=== PATIENT | male | born 1950 | race Caucasian/White ===

== ENCOUNTER 2023-08-09 14:04 | Outpatient (OUT) | payer MEDICARE, OTHER, SELFPAY ==
[2023-08-09 14:53] LABS: Basophils Absolute Auto 0.1 10^3/uL (0.0-0.1); Eosinophils Absolute Auto 0.3 10^3/uL (0.0-0.7); Eosinophils Percent Auto 5.6 % (0.9-7.0); Hematocrit 41.6 % (42.0-54.0); Hemoglobin 13.2 g/dL (14.0-18.0); Immature Granulocytes Abs Auto 0.02 10^3/uL (0.00-0.03); Immature Granulocytes Pct Auto 0.4 % (0.0-0.5); Lymphocytes Absolute Auto 1.2 10^3/uL (1.2-3.8); Lymphocytes Percent Auto 23.9 % (20.5-60.0); Mean Corpuscular HGB Conc 31.7 g/dL (29.9-35.2); Mean Corpuscular Hemoglobin 26.5 pg (25.9-34.0); Mean Corpuscular Volume 83.4 fL (80.0-94.0); Mean Platelet Volume 11.2 fL (9.5-13.5); Monocytes Absolute Auto 0.4 10^3/uL (0.3-0.8); Monocytes Percent Auto 8.7 % (1.7-12.0); Neutrophils Percent Auto 60.4 % (43.0-75.0); Platelet Count 194 10^3/uL (150-450); Red Blood Count 4.99 10^6/uL (4.70-6.10)
[2023-08-09 15:01] LABS: Erythrocyte Sedimentation Rate 30 mm/hr (<=20)
[2023-08-09 15:26] LABS: Alanine Aminotransferase 19 U/L (16-63); Albumin Globulin Ratio 0.9; Albumin Level 3.6 g/dL (3.4-5.0); Alkaline Phosphatase 83 U/L (46-116); Anion Gap 9.7; Aspartate Amino Transferase 15 U/L (15-37); BUN Creatinine Ratio 18.2; Bilirubin Total 0.6 mg/dL (0.2-1.0); Carbon Dioxide 28.5 mmol/L (21.0-32.0); Chloride 102 mmol/L (98-107); Estimated GFR (African America >60 (>=60); Estimated GFR (Non-African Ame >60 (>=60); Globulin 3.8 g/dL; Glucose 119 mg/dL (74-106); Potassium 4.2 mmol/L (3.5-5.1); Sodium 136 mmol/L (136-145); Total Protein 7.4 g/dL (6.4-8.2)
== END 2023-08-09 14:05 | disposition home or self-care (01) ==
LOC: LAB 14:13
PROVIDERS: Internal Medicine Rheumatology; PCP Nurse Practitioner; Visit Provider Registered Nurse
DX: M13.0 Polyarthritis, unspecified (principal); Z79.899 Other long term (current) drug therapy
CPT/HCPCS: 36415; 80053; 85025; 85652

== ENCOUNTER 2024-01-10 12:34 | Outpatient (OUT) | payer MEDICARE, OTHER, SELFPAY ==
[2024-01-10 13:26] LABS: Basophils Absolute Auto 0.1 10^3/uL (0.0-0.1); Basophils Percent Auto 1.4 % (0.2-2.0); Eosinophils Absolute Auto 0.4 10^3/uL (0.0-0.7); Eosinophils Percent Auto 7.8 % (0.9-7.0); Hematocrit 44.3 % (42.0-54.0); Hemoglobin 14.1 g/dL (14.0-18.0); Immature Granulocytes Abs Auto 0.03 10^3/uL (0.00-0.03); Immature Granulocytes Pct Auto 0.6 % (0.0-0.5); Lymphocytes Absolute Auto 1.4 10^3/uL (1.2-3.8); Lymphocytes Percent Auto 26.9 % (20.5-60.0); Mean Corpuscular HGB Conc 31.8 g/dL (29.9-35.2); Mean Corpuscular Hemoglobin 26.5 pg (25.9-34.0); Mean Corpuscular Volume 83.3 fL (80.0-94.0); Mean Platelet Volume 11.6 fL (9.5-13.5); Monocytes Absolute Auto 0.5 10^3/uL (0.3-0.8); Neutrophils Absolute Auto 2.7 10^3/uL (1.4-6.5); Neutrophils Percent Auto 53.3 % (43.0-75.0); Platelet Count 179 10^3/uL (150-450); Red Blood Count 5.32 10^6/uL (4.70-6.10); Red Cell Distribution Width 15.5 % (11.0-15.0); White Blood Count 5.1 10^3/uL (4.0-11.0)
[2024-01-10 13:30] LABS: Erythrocyte Sedimentation Rate 15 mm/hr (<=20)
[2024-01-10 13:46] LABS: Alanine Aminotransferase 22 U/L (16-63); Albumin Level 3.7 g/dL (3.4-5.0); Alkaline Phosphatase 80 U/L (46-116); Anion Gap 14.5; Aspartate Amino Transferase 18 U/L (15-37); BUN Creatinine Ratio 15.9; Bilirubin Total 0.6 mg/dL (0.2-1.0); Carbon Dioxide 26.7 mmol/L (21.0-32.0); Chloride 101 mmol/L (98-107); Estimated GFR (African America >60 (>=60); Estimated GFR (Non-African Ame >60 (>=60); Globulin 3.6 g/dL; Glucose 128 mg/dL (74-106); Potassium 4.2 mmol/L (3.5-5.1); Sodium 138 mmol/L (136-145); Total Protein 7.3 g/dL (6.4-8.2)
== END 2024-01-10 12:35 | disposition home or self-care (01) ==
LOC: LAB 12:37
PROVIDERS: PCP Nurse Practitioner; Visit Provider Registered Nurse
DX: M06.4 Inflammatory polyarthropathy (principal); M15.0 Primary generalized (osteo)arthritis; Z79.899 Other long term (current) drug therapy
CPT/HCPCS: 36415; 80053; 85025; 85652

== ENCOUNTER 2024-01-10 12:40 | Outpatient (OUT) | payer MEDICARE, OTHER, SELFPAY ==
[2024-01-10 13:37] LABS: Creatinine Urine Random 81.88 mg/dL (20.00-300.00); Microalbum Creatinine Ratio Ur 62.2 mg/g (0.0-29.9); Microalbumin Urine Random 5.1 mg/dL (<=30.0)
[2024-01-10 13:48] LABS: Cholesterol 125 mg/dL (<=200); HDL Cholesterol 62 mg/dL (40-60); Phosphorus 3.4 mg/dL (2.6-4.7); Triglycerides 91 mg/dL (<=150); VLDL CHOLESTEROL 18.2 mg/dL
== END 2024-01-10 12:41 | disposition home or self-care (01) ==
LOC: LAB 12:42
PROVIDERS: PCP Nurse Practitioner; Visit Provider Internal Medicine
DX: E11.59 Type 2 diabetes mellitus with other circulatory complications (principal); Z79.4 Long term (current) use of insulin; E55.9 Vitamin D deficiency, unspecified
CPT/HCPCS: 36415; 80061; 82043; 82306; 82570; 84100

== ENCOUNTER 2024-01-10 12:43 | Outpatient (OUT) | payer MEDICARE, OTHER, SELFPAY ==
[2024-01-10 13:51] LABS: Thyroid Stimulating Hormone 2.478 uIU/mL (0.358-3.740)
[2024-01-10 14:28] LABS: Prostate Specific Antigen Scrn 0.97 ng/mL (<=4.00)
== END 2024-01-10 12:44 | disposition home or self-care (01) ==
LOC: LAB 12:44
PROVIDERS: PCP Nurse Practitioner; Visit Provider Nurse Practitioner
DX: M06.4 Inflammatory polyarthropathy (principal); M15.0 Primary generalized (osteo)arthritis; Z79.899 Other long term (current) drug therapy; E11.59 Type 2 diabetes mellitus with other circulatory complications; Z79.4 Long term (current) use of insulin; E55.9 Vitamin D deficiency, unspecified; Z12.5 Encounter for screening for malignant neoplasm of prostate; E11.69 Type 2 diabetes mellitus with other specified complication; E78.2 Mixed hyperlipidemia
CPT/HCPCS: 36415; 80053; 80061; 82043; 82306; 82570; 84100; 84443; 85025; 85652; G0103

== ENCOUNTER 2024-06-15 14:25 | Outpatient (OUT) | payer MEDICARE, OTHER, SELFPAY ==
--- OUTSIDE RECORDS SUMMARY | 2024-06-15 14:37 | XMS_ITS | CCD ---
Author Organization [facility] Care Team Providers Care Athletic Coordinator Name Role Phone ESCOBAR GARCIA Consulting Unavailable GARCIA, ESCOBAR Attending Unavailable GARCIA, ESCOBAR Admitting Unavailable GARCIA, ESCOBAR Primary Care Unavailable HO, DR WALKER Admitting Unavailable HO, DR WALKER Consulting Unavailable HO, DR WALKER Attending Unavailable GARCIA, ESCOBAR Primary Care Unavailable HO, DR WALKER Admitting Unavailable HO, DR WALKER Consulting Unavailable GARCIA, ESCOBAR Primary Care Unavailable HO, DR WALKER Attending Unavailable MARIAM, BOSTON Consulting Unavailable GARCIA, ESCOBAR Primary Care Unavailable MARIAM, BOSTON Attending Unavailable MARIAM, AHMAWaqas Admitting Unavailable GARCIA, ESCOBAR Primary Care Unavailable MISC, DR ESPINO Consulting Unavailable MISC, DR ESPINO Attending Unavailable MISC, DR ESPINO Admitting Unavailable GARCIA, ESCOBAR Primary Care Unavailable GARCIA, ESCOBAR Consulting Unavailable GARCIA, ESCOBAR Attending Unavailable GARCIA, ESCOBAR Admitting Unavailable Garcia, MALTHOUSE LABORER-C Escobar Smith Primary Care Provider MD Tirso Ho Attending Provider [phone] Jose PHARMACY TECHNICIAN TRAINEE-Escobar TOVAR Primary Care Provid er ESCOBAR GARCIA Attending Unavailable ESCOBAR GARCIA Referring Unavailable ESCOBAR GARCIA Primary Care Unavailable ESCOBAR GARCIA Attending Unavailable ESCOBAR GARCIA Referring Unavailable ESCOBAR GARCIA Primary Care Unavailable ESCOBAR GARCIA Attending Unavailable ESCOBAR GARCIA Referring Unavailable ESCOBAR GARCIA Primary Care Unavailable ESCOBAR GARCIA Referring Unavailable ESCOBAR GARCIA Primary Care Unavailable Garcia, MALTHOUSE LABORER-C Escobar J Primary Care Provider Chad [employer]ATION-BC Latricia Anderson Emergency Provider [phone] Latricia Bonilla Attending Unavailable Latricia Bonilla Admitting Unavailable Escobar Garcia Primary Care Unavailable Escobar Garcia Primary Care Unavailable Aaron Ho Attending Unavailable Aaron Ho Admitting Unavailable Medications Current Medications Medication Drug Class(es) Dates Sig (Normalized) Sig (Original) allopurinol 100 mg oral tablet (2 sources) Xanthine Oxidase Inhibitor Start: 01-21-2022 take 100 mg by mouth once daily Allopurinol Active 100 MG PO Daily January 21, 2022 12:00am amLODIPine 10 mg oral tablet (9 sources) Dihydropyridine Calcium Channel Jenn Start: 01-02-2024 take 1 tablet by mouth in the morning amLODIPine (NORVASC) 10 mg tablet Indications: Essential hypertension Take 1 tablet (10 mg total) by mouth in the morning. 90 tablet 1 01/02/2024 Active Start: 07-23-2020 End: 01-02-2024 take 1 tablet by mouth in the morning amLODIPine (NORVASC) 10 mg tablet Indications: Essential hypertension Take 1 tablet (10 mg total) by mouth in the morning. 90 tablet 1 09/15/2023 01/02/2024 Discontinued (Reorder) apixaban 5 mg oral tablet (11 sources) Factor Xa Inhibitor Start: 01-02-2024 take 1 tablet by mouth in the morning, then take 1 tablet by mouth at bedtime apixaban (ELIQUIS) 5 mg tablet Indications: Chronic atrial fibrillation (CMS-HCC) Take 1 tablet (5 mg total) by mouth in the morning and 1 tablet (5 mg total) before bedtime. 0 01/02/2024 Active Start: 01-21-2022 End: 01-02-2024 take 1 tablet by mouth in the morning, then take 1 tablet by mouth at bedtime apixaban (ELIQUIS) 5 mg tablet Indications: Chronic atrial fibrillation (CMS-HCC) Take 1 tablet (5 mg total) by mouth in the morning and 1 tablet (5 mg total) before bedtime. Do all this for 21 days. 42 tablet 0 01/02/2024 01/02/2024 Discontinued (Reorder) aspirin 81 mg delayed release oral tablet (7 sources) Platelet Aggregation Inhibitor, Nonsteroidal Anti-inflammatory Drug Start: 02-20-2024 take 1 tablet by mouth once daily Aspirin (Adult Aspirin Regimen) 81 mg tablet,delayed release (DR/EC) Active 81 MG PO Daily February 20, 2024 12:00am Start: 10-12-2022 take 1 tablet by hoa th in the morning aspirin 81 mg Take 1 tablet (81 mg total) by mouth in the morning. 90 tablet 3 10/12/2022 Active clindamycin 300 mg oral capsule (1 source) Lincosamide Antibacterial Start: 12-29-2023 take 1 capsule by mouth every eight hours clindamycin (CLEOCIN) 300 mg capsule TAKE 1 CAPSULE BY MOUTH EVERY 8 HOURS FOR 10 DAYS 0 12/29/2023 Active clopidogrel 75 mg oral tablet (2 sources) P2Y12 Platelet Inhibitor Start: 01-21-2022 take 75 mg by mouth once daily Clopidogrel Active 75 MG PO Daily January 21, 2022 12:00am colchicine 0.6 mg oral tablet (2 sources) Start: 01-21-2022 take 0.6 mg by mouth once daily Colchicine Active 0.6 MG PO Daily January 21, 2022 12:00am Take for 14 days, started January 20 2022 doxycycline hyclate 100 mg oral tablet (3 sources) Tetracycline-class Drug Start: 12-26-2023 take 1 tablet by mouth twice daily doxycycline (VIBRA-TABS) 100 mg tablet TAKE 1 TABLET BY MOUTH TWICE DAILY 0 12/26/2023 Active Start: 01-21-2022 take 100 mg by mouth twice daily Doxycycline Hyclate Active 100 MG PO Twice daily January 21, 2022 12:00am For 10 days famotidine 40 mg oral tablet (9 sources) Histamine-2 Receptor Antagonist Start: 01-21-2022 End: 10-24-2023 famotidine (PEPCID) 40 mg tablet Indications: Gastroesophageal reflux disease without esophagitis TAKE 1 TABLET IN THE MORNING 90 tablet 1 10/24/2023 Active gentamicin 0.001 mg/mg topical ointment (2 sources) Start: 01-21-2022 Gentamicin Active 1 APPLIC TOPICAL Daily January 21, 2022 12:00am hydroxychloroquine sulfate 200 mg oral tablet (7 sources) Antimalarial, Antirheumatic Agent Start: 02-20-2024 take 1 tablet by mouth twice daily Hydroxychloroquine (Plaquenil) 200 mg tablet Active 200 MG PO Twice daily February 20, 2024 12:00am Start: 04-25-2023 take 1 tablet by hoa th in the morning, then take 1 tablet by mouth at bedtime hydrOXYchloroQUINE (PLAQUENIL) 200 mg tablet Take 1 tablet (200 mg total) by mouth in the morning and 1 tablet (200 mg total) before bedtime. 0 04/25/2023 Active insulin isophane, human 100 unt/ml injectable suspension (10 sources) Start: 01-22-2022 Insulin Nph Is oph U-100 Human (Novolin N Nph U-100 Insulin) 100 unit/mL suspension Active 70 UNIT SUBCUT Daily at bedtime January 22, 2022 1:42pm Increase night dose to 70U while on the prednisone. Please follow up with PCP after discharge as dose may need to be adjusted. Start: 07-23-2020 End: 01-22-2022 Insulin Nph Isoph U-100 Jhoana n (Novolin N Nph U-100 Insulin) 100 unit/mL suspension Discontinued 62 UNIT SUBCUT Daily at bedtime July 23, 2020 12:00am January 22, 2022 1:44pm Insulin Regular Human (2 sources) Start: 01-21-2022 Insulin Regular Human Active 0 .ROUTE .COMPLEX January 21, 2022 12:00am Inject under the skin three times a day before meals. Sliding scale 18u small meal, 20u medium meal, 22u large meal. insulin, regular, human 100 unt/ml injectable solution (6 sources) Insulin inject 0.2 mL by subcutaneous injection in the morning insulin regular (HumuLIN R,NovoLIN R) 100 unit/mL injection Inject 0.2 mL (20 Units total) under the skin in the morning and 0.2 mL (20 Units total) at noon and 0.2 mL (20 Units total) in the evening. Inject before meals. Sliding scale: 18 u small meal, 20 u med meal, 22 u large meal . 0 Active levothyroxine sodium 0.15 mg oral tablet (10 sources) l-Thyroxine Start: 02-20-2024 take 1 tablet by mouth once daily Levothyroxine (Euthyrox) 150 mcg tablet Active 150 MCG PO Daily February 20, 2024 12:00am Start: 07-23-2020 End: 11-14-2023 levothyroxine (SYNTHROID, LE VOTHROID) 150 MCG tablet Indications: Acquired hypothyroidism TAKE 1 TABLET EVERY MORNING 90 tablet 1 11/14/2023 Active losartan potassium 100 mg oral tablet (10 sources) Angiotensin 2 Receptor Jenn Start: 02-20-2024 take 100 mg by mouth once daily Losartan Active 100 MG PO Daily February 20, 2024 12:00am Start: 01-02-2024 take 1 tablet by hoa th in the morning losartan (COZAAR) 100 mg tablet Indications: Essential hypertension Take 1 tablet (100 mg total) by mouth in the morning. 90 tablet 1 01/02/2024 Active Start: 09-15-2023 End: 01-02-2024 take 1 tablet by mouth in the morning losartan (COZAAR) 100 mg tablet Indications: Essential hypertension Take 1 tablet (100 mg total) by mouth in the morning. 90 tablet 1 09/15/2023 01/02/2024 Discontinued (Reorder) Start: 01-22-2022 End: 02-20-2024 take 50 mg by mouth once daily in the morning Losartan Discontinued 50 MG PO Every morning January 22, 2022 12:00am February 20, 2024 10:49am metFORMIN hydrochloride 1000 mg oral tablet (8 sources) Biguanide Start: 02-21-2017 take 1000 mg by mouth twice daily Metformin Active 1000 MG PO Twice daily July 23, 2020 12:00am Mcnabb-3 Fatty Acids (2 sources) Start: 01-21-2022 take 1000 mg by mouth once daily Mcnabb-3 Fatty Acids Active 1000 MG PO Daily January 21, 2022 12:00am omega-3 fatty acids-fish oil 300-1,000 mg capsule (6 sources) take 2 capsules by mouth in the morning omega-3 fatty acids-fish oil 300-1,000 mg capsule Take 2 capsules (2 g total) by mouth in the morning. 0 Active simvastatin 20 mg oral tablet (8 sources) HMG-CoA Reductase Inhibitor Start: 09-15-2023 take 1 tablet by mouth in the morning simvastatin (ZOCOR) 20 mg tablet Indications: DM type 2 with diabetic mixed hyperlipidemia (CMS-HCC) Take 1 tablet (20 mg total) by mouth in the morning. 90 tablet 1 09/15/2023 Active Start: 07-23-2020 take 10 mg by mouth once daily Simvastatin Active 10 MG PO Daily July 23, 2020 12:00am Completed/Discontinued Medications Medication Drug Class(es) Dates Sig (Normalized) Sig (Original) acetaminophen 325 mg / oxyCODONE hydrochloride 5 mg oral tablet (4 sources) Opioid Agonist Start: 01-22-2022 End: 02-20-2024 take 1 tablet by mouth every six hours Oxycodone-Acetam inophen (Percocet) 5-325 mg tablet Discontinued 1 - 2 TAB PO Every 6 hours 30 February 20, 2022 February 20, 2024 10:50am cephalexin 500 mg oral capsule (2 sources) Cephalosporin Antibacterial Start: 07-23-2020 End: 01-21-2022 take 500 mg by mouth every six hours Cephalexin Discontinued 500 MG PO Q6H 28 July 23, 2020 12:00am January 21, 2022 12:41am hydroCHLOROthiazide 25 mg / lisinopril 20 mg oral tablet (2 sources) Thiazide Diuretic, Angiotensin Converting Enzyme Inhibitor Start: 07-23-2020 End: 01-22-2022 take 1 tablet by mouth once daily Lisinopril-[place] chlorothiazide Discontinued 1 TAB PO Daily July 23, 2020 12:00am January 22, 2022 1:44pm Multivitamin preparation (2 sources) Start: 01-21-2022 End: 02-20-2024 take 1 tablet by mouth once daily Multivitamin Discontinued 1 TAB PO Daily January 21, 2022 12:00am February 20, 2024 10:50am Start: 01-21-2022 take 1 tablet by hoa th once daily Multivitamin Active 1 TAB PO Daily January 21, 2022 12:00am polyethylene glycol 3350 06539 mg powder for oral solution (2 sources) Osmotic Laxative Start: 01-22-2022 End: 02-20-2024 Polyethylene Glycol 3350 (Miralax) 17 gram Powder In Packet Discontinued 17 GM PO Twice daily January 22, 2022 12:00am February 20, 2024 10:50am predniSONE 10 mg oral tablet (4 sources) Start: 02-20-2022 End: 02-20-2024 take 20 mg by mouth once daily Prednisone Discontinued 20 MG PO Daily February 20, 2022 12:00am February 20, 2024 10:50am Start: 01-22-2022 End: 02-20-2024 take 40 mg by mouth twice daily Prednisone Discontinued 40 MG PO Twice daily 28 7 January 22, 2022 12:00am February 20, 2024 10:50am sennosides, fci 1.76 mg/ml oral solution (2 sources) Start: 01-22-2022 End: 02-20-2024 take 8.8 mg by mouth twice daily Sennosides (Senna) 8.8 mg/5 mL Syrup Discontinued 8.8 MG PO Twice daily 120 January 22, 2022 12:00am February 20, 2024 10:50am sulfamethoxazole 800 mg / trimethoprim 160 mg oral tablet (2 sources) Dihydrofolate Reductase Inhibitor Antibacterial, Sulfonamide Antimicrobial Start: 01-21-2022 End: 02-20-2024 take 1 tablet by mouth twice daily Sulfamethoxazole- Trimethoprim (Bactrim Ds) 800-160 mg Tablet Discontinued 1 TAB PO Twice daily January 21, 2022 12:00am February 20, 2024 10:50am for 10 days Problems Active Problems Problem Classification Problem Date Documented Da te Episodic/Chronic Cardiac dysrhythmias (9 sources) Chronic atrial fibrillation; Translations: [Chronic atrial fibrillation, unspecified] Onset: 1 01-19-2022 Chronic Chronic ulcer of skin (6 sources) Non-pressure chronic ulcer of other part of left foot with unspecified severity; Translations: [Ulcer of other part of foot] Onset: 2 02-24-2022 Chronic Coronary atherosclerosis and other heart disease (10 sources) Atherosclerotic heart disease of [place] coronary artery without angina pectoris; Translations: [Coronary arteriosclerosis] Onset: 1 Chronic Diabetes mellitus with complications (20 sources) Type 2 diabetes mellitus with other circulatory complications; Translations: [Neuropathy due to diabetes mellitus] Onset: 7 Chronic Diabetes mellitus without complication (2 sources) Diabetes mellitus; Translations: [Type 2 diabetes mellitus without complications] 01-21-2022 Chronic Disorders of lipid metabolism (8 sources) Mixed hyperlipidemia; Translations: [Mixed hyperlipidemia] Onset: 1 08-21-2021 Chronic Esophageal disorders (2 sources) Gastroesophageal reflux disease without esophagitis; Translations: [Gastro-esophageal reflux disease without esophagitis] Onset: 4 10-24-2023 Chronic Essential hypertension (12 sources) Hypertensive disorder; Translations: [Essential (primary) hypertension] Onset: 7 01-21-2022 Chronic Gout and other crystal arthropathies (4 sources) Idiopathic gout, unspecified site; Translations: [IDIOPATHIC GOUT UNSPECIFIED SITE] Onset: 2 Chronic Nutritional deficiencies (1 source) Vitamin D deficiency, unspecified; Translations: [VITAMIN D DEFICIENCY UNSPECIFIED] Onset: 2 Chronic Open wounds of head; neck; and trunk (2 sources) Laceration - injury; Translations: [Laceration] 07-23-2020 Episodic Osteoarthritis (1 source) Unspecified osteoarthritis, unspecified site; Translations: [UNSPECIFIED OSTEOARTHRITIS UNS SITE] Onset: 3 Chronic Other aftercare (1 source) Other furnace checker (current) drug therapy; Translations: [OTH EXECUTIVE CONSULTANT CURRENT DRUG THERAPY] Onset: 3 Episodic Other connective tissue disease (2 sources) Polymyalgia rheumatica; Translations: [Polymyalgia rheumatica] 01-21-2022 Chronic Other gastrointestinal disorders (9 sources) Constipation; Translations: [Constipation, unspecified] Onset: 2 01-22-2022 Episodic Other non-traumatic joint disorders (6 sources) Polyarthritis, unspecified; Translations: [POLYARTHRITIS UNSPECIFIED] Onset: 2 Chronic Other non-traumatic joint disorders (2 sources) Polyarthropathy; Translations: [Polyarthritis, unspecified] 02-20-2022 Chronic Other nutritional; endocrine; and metabolic disorders (6 sources) Body mass index 30+ - obesity; Translations: [Obesity, unspecified] Onset: 8 09-25-2018 Chronic Superficial injury; contusion (2 sources) Contusion of trunk; Translations: [Contusion of lower back and pelvis, initial encounter] Onset: 4 02-20-2024 Episodic Thyroid disorders (8 sources) Hypothyroidism; Translations: [Hypothyroidism, unspecified] Onset: 7 05-24-2017 Chronic Unclassified (2 sources) Chronic atrial fibrillation, unspecified; Translations: [CHRONIC ATRIAL FIBRILLATION UNSPEC] Onset: 2 Unclassified (1 source) Annual Exam Onset: 4 Unclassified (1 source) BP check Onset: 4 Past or Other Problems Problem Classification Problem Date Documented Da te Episodic/Chronic Fluid and electrolyte disorders (6 sources) Hyponatremia; Translations: [Hypo-osmolality and hyponatremia] Onset: 01-17-2022 01-17-2022 Episodic Immunizations and screening for infectious disease (11 sources) Encounter for screening for other viral diseases; Translations: [Encounter for immunization] Onset: 09-26-2017 Resolved: 01-01-2021 Episodic Infective arthritis and osteomyelitis (except that caused by tuberculosis or sexually transmitted disease) (6 sources) Osteomyelitis; Translations: [Osteomyelitis, unspecified] Onset: 01-17-2022 Resolved: 09-08-2022 09-08-2022 Chronic Malaise and fatigue (6 sources) Fatigue; Translations: [Other fatigue] Onset: 08-21-2021 08-21-2021 Episodic Mood disorders (6 sources) Mood disorders Onset: 09-15-2023 Resolved: 01-02-2024 09-15-2023 Nonspecific chest pain (6 sources) Chest pain; Translations: [Other chest pain] Onset: 08-21-2021 08-21-2021 Episodic Other aftercare (1 source) care home (current) use of insulin; Translations: [[facility] CURRENT USE OF INSULIN] Onset: 08-17-2022 Episodic Other screening for suspected conditions (not mental disorders or infectious disease) (12 sources) Patient encounter status; Translations: [Encounter for screening for malignant neoplasm of prostate] Onset: 09-26-2017 06-10-2020 Episodic Unclassified (6 sources) Onset: 09-20-2023 Resolved: 01-02-2024 09-20-2023 Results Test Name Value Interpretation Reference Range Facility CT abdomen pelvis wo [place] [id number] 02-20-2024 CT abdomen pelvis wo [facility] Main [place] [id number] CT Scan Report Signed Patient: Mitchell Ga MR#: [id number] 48 : 1950 Acct:[id number] Age/Sex: 73 / M ADM Date: 02/20/24 Loc: ER Room: Type: [facility] ER Attending Dr: Copies to: MATTHEW Larson Ordering Provider: MATTHEW Larson Date of Service: 02/20/24 CT/CT abdomen pelvis wo con: constipation and evaluate for pelvic bone injury CT abdomen pelvis wo con 02/20/2024 11:01 AM SIGNS AND SYMPTOMS: constipation and evaluate for pelvic bone injury, pain in coccyx fell last Tuesday TECHNIQUE: Multidetector ct axial images of the abdomen and pelvis were obtained without IV contrast. Multiplanar reformats were performed and reviewed to further define anatomy and possible pathology. CT was performed with one or more of the following dose reduction techniques: Automated exposure control, adjustment of the mA and/or kV according to patient size, or use of iterative reconstruction technique. COMPARISON: None. FINDINGS: Lower Chest: Atherosclerotic disease noted in the thoracic aorta and coronary arteries. There is a 3 mm noncalcified nodule in the left lower lobe. ABDOMEN: Liver: There is a calcified granuloma near the dome of the liver. Bile Ducts: Normal caliber. Gallbladder: No calcified gallstones. Normal caliber wall. Pancreas: There is a punctate calcification in the pancreatic head which may be secondary to chronic pancreatitis. Spleen: Within normal limits. Adrenals: Within normal limits. Kidneys: There is a simple cyst in the right renal cortex requiring no further follow-up. Smaller simple cyst is noted on the left. A hyperattenuating/hemo rrhagic cyst is present at the superior pole on the left. Pelvis: Reproductive Organs: No pelvic masses. Ureters: Within normal limits. Bladder: Within normal limits. Bowel: Normal caliber. There is a normal appendix in the right lower quadrant. There is a moderate to large amount stool in colon which may be consistent with a history of constipation. There are a few uncomplicated colonic diverticula. Mesenteric Lymph Nodes: Within normal limits. Peritoneum: No ascites or free air, no fluid collection. Vessels: Atherosclerotic changes are noted in the abdominal aorta. Retroperitoneum: There are a few nonspecific retroperitoneal lymph nodes in the iliac chains bilaterally. Abdominal Wall: Within normal limits. Bones: Degenerative changes are noted in the thoracic and lumbar spine as well as the sacroiliac joints, right greater than left. There are sclerotic foci within the left hemipelvis and within the right side of the sacroiliac joint. These are nonspecific. Sclerotic metastatic disease is not excluded. The largest measures 2 cm in greatest dimension. No fracture. CT/CT abdomen pelvis wo con IMPRESSION: No acute intra-abdominal pathology. No evidence of fracture. There is a moderate to large amount stool in colon which may be consistent with a history of constipation. There are a few uncomplicated diverticula. Impression dictated by: Marcos Mayorga M.D.02/20/2024 11:59 AM Dictation Location: [place] [address] Transcribed By: [facility] 02/20/24 1159 Dictated By: Marcos Mayorga II, MD 02/20/24 1146 Signed By: 02/20/24 1159 Normal [facility] CT cervical spine wo conon 0 02-20-2024 CT cervical spine wo con [facility] Main [place] [address] [place] [address] CT Scan Report Signed Patient: Mitchell Ga MR#: [id number] 49 : 1950 Acct:[id number] Age/Sex: 73 / M ADM Date: 02/20/24 Loc: ER Room: Type: [facility] ER Attending Dr: Copies to: MATTHEW Larson Ordering Provider: MATTHEW Larson Date of Service: 02/20/24 CT/CT head/brain wo con: fell last Tuesday hit head on thinners ([id number]) CT/CT cervical spine wo con: fall last Tuesday CT head/brain wo con, CT cervical spine wo con 02/20/2024 11:01 AM SIGNS AND SYMPTOMS: Fall landing on concrete hitting back of head. Pain in coccyx TECHNIQUE:Multi-detec tor CT axial slices of the brain and cervical spine were obtained without IV contrast. Helical,sagittal, coronal, and 3-D reconstructions of the cervical spine were performed. CT was performed with one or more of the following dose reduction techniques: Automated exposure control, adjustment of the mA and/or kV according to patient size, or use of iterative reconstruction technique. COMPARISON: None. FINDINGS: Noncontrast head CT: There is no shift of the midline structures, acute intracranial bleeding, mass effects, or evidence of acute ischemia. Atherosclerotic changes are noted in the intracranial segments of the internal carotid arteries and V4 segment of the left vertebral artery. There is periventricular white matter hypoattenuation extending into the subcortical white matter bilaterally. This is more pronounced on the right. The ventricular system is normal in size. The brainstem and the cerebellum are unremarkable. The visualized intraorbital contents and the infratemporal soft tissues show no acute abnormality. Mucosal thickening is noted in the maxillary sinuses. The osseous structures in the skull base and the calvarium show no abnormality. Mild subcutaneous soft tissue swelling is noted posteriorly. Cervical spine: There is preservation of the vertebral body heights. There is moderate disc height loss at C4-C5 and C6-C7. There is mild disc height loss at C5-C6. Facet degenerative changes are present with autofusion right greater than left at C2-C3 and C3-C4 along the posterior elements. No fractures or dislocations are seen. The alignment of the cervical spine is normal. Atherosclerotic changes are noted in the carotid bifurcations. The craniocervical junction and atlantoaxial joint are within normal limits. The prevertebral soft tissues are within normal limits. The paraspinous soft tissues are within normal limits. The lung apices are unremarkable. CT/CT head/brain wo con IMPRESSION: No acute intracranial pathology. Mild soft tissue swelling is noted in the posterior subcutaneous scalp. Chronic age-related neurodegenerative changes are present, as above. No acute cervical spine injury. Multifocal degenerative changes noted in the cervical spine as above. Impression dictated by: Marcos Mayorga M.D.02/20/2024 11:46 AM Dictation Location: [place] [address] Transcribed By: [facility] 02/20/24 1146 Dictated By: Marcos Mayorga II, MD 02/20/24 1137 Signed By: 02/20/24 1146 Normal [facility] BASIC METABOLIC PANLon 02-08 Anion gap [Moles/Vol] 9 mmol/L Normal 5-15 [facility] Comment on above: Performed By: #### B , [id number] #### [facility] ([id number]) [address], [address] [place] [address] Calcium [Mass/Vol] 9.5 mg/dL Normal 8.5-10.5 [facility] Comment on above: Performed By: #### Jaya DANIELSON, [id number] #### [facility] ([id number]) [address], [address] [place] [address] Chloride [Moles/Vol] 106 mmol/L Normal 98-109 [facility] Comment on above: Performed By: #### Jaya DANIELSON, [id number] #### [facility] ([id number]) [address], [address] [place] [address] CO2 [Moles/Vol] 24 mmol/L Normal 22-32 [facility] Comment on above: Performed By: #### Jaya DANIELSON, [id number] #### [facility] ([id number]) [address], [address] [place] [address] Creatinine [Mass/Vol] 0.84 mg/dL Normal 0.60-1.30 [facility] Comment on above: Result Comment: METH OD TRACEABLE TO IDMS STANDARD Performed By: #### Jaya DANIELSON, [id number] #### [facility] ([id number]) [address] [place] [address] eGFR (CKD-EPI) NON-RACE DEPENDENT >90 Normal >59 [facility] Comment on above: Result Comment: Reported eGFR is based on the CKD-EPI 2020 equation that does not use a race coefficient. Performed By: #### Jaya DANIELSON, [id number] #### [facility] ([id number]) [address], [address] [place] [address] Glucose [Mass/Vol] 112 mg/dL High 65-99 [facility] Comment on above: Performed By: #### Jaya DANIELSON, [id number] #### [facility] ([id number]) [address], [address] [place] [address] Potassium [Moles/Vol] 4.0 mmol/L Normal 3.5-5.0 [facility] Comment on above: Performed By: #### Jaya DANIELSON, [id number] #### [facility] ([id number]) [address], [address] [place] [address] Sodium [Moles/Vol] 139 mmol/L Normal 134-146 [facility] Comment on above: Performed By: #### Jaya DANIELSON, [id number] #### [facility] ([id number]) [address], [address] [place] [address] Urea nitrogen [Mass/Vol] 21 mg/dL Normal 5-27 [facility] Comment on above: Performed By: #### Jaya DANIELSON, [id number] #### [facility] ([id number]) [address], [address] [place] [address] Lipid 1996 panelon 4 Cholesterol [Mass/Vol] 110 mg/dL Low 150-200 [facility] Comment on above: Performed By: #### Jaya DANIELSON, [id number] #### [facility] ([id number]) [address], [address] [place] [address] Cholesterol in HDL [Mass/Vol] 48 mg/dL Normal >39 [facility] Comment on above: Result Comment: HDL <40 mg/dL - High Risk HDL > or = 40mg/dL- Desirable HDL >60 mg/dL - Negative Risk Performed By: #### Jaya DANIELSON, [id number] #### [facility] ([id number]) [address], [address] [place] [address] Cholesterol in LDL [Mass/Vol] 44 mg/dL Normal <130 [facility] Comment on above: Result Comment: LDL <100 mg/dL - Desirable LDL >160 mg/dL - High Risk Performed By: #### B JAGJIT, [id number] #### [facility] ([id number]) [address], [address] [place] [address] Cholesterol in VLDL [Mass/Vol] 18 mg/dL Normal 0-30 [facility] Comment on above: Performed By: #### Jaya DANIELSON, 87660-0 #### [facility] ([id number]) [address], [address] [place] [address] CHOLESTEROL:HDL 2.3 Normal 1.0-5.0 [facility] Comment on above: Performed By: #### Jaya DANIELSON, 14402-8 #### [facility] ([id number]) [address], [address] [place] [address] Triglyceride [Mass/Vol] 91 mg/dL Normal 27-150 P [facility] Comment on above: Performed By: #### Jaya DANIELSON, [id number] #### [facility] ([id number]) [address], [address] [place] [address] Alanine aminotransferase [En zymatic activity/volume] in Serum or PlasmaOrdered By: Erica Arroyo on 05-24-2023 ALT [Catalytic activity/Vol] 13 U/L 7-52 [facility] Albumin [Mass/volume] in Ser um or Plasma by Bromocresol green (BCG) dye binding methoOrdered By: Erica Arroyo on 05-24-2023 Albumin BCG dye [Mass/Vol] 4.3 g/dL 3.5-5.7 [facility] Alkaline phosphatase [Enzyma tic activity/volume] in Serum or PlasmaOrdered By: Erica Arroyo on 05-24-2023 ALP [Catalytic activity/Vol] 72 U/L 34-104 [facility] Aspartate aminotransferase [ Enzymatic activity/volume] in Serum or PlasmaOrdered By: Erica Arroyo on 08-15-2023 AST [Catalytic activity/Vol] 17 U/L 13-39 [facility] Basophils Auto (Bld) [#/Vol] Ordered By: Erica Arroyo on 05-24-2023 Basophils (Bld) [#/Vol] 0.0 10*3/uL 0.0-0.2 [facility] Basophils/100 WBC Auto (Bld) Ordered By: Erica Arroyo on 05-24-2023 Basophils/100 WBC (Bld) 0.7 % . F [facility] Bilirubin.total [Mass/volume ] in Serum or PlasmaOrdered By: Erica Arroyo on 05-24-2023 Bilirubin [Mass/Vol] 0.6 mg/dL 0.3-1.0 [facility] Calcium [Mass/volume] in Ser um or PlasmaOrdered By: Erica Arroyo on 05-24-2023 Calcium [Mass/Vol] 9.6 mg/dL 8.6-10.3 [facility] Carbon dioxide, total [Moles /volume] in Serum or PlasmaOrdered By: Erica Arroyo on 05-24-2023 CO2 [Moles/Vol] 26.9 mmol/L 21.0-31.0 [facility] Chloride [Moles/volume] in S amanda or PlasmaOrdered By: Erica Arroyo on 05-24-2023 Chloride [Moles/Vol] 105 mmol/L 98-107 [facility] Complete Blood Count Auto Di ffon 05-24-2023 Basophils (Bld) [#/Vol] 0.0 10*3/uL Normal 0.0-0.2 [facility] Comment on above: Performed By: #### C BC, ESR, CMP #### [facility] [address] [place] [address] [place] Basophils/100 WBC (Bld) 0.7 % Normal . T sandip [facility] Comment on above: Performed By: #### C BC, ESR, CMP #### [facility] [address] [id number] [place] Eosinophils (Bld) [#/Vol] 0.4 10*3/uL Normal 0.0-0.45 [facility] Comment on above: Performed By: #### C BC, ESR, CMP #### [place] [address] [place] Eosinophils/100 WBC (Bld) 7.6 % Normal . [facility] Comment on above: Performed By: #### C BC, ESR, CMP #### [address] Erythrocyte distribution width (RBC) [Ratio] 16.6 % High 12.0-14.8 [facility] Comment on above: Performed By: #### C BC, ESR, CMP #### [address] Hematocrit (Bld) [Volume fraction] 42.5 % Normal 38.8-50.0 [facility] Comment on above: Performed By: #### C BC, ESR, CMP #### [address] Hemoglobin (Bld) [Mass/Vol] 13.8 g/dL Normal 13.0-17.0 [facility] Comment on above: Performed By: #### C BC, ESR, CMP #### [address] Lymphocytes (Bld) [#/Vol] 1.1 10*3/uL Normal 1.00-4.8 [facility] Comment on above: Performed By: #### C BC, ESR, CMP #### [place] [address] [place] Lymphocytes/100 WBC (Bld) 20.8 % Normal . [facility] Comment on above: Performed By: #### C BC, ESR, CMP #### [address] MCH (RBC) [Entitic mass] 26.4 pg Low 27.5-35.2 [facility] Comment on above: Performed By: #### C BC, ESR, CMP #### [address] MCV (RBC) [Entitic vol] 81.6 fL Low 83.5-101 [facility] Comment on above: Performed By: #### C BC, ESR, CMP #### [address] Mean Corpuscular HGB Conc 32.4 g/dL Low 32.5-35.6 [facility] Comment on above: Performed By: #### C BC, ESR, CMP #### [address] Monocytes (Bld) [#/Vol] 0.6 10*3/uL Normal 0.0-0.8 [facility] Comment on above: Performed By: #### C BC, ESR, CMP #### [address] Monocytes/100 WBC (Bld) 11.7 % Normal . T [facility] Comment on above: Performed By: #### C BC, ESR, CMP #### [address] Neutrophils (Bld) [#/Vol] 3.1 10*3/uL Normal 1.8-7.7 [facility] Comment on above: Performed By: #### C BC, ESR, CMP #### [address] Neutrophils/100 WBC (Bld) 59.2 % Normal . [facility] Comment on above: Performed By: #### C BC, ESR, CMP #### [address] NRBC% 0.1 /100{WBC} Normal 0-0.5 [facility] Comment on above: Performed By: #### C BC, ESR, CMP #### [address] Platelet mean volume (Bld) [Entitic vol] 9.3 fL Normal 6.6-10.1 [facility] Comment on above: Performed By: #### C BC, ESR, CMP #### [address] Platelets (Bld) [#/Vol] 145 10*3/uL Low 150-450 [facility] Comment on above: Performed By: #### C BC, ESR, CMP #### [address] RBC (Bld) [#/Vol] 5.21 10*6/uL Normal 3.90-5.60 [facility] Comment on above: Performed By: #### C BC, ESR, CMP #### [address] WBC (Bld) [#/Vol] 5.2 10*3/uL Normal 4.1-10.5 [facility] Comment on above: Performed By: #### C BC, ESR, CMP #### [address] Comprehensive Metabolic Pane barrett 05-24-2023 Albumin [Mass/Vol] 4.3 g/dL Normal 3.5-5.7 [facility] Comment on above: Performed By: #### C BC, ESR, CMP #### [address] Albumin/Globulin [Mass ratio] 1.5 {ratio} Normal [facility] Comment on above: Performed By: #### C BC, ESR, CMP #### [address] ALP [Catalytic activity/Vol] 72 U/L Normal 34-104 [facility] Comment on above: Result Comment: PERF ORMED BY: [place] [address] PATHOLOGIST OIL TREATER RICO FARFAN M.D. Performed By: #### C BC, ESR, CMP #### [address] ALT [Catalytic activity/Vol] 13 U/L Normal 7-52 [facility] Comment on above: Performed By: #### C BC, ESR, CMP #### [address] Anion gap [Moles/Vol] 11.3 mmol/L Normal 6.0-15.0 [facility] Comment on above: Performed By: #### C BC, ESR, CMP #### [facility] [address] AST [Catalytic activity/Vol] 17 U/L Normal 13-39 [facility] Comment on above: Performed By: #### C BC, ESR, CMP #### [facility] [address] Bilirubin [Mass/Vol] 0.6 mg/dL Normal 0.3-1.0 [facility] Comment on above: Performed By: #### C BC, ESR, CMP #### [facility] [address] Calcium [Mass/Vol] 9.6 mg/dL Normal 8.6-10.3 [facility] Comment on above: Performed By: #### C BC, ESR, CMP #### [facility] [address] [place] [address] [place] Chloride [Moles/Vol] 105 mmol/L Normal 98-107 [facility] Comment on above: Performed By: #### C BC, ESR, CMP #### [facility] [address] [place] [address] [place] CO2 [Moles/Vol] 26.9 mmol/L Normal 21.0-31.0 [facility] Comment on above: Performed By: #### C BC, ESR, CMP #### [facility] [address] [place] [address] [place] Creatinine [Mass/Vol] 0.92 mg/dL Normal 0.70-1.30 [facility] Comment on above: Performed By: #### C BC, ESR, CMP #### [facility] [address] [place] [address] [place] GFR/1.73 sq M.predicted MDRD (S/P/Bld) [Vol rate/Area] mL/min/{1.73_m2} Normal [facility] Comment on above: Performed By: #### C BC, ESR, CMP #### [facility] [address] [place] [address] [place] Globulin (S) [Mass/Vol] 2.8 g/dL Normal T he [facility] Comment on above: Performed By: #### C BC, ESR, CMP #### [facility] [address] Glucose [Mass/Vol] 130 mg/dL High 70-100 [facility] Comment on above: Result Comment: [place] Glucose Reference Range is dependent on time and content of last meal. Glucose of more than 200 mg/dL in a nonstressed, ambulatory subject supports the diagnosis of Diabetes Mellitus. ADA recommended reference range Performed By: #### C BC, ESR, CMP #### [facility] [address] Potassium [Moles/Vol] 4.2 mmol/L Normal 3.5-5.1 [facility] Comment on above: Performed By: #### C BC, ESR, CMP #### [facility] [address] [place] [address] [place] Protein [Mass/Vol] 7.1 g/dL Normal 6.4-8.9 [facility] Comment on above: Performed By: #### C BC, ESR, CMP #### [facility] [address] [place] [address] [place] Sodium [Moles/Vol] 139 mmol/L Normal 136-145 [facility] Comment on above: Performed By: #### C BC, ESR, CMP #### [facility] [address] [place] [address] [place] Urea nitrogen [Mass/Vol] 20 mg/dL Normal 7-25 [facility] Comment on above: Performed By: #### C BC, ESR, CMP #### [facility] [address] [place] [id number] [place] Creatinine [Mass/volume] in Serum or PlasmaOrdered By: Erica Arroyo on 05-24-2023 Creatinine [Mass/Vol] 0.92 mg/dL 0.70-1.30 [facility] Eosinophils Auto (Bld) [#/Vo l]Ordered By: Erica Arroyo on 05-24-2023 Eosinophils (Bld) [#/Vol] 0.4 10*3/uL 0.0-0.45 [facility] Eosinophils/100 WBC Auto (Bl d)Ordered By: Erica Arroyo on 05-24-2023 Eosinophils/100 WBC (Bld) 7.6 % . [facility] Erythrocyte Sedimentation Ra eduin 05-24-2023 ESR (Bld) [Velocity] 19 mm/h Normal 0-19 [facility] Comment on above: Result Comment: PERF ORMED BY: [facility] [address] [place] [address] PATHOLOGIST OIL TREATER RICO FARFAN M.D. Performed By: #### C BC, ESR, CMP #### [facility] [address] Erythrocyte distribution wid th Auto (RBC) [Ratio]Ordered By: Erica Arroyo on 05-24-2023 Erythrocyte distribution width (RBC) [Ratio] 16.6 % 12.0-14.8 [facility] Erythrocyte sedimentation ra te by Photometric methodOrdered By: Erica Arroyo on 05-24-2023 ESR Photometric method (Bld) [Velocity] 19 mm/hr 0-19 [facility] Globulin Calc (S) [Mass/Vol] Ordered By: Erica Arroyo on 05-24-2023 Globulin (S) [Mass/Vol] 2.8 g/dL [facility] Glucose [Mass/volume] in Ser um or PlasmaOrdered By: Erica Arroyo on 05-24-2023 Glucose [Mass/Vol] 130 mg/dL 70-100 [facility] Comment on above: ADA recommended refe rence rangeRandom Glucose Reference Range is dependent on time and content of last meal. Glucose of more than 200 mg/dL in a nonstressed, ambulatory subject supports the diagnosis of Diabetes Mellitus. Hematocrit Auto (Bld) [Volum e fraction]Ordered By: Erica Arroyo on 05-24-2023 Hematocrit (Bld) [Volume fraction] 42.5 % 38.8-50.0 [facility] Hemoglobin [Mass/volume] in BloodOrdered By: Erica Arroyo on 05-24-2023 Hemoglobin (Bld) [Mass/Vol] 13.8 g/dL 13.0-17.0 [facility] Leukocytes [#/volume] correc devin for nucleated erythrocytes in Blood by Automated counOrdered By: Erica Arroyo on 05-24-2023 WBC corrected for nucl RBC Auto (Bld) [#/Vol] 5.2 10*3/uL 4.1-10.5 [facility] Lymphocytes Auto (Bld) [#/Vo l]Ordered By: Erica Arroyo on 05-24-2023 Lymphocytes (Bld) [#/Vol] 1.1 10*3/uL 1.00-4.8 [facility] Lymphocytes/100 WBC Auto (Bl d)Ordered By: Erica Arroyo on 05-24-2023 Lymphocytes/100 WBC (Bld) 20.8 % . [facility] MCH Auto (RBC) [Entitic mass ]Ordered By: Erica Arroyo on 05-24-2023 MCH (RBC) [Entitic mass] 26.4 pg 27.5-35.2 [facility] MCHC Auto (RBC) [Mass/Vol]Or dered By: Erica Arroyo on 05-24-2023 MCHC (RBC) [Mass/Vol] 32.4 g/dL 32.5-35.6 [facility] MCV Auto (RBC) [Entitic vol] Ordered By: Erica Arroyo on 05-24-2023 MCV (RBC) [Entitic vol] 81.6 fL 83.5-101 F [facility] Monocytes Auto (Bld) [#/Vol] Ordered By: Erica Arroyo on 05-24-2023 Monocytes (Bld) [#/Vol] 0.6 10*3/uL 0.0-0.8 [facility] Monocytes/100 WBC Auto (Bld) Ordered By: Erica Arroyo on 05-24-2023 Monocytes/100 WBC (Bld) 11.7 % . F [facility] Neutrophils Auto (Bld) [#/Vo l]Ordered By: Erica Arroyo on 05-24-2023 Neutrophils (Bld) [#/Vol] 3.1 10*3/uL 1.8-7.7 [facility] Neutrophils/100 WBC Auto (Bl d)Ordered By: Erica Arroyo on 05-24-2023 Neutrophils/100 WBC (Bld) 59.2 % . [facility] No Panel InformationOrdered By: Erica Arroyo on 05-24-2023 Estimated GFR (CKD-EPI) > 60.0 mL/Min [facility] Creatinine Clearance (Chem N/A [facility] Nucleated erythrocytes [Pres ence] in Blood by Automated countOrdered By: Erica Arroyo on 05-24-2023 Nucleated RBC Auto Ql (Bld) 0.1 /100{WBC} 0-0.5 [facility] Platelet mean volume Auto (B ld) [Entitic vol]Ordered By: Erica Arroyo on 05-24-2023 Platelet mean volume (Bld) [Entitic vol] 9.3 fL 6.6-10.1 [facility] Platelets Auto (Bld) [#/Vol] Ordered By: Erica Arroyo on 05-24-2023 Platelets (Bld) [#/Vol] 145 10*3/uL 150-450 [facility] Potassium [Moles/volume] in Serum or PlasmaOrdered By: Erica Arroyo on 05-24-2023 Potassium [Moles/Vol] 4.2 mmol/L 3.5-5.1 [facility] Protein [Mass/volume] in Ser um or PlasmaOrdered By: Erica Arroyo on 05-24-2023 Protein [Mass/Vol] 7.1 g/dL 6.4-8.9 [facility] RBC Auto (Bld) [#/Vol]Ordere d By: Erica Arroyo on 05-24-2023 RBC (Bld) [#/Vol] 5.21 10*6/uL 3.90-5.60 [facility] Serum or plasma albumin/glob ulin mass ratioOrdered By: Erica Arroyo on 05-24-2023 Albumin/Globulin [Mass ratio] 1.5 {ratio} [facility] Serum or plasma anion gap de terminationOrdered By: Erica Arroyo on 05-24-2023 Anion gap [Moles/Vol] 11.3 mmol/L 6.0-15.0 [facility] Sodium [Moles/volume] in Ser um or PlasmaOrdered By: Erica Arroyo on 05-24-2023 Sodium [Moles/Vol] 139 mmol/L 136-145 [facility] Urea nitrogen [Mass/volume] in Serum or PlasmaOrdered By: Erica Arroyo on 05-24-2023 Urea nitrogen [Mass/Vol] 20 mg/dL 7-25 [facility] WBC Auto (Bld) [#/Vol]Ordere d By: Erica Arroyo on 05-24-2023 WBC (Bld) [#/Vol] 5.2 10*3/uL 4.1-10.5 [facility] HEPATITIS C VIRUS AB W/ REFL EX QUANTon 01-01-2023 HCV AB Non-Reactive Normal Non Reactive [facility] Comment on above: Performed By: #### H CVPCRR #### [facility] [address] [place] [address] Dr. Alka Givens Interpretation: Comment Normal [facility] Comment on above: Result Comment: Not infected with HCV unless early or acute infection is suspected (which may be delayed in an immunocompromised individual), or other evidence exists to indicate HCV infection. Performed By: #### H CVPCRR #### [facility] [address] [address] [address] Alka Givens CBC AUTO DIFFon 12-31-2022 BASO # 0.1 103/ul Normal 0.0-0.1 [facility] Comment on above: Performed By: #### C BC #### [facility] [address] [address] [address] Alka Givens Basophils/100 WBC (Bld) 1.1 % Normal 0.2-2.0 [facility] Comment on above: Performed By: #### C BC #### [facility] [address] [address] [address] Alka Givens EO # 0.3 103/ul Normal 0.0-0.7 [facility] Comment on above: Performed By: #### C BC #### [facility] [address] [place] [address] Dr. Alka Givens Eosinophils/100 WBC (Bld) 6.0 % Normal 0.9-7.0 [facility] Comment on above: Performed By: #### C BC #### [facility] [address] [place] [address] Dr. Alka Givens Erythrocyte distribution width (RBC) [Ratio] 15.5 % Critically high 11.0-15.0 [facility] Comment on above: Performed By: #### C BC #### [facility] [address] [place] [address] Dr. Alka Givens Hematocrit (Bld) [Volume fraction] 43.7 % Normal 42.0-54.0 [facility] Comment on above: Performed By: #### C BC #### [facility] [address] [place] [address] Dr. Alka Givens Hemoglobin (Bld) [Mass/Vol] 14.1 g/dL Normal 14.0-18.0 [facility] Comment on above: Performed By: #### C BC #### [facility] [address] [place] [address] Dr. Alka Givens IG # 0.01 10e3/ul Normal 0.00-0.03 [facility] Comment on above: Performed By: #### C BC #### [facility] [address] [place] [address] Dr. Alka Givens IG % 0.2 % Normal 0.0-0.5 [facility] Comment on above: Performed By: #### C BC #### [facility] [address] [place] [address] Dr. Alka Givens LYMPH # 1.8 103/ul Normal 1.2-3.8 [facility] Comment on above: Performed By: #### C BC #### [facility] [address] [place] [address] Dr. Alka Givens Lymphocytes/100 WBC (Bld) 32.0 % Normal 20.5-60.0 [facility] Comment on above: Performed By: #### C BC #### [facility] [address] [place] [address] Dr. Alka Givens MANUAL DIFF REQ NO Normal [facility] Comment on above: Performed By: #### C BC #### [facility] [address] [place] [address] Dr. Alka Givens MCH (RBC) [Entitic mass] 26.5 pg Normal 25.9-34.0 [facility] Comment on above: Performed By: #### C BC #### [facility] [address] [place] [address] Dr. Alka Givens MCHC (RBC) [Mass/Vol] 32.3 g/dL Normal 29.9-35.2 [facility] Comment on above: Performed By: #### C BC #### [facility] [address] [place] [address] Dr. Alka Givens MCV (RBC) [Entitic vol] 82.1 fL Normal 80.0-94.0 [facility] Comment on above: Performed By: #### C BC #### [facility] [address] [place] [address] Dr. Alka Givens MONO # 0.6 103/ul Normal 0.3-0.8 [facility] Comment on above: Performed By: #### C BC #### [facility] [address] [place] [address] Dr. Alka Givens Monocytes/100 WBC (Bld) 10.9 % Normal 1.7-12.0 [facility] Comment on above: Performed By: #### C BC #### [facility] [address] [place] [address] Dr. Alka Givens NEUT # 2.8 103/ul Normal 1.4-6.5 [facility] Comment on above: Performed By: #### C BC #### [facility] [address] [place] [address] Dr. Alka Givens Neutrophils/100 WBC (Bld) 49.8 % Normal 43.0-75.0 [facility] Comment on above: Performed By: #### C BC #### [facility] [address] [place] [address] Dr. Alka Givens Platelet mean volume (Bld) [Entitic vol] 10.3 fL Normal 9.5-13.5 [facility] Comment on above: Performed By: #### C BC #### [facility] [address] [place] [address] Dr. Alka Givens PLT 168 103/ul Normal 150-450 [facility] Comment on above: Performed By: #### C BC #### [facility] [address] [place] [address] Dr. Alka Givens RBC 5.32 106/ul Normal 4.70-6.10 [facility] Comment on above: Performed By: #### C BC #### [facility] [address] [place] [address] Dr. Alka Givens WBC 5.6 103/ul Normal 4.0-11.0 [facility] Comment on above: Performed By: #### C BC #### [facility] [address] [place] [address] Dr. Alka Givens PROF 14(COMP METB)on 023 Albumin [Mass/Vol] 4.0 g/dL Normal 3.4-5.0 [facility] Comment on above: Performed By: #### C MP #### [facility] [address] [place] [address] Dr. Alka Givens Albumin/Globulin [Mass ratio] 1.2 {ratio} Normal [facility] Comment on above: Performed By: #### C MP #### [facility] [address] [place] [address] Dr. Alka Givens ALP [Catalytic activity/Vol] 82 U/L Normal 46-116 [facility] Comment on above: Performed By: #### C MP #### [facility] [address] [place] [address] Dr. Alka Givens ALT [Catalytic activity/Vol] 20 U/L Normal 16-63 [facility] Comment on above: Performed By: #### C MP #### [facility] [address] [address] [address] Alka Givens Anion gap [Moles/Vol] 11.9 mmol/L Normal [facility] [facility] Comment on above: Performed By: #### C MP #### [facility] [address] [place] [address] Dr. Alka Givens AST [Catalytic activity/Vol] 17 U/L Normal 15-37 [facility] Comment on above: Performed By: #### C MP #### [facility] [address] [address] [address] Alka Givens Bilirubin [Mass/Vol] 0.7 mg/dL Normal 0.2-1.0 [facility] Comment on above: Performed By: #### C MP #### [facility] [address] [place] [address] Dr. Alka Givens Calcium [Mass/Vol] 9.1 mg/dL Normal 8.5-10.1 [facility] Comment on above: Performed By: #### C MP #### [facility] [address] [place] [address] Dr. Alka Givens Chloride [Moles/Vol] 104 mmol/L Normal 98-107 [facility] Comment on above: Performed By: #### C MP #### [facility] [address] [place] [address] Dr. Alka Givens CO2 [Moles/Vol] 26.9 mmol/L Normal 21.0-32.0 [facility] Comment on above: Performed By: #### C MP #### [facility] [address] [place] [address] Dr. Alka Givens Creatinine [Mass/Vol] 0.76 mg/dL Normal 0.70-1.30 [facility] Comment on above: Performed By: #### C MP #### [facility] [address] [place] [address] Dr. Alka Givens EGFR-AF RWANDAN >60 Normal >=60 [facility] Comment on above: Performed By: #### C MP #### [facility] [address] [place] [address] Dr. Alka Givens EGFR-NON AF RWANDAN >60 Normal >=60 [facility] Comment on above: Performed By: #### C MP #### [facility] [address] [address] [address] Alka Givens Globulin (S) [Mass/Vol] 3.3 g/dL Normal T [facility] Comment on above: Performed By: #### C MP #### [facility] [address] [address] [address] Alka Givens Glucose [Mass/Vol] 53 mg/dL Critically low 74-106 [facility] Comment on above: Performed By: #### C MP #### [facility] [address] [address] [address] Alka Givens Potassium [Moles/Vol] 3.8 mmol/L Normal 3.5-5.1 [facility] Comment on above: Performed By: #### C MP #### [facility] [address] [address] [address] Alka Givens Protein [Mass/Vol] 7.3 g/dL Normal 6.4-8.2 [facility] Comment on above: Performed By: #### C MP #### [facility] [address] [address] [address] Alka Givens Sodium [Moles/Vol] 139 mmol/L Normal 136-145 [facility] Comment on above: Performed By: #### C MP #### [facility] [address] [address] [address] Alka Givens Urea nitrogen [Mass/Vol] 15.0 mg/dL Normal 7.0-18.0 [facility] Comment on above: Performed By: #### C MP #### [facility] [address] [address] [address] Alka Givens Urea nitrogen/Creatinine [Mass ratio] 19.7 mg/mg Normal [facility] Comment on above: Performed By: #### C MP #### [facility] [address] [address] [address] [facility] mm/hr Critically high <=20 [facility] Comment on above: Performed By: #### S EDR #### [facility] [address] [place] [address] Dr. Alka Givens CBC AUTO DIFFon 08-16-2022 BASO # 0.1 103/ul Normal 0.0-0.1 [facility] Comment on above: Performed By: #### C BC #### [facility] [address] [place] [address] Dr. Alka Givens Basophils/100 WBC (Bld) 0.9 % Normal 0.2-2.0 [facility] Comment on above: Performed By: #### C BC #### [facility] [address] [place] [address] Dr. Alka Givens EO # 0.3 103/ul Normal 0.0-0.7 [facility] Comment on above: Performed By: #### C BC #### [facility] [address] [place] [address] Dr. Alka Givens Eosinophils/100 WBC (Bld) 5.2 % Normal 0.9-7.0 [facility] Comment on above: Performed By: #### C BC #### [facility] [address] [place] [address] Dr. Alka Givens Erythrocyte distribution width (RBC) [Ratio] 16.4 % Critically high 11.0-15.0 [facility] Comment on above: Performed By: #### C BC #### [facility] [address] [place] [address] Dr. Alka Givens Hematocrit (Bld) [Volume fraction] 42.7 % Normal 42.0-54.0 [facility] Comment on above: Performed By: #### C BC #### [facility] [address] [place] [address] Dr. Alka Givens Hemoglobin (Bld) [Mass/Vol] 13.5 g/dL Critically low 14.0-18.0 [facility] Comment on above: Performed By: #### C BC #### [facility] [address] [place] [address] Dr. Alka Givens IG # 0.02 10e3/ul Normal 0.00-0.03 [facility] Comment on above: Performed By: #### C BC #### [facility] [address] [place] [address] Dr. Alka Givens IG % 0.4 % Normal 0.0-0.5 [facility] Comment on above: Performed By: #### C BC #### [facility] [address] [place] [address] Dr. Alka Givens LYMPH # 1.2 103/ul Normal 1.2-3.8 [facility] Comment on above: Performed By: #### C BC #### [facility] [address] [place] [address] Dr. Alka Givens Lymphocytes/100 WBC (Bld) 21.7 % Normal 20.5-60.0 [facility] Comment on above: Performed By: #### C BC #### [facility] [address] [place] [address] Dr. Alka Givens MANUAL DIFF REQ NO Normal [facility] Comment on above: Performed By: #### C BC #### [facility] [address] [place] [address] Dr. Alka Givens MCH (RBC) [Entitic mass] 26.1 pg Normal 25.9-34.0 [facility] Comment on above: Performed By: #### C BC #### [facility] [address] [place] [address] Dr. Alka Givens MCHC (RBC) [Mass/Vol] 31.6 g/dL Normal 29.9-35.2 [facility] Comment on above: Performed By: #### C BC #### [facility] [address] [place] [address] Dr. Alka Givens MCV (RBC) [Entitic vol] 82.4 fL Normal 80.0-94.0 [facility] Comment on above: Performed By: #### C BC #### [facility] [address] [place] [address] Dr. Alka Givens MONO # 0.6 103/ul Normal 0.3-0.8 [facility] Comment on above: Performed By: #### C BC #### [facility] [address] [address] [address] Alka Givens Monocytes/100 WBC (Bld) 11.4 % Normal 1.7-12.0 [facility] Comment on above: Performed By: #### C BC #### [facility] [address] [address] [address] Alka Givens NEUT # 3.4 103/ul Normal 1.4-6.5 [facility] Comment on above: Performed By: #### C BC #### [facility] [address] [address] [address] Alka Givens Neutrophils/100 WBC (Bld) 60.4 % Normal 43.0-75.0 [facility] Comment on above: Performed By: #### C BC #### [facility] [address] [place] [address] Dr. Alka Givens Platelet mean volume (Bld) [Entitic vol] 10.8 fL Normal 9.5-13.5 [facility] Comment on above: Performed By: #### C BC #### [facility] [address] [place] [address] Dr. Alka Givens PLT 188 103/ul Normal 150-450 [facility] Comment on above: Performed By: #### C BC #### [facility] [address] [place] [address] Dr. Alka Givens RBC 5.18 106/ul Normal 4.70-6.10 [facility] Comment on above: Performed By: #### C BC #### [facility] [address] [place] [address] Dr. Alka Givens WBC 5.6 103/ul Normal 4.0-11.0 [facility] Comment on above: Performed By: #### C BC #### [facility] [address] [place] [address] Dr. Alka Givens LIPID PROFILEon 08-16-2022 CHOL-HDL RATIO NORM SEE BELOW Normal [facility] Comment on above: Result Comment: 3.3 - 4.4 LOW RISK 4.4 - 7.1 AVERAGE RISK 7.1 - 11.0 MODERATE RISK >11.0 HIGH RISK Performed By: #### C MP #### [facility] [address] [place] [address] Dr. Alka Givens Cholesterol [Mass/Vol] 103 mg/dL Normal <=200 [facility] Comment on above: Performed By: #### C MP #### [facility] [address] [place] [address] Dr. Alka Givens Cholesterol in HDL [Mass/Vol] 47 mg/dL Normal 40-60 [facility] Comment on above: Performed By: #### C MP #### [facility] [address] [place] [address] Dr. Alka Givens Cholesterol in LDL [Mass/Vol] 38.8 mg/dL Normal [facility] Comment on above: Performed By: #### C MP #### [facility] [address] [place] [address] Dr. Alka Givens Cholesterol.total/Choles terol in HDL [Mass ratio] 2.2 {ratio} Normal [facility] Comment on above: Performed By: #### C MP #### [facility] [address] [place] [address] Dr. Alka Givens HDL NORMAL > or = 60 mg/dl - LO W CARDIOVASCULAR RISK <40 mg/dl - HIGH CARDIOVASCULAR RISK Normal [facility] Comment on above: Performed By: #### C MP #### [facility] [address] [place] [address] Dr. Alka Givens LDL CALC NORMAL SEE BELOW Normal [facility] Comment on above: Result Comment: <100 mg/dl OPTIMAL 100 - 129 mg/dl NEAR OR ABOVE OPTIMAL 130 - 159 mg/dl BORDERLINE HIGH 160 - 189 mg/dl HIGH >190 mg/dl VERY HIGH Performed By: #### C MP #### [facility] [address] [place] [address] Dr. Alka Givens Triglyceride [Mass/Vol] 86 mg/dL Normal <=150 [facility] Comment on above: Performed By: #### C MP #### [facility] [address] [address] [address] Alak Givens VLDL CALC 17.2 mg/dL Normal [facility] Comment on above: Performed By: #### C MP #### [facility] [address] [address] [address] Alka Givens MICROALB CREAT RATIO RANDOMo n 08-16-2022 mALB 5.3 mg/L Normal <=30.0 [facility] Comment on above: Performed By: #### M CRR #### [facility] [address] [place] [address] Dr. Alka Givens MALB CR RATIO 34.3 mg/g Critically high 0.0-29.9 [facility] Comment on above: Performed By: #### M CRR #### [facility] [address] [place] [address] Dr. Alka Givens MALB CR RATIO RANGE SEE BELOW Normal [facility] Comment on above: Result Comment: NO M ICROALBUMINURIA 0-29 MG/G CLINICAL MICROALBUMINURIA 30-300 MG/G MACROALBUMINURIA >300 MG/G Performed By: #### M CRR #### [facility] [address] [place] [address] Dr. Alka Givens URINE CREAT 154.52 mg/dL Normal 20.00-300.00 [facility] Comment on above: Performed By: #### M CRR #### [facility] [address] [place] [address] Dr. Alka Givens PHOSPHORUSon 08-16-2022 Phosphate [Mass/Vol] 4.1 mg/dL Normal 2.6-4.7 [facility] Comment on above: Performed By: #### C MP #### [facility] [address] [place] [address] Dr. Alka Givens PROF 14(COMP METB)on 022 Albumin [Mass/Vol] 3.8 g/dL Normal 3.4-5.0 [facility] Comment on above: Performed By: #### C MP #### [facility] [address] [place] [address] Dr. Alka Givens Albumin/Globulin [Mass ratio] 1.0 {ratio} Normal [facility] Comment on above: Performed By: #### C MP #### [facility] [address] [address] [address] Alka Givens ALP [Catalytic activity/Vol] 85 U/L Normal 46-116 [facility] Comment on above: Performed By: #### C MP #### [facility] [address] [address] [address] Alka Givens ALT [Catalytic activity/Vol] 17 U/L Normal 16-63 [facility] Comment on above: Performed By: #### C MP #### [facility] [address] [address] [address] Alka Givens Anion gap [Moles/Vol] 8.0 mmol/L Normal [facility] Comment on above: Performed By: #### C MP #### [facility] [address] [place] [address] Dr. Alka Givens AST [Catalytic activity/Vol] 20 U/L Normal 15-37 [facility] Comment on above: Performed By: #### C MP #### [facility] [address] [address] [address] Alka Givens Bilirubin [Mass/Vol] 0.6 mg/dL Normal 0.2-1.0 [facility] Comment on above: Performed By: #### C MP #### [facility] [address] [address] [address] Alka Givens Calcium [Mass/Vol] 8.9 mg/dL Normal 8.5-10.1 [facility] Comment on above: Performed By: #### C MP #### [facility] [address] [address] [address] Alka Givens Chloride [Moles/Vol] 104 mmol/L Normal 98-107 [facility] Comment on above: Performed By: #### C MP #### [facility] [address] [address] [address] Alka Givens CO2 [Moles/Vol] 26.7 mmol/L Normal 21.0-32.0 [facility] Comment on above: Performed By: #### C MP #### [facility] [address] [address] [address] Alka Givens Creatinine [Mass/Vol] 0.81 mg/dL Normal 0.70-1.30 [facility] Comment on above: Performed By: #### C MP #### [facility] [address] [address] [address] Alka Givens EGFR-AF RWANDAN >60 Normal >=60 [facility] Comment on above: Performed By: #### C MP #### [facility] [address] [address] [address] Alka Givens EGFR-NON AF RWANDAN >60 Normal >=60 [facility] Comment on above: Performed By: #### C MP #### [facility] [address] [place] [address] Dr. Alka Givens Globulin (S) [Mass/Vol] 3.7 g/dL Normal T [facility] Comment on above: Performed By: #### C MP #### [facility] [address] [place] [address] Dr. Alka Givens Glucose [Mass/Vol] 62 mg/dL Critically low 74-106 [facility] Comment on above: Performed By: #### C MP #### [facility] [address] [place] [address] Dr. Alka Givens Potassium [Moles/Vol] 3.7 mmol/L Normal 3.5-5.1 [facility] Comment on above: Performed By: #### C MP #### [facility] [address] [place] [address] Dr. Alka Givens Protein [Mass/Vol] 7.5 g/dL Normal 6.4-8.2 [facility] Comment on above: Performed By: #### C MP #### [facility] [address] [place] [address] Dr. Alka Givens Sodium [Moles/Vol] 135 mmol/L Critically low 136-145 [facility] Comment on above: Performed By: #### C MP #### [facility] [address] [place] [address] Dr. Alka Givens Urea nitrogen [Mass/Vol] 20.0 mg/dL Critically high 7.0-18 .0 [facility] Comment on above: Performed By: #### C MP #### [facility] [address] [place] [address] Dr. Alka Givens Urea nitrogen/Creatinine [Mass ratio] 24.7 mg/mg Normal [facility] Comment on above: Performed By: #### C MP #### [facility] [address] [place] [address] Dr. Alka Givens SED RATE [facility] 2021 SED RATE 42 mm/hr Critically high <=20 [facility] Comment on above: Performed By: #### C MP #### [facility] [address] [place] [address] Dr. Alka Givens VITAMIN D 25 OHon 08-16-2022 VIT D 25-OH 47.5 ng/mL Normal [facility] Comment on above: Performed By: #### V ITAD #### [facility] [address] [place] [address] Dr. Alka Givens VIT D RANGES SEE BELOW Normal [facility] Comment on above: Result Comment: <20 ng/mL Vit D deficient 20 - <30 ng/mL Vit D insufficient 30 - 100 ng/mL Vit D sufficient >100 ng/mL Potential Toxicity Performed By: #### V ITAD #### [facility] [address] [place] [address] Dr. Alka Givens PROF CHEM 8 (BAS METB)on Anion gap [Moles/Vol] 9.6 mmol/L Normal [facility] Comment on above: Performed By: #### B MP #### [facility] [address] [place] [address] Dr. Alka Givens Calcium [Mass/Vol] 8.8 mg/dL Normal 8.5-10.1 [facility] Comment on above: Performed By: #### B MP #### [facility] [address] [place] [address] Dr. Alka Givens Chloride [Moles/Vol] 104 mmol/L Normal 98-107 [facility] Comment on above: Performed By: #### B MP #### [facility] [address] [address] [address] Alka Givens CO2 [Moles/Vol] 29.0 mmol/L Normal 21.0-32.0 [facility] Comment on above: Performed By: #### B MP #### [facility] [address] [place] [address] Dr. Alka Givens Creatinine [Mass/Vol] 0.81 mg/dL Normal 0.70-1.30 [facility] Comment on above: Performed By: #### B MP #### [facility] [address] [place] [address] Dr. Alka Givens EGFR-AF RWANDAN >60 Normal >=60 [facility] Comment on above: Performed By: #### B MP #### [facility] [address] [place] [address] Dr. Alka Givens EGFR-NON AF RWANDAN >60 Normal >=60 [facility] Comment on above: Performed By: #### B MP #### [facility] [address] [address] [address] Alka Givens Glucose [Mass/Vol] 172 mg/dL Critically high 74-106 [facility] Comment on above: Performed By: #### B MP #### [facility] [address] [place] [address] Dr. Alka Givens Potassium [Moles/Vol] 4.6 mmol/L Normal 3.5-5.1 [facility] Comment on above: Performed By: #### B MP #### [facility] [address] [place] [address] Dr. Alka Givens Sodium [Moles/Vol] 138 mmol/L Normal 136-145 [facility] Comment on above: Performed By: #### B MP #### [facility] [address] [address] [address] Alka Givens Urea nitrogen [Mass/Vol] 19.0 mg/dL Critically high 7.0-18 .0 [facility] Comment on above: Performed By: #### B MP #### [facility] [address] [place], [place] [address] Dr. Alka Givens Urea nitrogen/Creatinine [Mass ratio] 23.5 mg/mg Normal [facility] Comment on above: Performed By: #### B MP #### [facility] [address] [place], [place] [address] Dr. Alka Givens URIC ACID SERUMon 01-14-2022 Urate [Mass/Vol] 5.3 mg/dL Normal 3.5-8.5 [facility] Comment on above: Performed By: #### U IVANA #### [facility] [address] [place], [place] [address] Dr. Alka Givens Vital Signs Date Time Vital Sign Value Performing Clinician Facility 02-20-2024 10:42-0400 Body height 190.5 cm [employer]-Ramesh Garcia Work Phone: [facility] 02-20-2024 10:42-0400 Body temperature 97.6 [degF] [employer]C Escobar Garcia Work Phone: [facility] 02-20-2024 10:42-0400 Body weight 112.49 kg [employer]-Ramesh Cagee Garcia Work Phone: [facility] 02-20-2024 10:42-0400 Diastolic blood pressure 86 mm[Hg] [employer]-Ramesh Cagee Garcia Work Phone: [facility] 02-20-2024 10:42-0400 Heart rate 66 /min [employer] Escobar Garcia Work Phone: [facility] 02-20-2024 10:42-0400 Respiratory rate 18 /min [employer] Escobar Garcia Work Phone: [facility] 02-20-2024 10:42-0400 SaO2% (BldA) [Mass fraction] 99 % [employer]-Ramesh Garcia Work Phone: [facility] 02-20-2024 10:42-0400 Systolic blood pressure 163 mm[Hg] [employer]C Escobar Garcia Work Phone: [facility] 01-02-2024 08:02-0400 Body height 190.5 cm Escobar Garcia PHARMACY TECHNICIAN TRAINEE-[employer] WORKER HEL[employer] Work Phone: [facility] [employer] [facility] 01-02-2024 08:02-0400 Body mass index (BMI) [Ratio] 31.05 kg/m2 Escobar Garcia PHARMACY TECHNICIAN TRAINEE-[employer] WORKER HEL[employer] Work Phone: [facility] [employer] [facility] 01-02-2024 08:02-0400 Body temperature 97.39 [degF] Escobar Garcia PHARMACY TECHNICIAN TRAINEE-[employer]URAL [employer] WORKER HELPER Work Phone: [facility] [employer] [facility] 01-02-2024 08:02-0400 Body weight 112.67 kg Escobar Garcia PHARMACY TECHNICIAN TRAINEE-[employer]URAL [employer] WORKER HELPER Work Phone: [facility] [employer] [facility] 01-02-2024 08:02-0400 Diastolic blood pressure 60 mm[Hg] Escobar Garcia PHARMACY TECHNICIAN TRAINEE-STRU[employer]URAL [employer] WORKER HELPER Work Phone: [facility] [employer] 01-02-2024 08:02-0400 Heart rate 58 /min Escobar Garcia PHARMACY TECHNICIAN TRAINEE-[employer]URAL [employer] WORKER HELPER Work Phone: [facility] [employer] [facility] 01-02-2024 08:02-0400 Respiratory rate 18 /min Escobar Garcia PHARMACY TECHNICIAN TRAINEE-[employer]URAL [employer] WORKER HELPER Work Phone: [facility] [employer] [facility] 01-02-2024 08:02-0400 SaO2% (BldA) [Mass fraction] 98 % Escobar Garcia PHARMACY TECHNICIAN TRAINEE-[employer] WORKER HELPER Work Phone: [facility] [employer] [facility] 01-02-2024 08:02-0400 Systolic blood pressure 138 mm[Hg] Escobar Brownillo PHARMACY TECHNICIAN TRAINEE-[employer]URAL [employer] WORKER HELPER Work Phone: [facility] [employer] [facility] 12-12-2023 08:06-0500 Body height 190.5 cm Escobar Garcia PHARMACY TECHNICIAN TRAINEE-[employer]URAL [employer] WORKER HELPER Work Phone: [facility] [employer] [facility] 12-12-2023 08:06-0500 Body mass index (BMI) [Ratio] 31.2 kg/m2 Escobar Garcia APRN-STRU[employer]URAL [employer] WORKER HELPER [facility] 12-12-2023 08:06-0500 Body temperature 98.01 [degF] Escobar Garcia APRN-STRU[employer]URAL [employer] WORKER HELPER Work Phone: [facility] [employer] 12-12-2023 08:06-0500 Body weight 113.22 kg Escobar Garcia APRN-STRU[employer]URAL STE[employer] WORKER HELPER [facility] 12-12-2023 08:06-0500 Diastolic blood pressure 60 mm[Hg] Escobar Garcia APRN-LA Work Phone: [facility] 12-12-2023 08:06-0500 Heart rate 66 /min Escobar Garcia APRN-LA Work Phone: [facility] [employer] 12-12-2023 08:06-0500 SaO2% (BldA) [Mass fraction] 97 % Escobar Garcia APRN-[employer]URAL [employer] WORKER HELPER Work Phone: [facility] [employer] 12-12-2023 08:06-0500 Systolic blood pressure 130 mm[Hg] Escobar Garcia APRN-LA Work Phone: [facility] [employer] Encounters Encounter Date Encounter Type Care Provider Facility Start: 02-20-2024 End: 02-20-2024 Emergency department patient visit Latricia Bonilla Facility:[facility] Start: 02-20-2024 End: 02-20-2024 Emergency department patient visit [employer]C Escobar Garcia Work Phone: [facility] Work Phone: Start: 02-09-2024 End: 02-10-2024 ambulatory [facility] Start: 02-09-2024 End: 02-09-2024 ambulatory [facility] Start: 02-09-2024 Encounter for genera l adult medical examination without abnormal findings [facility] Start: 01-02-2024 End: 01-02-2024 ambulatory [facility] Start: 01-02-2024 End: 01-02-2024 Office outpatient visit 15 minutes Escobar Garcia PHARMACY TECHNICIAN TRAINEE-[employer] WORKER HELPER Work Phone: [facility] Comment on above: Essential hypertensi on (Primary Dx); Chronic atrial fibrillation ([facility]) Start: 12-12-2023 End: 12-12-2023 ambulatory [facility] Start: 12-12-2023 End: 12-12-2023 Office outpatient visit 15 minutes Escobar J Garcia PHARMACY TECHNICIAN TRAINEE-[employer]URAL [employer] WORKER HELPER Work Phone: [facility] Comment on above: Benign essential HTN (Primary Dx); Chronic atrial fibrillation ([facility]); DM type 2 with diabetic mixed hyperlipidemia ([facility]) ; Diabetic ulcer of toe of left foot associated with type 2 diabetes mellitus, unspecified ulcer stage ([facility]) Start: 11-23-2023 Telephone encounter Manuel Childs RN [facility] Comment on above: Samples Start: 11-14-2023 Refill Escobar Sarah pandeyo PHARMACY TECHNICIAN TRAINEE-STRU[employer]URAL STEEL WORKER HELPER Work Phone: [facility] Comment on above: Acquired hypothyroid ism Start: 11-06-2023 Refill Ledychesebastián Canales sser PHARMACY TECHNICIAN TRAINEE-STRU[employer]URAL STEEL WORKER HELPER Work Phone: [facility] Comment on above: Med Refill Start: 10-24-2023 Refill Escobar Sarah Brown illo PHARMACY TECHNICIAN TRAINEE-STRUCTURAL STEEL WORKER HELPER Work Phone: [facility] Comment on above: Gastroesophageal ref lux disease without esophagitis Start: 05-24-2023 End: 05-24-2023 ambulatory Escobar Brownillo Facility:[facility] Start: 05-24-2023 End: 05-24-2023 ambulatory [employer] Escobar Garcia Work Phone: [facility] Work Phone: Start: 05-24-2023 End: 05-24-2023 Patient encounter procedure [employer] Escobar Garcia Work Phone: [facility] [address] Work Phone: Start: 12-31-2022 End: 01-01-2023 ambulatory ESCOBAR GARCIA Facility:[facility] Start: 08-16-2022 End: 08-17-[address] AARON HO Facility:[facility] Start: 04-27-2022 End: 04-28-2022 ambulatory ESCOBARMalissa GARCIA Facility:[facility] Start: 01-14-2022 End: 01-15-2022 ambulatory ESCOBARMalissa GARCIA Facility:[facility] Start: 09-26-2017 Patient encounter procedure Lizzie christina Garcia PHARMACY TECHNICIAN TRAINEE-STRUCTURAL STEEL WORKER HELPER Work Phone: [employer] Procedures Date Procedure Procedure Detail Performing Clinician Start: 02-20-2024 CT cervical spine wi thout contrast [employer] Escobar Garcia Work Phone: Start: 02-20-2024 CT of abdomen and pe lvis without contrast [employer] Escobarmalissa Garcia Work Phone: Start: 02-20-2024 CT of head without contrast [employer] Escobar Garcia Work Phone: Start: 01-02-2024 Adult depression screening assessment Escobarmalissa Garcia PHARMACY TECHNICIAN TRAINEE-STRU[employer]URAL STE[employer] WORKER HELPER Work Phone: Start: 12-12-2023 Adult depression screening assessment Escobar Garcia PHARMACY TECHNICIAN TRAINEE-STRU[employer]URAL STEEL WORKER HELPER Work Phone: Start: 09-15-2023 Adult depression screening assessment Escobarmalissa Garcia PHARMACY TECHNICIAN TRAINEE-STRU[employer]URAL STEEL WORKER HELPER Work Phone: Start: 05-12-2023 Diabetic retinal eye exam Escobartessa Garcia PHARMACY TECHNICIAN TRAINEE-STRU[employer]URAL STEEL WORKER HELPER Work Phone: Plan of Treatment Date Care Activity Detail Author Start: 07-23-2030 DTaP,Tdap and Td Vaccines (2 - Td or Tdap) DTaP,Tdap and Td Vaccines (2 - Td or Tdap) [facility] Start: 01-01-2025 Adult BMI Screening Adult BMI Screening [facility] Start: 01-01-2025 Depression Screening Depression Screening [facility] Start: 01-01-2025 Fall Risk Screening Fall Risk Screening [facility] Start: 01-01-2025 Tobacco Screening Tobacco Screening [facility] Start: 12-11-2024 Adult BMI Follow Up Plan Adult BMI Follow Up Plan [facility] Start: 12-11-2024 Adult BMI Screening Adult BMI Screening [facility] Start: 12-11-2024 Depression Screening Depression Screening [facility] Start: 12-11-2024 Fall Risk Screening Fall Risk Screening [facility] Start: 12-11-2024 Tobacco Screening Tobacco Screening [facility] Start: 09-15-2024 Adult BMI Follow Up Plan Adult BMI Follow Up Plan [facility] Start: 09-15-2024 Adult BMI Screening Adult BMI Screening [facility] Start: 09-15-2024 Depression Screening Depression Screening [facility] Start: 09-15-2024 Fall Risk Screening Fall Risk Screening [facility] Start: 09-15-2024 Tobacco Screening Tobacco Screening [facility] Start: 05-12-2024 Glaucoma screening Diabetic Ophthalmology Exam [facility] Start: 02-09-2024 End: 02-09-2024 Patient encounter procedure 02/09/2024 8:00 AM EDT Office Visit [facility] [address] [place] [address] Escobar Garcia, PHARMACY TECHNICIAN TRAINEE-STRU[employer]URAL STEEL WORKER HELPER [address] [place] [address] [facility] Start: 01-25-2024 End: 01-25-2024 Patient encounter procedure 01/25/2024 10:45 AM EDT Office Visit [facility] [address] [place] [address] Escobar Garcia, PHARMACY TECHNICIAN TRAINEE-STRU[employer]URAL STEEL WORKER HELPER [address] [place] [address] [facility] Start: 01-19-2024 Medicare Annual Wellness Visit Medicare Annual Wellness Visit [facility] Start: 01-02-2024 End: 01-02-2024 Patient encounter procedure 01/02/2024 8:00 AM EDT [facility] [address] [place] [address] Escobar Garcia PHARMACY TECHNICIAN TRAINEE-STRU[employer]URAL STEEL WORKER HELPER [address] [place] [address] [facility] Start: 11-11-2022 Diabetic foot examination Diabetic Foot Exam [facility] Start: 07-22-2021 Administration of varicella zoster vaccine Zoster (Shingles) Vaccine (3 of 3) [facility] Start: 1996 Screening for malignant neoplasm of colon Colonoscopy [facility] Patient Education Taking care of bruises Coccyx Injury (DC) Constipation, Adult ED [facility] Work Phone: Patient referral [facility] Work Phone: Immunizations Immunization Date Immunization Notes Care Provider Fa cili 08-23-2022 Influenza Vaccine, Quadrivalent, Adjuvanted Escobar Garcia PHARMACY TECHNICIAN TRAINEE-STRU[employer]URAL STEEL WORKER HELPER Work Phone: [facility] 08-04-2021 Influenza, High-dose , Quadrivalent Escobar Garcia PHARMACY TECHNICIAN TRAINEE-STRUCTURAL STEEL WORKER HELPER Work Phone: [facility] 05-27-2021 zoster vaccine, unspecified formulation Escobar Jose PHARMACY TECHNICIAN TRAINEE-STRUCTURAL STEEL WORKER HELPER Work Phone: [facility] 09-16-2020 influenza virus vacc ine, unspecified formulation Escobar Garcia PHARMACY TECHNICIAN TRAINEE-STRUCTURAL STEEL WORKER HELPER Work Phone: [facility] 09-16-2020 Influenza, High-dose , Quadrivalent Escobar Garcia PHARMACY TECHNICIAN TRAINEE-STRUCTURAL STEEL WORKER HELPER Work Phone: [facility] 07-23-2020 tetanus toxoid, redu shakira diphtheria toxoid, and acellular pertussis vaccine, adsorbed [employer] Escobar Garcia Work Phone: [facility] 09-13-2017 pneumococcal conjuga te vaccine, 13 valent Escobar Garcia PHARMACY TECHNICIAN TRAINEE-STRUCTURAL STEEL WORKER HELPER Work Phone: [facility] 08-28-2014 zoster vaccine, live Escobar Garcia PHARMACY TECHNICIAN TRAINEE-STRUCTURAL STEEL WORKER HELPER Work Phone: [facility] 10-01-2010 pneumococcal polysaccharide vaccine, 23 valent Escobar Garcia PHARMACY TECHNICIAN TRAINEE-STRUCTURAL STEEL WORKER HELPER Work Phone: [facility] Payers Date Payer Category Payer Self-pay [id number] 2019 Unknown [employer] [id number] 2019-Present [phone] [address] [place] [address] [id number] 2016 Medicare MEDICARE MEDICAR E PART A & B [id number] 2016-Present [phone] [address] [place] [address] [id number] 1959 Medicare [id number] 1959 Unknown [id number] 1951 Unknown [id number] 1951 Unknown [id number] 1951 Unknown [id number] 1951 Unknown [id number] 1951 Unknown [id number] 1951 Unknown [id number] 1951 Unknown [id number] 1951 Unknown [id number] 1951 Unknown [id number] 1951 Unknown [id number] Unknown [facility] [id number] Unknown [id number] Unknown [id number] Social History Date Type Detail Facility Start: 02-20-2022 End: 02-20-2024 Tobacco smoking status NHIS Never smoked tobacco (finding) [facility] Start: 1950 Sex Assigned At Male F [facility] Start: 10-05-2022 Tobacco use and exposure Smokeless tobacco non-user [facility] Start: 09-15-2023 End: 01-02-2024 Alcohol intake Current non-drinker of alcohol (finding) [facility] Start: 10-29-2020 End: 09-15-2023 History of Social function [facility] Start: 10-29-2020 End: 09-15-2023 Tobacco use panel [facility] Adolescent depressio n screening assessment 0 [facility] Start: 02-23-2022 Alcohol Comment drank a beer once in college, didn't like it, never drank again [facility] Start: 09-20-2021 Gender identity Identifies as male gender (finding) [facility] Start: 09-20-2021 Sexual orientation Heterosexual (nithya lares) [facility] Medical Equipment Procedure Code Equipment Code Equipment Origin al Text Equipment Identifier Dates System Cor Stnt 2.75mm X 15mm 145cm Xiegael Coughlinypnt Mtlnk Lorenzo - [id number] Start: 09-17-2021 Goals Date Patient Goal Desired Activity /State Personal health goal Comment on above: Formatting of this n ote might be different from the original. Evaluation of progress towards goal: remain home with self care and family support Clinical Notes 11-06-2023 to 02-20-2024 Escobar Garcia APRN-LA - 01/02/2024 8:00 AM LIBRA Ruby CNP - 12/12/2023 8:00 AM ESTTelephone Encounter - Manuel Childs RN - 11/23/2023 2:36 PM EST Note Date & Type Note Facility 02-20-2024 Hospital Discharg e instructions Additional Instructions Drink the bottle of magnesium citrate when you arrive home You should start having looser stools in about an hour to 2 hours eventually leading to watery diarrhea Make sure you are staying hydrated and drinking lots of fluids You can also try taking the MiraLAX once or twice a day after the magnesium citrate if needed for any continued constipation Of course ice or warm moist heat to sore areas Continue Tylenol as needed for discomfort Follow-up with your family doctor for recheck Return to the ER for more severe pain fever vomiting or any other concerns [facility] Work Phone: 01-02-2024 History of Presen t illness Narrative Images from the original note were not included. [place] [address] SUBJECTIVE: Patient ID: Mitchell Ga is a 73 y.o. male. Chief Complaint Patient presents with Hypertension Hypertension This is a chronic problem. The current episode started more than 1 year ago. The problem has been gradually improving since onset. Pertinent negatives include no chest pain, headaches, palpitations or shortness of breath. There are no associated agents to hypertension. Risk factors for coronary artery disease include dyslipidemia, diabetes mellitus, family history, male gender and obesity. Past treatments include calcium channel blockers. The current treatment provides significant improvement. There are no compliance problems. The following portions of the patient's history were reviewed and updated as appropriate: allergies, current medications, past family history, past medical history, past social history, past surgical history and problem list. Past Surgical History: Procedure Laterality Date BONE BIOPSY Cardiac catheterization- Cors+LV gram/press [id number] N/A 09/17/2021 Performed by Ronal Ramirez MD at [facility] Coronary angiogram and left ventricular gram/pressure N/A 09/17/2021 Performed by Ronal Ramirez MD at [facility] EYE SURGERY 05/10/2021 burst blood vessels INGUINAL HERNIA REPAIR Right LITHOTRIPSY MULTIPLE TOOTH EXTRACTIONS Stent drug-eluting left anterior descending N/A 09/17/2021 Performed by Ronal Ramirez MD at [facility] TONSILLECTOMY Past Medical History: Diagnosis Date Arrhythmia Callus Diabetes mellitus ([facility]) Disease of thyroid gland Edema, lower extremity Fatigue Hyperlipidemia Hypertension Hypothyroidism Kidney stones Low vision without extraocular lens corrrection Obesity Osteomyelitis ([facility]) Ruptured eardrum Skin ulcer of toe ([facility]) Immunization History Administered Date(s) Administered COVID-19, mRNA, LNP-S, PF, 100mcg/0.5mL Dose 12/11/2020, 01/08/2021, 08/20/2021 Covid-19, Mrna, Lnp-s, Pf,amber-sucrose,30 Mcg/0.3ml Fall23 07/10/2023 Influenza Vaccine, Quadrivalent, Adjuvanted 08/23/2022 Influenza, High-dose, Quadrivalent 09/16/2020, 08/04/2021 Influenza, Unspecified 09/16/2020 Pneumococcal Conjugate 13-Valent 09/13/2017 Pneumococcal Polysaccharide 10/01/2010 Tdap 07/23/2020 Zoster Live 08/28/2014 REVIEW OF SYSTEMS: Review of Systems Constitutional: Negative for chills, fatigue and fever. HENT: Negative for hearing loss and trouble swallowing. Eyes: Negative for pain and visual disturbance. Respiratory: Negative for cough, chest tightness and shortness of breath. Cardiovascular: Negative for chest pain, palpitations and leg swelling. Gastrointestinal: Negative for blood in stool. Endocrine: Negative for polydipsia, polyphagia and polyuria. Genitourinary: Negative for difficulty urinating, dysuria, flank pain, hematuria, scrotal swelling and testicular pain. Musculoskeletal: Negative. Skin: Negative. Allergic/Immunologic: Negative. Neurological: Negative for seizures, syncope and headaches. Hematological: Does not bruise/bleed easily. Psychiatric/Behavioral: Negative. PHYSICAL EXAMINATION: Vitals: 01/02/24 0802 BP: 138/60 BP Site: Left Arm BP Postition: Sitting Pulse: 58 Resp: 18 Temp: 36.3 C (97.4 F) TempSrc: Oral SpO2: 98% Weight: 112.7 kg (248 lb 6.4 oz) Height: 190.5 cm (6' 3 ) Patient noted to have elevated BMI and the following intervention(s) were applied: encouragement to exercise. Physical Exam Vitals and nursing note reviewed. Constitutional: General: He is not in acute distress. Appearance: He is well-developed. HENT: Head: Normocephalic and atraumatic. Right Ear: Tympanic membrane and external ear normal. Left Ear: Tympanic membrane and external ear normal. Nose: Nose normal. Mouth/Throat: Mouth: Mucous membranes are moist. Pharynx: No oropharyngeal exudate. Eyes: General: No scleral icterus. Right eye: No discharge. Left eye: No discharge. Conjunctiva/sclera: Conjunctivae normal. Pupils: Pupils are equal, round, and reactive to light. Neck: Vascular: No JVD. Cardiovascular: Rate and Rhythm: Normal rate and regular rhythm. Heart sounds: Normal heart sounds. No murmur heard. No friction rub. No gallop. Pulmonary: Effort: Pulmonary effort is normal. No respiratory distress. Breath sounds: Normal breath sounds. Chest: Chest wall: No tenderness. Abdominal: General: Bowel sounds are normal. There is no distension. Palpations: Abdomen is soft. There is no mass. Tenderness: There is no abdominal tenderness. There is no guarding or rebound. Hernia: No hernia is present. Musculoskeletal: General: No tenderness. Normal range of motion. Cervical back: Normal range of motion and neck supple. Lymphadenopathy: Cervical: No cervical adenopathy. Skin: General: Skin is warm and dry. Capillary Refill: Capillary refill takes less than 2 seconds. Findings: No rash. Neurological: Mental Status: He is alert and oriented to person, place, and time. Deep Tendon Reflexes: Reflexes are normal and symmetric. Psychiatric: Mood and Affect: Mood normal. Behavior: Behavior normal. Thought Content: Thought content normal. Judgment: Judgment normal. ASSESSMENT/PLAN: Lenin was seen today for hypertension. Diagnoses and all orders for this visit: Essential hypertension - amLODIPine (NORVASC) 10 mg tablet; Take 1 tablet (10 mg total) by mouth in the morning. - losartan (COZAAR) 100 mg tablet; Take 1 tablet (100 mg total) by mouth in the morning. Chronic atrial fibrillation ([facility]) - apixaban (ELIQUIS) 5 mg tablet; Take 1 tablet (5 mg total) by mouth in the morning and 1 tablet (5 mg total) before bedtime. Do all this for 21 days. BP 138/60 Continue amlodipine 10 mg and losartan 100 mg oral daily We did discuss adding HCTZ to treatment regimen today, he wishes to continue to monitor and call the office if BP is consistently above 140/90 Samples of apixaban provided for atrial fibrillation LOT [id number] Body mass index is 31.05 kg/m . Patient noted to have elevated BMI and the following intervention(s) were applied: Discussed current weight today. Consider healthy food choices, portion control. Avoid sugary beverages and high concentrated sweets. Routine exercise regimen encouraged. ALL QUESTIONS ANSWERED Total time spent was 25 minutes: Preparing to see the patient (e.g., review of tests) Obtaining and/or reviewing separately obtained history Performing a medically appropriate examination and/or evaluation Counseling and educating the patient/family/caregiver Ordering medications, tests, or procedures Follow-up: Next follow up May CHUNG Carrillo 01/02/24 0837 documented in this encounter [facility] 12-12-2023 History of Presen t illness Narrative Images from the original note were not included. [address] [place] [address] SUBJECTIVE: Patient ID: Mitchell Ga is a 73 y.o. male. Chief Complaint Patient presents with BP check Presents for follow up today States his home blood pressure reading has been reading 150's to 160's systolic at times for the past 4 weeks Diastolic 60's. History of atrial fibrillation. Is on Eliquis. Hypertension This is a chronic problem. The current episode started more than 1 year ago. The problem has been waxing and waning since onset. Pertinent negatives include no chest pain, headaches, palpitations or shortness of breath. There are no associated agents to hypertension. Risk factors for coronary artery disease include male gender, dyslipidemia, family history, diabetes mellitus and obesity. Past treatments include calcium channel blockers. There are no compliance problems. Hypertensive end-organ damage includes CAD/DC. The following portions of the patient's history were reviewed and updated as appropriate: allergies, current medications, past family history, past medical history, past social history, past surgical history and problem list. Past Surgical History: Procedure Laterality Date BONE BIOPSY Cardiac catheterization- Cors+LV gram/press [id number] N/A 09/17/2021 Performed by Ronal Ramirez MD at [facility] Coronary angiogram and left ventricular gram/pressure N/A 09/17/2021 Performed by Ronal Ramirez MD at [facility] EYE SURGERY 05/10/2021 burst blood vessels INGUINAL HERNIA REPAIR Right LITHOTRIPSY MULTIPLE TOOTH EXTRACTIONS Stent drug-eluting left anterior descending N/A 09/17/2021 Performed by Ronal Ramirez MD at [facility] TONSILLECTOMY Past Medical History: Diagnosis Date Arrhythmia Callus Diabetes mellitus (CMS-HCC) Disease of thyroid gland Edema, lower extremity Fatigue Hyperlipidemia Hypertension Hypothyroidism Kidney stones Low vision without extraocular lens corrrection Obesity Osteomyelitis (CMS-HCC) Ruptured eardrum Skin ulcer of toe (CMS-HCC) Immunization History Administered Date(s) Administered COVID-19, mRNA, LNP-S, PF, 100mcg/0.5mL Dose 12/11/2020, 01/08/2021, 08/20/2021 Covid-19, Mrna, Lnp-s, Pf,amber-sucrose,30 Mcg/0.3ml Fall23 07/10/2023 Influenza Vaccine, Quadrivalent, Adjuvanted 08/23/2022 Influenza, High-dose, Quadrivalent 09/16/2020, 08/04/2021 Influenza, Unspecified 09/16/2020 Pneumococcal Conjugate 13-Valent 09/13/2017 Pneumococcal Polysaccharide 10/01/2010 Tdap 07/23/2020 Zoster Live 08/28/2014 REVIEW OF SYSTEMS: Review of Systems Constitutional: Negative for chills, fatigue and fever. HENT: Negative for hearing loss and trouble swallowing. Eyes: Negative for pain and visual disturbance. Respiratory: Negative for cough, chest tightness and shortness of breath. Cardiovascular: Negative for chest pain, palpitations and leg swelling. Gastrointestinal: Negative for blood in stool. Endocrine: Negative for polydipsia, polyphagia and polyuria. Genitourinary: Negative for difficulty urinating, dysuria, flank pain, hematuria, scrotal swelling and testicular pain. Musculoskeletal: Negative. Skin: Negative. Allergic/Immunologic: Negative. Neurological: Negative for seizures, syncope and headaches. Hematological: Does not bruise/bleed easily. Psychiatric/Behavioral: Negative. PHYSICAL EXAMINATION: Vitals: 12/12/23 0806 BP: 130/60 BP Site: Left Arm BP Postition: Sitting Pulse: 66 Temp: 36.7 C (98 F) TempSrc: Oral SpO2: 97% Weight: 113.2 kg (249 lb 9.6 oz) Height: 190.5 cm (6' 3 ) Patient noted to have elevated BMI and the following intervention(s) were applied: encouragement to exercise. Physical Exam Vitals and nursing note reviewed. Constitutional: General: He is not in acute distress. Appearance: He is well-developed. HENT: Head: Normocephalic and atraumatic. Right Ear: Tympanic membrane and external ear normal. Left Ear: Tympanic membrane and external ear normal. Nose: Nose normal. Mouth/Throat: Mouth: Mucous membranes are moist. Pharynx: No oropharyngeal exudate. Eyes: General: No scleral icterus. Right eye: No discharge. Left eye: No discharge. Conjunctiva/sclera: Conjunctivae normal. Pupils: Pupils are equal, round, and reactive to light. Neck: Vascular: No JVD. Cardiovascular: Rate and Rhythm: Normal rate and regular rhythm. Heart sounds: Normal heart sounds. No murmur heard. No friction rub. No gallop. Pulmonary: Effort: Pulmonary effort is normal. No respiratory distress. Breath sounds: Normal breath sounds. Chest: Chest wall: No tenderness. Abdominal: General: Bowel sounds are normal. There is no distension. Palpations: Abdomen is soft. There is no mass. Tenderness: There is no abdominal tenderness. There is no guarding or rebound. Hernia: No hernia is present. Musculoskeletal: General: No tenderness. Normal range of motion. Cervical back: Normal range of motion and neck supple. Lymphadenopathy: Cervical: No cervical adenopathy. Skin: General: Skin is warm and dry. Capillary Refill: Capillary refill takes less than 2 seconds. Findings: No rash. Neurological: Mental Status: He is alert and oriented to person, place, and time. Deep Tendon Reflexes: Reflexes are normal and symmetric. Psychiatric: Mood and Affect: Mood normal. Behavior: Behavior normal. Thought Content: Thought content normal. Judgment: Judgment normal. ASSESSMENT/PLAN: Lenin was seen today for bp check. Diagnoses and all orders for this visit: Benign essential HTN Chronic atrial fibrillation ([facility]) DM type 2 with diabetic mixed hyperlipidemia ([facility]) Diabetic ulcer of toe of left foot associated with type 2 diabetes mellitus, unspecified ulcer stage ([facility]) HTN Patient brought in home monitor. 158/90 Rechecked manually, 130/60 left arm, 160/68 left arm, 140/60 right arm. Apical 62 Recommend replacing home BP monitor. Has not taken medications yet. Takes typically around noon daily. Will continue losartan 100 mg oral daily and amlodipine 10 mg oral daily Continue to monitor at home. Return in 3 weeks. Consider adding diuretic if blood pressure remains slightly elevated Mixed hyperlipidemia Continue simvastatin 20 mg oral daily Lipid panel with next lab draw Type 2 DM Is managed by endocrine Monitored routinely by podiatry for chronic right and left hallux foot ulcerations. Currently are healed. Atrial fibrillation Apical 62 Samples of Eliquis 5 mg provided. Lot [id number]. EXPIRATION January 2025 ALL QUESTIONS ANSWERED Total time spent was 25 minutes: Preparing to see the patient (e.g., review of tests) Obtaining and/or reviewing separately obtained history Performing a medically appropriate examination and/or evaluation Counseling and educating the patient/family/caregiver Ordering medications, tests, or procedures Follow-up: 3 weeks BP check Escobar Garcia APRNCAMERON 12/12/23 [id number] documented in this encounter [facility] 11-23-2023 Miscellaneous Notes Formattin g of this note might be different from the original. P/c from patient requesting samples of eliquis. Samples will be taken to [facility] office and sample log updated. OV 06/14/23 12/31/22 CMP, CBC documented in this encounter [facility] 11-23-2023 Telephone encount er Note P/c from patient requesting samples of eliquis. Samples will be taken to PM office and sample log updated. OV 06/14/23 12/31/22 CMP, CBC [facility] 11-06-2023 Miscellaneous Notes Formattin g of this note might be different from the original. Images from the original note were not included. Last OV 06/14/23. CBC 12/31/22. CMP 12/31/22. documented in this encounter [facility] 11-06-2023 Telephone encount er Note Images from the original note were not included. Last OV 06/14/23. CBC 12/31/22. CMP 12/31/22. [facility] Evaluation note No assessment inform ation [facility] Work Phone: Evaluation note Diagnosis Gastroesophageal reflux disease without esophagitis Esophageal reflux [facility] Diagnosis Chronic atrial fibrillation (CMS-HCC) Atrial fibrillation [facility] Diagnosis Acquired hypothyroidism Unspecified hypothyroidism [facility] Diagnosis Benign essential HTN- Primary Chronic atrial fibrillation ([facility]) Atrial fibrillation DM type 2 with diabetic mixed hyperlipidemia ([facility]) Diabetic ulcer of toe of left foot associated with type 2 diabetes mellitus, unspecified ulcer stage ([facility]) [facility]* Diagnosis Essential hypertension- Primary Unspecified essential hypertension Chronic atrial fibrillation ([facility]) Atrial fibrillation documented in this encounter [facility] SystemInstructionsNot on filedocumented in this encounter [facility] System[facility]Not on filedocumented in this [facility] SystemInstructionsNot on filedocumented in this encounter [facility]* Attachments The following attachments cannot be sent through Care Everywhere. * Controlling your blood pressure through lifestyle (Gabonese) [facility] Attachments The following attachments cannot be sent through Care Everywhere. * Atrial fibrillation (Gabonese) * High Blood Pressure ED ([place]onese) [facility] Purpose Family History No Family History Records Found Relationship Condition Age at Onset Recorded Date/T mary Not Specified Diabetes mellitus Unknown father Leukemia Unknown Advance Directives No Advanced Directives Records Found Advance Directive Response Recorded Date/ Time Advance Directives No July 20, 2017 11:08am Latest Code Status on File Code Status Date Activated Date Inactivated Comments Full Code 02/23/2022 3:46 PM 02/26/2022 1:41 AM Code Status History Code Status Date Activated Date Inactivated Comments Full Code 01/17/2022 1:05 AM 01/19/2022 7:59 PM Chief Complaint and Reason for Visit Chief Complaint tailbone inj, fell 5 -5-24 Additional Source Comments (unrecognized sect ion and content) No Status Records FoundNo Status Records FoundNo Status Records FoundNo Status Records Found INFORMATION SOURCE (unrecogn ized section and content) DATE CREATED AUTHOR 01/05/2023 [facility] DATE CREATED AUTHOR AUTHOR'S ORGANIZ ATION 02/10/2024 [facility] DATE CREATED AUTHOR AUTHOR'S ORGANIZ ATION 02/11/2024 [facility] DATE CREATED AUTHOR AUTHOR'S ORGANIZ ATION 03/02/2024 [facility] Care Teams (unrecognized sec tion and content) Team Status: Active Member Role Status Dates Escobar Garcia [employer]-C Primary Care Provider Active Team Status: Inactive Member Role Status Dates Escobar Garcia NP-C Primary Care Provider Active Tirso Ho MD Attending Provider Active Athletic Coordinator Relationship Specialty Start Date End Date Escobar Garcia [facility] [address], [place] [address] PCP - General Nurse Practitioner 05/24/17 Athletic Coordinator Relationship Specialty Start Date End Date Escobar Garcia [facility] [address], [place] [address] PCP - General Nurse Practitioner 05/24/17 Athletic Coordinator Relationship Specialty Start Date End Date Escobar Garcia [facility] [address], [place] [address] PCP - General Nurse Practitioner 05/24/17 Athletic Coordinator Relationship Specialty Start Date End Date Escobar Garcia [facility] [address], [place] [address] PCP - General Nurse Practitioner 05/24/17 Athletic Coordinator Relationship Specialty Start Date End Date Escobar Garcia [facility] [address], [place] [address] PCP - General Nurse Practitioner 05/24/17 Team Status: Inactive Member Role Status Dates Escobar Garcia NP-C Primary Care Provider Active Start: February 20, 2024 End: February 20, 2024 ANIKA LarsonP- Emergency Provider Active Start: February 20, 2024 End: February 20, 2024 Goals (unrecognized section and content) Goals may be documented in a n alternate sectionGoals may be documented in an alternate section Reason for Visit (unrecogniz ed section and content) Reason Onset Date Comments Med Refill 10/24/2023 Reason Comments Med Refill Reason Onset Date Comments Samples 11/23/2023 Reason Comments BP check Reason Comments Hypertension FOR RECORDS PERTAINING TO PATIENTS WHO ARE OR HAVE BEEN ENROLLED IN A CHEMICAL DEPENDENCY/SUBSTANCEABUSE PROGRAM, SOME INFORMATION MAY BE OMITTED. This clinical summary was aggregated from multiple sources. Caution should be exercised in using it in the provision of clinical care. This summary normalizes information from multiple sources, and as a consequence, information in this document may materially change the coding, format and clinical context of patient data. In addition, data may be omitted in some cases. CLINICAL DECISIONS SHOULD BE BASED ON THE PRIMARY CLINICAL RECORDS. [employer] provides no warranty or guarantee of the accuracy or completeness of information in this document.
[2024-06-15 16:09] LABS: Alanine Aminotransferase 20 U/L (16-63); Albumin Globulin Ratio 1.1; Albumin Level 3.6 g/dL (3.4-5.0); Alkaline Phosphatase 89 U/L (46-116); Anion Gap 11.4; Aspartate Amino Transferase 18 U/L (15-37); BUN Creatinine Ratio 23.8; Bilirubin Total 0.6 mg/dL (0.2-1.0); Calcium 9.2 mg/dL (8.5-10.1); Carbon Dioxide 25.8 mmol/L (21.0-32.0); Chloride 103 mmol/L (98-107); Estimated GFR (African America >60 (>=60); Estimated GFR (Non-African Ame >60 (>=60); Globulin 3.4 g/dL; Glucose 114 mg/dL (74-106); Potassium 4.2 mmol/L (3.5-5.1); Sodium 136 mmol/L (136-145)
[2024-06-15 16:47] LABS: Basophils Percent Auto 0.5 % (0.2-2.0); Eosinophils Absolute Auto 0.3 10^3/uL (0.0-0.7); Eosinophils Percent Auto 4.3 % (0.9-7.0); Hematocrit 40.8 % (42.0-54.0); Immature Granulocytes Abs Auto 0.02 10^3/uL (0.00-0.03); Immature Granulocytes Pct Auto 0.3 % (0.0-0.5); Lymphocytes Absolute Auto 1.1 10^3/uL (1.2-3.8); Lymphocytes Percent Auto 17.5 % (20.5-60.0); Mean Corpuscular HGB Conc 31.9 g/dL (29.9-35.2); Mean Corpuscular Hemoglobin 26.6 pg (25.9-34.0); Mean Corpuscular Volume 83.4 fL (80.0-94.0); Mean Platelet Volume 11.4 fL (9.5-13.5); Monocytes Absolute Auto 0.7 10^3/uL (0.3-0.8); Monocytes Percent Auto 11.3 % (1.7-12.0); Neutrophils Absolute Auto 4.3 10^3/uL (1.4-6.5); Neutrophils Percent Auto 66.1 % (43.0-75.0); Platelet Count 196 10^3/uL (150-450); Red Blood Count 4.89 10^6/uL (4.70-6.10); Red Cell Distribution Width 14.9 % (11.0-15.0); White Blood Count 6.4 10^3/uL (4.0-11.0)
[2024-06-15 16:53] LABS: Erythrocyte Sedimentation Rate 60 mm/hr (<=20)
== END 2024-06-15 14:26 | disposition home or self-care (01) ==
LOC: LAB 14:25
PROVIDERS: PCP Nurse Practitioner; Visit Provider Registered Nurse
DX: E78.2 Mixed hyperlipidemia (principal); I48.20 Chronic atrial fibrillation, unspecified; I25.10 Atherosclerotic heart disease of native coronary artery without angina pectoris; I10 Essential (primary) hypertension; R94.39 Abnormal result of other cardiovascular function study; M06.4 Inflammatory polyarthropathy; M15.0 Primary generalized (osteo)arthritis; Z79.899 Other long term (current) drug therapy
CPT/HCPCS: 36415; 80053; 82248; 85025; 85652

== ENCOUNTER 2024-06-15 14:27 | Outpatient (OUT) | payer MEDICARE, OTHER, SELFPAY ==
--- OUTSIDE RECORDS SUMMARY | 2024-06-15 14:43 | XMS_ITS | CCD ---
Author Organization [facility] Care Team Providers Care Supervisor Dog License Officer Name Role Phone ESCOBAR GARCIA Consulting Unavailable [...] Attending Unavailable GARCIA, ESCOBAR Admitting Unavailable Garcia, SENIOR ADMINISTRATIVE ASSISTANT-C Escobar Smith Primary Care Provider MD Tirso oH Attending Provider Jose ELECTRONIC GAME DEVELOPER-Escobar TOVAR Primary Care Provid er ESCOBAR GARCIA Attending Unavailable ESCOBAR GARCIA Referring Unavailable ESCOBAR GARCIA Primary Care Unavailable ESCOBAR GARCIA Attending Unavailable ESCOBAR GARCIA Referring Unavailable ESCOBAR GACRIA Primary Care Unavailable ESCOBAR GARCIA Attending Unavailable ESCOBAR GARCIA Referring Unavailable ESCOBAR GARCIA Primary Care Unavailable ESCOBAR GARCIA Referring Unavailable ESCOBAR GARCIA Primary Care Unavailable Garcia, SENIOR ADMINISTRATIVE ASSISTANT-C Escobar J Primary Care Provider Chad DIGITAL ACCOUNT SUPERVISOR-BC Latricia Anderson Emergency Provider Latricia Bonilla Attending Unavailable Latricia Bonilla Admitting [...] PO Twice daily July 23, 2020 12:00am [place]-3 Fatty Acids (2 sources) Start: 01-21-2022 take 1000 mg by mouth once daily [place]-3 Fatty Acids Active 1000 MG PO Daily [...] take 1 tablet by mouth once daily Lisinopril-Speer chlorothiazide Discontinued 1 TAB PO Daily July [...] January 21, 2022 12:00am polyethylene glycol 3350 19578 mg powder for oral solution (2 sources) [...] 2022 12:00am February 20, 2024 10:50am sennosides, fpc 1.76 mg/ml oral solution (2 sources) Start: [...] disease (10 sources) Atherosclerotic heart disease of [place] coronary artery without angina pectoris; Translations: [Coronary [...] 3 Chronic Other aftercare (1 source) Other ferry terminal agent (current) drug therapy; Translations: [OTH OIL WELL SHOOTER CURRENT DRUG THERAPY] Onset: 3 Episodic Other [...] 08-21-2021 08-21-2021 Episodic Other aftercare (1 source) detention (current) use of insulin; Translations: [SENIOR CARE CURRENT USE OF INSULIN] Onset: 08-17-2022 Episodic Other screening for suspected conditions (not mental disorders or infectious disease) (12 sources) Patient encounter status; Translations: [Encounter for screening for malignant neoplasm of prostate] Onset: 09-26-2017 06-10-2020 Episodic Unclassified (6 sources) Onset: 09-20-2023 Resolved: 01-02-2024 09-20-2023 Results Test Name Value Interpretation Reference Range Facility CT abdomen pelvis wo [place] [id number] 02-20-2024 CT abdomen pelvis wo [facility] Main [place] [id number] CT Scan Report Signed Patient: Mitchell Ga MR#: [id number] 48 : 1950 Acct:[id number] Age/Sex: 73 / M ADM Date: 02/20/24 Loc: ER Room: Type: [facility] ER Attending Dr: Copies to: MATTHEW Larson [...] M.D.02/20/2024 11:59 AM Dictation Location: [place] [address] Transcribed By: [facility] [place] 02/20/24 1159 Dictated By: Marcos Mayorga II, MD 02/20/24 1146 Signed By: 02/20/24 1159 Normal [facility] CT cervical spine wo conon 0 02-20-2024 CT cervical spine wo con [facility] Main [place] [address] [place] [address] CT Scan Report Signed Patient: Mitchell Ga MR#: [id number] 48 : 1950 Acct:[id number] Age/Sex: 73 / M ADM Date: 02/20/24 Loc: ER Room: Type: [facility] ER Attending Dr: Copies to: MATTHEW Larson Ordering Provider: MATTHEW Larson Date of Service: 02/20/24 CT/CT head/brain wo con: fell last Tuesday hit head on thinners ([id number]) CT/CT cervical spine wo con: fall last [...] M.D.02/20/2024 11:46 AM Dictation Location: [place] [address] Transcribed By: [facility] [place] 02/20/24 1146 Dictated By: Marcos Mayorga II, MD 02/20/24 1137 Signed By: 02/20/24 1146 Normal [facility] BASIC METABOLIC PANLon 02-08 Anion gap [Moles/Vol] 9 mmol/L Normal 5-15 [facility] Comment on above: Performed By: #### B , [id number] #### [facility] ([id number]) [address], [address] [place] [address] Calcium [Mass/Vol] 9.5 mg/dL Normal 8.5-10.5 [facility] Comment on above: Performed By: #### Jaya DANIELSON, 89578-0 #### [facility] ([id number]) [address], [address] [place] [address] Chloride [Moles/Vol] 106 mmol/L Normal 98-109 [facility] Comment on above: Performed By: #### Jaya DANIELSON, 85899-0 #### [facility] ([id number]) [address], [address] [place] [address] CO2 [Moles/Vol] 24 mmol/L Normal 22-32 [facility] Comment on above: Performed By: #### Jaya DANIELSON, 77484-6 #### [facility] ([id number]) [address], [address] [place] [address] Creatinine [Mass/Vol] 0.84 mg/dL Normal 0.60-1.[address] [facility] Comment on above: Result Comment: METH OD TRACEABLE TO IDMS STANDARD Performed By: #### Jaya DANIELSON, 39923-6 #### [facility] ([id number]) [address] [place] [address] eGFR (CKD-EPI) NON-RACE DEPENDENT >90 Normal >59 [facility] Comment on above: Result Comment: Reported eGFR is based on the CKD-EPI 2020 equation that does not use a race coefficient. Performed By: #### Jaya DANIELSON, 02637-8 #### [facility] ([id number]) [address], [address] [place] [address] Glucose [Mass/Vol] 112 mg/dL High 65-99 [facility] Comment on above: Performed By: #### Jaya DANIELSON, 88966-3 #### [facility] ([id number]) [address], [address] [place] [address] Potassium [Moles/Vol] 4.0 mmol/L Normal 3.5-5.[address] [facility] Comment on above: Performed By: #### Jaya DANIELSON, 69645-7 #### [facility] ([id number]) [address], [address] [place] [address] Sodium [Moles/Vol] 139 mmol/L Normal 134-146 [facility] Comment on above: Performed By: #### Jaya DANIELSON, 35807-1 #### [facility] ([id number]) [address], [address] [place] [address] Urea nitrogen [Mass/Vol] 21 mg/dL Normal 5-27 [facility] Comment on above: Performed By: #### Jaya DANIELSON, 19612-4 #### [facility] ([id number]) [address], [address] [place] [address] Lipid 1996 panelon 4 Cholesterol [Mass/Vol] 110 mg/dL Low 150-200 [facility] Comment on above: Performed By: #### Jaya DANIELSON, 44937-4 #### [facility] ([id number]) [address], [address] [place] [address] Cholesterol in HDL [Mass/Vol] 48 mg/dL Normal >39 [facility] Comment on above: Result Comment: HDL <40 mg/dL - High Risk HDL > or = 40mg/dL- Desirable HDL >60 mg/dL - Negative Risk Performed By: #### Jaya DANIELSON, 06699-0 #### [facility] ([id number]) [address], [address] [place] [address] Cholesterol in LDL [Mass/Vol] 44 mg/dL Normal <130 [facility] Comment on above: Result Comment: LDL <100 mg/dL - Desirable LDL >160 mg/dL - High Risk Performed By: #### B JAGJIT, 84493-4 #### [facility] ([id number]) [address], [address] [place] [address] Cholesterol in VLDL [Mass/Vol] 18 mg/dL Normal 0-30 [facility] Comment on above: Performed By: #### Jaya DANIELSON, 61213-2 #### [facility] ([id number]) [address], [address] [place] [address] CHOLESTEROL:HDL 2.3 Normal 1.0-5.0 [facility] Comment on above: Performed By: #### Jaya DANIELSON, 58204-8 #### [facility] ([id number]) [address], [address] [place] [address] Triglyceride [Mass/Vol] 91 mg/dL Normal 27-150 P [facility] Comment on above: Performed By: #### Jaya DANIELSON, 55839-7 #### [facility] ([id number]) [address], [address] [place] [address] Alanine aminotransferase [En zymatic activity/volume] in Serum or PlasmaOrdered By: Erica Arroyo on 05-24-2023 ALT [Catalytic activity/Vol] 13 U/L 7-52 [facility] Albumin [Mass/volume] in Ser um or Plasma by Bromocresol green (BCG) dye binding methoOrdered By: Erica Arroyo on 05-24-2023 Albumin BCG dye [Mass/Vol] 4.3 g/dL 3.5-5.7 [facility] Alkaline phosphatase [Enzyma tic activity/volume] in Serum or PlasmaOrdered By: Erica rAroyo on 05-24-2023 ALP [Catalytic activity/Vol] 72 U/L 34-104 [facility] Aspartate aminotransferase [ Enzymatic activity/volume] in Serum or PlasmaOrdered By: Erica Arroyo on 08-15-2023 AST [Catalytic activity/Vol] 17 U/L 13-39 [facility] Basophils Auto (Bld) [#/Vol] Ordered By: Erica Arroyo on 05-24-2023 Basophils (Bld) [#/Vol] 0.0 10*3/uL 0.0-0.2 [facility] Basophils/100 WBC Auto (Bld) Ordered By: Erica Arroyo on 05-24-2023 Basophils/100 WBC (Bld) 0.7 % . [facility] Bilirubin.total [Mass/volume ] in Serum or PlasmaOrdered By: Erica Arroyo on 05-24-2023 Bilirubin [Mass/Vol] 0.6 mg/dL 0.3-1.0 [facility] Calcium [Mass/volume] in Ser um or PlasmaOrdered By: Erica Arroyo on 05-24-2023 Calcium [Mass/Vol] 9.6 mg/dL 8.6-10.3 [facility] Carbon dioxide, total [Moles /volume] in Serum or PlasmaOrdered By: Erica Arroyo on 05-24-2023 CO2 [Moles/Vol] 26.9 mmol/L 21.0-31.0 [facility] Chloride [Moles/volume] in S amanda or PlasmaOrdered By: Erica Arroyo on 05-24-2023 Chloride [Moles/Vol] 105 mmol/L 98-107 [facility] Complete Blood Count Auto Di ffon 05-24-2023 Basophils (Bld) [#/Vol] 0.0 10*3/uL Normal 0.0-0.2 [facility] Comment on above: Performed By: #### C BC, ESR, CMP #### [facility] [address] [place] [address] [place] Basophils/100 WBC (Bld) 0.7 % Normal . T sandip [facility] Comment on above: Performed By: #### C BC, ESR, CMP #### [facility] [address] [place] [id number] [place] Eosinophils (Bld) [#/Vol] 0.4 10*3/uL Normal 0.0-0.45 [facility] Comment on above: Performed By: #### C BC, ESR, CMP #### [place] [address] [place] Eosinophils/100 WBC (Bld) 7.6 % Normal . [facility] Comment on above: Performed By: #### C BC, ESR, CMP #### [address] Erythrocyte distribution width (RBC) [Ratio] 16.6 % High 12.0-14.8 [facility] Comment on above: Performed By: #### C BC, ESR, CMP #### [address] Hematocrit (Bld) [Volume fraction] 42.5 % Normal 38.8-50.0 [facility] Comment on above: Performed By: #### C BC, ESR, CMP #### [address] Hemoglobin (Bld) [Mass/Vol] 13.8 g/dL Normal 13.0-17.0 [facility] Comment on above: Performed By: #### C BC, ESR, CMP #### [address] Lymphocytes (Bld) [#/Vol] 1.1 10*3/uL Normal 1.00-4.8 [facility] Comment on above: Performed By: #### C BC, ESR, CMP #### [place] [address] [place] Lymphocytes/100 WBC (Bld) 20.8 % Normal . [facility] Comment on above: Performed By: #### C BC, ESR, CMP #### [address] MCH (RBC) [Entitic mass] 26.4 pg Low 27.5-35.2 [facility] Comment on above: Performed By: #### C BC, ESR, CMP #### [address] MCV (RBC) [Entitic vol] 81.6 fL Low 83.5-101 T [facility] Comment on above: Performed By: #### C BC, ESR, CMP #### [address] Mean Corpuscular HGB Conc 32.4 g/dL Low 32.5-35.6 [facility] Comment on above: Performed By: #### C BC, ESR, CMP #### [address] Monocytes (Bld) [#/Vol] 0.6 10*3/uL Normal 0.0-0.8 [facility] Comment on above: Performed By: #### C BC, ESR, CMP #### [address] Monocytes/100 WBC (Bld) 11.7 % Normal . T [facility] Comment on above: Performed By: #### C BC, ESR, CMP #### [address] Neutrophils (Bld) [#/Vol] 3.1 10*3/uL Normal 1.8-7.7 [facility] Comment on above: Performed By: #### C BC, ESR, CMP #### [address] Neutrophils/100 WBC (Bld) 59.2 % Normal . [facility] Comment on above: Performed By: #### C BC, ESR, CMP #### [address] NRBC% 0.1 /100{WBC} Normal 0-0.5 [facility] Comment on above: Performed By: #### C BC, ESR, CMP #### [address] Platelet mean volume (Bld) [Entitic vol] 9.3 fL Normal 6.6-10.1 [facility] Comment on above: Performed By: #### C BC, ESR, CMP #### [address] Platelets (Bld) [#/Vol] 145 10*3/uL Low 150-450 [facility] Comment on above: Performed By: #### C BC, ESR, CMP #### [address] RBC (Bld) [#/Vol] 5.21 10*6/uL Normal 3.90-5.60 [facility] Comment on above: Performed By: #### C BC, ESR, CMP #### [address] WBC (Bld) [#/Vol] 5.2 10*3/uL Normal 4.1-10.5 [facility] Comment on above: Performed By: #### C BC, ESR, CMP #### [address] Comprehensive Metabolic Pane barrett 05-24-2023 Albumin [Mass/Vol] 4.3 g/dL Normal 3.5-5.7 [facility] Comment on above: Performed By: #### C BC, ESR, CMP #### [address] Albumin/Globulin [Mass ratio] 1.5 {ratio} Normal [facility] Comment on above: Performed By: #### C BC, ESR, CMP #### [address] ALP [Catalytic activity/Vol] 72 U/L Normal 34-104 [facility] Comment on above: Result Comment: PERF ORMED BY: [place] [address] PATHOLOGIST STRUCTURAL STEEL IRONWORKER RICO FARFAN M.D. Performed By: #### C BC, ESR, CMP #### [address] ALT [Catalytic activity/Vol] 13 U/L Normal 7-52 [facility] Comment on above: Performed By: #### C BC, ESR, CMP #### [address] Anion gap [Moles/Vol] 11.3 mmol/L Normal 6.0-15.0 [facility] Comment on above: Performed By: #### C BC, ESR, CMP #### [facility] [address] AST [Catalytic activity/Vol] 17 U/L Normal 13-39 [facility] Comment on above: Performed By: #### C BC, ESR, CMP #### [facility] [address] Bilirubin [Mass/Vol] 0.6 mg/dL Normal 0.3-1.0 [facility] Comment on above: Performed By: #### C BC, ESR, CMP #### [facility] [address] Calcium [Mass/Vol] 9.6 mg/dL Normal 8.6-10.3 [facility] Comment on above: Performed By: #### C BC, ESR, CMP #### [facility] [address] [place] [address] [place] Chloride [Moles/Vol] 105 mmol/L Normal 98-107 [facility] Comment on above: Performed By: #### C BC, ESR, CMP #### [facility] [address] [place] [address] [place] CO2 [Moles/Vol] 26.9 mmol/L Normal 21.0-31.0 [facility] Comment on above: Performed By: #### C BC, ESR, CMP #### [facility] [address] [place] [address] [place] Creatinine [Mass/Vol] 0.92 mg/dL Normal 0.70-1.30 [facility] Comment on above: Performed By: #### C BC, ESR, CMP #### [facility] [address] [place] [address] [place] GFR/1.73 sq M.predicted MDRD (S/P/Bld) [Vol rate/Area] mL/min/{1.73_m2} Normal [facility] Comment on above: Performed By: #### C BC, ESR, CMP #### [facility] [address] [place] [address] [place] Globulin (S) [Mass/Vol] 2.8 g/dL Normal T he [facility] Comment on above: Performed By: #### C BC, ESR, CMP #### [facility] [address] Glucose [Mass/Vol] 130 mg/dL High 70-100 [facility] Comment on above: Result Comment: [place] Glucose Reference Range is dependent on time and content of last meal. Glucose of more than 200 mg/dL in a nonstressed, ambulatory subject supports the diagnosis of Diabetes Mellitus. ADA recommended reference range Performed By: #### C BC, ESR, CMP #### [facility] [address] Potassium [Moles/Vol] 4.2 mmol/L Normal 3.5-5.1 [facility] Comment on above: Performed By: #### C BC, ESR, CMP #### [facility] [address] [place] [address] [place] Protein [Mass/Vol] 7.1 g/dL Normal 6.4-8.9 [facility] Comment on above: Performed By: #### C BC, ESR, CMP #### [facility] [address] [place] [address] [place] Sodium [Moles/Vol] 139 mmol/L Normal 136-145 [facility] Comment on above: Performed By: #### C BC, ESR, CMP #### [facility] [address] [place] [address] [place] Urea nitrogen [Mass/Vol] 20 mg/dL Normal 7-25 [facility] Comment on above: Performed By: #### C BC, ESR, CMP #### [facility] [address] [place] [id number] [place] Creatinine [Mass/volume] in Serum or PlasmaOrdered By: Erica Arroyo on 05-24-2023 Creatinine [Mass/Vol] 0.92 mg/dL 0.70-1.30 [facility] Eosinophils Auto (Bld) [#/Vo l]Ordered By: Erica Arroyo on 05-24-2023 Eosinophils (Bld) [#/Vol] 0.4 10*3/uL 0.0-0.45 [facility] Eosinophils/100 WBC Auto (Bl d)Ordered By: Erica Arroyo on 05-24-2023 Eosinophils/100 WBC (Bld) 7.6 % . [facility] Erythrocyte Sedimentation Ra eduin 05-24-2023 ESR (Bld) [Velocity] 19 mm/h Normal 0-19 [facility] Comment on above: Result Comment: PERF ORMED BY: [facility] [address] [place] [address] PATHOLOGIST [employer]EL IRONWORKER RICO FARFAN M.D. Performed By: #### C BC, ESR, CMP #### [facility] [address] Erythrocyte distribution wid th Auto (RBC) [Ratio]Ordered By: Erica Arroyo on 05-24-2023 Erythrocyte distribution width (RBC) [Ratio] 16.6 % 12.0-14.8 [facility] Erythrocyte sedimentation ra te by Photometric methodOrdered By: Erica Arroyo on 05-24-2023 ESR Photometric method (Bld) [Velocity] 19 mm/hr 0-19 [facility] Globulin Calc (S) [Mass/Vol] Ordered By: Erica Arroyo on 05-24-2023 Globulin (S) [Mass/Vol] 2.8 g/dL [facility] Glucose [Mass/volume] in Ser um or PlasmaOrdered By: Erica Arroyo on 05-24-2023 Glucose [Mass/Vol] 130 mg/dL 70-100 [facility] Comment on above: ADA recommended refe rence rangeRandom Glucose Reference Range is dependent on time and content of last meal. Glucose of more than 200 mg/dL in a nonstressed, ambulatory subject supports the diagnosis of Diabetes Mellitus. Hematocrit Auto (Bld) [Volum e fraction]Ordered By: Erica Arroyo on 05-24-2023 Hematocrit (Bld) [Volume fraction] 42.5 % 38.8-50.0 [facility] Hemoglobin [Mass/volume] in BloodOrdered By: Erica Arroyo on 05-24-2023 Hemoglobin (Bld) [Mass/Vol] 13.8 g/dL 13.0-17.0 [facility] Leukocytes [#/volume] correc devin for nucleated erythrocytes in Blood by Automated counOrdered By: Erica Arroyo on 05-24-2023 WBC corrected for nucl RBC Auto (Bld) [#/Vol] 5.2 10*3/uL 4.1-10.5 [facility] Lymphocytes Auto (Bld) [#/Vo l]Ordered By: Erica Arroyo on 05-24-2023 Lymphocytes (Bld) [#/Vol] 1.1 10*3/uL 1.00-4.8 [facility] Lymphocytes/100 WBC Auto (Bl d)Ordered By: Erica Arroyo on 05-24-2023 Lymphocytes/100 WBC (Bld) 20.8 % . [facility] MCH Auto (RBC) [Entitic mass ]Ordered By: Erica Arroyo on 05-24-2023 MCH (RBC) [Entitic mass] 26.4 pg 27.5-35.2 [facility] MCHC Auto (RBC) [Mass/Vol]Or dered By: Erica Arroyo on 05-24-2023 MCHC (RBC) [Mass/Vol] 32.4 g/dL 32.5-35.6 [facility] MCV Auto (RBC) [Entitic vol] Ordered By: Erica Arroyo on 05-24-2023 MCV (RBC) [Entitic vol] 81.6 fL 83.5-101 [facility] Monocytes Auto (Bld) [#/Vol] Ordered By: Erica Arroyo on 05-24-2023 Monocytes (Bld) [#/Vol] 0.6 10*3/uL 0.0-0.8 [facility] Monocytes/100 WBC Auto (Bld) Ordered By: Erica Arroyo on 05-24-2023 Monocytes/100 WBC (Bld) 11.7 % . [facility] Neutrophils Auto (Bld) [#/Vo l]Ordered By: Erica Arroyo on 05-24-2023 Neutrophils (Bld) [#/Vol] 3.1 10*3/uL 1.8-7.7 [facility] Neutrophils/100 WBC Auto (Bl d)Ordered By: Erica Arroyo on 05-24-2023 Neutrophils/100 WBC (Bld) 59.2 % . [facility] No Panel InformationOrdered By: Erica Arroyo on 05-24-2023 Estimated GFR (CKD-EPI) > 60.0 mL/Min [facility] Creatinine Clearance (Chem N/A [facility] Nucleated erythrocytes [Pres ence] in Blood by Automated countOrdered By: Erica Arroyo on 05-24-2023 Nucleated RBC Auto Ql (Bld) 0.1 /100{WBC} 0-0.5 [facility] Platelet mean volume Auto (B ld) [Entitic vol]Ordered By: Erica Arroyo on 05-24-2023 Platelet mean volume (Bld) [Entitic vol] 9.3 fL 6.6-10.1 [facility] Platelets Auto (Bld) [#/Vol] Ordered By: Erica Arroyo on 05-24-2023 Platelets (Bld) [#/Vol] 145 10*3/uL 150-450 [facility] Potassium [Moles/volume] in Serum or PlasmaOrdered By: Erica Arroyo on 05-24-2023 Potassium [Moles/Vol] 4.2 mmol/L 3.5-5.1 [facility] Protein [Mass/volume] in Ser um or PlasmaOrdered By: Erica Arroyo on 05-24-2023 Protein [Mass/Vol] 7.1 g/dL 6.4-8.9 [facility] RBC Auto (Bld) [#/Vol]Ordere d By: Erica Arroyo on 05-24-2023 RBC (Bld) [#/Vol] 5.21 10*6/uL 3.90-5.60 [facility] Serum or plasma albumin/glob ulin mass ratioOrdered By: Erica Arryoo on 05-24-2023 Albumin/Globulin [Mass ratio] 1.5 {ratio} [facility] Serum or plasma anion gap de terminationOrdered By: Erica Arroyo on 05-24-2023 Anion gap [Moles/Vol] 11.3 mmol/L 6.0-15.0 [facility] Sodium [Moles/volume] in Ser um or PlasmaOrdered By: Erica Arroyo on 05-24-2023 Sodium [Moles/Vol] 139 mmol/L 136-145 [facility] Urea nitrogen [Mass/volume] in Serum or PlasmaOrdered By: Erica Arroyo on 05-24-2023 Urea nitrogen [Mass/Vol] 20 mg/dL 7-25 [facility] WBC Auto (Bld) [#/Vol]Ordere d By: Erica Arroyo on 05-24-2023 WBC (Bld) [#/Vol] 5.2 10*3/uL 4.1-10.5 [facility] HEPATITIS C VIRUS AB W/ REFL EX QUANTon 01-01-2023 HCV AB Non-Reactive Normal Non Reactive [facility] Comment on above: Performed By: #### H CVPCRR #### [facility] [address] [place] [address] Dr. Alka Givens Interpretation: Comment Normal [facility] Comment on above: Result Comment: Not infected with HCV unless early or acute infection is suspected (which may be delayed in an immunocompromised individual), or other evidence exists to indicate HCV infection. Performed By: #### H CVPCRR #### [facility] [address] [place] [address] [address] Alka Givens CBC AUTO DIFFon 12-31-2022 BASO # 0.1 103/ul Normal 0.0-0.1 [facility] Comment on above: Performed By: #### C BC #### [facility] [address] [place] [address] [address] Alka Givens Basophils/100 WBC (Bld) 1.1 % Normal 0.2-2.0 [facility] Comment on above: Performed By: #### C BC #### [facility] [address] [address] [address] Alka Gievns EO # 0.3 103/ul Normal 0.0-0.7 [facility] Comment on above: Performed By: #### C BC #### [facility] [address] [place] [address] Dr. Alka Givens Eosinophils/100 WBC (Bld) 6.0 % Normal 0.9-7.0 [facility] Comment on above: Performed By: #### C BC #### [facility] [address] [place] [address] Dr. Alka Givens Erythrocyte distribution width (RBC) [Ratio] 15.5 % Critically high 11.0-15.0 [facility] Comment on above: Performed By: #### C BC #### [facility] [address] [place] [address] Dr. Alka Givens Hematocrit (Bld) [Volume fraction] 43.7 % Normal 42.0-54.0 [facility] Comment on above: Performed By: #### C BC #### [facility] [address] [place] [address] Dr. Alka Givens Hemoglobin (Bld) [Mass/Vol] 14.1 g/dL Normal 14.0-18.0 [facility] Comment on above: Performed By: #### C BC #### [facility] [address] [place] [address] Dr. Alka Givens IG # 0.01 10e3/ul Normal 0.00-0.03 [facility] Comment on above: Performed By: #### C BC #### [facility] [address] [place] [address] Dr. Alka Givens IG % 0.2 % Normal 0.0-0.5 [facility] Comment on above: Performed By: #### C BC #### [facility] [address] [place] [address] Dr. Alka Givens LYMPH # 1.8 103/ul Normal 1.2-3.8 [facility] Comment on above: Performed By: #### C BC #### [facility] [address] [place] [address] Dr. Alka Givens Lymphocytes/100 WBC (Bld) 32.0 % Normal 20.5-60.0 [facility] Comment on above: Performed By: #### C BC #### [facility] [address] [place] [address] Dr. Alka Givens MANUAL DIFF REQ NO Normal [facility] Comment on above: Performed By: #### C BC #### [facility] [address] [place] [address] Dr. Alka Givens MCH (RBC) [Entitic mass] 26.5 pg Normal 25.9-34.0 [facility] Comment on above: Performed By: #### C BC #### [facility] [address] [place] [address] Dr. Alka Givens MCHC (RBC) [Mass/Vol] 32.3 g/dL Normal 29.9-35.2 [facility] Comment on above: Performed By: #### C BC #### [facility] [address] [place] [address] Dr. Alka Givens MCV (RBC) [Entitic vol] 82.1 fL Normal 80.0-94.0 [facility] Comment on above: Performed By: #### C BC #### [facility] [address] [place] [address] Dr. Alka Givens MONO # 0.6 103/ul Normal 0.3-0.8 [facility] Comment on above: Performed By: #### C BC #### [facility] [address] [place] [address] Dr. Alka Givens Monocytes/100 WBC (Bld) 10.9 % Normal 1.7-12.0 [facility] Comment on above: Performed By: #### C BC #### [facility] [address] [place] [address] Dr. Alka Givens NEUT # 2.8 103/ul Normal 1.4-6.5 [facility] Comment on above: Performed By: #### C BC #### [facility] [address] [place] [address] Dr. Alka Givens Neutrophils/100 WBC (Bld) 49.8 % Normal 43.0-75.0 [facility] Comment on above: Performed By: #### C BC #### [facility] [address] [place] [address] Dr. Alka Givens Platelet mean volume (Bld) [Entitic vol] 10.3 fL Normal 9.5-13.5 [facility] Comment on above: Performed By: #### C BC #### [facility] [address] [place] [address] Dr. Alka Givens PLT 168 103/ul Normal 150-450 [facility] Comment on above: Performed By: #### C BC #### [facility] [address] [place] [address] Dr. Alka Givens RBC 5.32 106/ul Normal 4.70-6.10 [facility] Comment on above: Performed By: #### C BC #### [facility] [address] [place] [address] Dr. Alka Givens WBC 5.6 103/ul Normal 4.0-11.0 [facility] Comment on above: Performed By: #### C BC #### [facility] [address] [place] [address] Dr. Alka Givens PROF 14(COMP METB)on 023 Albumin [Mass/Vol] 4.0 g/dL Normal 3.4-5.0 [facility] Comment on above: Performed By: #### C MP #### [facility] [address] [place] [address] Dr. Alka Givens Albumin/Globulin [Mass ratio] 1.2 {ratio} Normal [facility] Comment on above: Performed By: #### C MP #### [facility] [address] [place] [address] Dr. Alka Givens ALP [Catalytic activity/Vol] 82 U/L Normal 46-116 [facility] Comment on above: Performed By: #### C MP #### [facility] [address] [place] [address] Dr. Alka Givens ALT [Catalytic activity/Vol] 20 U/L Normal 16-63 [facility] Comment on above: Performed By: #### C MP #### [facility] [address] [address] [address] Alka Givens Anion gap [Moles/Vol] 11.9 mmol/L Normal [facility] Comment on above: Performed By: #### C MP #### [facility] [address] [place] [address] Dr. Alka Givens AST [Catalytic activity/Vol] 17 U/L Normal 15-37 [facility] Comment on above: Performed By: #### C MP #### [facility] [address] [address] [address] Alka Givens Bilirubin [Mass/Vol] 0.7 mg/dL Normal 0.2-1.0 [facility] Comment on above: Performed By: #### C MP #### [facility] [address] [place] [address] Dr. Alka Givens Calcium [Mass/Vol] 9.1 mg/dL Normal 8.5-10.1 [facility] Comment on above: Performed By: #### C MP #### [facility] [address] [place] [address] Dr. Alka Givens Chloride [Moles/Vol] 104 mmol/L Normal 98-107 [facility] Comment on above: Performed By: #### C MP #### [facility] [address] [place] [address] Dr. Alka Givens CO2 [Moles/Vol] 26.9 mmol/L Normal 21.0-32.0 [facility] Comment on above: Performed By: #### C MP #### [facility] [address] [place] [address] Dr. Alka Givens Creatinine [Mass/Vol] 0.76 mg/dL Normal 0.70-1.30 [facility] Comment on above: Performed By: #### C MP #### [facility] [address] [place] [address] Dr. Alka Givens EGFR-AF HAITIAN >60 Normal >=60 [facility] Comment on above: Performed By: #### C MP #### [facility] [address] [place] [address] Dr. Alka Givens EGFR-NON AF HAITIAN >60 Normal >=60 [facility] Comment on above: Performed By: #### C MP #### [facility] [address] [address] [address] Alka Givens Globulin (S) [Mass/Vol] 3.3 g/dL Normal [facility] Comment on above: Performed By: #### C MP #### [facility] [address] [address] [address] Alka Givens Glucose [Mass/Vol] 53 mg/dL Critically low 74-106 [facility] Comment on above: Performed By: #### C MP #### [facility] [address] [address] [address] Alka Givens Potassium [Moles/Vol] 3.8 mmol/L Normal 3.5-5.1 [facility] Comment on above: Performed By: #### C MP #### [facility] [address] [address] [address] Alka Givens Protein [Mass/Vol] 7.3 g/dL Normal 6.4-8.2 [facility] Comment on above: Performed By: #### C MP #### [facility] [address] [address] [address] Alka Givens Sodium [Moles/Vol] 139 mmol/L Normal 136-145 [facility] Comment on above: Performed By: #### C MP #### [facility] [address] [address] [address] Alka Givens Urea nitrogen [Mass/Vol] 15.0 mg/dL Normal 7.0-18.0 [facility] Comment on above: Performed By: #### C MP #### [facility] [address] [address] [address] Alka Givens Urea nitrogen/Creatinine [Mass ratio] 19.7 mg/mg Normal [facility] Comment on above: Performed By: #### C MP #### [facility] [address] [address] [address] Alka Givens SED [facility] 2022 SED RATE 22 mm/hr Critically high <=20 [facility] Comment on above: Performed By: #### S EDR #### [facility] [address] [place] [address] Dr. Alka Givens CBC AUTO DIFFon 08-16-2022 BASO # 0.1 103/ul Normal 0.0-0.1 [facility] Comment on above: Performed By: #### C BC #### [facility] [address] [place] [address] Dr. Alka Givens Basophils/100 WBC (Bld) 0.9 % Normal 0.2-2.0 [facility] Comment on above: Performed By: #### C BC #### [facility] [address] [place] [address] Dr. Akla Givens EO # 0.3 103/ul Normal 0.0-0.7 [facility] Comment on above: Performed By: #### C BC #### [facility] [address] [place] [address] Dr. Alka Givens Eosinophils/100 WBC (Bld) 5.2 % Normal 0.9-7.0 [facility] Comment on above: Performed By: #### C BC #### [facility] [address] [place] [address] Dr. Alka Givens Erythrocyte distribution width (RBC) [Ratio] 16.4 % Critically high 11.0-15.0 [facility] Comment on above: Performed By: #### C BC #### [facility] [address] [place] [address] Dr. Alka Givens Hematocrit (Bld) [Volume fraction] 42.7 % Normal 42.0-54.0 [facility] Comment on above: Performed By: #### C BC #### [facility] [address] [place] [address] Dr. Alka Givens Hemoglobin (Bld) [Mass/Vol] 13.5 g/dL Critically low 14.0-18.0 [facility] Comment on above: Performed By: #### C BC #### [facility] [address] [place] [address] Dr. Alka Givens IG # 0.02 10e3/ul Normal 0.00-0.03 [facility] Comment on above: Performed By: #### C BC #### [facility] [address] [place] [address] Dr. Alka Givens IG % 0.4 % Normal 0.0-0.5 [facility] Comment on above: Performed By: #### C BC #### [facility] [address] [place] [address] Dr. Alka Givens LYMPH # 1.2 103/ul Normal 1.2-3.8 [facility] Comment on above: Performed By: #### C BC #### [facility] [address] [place] [address] Dr. Alka Givens Lymphocytes/100 WBC (Bld) 21.7 % Normal 20.5-60.0 [facility] Comment on above: Performed By: #### C BC #### [facility] [address] [place] [address] Dr. Alka Givens MANUAL DIFF REQ NO Normal [facility] Comment on above: Performed By: #### C BC #### [facility] [address] [place] [address] Dr. Alka Givens MCH (RBC) [Entitic mass] 26.1 pg Normal 25.9-34.0 [facility] Comment on above: Performed By: #### C BC #### [facility] [address] [place] [address] Dr. Alka Givens MCHC (RBC) [Mass/Vol] 31.6 g/dL Normal 29.9-35.2 [facility] Comment on above: Performed By: #### C BC #### [facility] [address] [place] [address] Dr. Alka Givens MCV (RBC) [Entitic vol] 82.4 fL Normal 80.0-94.0 [facility] Comment on above: Performed By: #### C BC #### [facility] [address] [place] [address] Dr. Alka Givens MONO # 0.6 103/ul Normal 0.3-0.8 [facility] Comment on above: Performed By: #### C BC #### [facility] [address] [address] [address] Alka Givens Monocytes/100 WBC (Bld) 11.4 % Normal 1.7-12.0 [facility] Comment on above: Performed By: #### C BC #### [facility] [address] [address] [address] Alka Givens NEUT # 3.4 103/ul Normal 1.4-6.5 [facility] Comment on above: Performed By: #### C BC #### [facility] [address] [address] [address] Alka Givens Neutrophils/100 WBC (Bld) 60.4 % Normal 43.0-75.0 [facility] Comment on above: Performed By: #### C BC #### [facility] [address] [place] [address] Dr. Alka Givens Platelet mean volume (Bld) [Entitic vol] 10.8 fL Normal 9.5-13.5 [facility] Comment on above: Performed By: #### C BC #### [facility] [address] [place] [address] Dr. Alka Givens PLT 188 103/ul Normal 150-450 [facility] Comment on above: Performed By: #### C BC #### [facility] [address] [place] [address] Dr. Alka Givens RBC 5.18 106/ul Normal 4.70-6.10 [facility] Comment on above: Performed By: #### C BC #### [facility] [address] [place] [address] Dr. Alka Givens WBC 5.6 103/ul Normal 4.0-11.0 [facility] Comment on above: Performed By: #### C BC #### [facility] [address] [place] [address] Dr. Alka Givens LIPID PROFILEon 08-16-2022 CHOL-HDL RATIO NORM SEE BELOW Normal [facility] Comment on above: Result Comment: 3.3 - 4.4 LOW RISK 4.4 - 7.1 AVERAGE RISK 7.1 - 11.0 MODERATE RISK >11.0 HIGH RISK Performed By: #### C MP #### [facility] [address] [place] [address] Dr. Alka Givens Cholesterol [Mass/Vol] 103 mg/dL Normal <=200 [facility] Comment on above: Performed By: #### C MP #### [facility] [address] [place] [address] Dr. Alka Givens Cholesterol in HDL [Mass/Vol] 47 mg/dL Normal 40-60 [facility] Comment on above: Performed By: #### C MP #### [facility] [address] [place] [address] Dr. Alka Givens Cholesterol in LDL [Mass/Vol] 38.8 mg/dL Normal [facility] Comment on above: Performed By: #### C MP #### [facility] [address] [place] [address] Dr. Alka Givens Cholesterol.total/Choles terol in HDL [Mass ratio] 2.2 {ratio} Normal [facility] Comment on above: Performed By: #### C MP #### [facility] [address] [place] [address] Dr. Alka Givens HDL NORMAL > or = 60 mg/dl - LO W CARDIOVASCULAR RISK <40 mg/dl - HIGH CARDIOVASCULAR RISK Normal [facility] Comment on above: Performed By: #### C MP #### [facility] [address] [place] [address] Dr. Alka Givens LDL CALC NORMAL SEE BELOW Normal [facility] Comment on above: Result Comment: <100 mg/dl OPTIMAL 100 - 129 mg/dl NEAR OR ABOVE OPTIMAL 130 - 159 mg/dl BORDERLINE HIGH 160 - 189 mg/dl HIGH >190 mg/dl VERY HIGH Performed By: #### C MP #### [facility] [address] [place] [address] Dr. Alka Givens Triglyceride [Mass/Vol] 86 mg/dL Normal <=150 [facility] Comment on above: Performed By: #### C MP #### [facility] [address] [address] [address] Alka Givens VLDL CALC 17.2 mg/dL Normal [facility] Comment on above: Performed By: #### C MP #### [facility] [address] [address] [address] Alka Givens MICROALB CREAT RATIO RANDOMo n 08-16-2022 mALB 5.3 mg/L Normal <=30.0 [facility] Comment on above: Performed By: #### M CRR #### [facility] [address] [place] [address] Dr. Alka Givens MALB CR RATIO 34.3 mg/g Critically high 0.0-29.9 [facility] Comment on above: Performed By: #### M CRR #### [facility] [address] [place] [address] Dr. Alka Givens MALB CR RATIO RANGE SEE BELOW Normal [facility] Comment on above: Result Comment: NO M ICROALBUMINURIA 0-29 MG/G CLINICAL MICROALBUMINURIA 30-300 MG/G MACROALBUMINURIA >300 MG/G Performed By: #### M CRR #### [facility] [address] [place] [address] Dr. Alka Givens URINE CREAT 154.52 mg/dL Normal 20.00-300.00 [facility] Comment on above: Performed By: #### M CRR #### [facility] [address] [place] [address] Dr. Alka Givens PHOSPHORUSon 08-16-2022 Phosphate [Mass/Vol] 4.1 mg/dL Normal 2.6-4.7 [facility] Comment on above: Performed By: #### C MP #### [facility] [address] [place] [address] Dr. Alka Givens PROF 14(COMP METB)on 022 Albumin [Mass/Vol] 3.8 g/dL Normal 3.4-5.0 [facility] Comment on above: Performed By: #### C MP #### [facility] [address] [place] [address] Dr. Alka Gviens Albumin/Globulin [Mass ratio] 1.0 {ratio} Normal [facility] Comment on above: Performed By: #### C MP #### [facility] [address] [address] [address] Alka Givens ALP [Catalytic activity/Vol] 85 U/L Normal 46-116 [facility] Comment on above: Performed By: #### C MP #### [facility] [address] [address] [address] Alka Givens ALT [Catalytic activity/Vol] 17 U/L Normal 16-63 [facility] Comment on above: Performed By: #### C MP #### [facility] [address] [address] [address] Alka Givens Anion gap [Moles/Vol] 8.0 mmol/L Normal [facility] Comment on above: Performed By: #### C MP #### [facility] [address] [place] [address] Dr. Alka Givens AST [Catalytic activity/Vol] 20 U/L Normal 15-37 [facility] Comment on above: Performed By: #### C MP #### [facility] [address] [address] [address] Alka Givens Bilirubin [Mass/Vol] 0.6 mg/dL Normal 0.2-1.0 [facility] Comment on above: Performed By: #### C MP #### [facility] [address] [address] [address] Alka Givens Calcium [Mass/Vol] 8.9 mg/dL Normal 8.5-10.1 [facility] Comment on above: Performed By: #### C MP #### [facility] [address] [address] [address] Alka Givens Chloride [Moles/Vol] 104 mmol/L Normal 98-107 [facility] Comment on above: Performed By: #### C MP #### [facility] [address] [address] [address] Alka Givens CO2 [Moles/Vol] 26.7 mmol/L Normal 21.0-32.0 [facility] Comment on above: Performed By: #### C MP #### [facility] [address] [address] [address] Alka Givens Creatinine [Mass/Vol] 0.81 mg/dL Normal 0.70-1.30 [facility] Comment on above: Performed By: #### C MP #### [facility] [address] [address] [address] Alka Givens EGFR-AF HAITIAN >60 Normal >=60 [facility] Comment on above: Performed By: #### C MP #### [facility] [address] [address] [address] Alka Givens EGFR-NON AF HAITIAN >60 Normal >=60 [facility] Comment on above: Performed By: #### C MP #### [facility] [address] [place] [address] Dr. Alka Givens Globulin (S) [Mass/Vol] 3.7 g/dL Normal [facility] Comment on above: Performed By: #### C MP #### [facility] [address] [place] [address] Dr. Alka Givens Glucose [Mass/Vol] 62 mg/dL Critically low 74-106 [facility] Comment on above: Performed By: #### C MP #### [facility] [address] [place] [address] Dr. Alka Givens Potassium [Moles/Vol] 3.7 mmol/L Normal 3.5-5.1 [facility] Comment on above: Performed By: #### C MP #### [facility] [address] [place] [address] Dr. Alka Givens Protein [Mass/Vol] 7.5 g/dL Normal 6.4-8.2 [facility] Comment on above: Performed By: #### C MP #### [facility] [address] [place] [address] Dr. Alka Givens Sodium [Moles/Vol] 135 mmol/L Critically low 136-145 [facility] Comment on above: Performed By: #### C MP #### [facility] [address] [place] [address] Dr. Alka Givens Urea nitrogen [Mass/Vol] 20.0 mg/dL Critically high 7.0-18 .0 [facility] Comment on above: Performed By: #### C MP #### [facility] [address] [place] [address] Dr. Alka Givens Urea nitrogen/Creatinine [Mass ratio] 24.7 mg/mg Normal [facility] Comment on above: Performed By: #### C MP #### [facility] [address] [place] [address] Dr. Alka Givens SED RATE [facility] 2021 SED RATE 42 mm/hr Critically high <=20 [facility] Comment on above: Performed By: #### C MP #### [facility] [address] [place] [address] Dr. Alka Givens VITAMIN D 25 OHon 08-16-2022 VIT D 25-OH 47.5 ng/mL Normal [facility] Comment on above: Performed By: #### V ITAD #### [facility] [address] [place] [address] Dr. Alka Givens VIT D RANGES SEE BELOW Normal [facility] Comment on above: Result Comment: <20 ng/mL Vit D deficient 20 - <30 ng/mL Vit D insufficient 30 - 100 ng/mL Vit D sufficient >100 ng/mL Potential Toxicity Performed By: #### V ITAD #### [facility] [address] [place] [address] Dr. Alka Givens PROF CHEM 8 (BAS METB)on Anion gap [Moles/Vol] 9.6 mmol/L Normal [facility] Comment on above: Performed By: #### B MP #### [facility] [address] [place] [address] Dr. Alka Givens Calcium [Mass/Vol] 8.8 mg/dL Normal 8.5-10.1 [facility] Comment on above: Performed By: #### B MP #### [facility] [address] [place] [address] Dr. Alka Givens Chloride [Moles/Vol] 104 mmol/L Normal 98-107 [facility] Comment on above: Performed By: #### B MP #### [facility] [address] [address] [address] Alka Givens CO2 [Moles/Vol] 29.0 mmol/L Normal 21.0-32.0 [facility] Comment on above: Performed By: #### B MP #### [facility] [address] [place] [address] Dr. Alka Givens Creatinine [Mass/Vol] 0.81 mg/dL Normal 0.70-1.30 [facility] Comment on above: Performed By: #### B MP #### [facility] [address] [place] [address] Dr. Alka Givens EGFR-AF HAITIAN >60 Normal >=60 [facility] Comment on above: Performed By: #### B MP #### [facility] [address] [place] [address] Dr. Alka Givens EGFR-NON AF HAITIAN >60 Normal >=60 [facility] Comment on above: Performed By: #### B MP #### [facility] [address] [address] [address] Alka Givens Glucose [Mass/Vol] 172 mg/dL Critically high 74-106 [facility] Comment on above: Performed By: #### B MP #### [facility] [address] [place] [address] Dr. Alka Givens Potassium [Moles/Vol] 4.6 mmol/L Normal 3.5-5.1 [facility] Comment on above: Performed By: #### B MP #### [facility] [address] [place] [address] Dr. Alka Givens Sodium [Moles/Vol] 138 mmol/L Normal 136-145 [facility] Comment on above: Performed By: #### B MP #### [facility] [address] [address] [address] Alka Givens Urea nitrogen [Mass/Vol] 19.0 mg/dL Critically high 7.0-18 .0 [facility] Comment on above: Performed By: #### B MP #### [facility] [address] [place], [place] [address] Dr. Alka Givens Urea nitrogen/Creatinine [Mass ratio] 23.5 mg/mg Normal [facility] Comment on above: Performed By: #### B MP #### [facility] [address] [place], [place] [address] Dr. Alka Givens URIC ACID SERUMon 01-14-2022 Urate [Mass/Vol] 5.3 mg/dL Normal 3.5-8.5 [facility] Comment on above: Performed By: #### U IVANA #### [facility] [address] [place], [place] [address] Dr. Alka Givens Vital Signs Date Time Vital Sign Value Performing Clinician Facility 02-20-2024 10:42-0400 Body height 190.5 cm SENIOR ADMINISTRATIVE ASSISTANT-Ramesh Garcia Work Phone: [facility] 02-20-2024 10:42-0400 Body temperature 97.6 [degF] SENIOR ADMINISTRATIVE ASSISTANT-C Escobar Garcia Work Phone: [facility] 02-20-2024 10:42-0400 Body weight 112.49 kg SENIOR ADMINISTRATIVE ASSISTANT-Ramesh Cagee Garcia Work Phone: [facility] 02-20-2024 10:42-0400 Diastolic blood pressure 86 mm[Hg] SENIOR ADMINISTRATIVE ASSISTANT-Ramesh Cagee Garcia Work Phone: [facility] 02-20-2024 10:42-0400 Heart rate 66 /min SENIOR ADMINISTRATIVE ASSISTANT-C Escobar Garcia Work Phone: [facility] 02-20-2024 10:42-0400 Respiratory rate 18 /min SENIOR ADMINISTRATIVE ASSISTANT-C Escobar Garcia Work Phone: [facility] 02-20-2024 10:42-0400 SaO2% (BldA) [Mass fraction] 99 % SENIOR ADMINISTRATIVE ASSISTANT-Ramesh Garcia Work Phone: [facility] 02-20-2024 10:42-0400 Systolic blood pressure 163 mm[Hg] SENIOR ADMINISTRATIVE ASSISTANT-C Escobar Garcia Work Phone: [facility] 01-02-2024 08:02-0400 Body height 190.5 cm 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 Work Phone: [facility] [employer] [facility] 01-02-2024 08:02-0400 Body mass index (BMI) [Ratio] 31.05 kg/m2 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 Work Phone: [facility] [employer] [facility] 01-02-2024 08:02-0400 Body temperature 97.39 [degF] 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 Work Phone: [facility] [employer] [facility] 01-02-2024 08:02-0400 Body weight 112.67 kg 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 Work Phone: [facility] [employer] [facility] 01-02-2024 08:02-0400 Diastolic blood pressure 60 mm[Hg] 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 Work Phone: [facility] [employer] 01-02-2024 08:02-0400 Heart rate 58 /min 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 Work Phone: [facility] [employer] [facility] 01-02-2024 08:02-0400 Respiratory rate 18 /min 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 Work Phone: [facility] [employer] [facility] 01-02-2024 08:02-0400 SaO2% (BldA) [Mass fraction] 98 % 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 Work Phone: [facility] [employer] [facility] 01-02-2024 08:02-0400 Systolic blood pressure 138 mm[Hg] Escobar Brownillo ELECTRONIC GAME DEVELOPER-LENS COATER Work Phone: [facility] [employer] [facility] 12-12-2023 08:06-0500 Body height 190.5 cm 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 Work Phone: [facility] [employer] [facility] 12-12-2023 08:06-0500 Body mass index (BMI) [Ratio] 31.2 kg/m2 Escobar Garcia APRN-LENS COATER [facility] 12-12-2023 08:06-0500 Body temperature 98.01 [degF] Escobar Garcia APRN-LENS COATER Work Phone: [facility] [employer] 12-12-2023 08:06-0500 Body weight 113.22 kg Escobar Garcia APRN-LENS COATER Work Phone: [facility] 12-12-2023 08:06-0500 Diastolic blood pressure 60 mm[Hg] Escobar Garcia APRN-LA Work Phone: [facility] 12-12-2023 08:06-0500 Heart rate 66 /min Escobar Garcia APRN-LA Work Phone: [facility] [employer] 12-12-2023 08:06-0500 SaO2% (BldA) [Mass fraction] 97 % Escobar Garcia APRN-LENS COATER Work Phone: [facility] [employer] 12-12-2023 08:06-0500 Systolic blood pressure 130 mm[Hg] Escobar Garcia APRN-LA Work Phone: [facility] [employer] Encounters Encounter Date Encounter Type Care Provider Facility Start: 02-20-2024 End: 02-20-2024 Emergency department patient visit Latricia Bonilla Facility:[facility] Start: 02-20-2024 End: 02-20-2024 Emergency department patient visit SENIOR ADMINISTRATIVE ASSISTANT-C Escobar Garcia Work Phone: [facility] Work Phone: Start: 02-09-2024 End: 02-10-2024 ambulatory [facility] Start: 02-09-2024 End: 02-09-2024 ambulatory [facility] Start: 02-09-2024 Encounter for genera l adult medical examination without abnormal findings [facility] Start: 01-02-2024 End: 01-02-2024 ambulatory [facility] Start: 01-02-2024 End: 01-02-2024 Office outpatient visit 15 minutes 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 Work Phone: [facility] Comment on above: Essential hypertensi on (Primary Dx); Chronic atrial fibrillation ([facility]) Start: 12-12-2023 End: 12-12-2023 ambulatory [facility] Start: 12-12-2023 End: 12-12-2023 Office outpatient visit 15 minutes Escobar J Garcia ELECTRONIC GAME DEVELOPER-LENS COATER Work Phone: [facility] Comment on above: Benign essential HTN (Primary Dx); Chronic atrial fibrillation ([facility]); DM type 2 with diabetic mixed hyperlipidemia ([facility]) ; Diabetic ulcer of toe of left foot associated with type 2 diabetes mellitus, unspecified ulcer stage ([facility]) Start: 11-23-2023 Telephone encounter Manuel Childs RN [facility] Comment on above: Samples Start: 11-14-2023 Refill Escobar Sarah pandeyo ELECTRONIC GAME DEVELOPER-LENS COATER Work Phone: [facility] Comment on above: Acquired hypothyroid ism Start: 11-06-2023 Refill Ledychesebastián Canales sser ELECTRONIC GAME DEVELOPER-LENS COATER Work Phone: [facility] Comment on above: Med Refill Start: 10-24-2023 Refill Escobar Sarah Brown illo ELECTRONIC GAME DEVELOPER-LENS COATER Work Phone: [facility] Comment on above: Gastroesophageal ref lux disease without esophagitis Start: 05-24-2023 End: 05-24-2023 ambulatory Escobar Brownillo Facility:[facility] Start: 05-24-2023 End: 05-24-2023 ambulatory SENIOR ADMINISTRATIVE ASSISTANT-C Escobar Garcia Work Phone: [facility] Work Phone: Start: 05-24-2023 End: 05-24-2023 Patient encounter procedure SENIOR ADMINISTRATIVE ASSISTANT-C Escobar Garcia Work Phone: [facility] [address] Work Phone: Start: 12-31-2022 End: 01-01-2023 ambulatory ESCOBAR GARCIA Facility:[facility] Start: 08-16-2022 End: 08-17-[address] AARON [place] Facility:[facility] Start: 04-27-2022 End: 04-28-2022 ambulatory ESCOBARMalissa GARCIA Facility:[facility] Start: 01-14-2022 End: 01-15-2022 ambulatory ESCOBARMalissa GARCIA Facility:[facility] Start: 09-26-2017 Patient encounter procedure Lizzie christina Garcia ELECTRONIC GAME DEVELOPER-LENS COATER Work Phone: [email or web address] Procedures Date Procedure Procedure Detail Performing Clinician Start: 02-20-2024 CT cervical spine wi thout contrast SENIOR ADMINISTRATIVE ASSISTANT-C Escobar Garcia Work Phone: Start: 02-20-2024 CT of abdomen and pe lvis without contrast SENIOR ADMINISTRATIVE ASSISTANT-C Escobarmalissa Garcia Work Phone: Start: 02-20-2024 CT of head without contrast SENIOR ADMINISTRATIVE ASSISTANT-C Escobar Garcia Work Phone: Start: 01-02-2024 Adult depression screening assessment Escobarmalissa Garcia ELECTRONIC GAME DEVELOPER-LENS COATER Work Phone: Start: 12-12-2023 Adult depression screening assessment 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 Work Phone: Start: 09-15-2023 Adult depression screening assessment Escobarmalissa Garcia ELECTRONIC GAME DEVELOPER-LENS COATER Work Phone: Start: 05-12-2023 Diabetic retinal eye exam Escobartessa Garcia ELECTRONIC GAME DEVELOPER-LENS COATER Work Phone: Plan of Treatment Date Care Activity Detail Author Start: 07-23-2030 DTaP,Tdap and Td Vaccines (2 - Td or Tdap) DTaP,Tdap and Td Vaccines (2 - Td or Tdap) [facility] Start: 01-01-2025 Adult BMI Screening Adult BMI Screening [facility] Start: 01-01-2025 Depression Screening Depression Screening [facility] Start: 01-01-2025 Fall Risk Screening Fall Risk Screening [facility] Start: 01-01-2025 Tobacco Screening Tobacco Screening [facility] Start: 12-11-2024 Adult BMI Follow Up Plan Adult BMI Follow Up Plan [facility] Start: 12-11-2024 Adult BMI Screening Adult BMI Screening [facility] Start: 12-11-2024 Depression Screening Depression Screening [facility] Start: 12-11-2024 Fall Risk Screening Fall Risk Screening [facility] Start: 12-11-2024 Tobacco Screening Tobacco Screening [facility] Start: 09-15-2024 Adult BMI Follow Up Plan Adult BMI Follow Up Plan [facility] Start: 09-15-2024 Adult BMI Screening Adult BMI Screening [facility] Start: 09-15-2024 Depression Screening Depression Screening [facility] Start: 09-15-2024 Fall Risk Screening Fall Risk Screening [facility] Start: 09-15-2024 Tobacco Screening Tobacco Screening [facility] Start: 05-12-2024 Glaucoma screening Diabetic Ophthalmology Exam [facility] Start: 02-09-2024 End: 02-09-2024 Patient encounter procedure 02/09/2024 8:00 AM EDT Office Visit [facility] [address] [place] [address] Escobar Garcia, ELECTRONIC GAME DEVELOPER-LENS COATER [address] [place] [address] [facility] Start: 01-25-2024 End: 01-25-2024 Patient encounter procedure 01/25/2024 10:45 AM EDT Office Visit [facility] [address] [place] [address] Escobar Garcia, ELECTRONIC GAME DEVELOPER-LENS COATER [address] [place] [address] [facility] Start: 01-19-2024 Medicare Annual Wellness Visit Medicare Annual Wellness Visit [facility] Start: 01-02-2024 End: 01-02-2024 Patient encounter procedure 01/02/2024 8:00 AM EDT [facility] [address] [place] [address] 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 [address] [place] [address] [facility] Start: 11-11-2022 Diabetic foot examination Diabetic Foot Exam [facility] Start: 07-22-2021 Administration of varicella zoster vaccine Zoster (Shingles) Vaccine (3 of 3) [facility] Start: 1996 Screening for malignant neoplasm of colon Colonoscopy [facility] Patient Education Taking care of bruises Coccyx Injury (DC) Constipation, Adult ED [facility] Work Phone: Patient referral [facility] Work Phone: Immunizations Immunization Date Immunization Notes Care Provider Fa cili 08-23-2022 Influenza Vaccine, Quadrivalent, Adjuvanted 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 Work Phone: [facility] 08-04-2021 Influenza, High-dose , Quadrivalent 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 Work Phone: [facility] 05-27-2021 zoster vaccine, unspecified formulation Escobar Jose ELECTRONIC GAME DEVELOPER-LENS COATER Work Phone: [facility] 09-16-2020 influenza virus vacc ine, unspecified formulation 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 Work Phone: [facility] 09-16-2020 Influenza, High-dose , Quadrivalent 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 Work Phone: [facility] 07-23-2020 tetanus toxoid, redu shakira diphtheria toxoid, and acellular pertussis vaccine, adsorbed SENIOR ADMINISTRATIVE ASSISTANT-C Escobar Garcia Work Phone: [facility] 09-13-2017 pneumococcal conjuga te vaccine, 13 valent sEcobar Garcia ELECTRONIC GAME DEVELOPER-LENS COATER Work Phone: [facility] 08-28-2014 zoster vaccine, live 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 Work Phone: [facility] 10-01-2010 pneumococcal polysaccharide vaccine, 23 valent 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 Work Phone: [facility] Payers Date Payer Category Payer Self-pay [id number] 2019 Unknown [employer] M [employer]ADITIONAL [id number] 2019-Present [phone] [address] [place] [address] [id number] 2016 Medicare MEDICARE MEDICAR E PART A & B [id number] 2016-Present [phone] [address] [place] [address] [id number] 1959 Medicare [id number] 1959 Unknown [id number] 1951 Unknown [id number] 1951 Unknown [id number] 1951 Unknown [id number] 1951 Unknown [id number] 1951 Unknown [id number] 1951 Unknown [id number] [id number] 1951 Unknown [id number] [id number] 1951 Unknown [id number] [id number] 1951 Unknown [id number] 1951 Unknown [id number] Unknown [facility] [id number] Unknown [id number] Unknown [id number] Social History Date Type Detail Facility Start: 02-20-2022 End: 02-20-2024 Tobacco smoking status NHIS Never smoked tobacco (finding) [facility] Start: 1950 Sex Assigned At Male F [facility] Start: 10-05-2022 Tobacco use and exposure Smokeless tobacco non-user [facility] Start: 09-15-2023 End: 01-02-2024 Alcohol intake Current non-drinker of alcohol (finding) [facility] Start: 10-29-2020 End: 09-15-2023 History of Social function [facility] Start: 10-29-2020 End: 09-15-2023 Tobacco use panel [facility] Adolescent depressio n screening assessment 0 [facility] Start: 02-23-2022 Alcohol Comment drank a beer once in college, didn't like it, never drank again [facility] Start: 09-20-2021 Gender identity Identifies as male gender (finding) [facility] Start: 09-20-2021 Sexual orientation Heterosexual (nithya lares) [facility] Medical Equipment Procedure Code Equipment Code Equipment Origin al Text Equipment Identifier Dates System Cor Stnt 2.75mm X 15mm 145cm Xiegael Coughlinypnt Mtlnk Lorenzo - [id number] Start: 09-17-2021 Goals Date Patient Goal Desired [...] pain fever vomiting or any other concerns [facility] Work Phone: 01-02-2024 History of Presen t illness Narrative Images from the original note were not included. [place] [address] SUBJECTIVE: Patient ID: Mitchell Ga is [...] Date BONE BIOPSY Cardiac catheterization- Cors+LV gram/press 63187 N/A 09/17/2021 Performed by Ronal Ramirez MD at [facility] Coronary angiogram and left ventricular gram/pressure N/A 09/17/2021 Performed by Ronal Ramirez MD at [facility] EYE SURGERY 05/10/2021 burst blood vessels INGUINAL HERNIA REPAIR Right LITHOTRIPSY MULTIPLE TOOTH EXTRACTIONS Stent drug-eluting left anterior descending N/A 09/17/2021 Performed by Ronal Ramirez MD at [facility] TONSILLECTOMY Past Medical History: Diagnosis Date Arrhythmia Callus Diabetes mellitus ([facility]) Disease of thyroid gland Edema, lower extremity Fatigue Hyperlipidemia Hypertension Hypothyroidism Kidney stones Low vision without extraocular lens corrrection Obesity Osteomyelitis ([facility]) Ruptured eardrum Skin ulcer of toe ([facility]) Immunization History Administered Date(s) Administered COVID-19, [...] mouth in the morning. Chronic atrial fibrillation ([facility]) - apixaban (ELIQUIS) 5 mg tablet; [...] of apixaban provided for atrial fibrillation LOT [id number] Body mass index is 31.05 kg/m . [...] Carrillo 01/02/24 0837 documented in this encounter [facility] 12-12-2023 History of Presen t illness Narrative Images from the original note were not included. [address] [place] [address] SUBJECTIVE: Patient ID: Mitchell Ga is a [...] no compliance problems. Hypertensive end-organ damage includes CAD/UT. The following portions of the patient's history were reviewed and updated as appropriate: allergies, current medications, past family history, past medical history, past social history, past surgical history and problem list. Past Surgical History: Procedure Laterality Date BONE BIOPSY Cardiac catheterization- Cors+LV gram/press [id number] N/A 09/17/2021 Performed by Ronal Ramirez MD at [facility] Coronary angiogram and left ventricular gram/pressure N/A 09/17/2021 Performed by Ronal Ramirez MD at [facility] EYE SURGERY 05/10/2021 burst blood vessels INGUINAL HERNIA REPAIR Right LITHOTRIPSY MULTIPLE TOOTH EXTRACTIONS Stent drug-eluting left anterior descending N/A 09/17/2021 Performed by Ronal Ramirez MD at [facility] TONSILLECTOMY Past Medical [...] visit: Benign essential HTN Chronic atrial fibrillation ([facility]) DM type 2 with diabetic mixed hyperlipidemia ([facility]) Diabetic ulcer of toe of left foot associated with type 2 diabetes mellitus, unspecified ulcer stage ([facility]) HTN Patient brought in home monitor. 158/90 [...] Samples of Eliquis 5 mg provided. Lot [id number]. EXPIRATION January 2025 ALL QUESTIONS ANSWERED Total time spent was 25 minutes: Preparing to see the patient (e.g., review of tests) Obtaining and/or reviewing separately obtained history Performing a medically appropriate examination and/or evaluation Counseling and educating the patient/family/caregiver Ordering medications, tests, or procedures Follow-up: 3 weeks BP check Escobar Garcia APRNCAMERON 12/12/23 [id number] documented in this encounter [facility] 11-23-2023 Miscellaneous Notes Formattin g of this note might be different from the original. P/c from patient requesting samples of eliquis. Samples will be taken to [facility] office and sample log updated. OV 06/14/23 12/31/22 CMP, CBC documented in this encounter [facility] 11-23-2023 Telephone encount er Note P/c from patient requesting samples of eliquis. Samples will be taken to PM office and sample log updated. OV 06/14/23 12/31/22 CMP, CBC [facility] 11-06-2023 Miscellaneous Notes Formattin g of this note might be different from the original. Images from the original note were not included. Last OV 06/14/23. CBC 12/31/22. CMP 12/31/22. documented in this encounter [facility] 11-06-2023 Telephone encount er Note Images from the original note were not included. Last OV 06/14/23. CBC 12/31/22. CMP 12/31/22. [facility] Evaluation note No assessment inform ation [facility] Work Phone: Evaluation note Diagnosis Gastroesophageal reflux disease without esophagitis Esophageal reflux [facility] Diagnosis Chronic atrial fibrillation (CMS-HCC) Atrial fibrillation [facility] in [facility] Diagnosis Acquired hypothyroidism Unspecified hypothyroidism [facility] Diagnosis Benign essential HTN- Primary Chronic atrial fibrillation ([facility]) Atrial fibrillation DM type 2 with diabetic mixed hyperlipidemia ([facility]) Diabetic ulcer of toe of left foot associated with type 2 diabetes mellitus, unspecified ulcer stage ([facility]) [facility] Essential hypertension- Primary Unspecified essential hypertension Chronic atrial fibrillation ([facility]) Atrial fibrillation documented [facility] encounter [facility] on filedocumented in [facility] encounter [facility] on filedocumented in this encounter [facility] System[facility]ructionsNot on filedocumented in this encounter [facility]* Attachments The following attachments cannot be sent through Care Everywhere. * Controlling your blood pressure through lifestyle (Malawian) [facility]* Attachments The following attachments cannot be sent through Care Everywhere. * Atrial fibrillation (Malawian) * High Blood Pressure ED (Malawian) [facility] Summary Purpose Family History No Family [...] DATE CREATED AUTHOR AUTHOR'S ORGANIZ ATION 02/10/2024 [facility] DATE CREATED AUTHOR AUTHOR'S ORGANIZ ATION 02/11/2024 [facility] DATE CREATED AUTHOR AUTHOR'S ORGANIZ ATION 03/02/2024 [facility] Care Teams (unrecognized sec tion and content) Team Status: Active Member Role Status Dates Escobar Garcia SENIOR ADMINISTRATIVE ASSISTANT-C Primary Care Provider Active Team Status: Inactive Member Role Status Dates Escobar Garcia NP-C Primary Care Provider Active Tirso Ho MD Attending Provider Active Supervisor Dog License Officer Relationship Specialty Start Date End Date Escobar Garcia [facility] [address], [place] [address] PCP - General Nurse Practitioner 05/24/17 Supervisor Dog License Officer Relationship Specialty Start Date End Date Escobar Garcia [facility] [address], [place] [address] PCP - General Nurse Practitioner 05/24/17 Supervisor Dog License Officer Relationship Specialty Start Date End Date Escobar Garcia [facility] [address], [place] [address] PCP - General Nurse Practitioner 05/24/17 Supervisor Dog License Officer Relationship Specialty Start Date End Date Escobar Garcia [facility] [address], [place] [address] PCP - General Nurse Practitioner 05/24/17 Supervisor Dog License Officer Relationship Specialty Start Date End Date Escobar Garcia [facility] [address], [place] [address] PCP - General Nurse Practitioner 05/24/17 Team [...] BE BASED ON THE PRIMARY CLINICAL RECORDS. [employer]. provides no warranty or guarantee of the accuracy or completeness of information in this document.
[2024-06-15 16:32] LABS: Bilirubin Direct 0.1 mg/dL (0.0-0.2)
== END 2024-06-15 14:28 | disposition home or self-care (01) ==
LOC: LAB 14:27
PROVIDERS: PCP Nurse Practitioner
DX: E78.2 Mixed hyperlipidemia (principal); I48.20 Chronic atrial fibrillation, unspecified; I25.10 Atherosclerotic heart disease of native coronary artery without angina pectoris; I10 Essential (primary) hypertension; R94.39 Abnormal result of other cardiovascular function study
CPT/HCPCS: 36415; 82248

== ENCOUNTER 2025-08-08 13:48 | Outpatient (OUT) | payer MEDICARE, OTHER, SELFPAY ==
--- OUTSIDE RECORDS SUMMARY | 2025-08-08 13:56 | XMS_ITS | Encounter Summary ---
Author Organization [facility] Address [id number] [address] [place] [address] Care Team Providers Care Publications Sales Representative Name Role Phone Jeb Andersen Waqas MOBILE PHONE SALESPERSON-SURGICAL LEAD Primary Care Provider + Reason for Visit * ReasonCommentsMed Refill Encounter Details DateTypeDepartmentCare Team (Latest Contact Info)Lzsgkootyox65/28/2025Refill [facility] [address] [place] [phone] Che Chaudhary APRN-SURGICAL LEAD [address], [place] [phone] Med Refill Social History Tobacco UseTypesPacks/DayYears UsedDateSmoking Tobacco: NeverSmokeless Tobacco: NeverAlcohol UseStandard Drinks/WeekCommentsNo0 (1 standard drink = 0.6 oz pure alcohol) drank a beer once in college, didn't like it, never drank again PHQ-2 AnswerDate RecordedTotal Yerlo7635ChildcareAnswerDate RecordedChildcare Mtpezzm1703/20/2019EmploymentAnswerDate CiekhuqxSkvllipwwdCfjagtp16/11/2019Hunger ScreeningAnswerDate RecordedWithin the past 12 months we worried whether our food would run out before we got money to buy more.Never True06/18/2025Within the past 12 months the food we bought just didn't last and we didn't have money to get more.Never True06/18/2025Purpose - LifeAnswerDate RecordedPurpose and direction in vhuwCyqszyf97/20/2021ex and Gender InformationValueDate Recorded Sex Assigned at FsbaoCtfj89/12/2021 11:34 PM ESTLegal RyeFmxy3305/15/2015 11:29 AM EDTGender CzzgflwxBmns07/12/2021 11:34 PM ESTSexual OrientationStraight 09/20/2021 11:34 PM ESTdocumented as of this encounter Plan of Treatment DateTypeDepartmentCare Team (Latest Contact Info)Otqyoudkroc62/17/2025 11:00 AM ESTOffice Visit [facility] [address] [place] [address] Jeb Andersen, MOBILE PHONE SALESPERSON-SURGICAL LEAD [address] [place] [address] 09/30/2025 11:15 AM ESTOffice Visit [facility] [address] [place] [phone] Meghan Russell MD [address] [place] [address] documented as of this encounter Goals GoalPatient Goal TypeAssociated ProblemsRecent ProgressPatient-Stated?Author remain home with self care and family support Masha Arrington LSW Note: Evaluation of progress towards goal: remain home with self care and family support documented as of this encounter Visit Diagnoses Diagnosis Chronic atrial fibrillation (CMS-HCC) Atrial fibrillation Abnormal stress test Other nonspecific abnormal cardiovascular system function study documented in this encounter Additional Health Concerns AssessmentNoted TimePHQ-9 Depression Total Score: 9:59 AM EDTA Body Mass Index follow-up plan has been documented for the ossfadd3702/20/2025 10:59 AM EDTdocumented as of this encounter Care Teams Team MemberRelationshipSpecialtyStart DateEnd Date Jeb Andersen, MOBILE PHONE SALESPERSON-SURGICAL LEAD [address] [place] [address] PCP - GeneralInternal Eyjjowsy18/29/25documented as of this encounter
--- OUTSIDE RECORDS SUMMARY | 2025-08-08 13:56 | XMS_ITS | Continuity of Care Document ---
Author [facility] Address [address] [place] [address] Problems Unknown Problems Results Test Result Date/Time Value / Unit Interp. Refere nce Range SARS-CoV-2 (COVID-19), RT-PC R/TMA[[id number]] Collected: 09/14/2021 03:20 PM Specimen Received: 09/15/2021 07:19 PM Source: [facility] SARS-CoV-2 INTERPRETATION [[id number]] 09/16/2021 01:31 P M Negative See NlaaDHGS-AhL-2 RNA NOT DETECTEDNegative results do not preclude SARS-CoV-2 infection and should notbe used as the sole basis for patient management decisions. Negativeresults must be combined with clinical observations, patient history,and epidemiological information. Optimum specimen types and timingfor peak viral levels during infections caused by SARS-CoV-2 have notbeen determined. Collection of multiple specimens or types ofspecimens may be necessary to detect virus. Improper specimencollectionand handling, sequence variability under primers/probes,or organism present below the limit of detec tion may lead to falsenegative results. Positive and negative predictive values oftesting are highly dependent on prevalence. False negative testresults are more likely when prevalence is high.SOURCE [[id number]]09/16/2021 01:31 PM NASOPHARYNGEALNote: Methodology is [employer] F[employer] Real-Time RT-PCR. The expected result or reference range is NEGATIVE (Not Detected). For more information regarding COVID-19 testing to include clinicalinformation, methodology detail, intended use, FDA authorization andrecommended fact sheets for patients or healthcare providers, see [employer] Announcement: SARS-CoV-2 (COVID-19) by NAAT at URL below (note,fact sheets are provided by method given in report:[email or web address]/ Alternatively, see downloadable PDF fact sheet at:https://www.[employer]/OYXQP-42-YE-PCR Note: Methodology is Lu Feroz Real-Time RT-PCR. The expected result or reference range is NEGATIVE (Not Detected). For more information regarding COVID-19 testing to include clinicalinformation, methodology detail, intended use, FDA authorization andrecommended fact sheets for patients or healthcare providers, see [facility] Announcement: SARS-CoV-2 (COVID-19) by NAAT at URL below (note,fact sheets are provided by method given in report:https://www.[employer]/clinicians/client-communications/ Alternatively, see downloadable PDF fact sheet at:https://www[employer]/ITVDD-37-SI-PCR Allergies, adverse reactions, alerts No known allergies and adverse reactions Medications No administered medications reported Vital Signs No vital signs reported Social History No smoking Hx information available
--- OUTSIDE RECORDS SUMMARY | 2025-08-08 13:56 | XMS_ITS | Clinical Summary ---
Author Organization [facility] Address [address] [place] [address] Care Team Providers Care Hand Deicer Element Winder Name Role Phone Unavailable Primary Care Provider Unavailabl e Allergies No known active allergies Medications MedicationSigDispense QuantityRefillsLast FilledStart DateEnd DateStatus losartan (COZAAR) 50 mg tablet Take 50 mg by mouth every morning.01/22/2022ctive predniSONE (DELTASONE) 20 mg tablet TAKE 2 TABLETS BY MOUTH TWICE DAILY FOR 7 DAYS01/22/2022ctive oxyCODONE-acetaminophen (PERCOCET) 5-325 mg tablet Take 2 tablets by mouth every 6 hours as needed.01/22/2022ctive amLODIPine (NORVASC) 10 mg tablet 01/24/2022ctive levothyroxine (SYNTHROID) 150 mcg tablet 12/07/2021ctive metFORMIN (GLUCOPHAGE) 1,000 mg tablet 12/23/2021ctive simvastatin (ZOCOR) 20 mg tablet 12/07/2021ctive ELIQUIS 5 mg tab(s) 12/19/2021ctive SENNA 8.8 mg/5 mL oral liquid TAKE 5ml BY MOUTH TWICE DAILY01/22/2022ctive clopidogrel (PLAVIX) 75 mg tablet 12/16/2021ctive colchicine 0.6 mg tablet TAKE 1 TABLET BY MOUTH IN THE MORNING FOR 14 DAYS01/19/2022ctive doxycycline hyclate (VIBRAMYCIN) 100 mg capsule TAKE 1 CAPSULE BY MOUTH IN THE MORNING & TAKE 1 CAPSULE AT BEDTIME (FOR 10 DAYS) 01/19/2022ctive allopurinol (ZYLOPRIM) 100 mg tablet Take 100 mg by mouth every morning.01/14/2022ctive famotidine (PEPCID) 40 mg tablet 12/16/2021ctive gentamicin 0.1 % ointment APPLY 1 application TO THE AFFECTED AREA(S) topically IN THE FORTRBD1801/19/2022 Active sulfamethoxazole-trimethoprim (BACTRIM DS,SEPTRA DS) 800-160 mg per tablet TAKE 1 TABLET BY MOUTH IN THE MORNING & TAKE 1 TABLET AT BEDTIME (FOR 10 DAYS) 01/19/2022ctive NOVOLIN N NPH U-100 INSULIN 100 unit/mL injection 12/28/2021ctive HYDROcodone-acetaminophen (NORCO) 5-325 mg per tablet Take 1 tablet by mouth every 6 hours as needed.01/13/2022ctive polyethylene glycol 3350 (MIRALAX, GLYCOLAX) 17 gram packet Take 17 g by mouth once daily. Dissolve dose in 4 - 8 ounces of liquid and take as directed.Active Multivitamin capsule Take 1 capsule by mouth once daily.Active fsh/flx/prim/cur/bor/om3,6,9 5 (OMEGA 3-6-9 FATTY ACIDS ORAL) Take by mouth.Active Active Problems No known active problems Social History Tobacco UseTypesPacks/DayYears UsedDateSmoking Tobacco: NeverSmokeless Tobacco: NeverSex and Gender InformationValueDate RecordedSex Assigned at BirthNot on fileLegal MjrExfk4501/21/2022 2:17 PM EDTGender IdentityNot on fileSexual OrientationNot on file Last Filed Vital Signs Vital SignReadingTime TakenCommentsBlood Lipddczt539/7904 3:06 PM EDT Lzryg7620 3:06 PM CMJQehbjlnugnv20.6 ??C (97.8 ??F)01/25/2022 3:06 PM EDTRespiratory Rate--Oxygen Saturation--Inhaled Oxygen Concentration--Weight 117.4 kg (258 lb 14.4 oz)01/25/2022 3:06 PM PANGwpyme936.6 cm (6' 0.3 ) 01/25/2022 3:06 PM EDTBody Mass Index34.8201/25/2022 3:06 PM EDT Plan of Treatment Health MaintenanceDue DateLast DoneCommentsAnxiety Jujodnxmu22/26/1969Depression Lalstwczq44/26/1969DTaP,Tdap,Td Vaccine (1 - Tdap)1970Lipid Screening 1986CT Qgbrgiuwkdhg95/26/1996Cologuard (FIT-DNA)1996Colonoscopy 1996Colorectal Cancer Vcmfnqlhg58/26/1996Fecal Occult Blood1996 Ddeagarqsoivb66/26/1996Pneumococcal Vaccine: 50+ (1 of 1 - PCV)2001 Shingrix Vaccine (1 of 2)2001Advance Directive Ciupgqwbos37/01/2025 Diabetes Yveugpxzs62/18/42963701/25/2022, 01/25/2022ovid-19 Vaccine (1 - 2024- season)2025Influenza Vaccine (#1)2025RSV Vaccine (1 - 1-dose 75+ series)2026Hepatitis C EkgwvhjcmJzqifyjeu74/18/2022 Procedures Procedure NamePriorityDate/TimeAssociated DiagnosisCommentsHEPATITIS C ANTIBODY IA WITH HVVGFHYOYCGUFvsjqji06/18/2022 5:09 PM EDT 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) Malaise and fatigue Pain in joint, multiple sites History of joint swelling Type 2 diabetes mellitus with foot ulcer, with long-term current use of insulin (HCC) Contraindication to percutaneous coronary intervention (PCI) Atrial fibrillation, unspecified type (HCC) Secondary hypertension Soft tissue infection Unintentional weight loss COMPREHENSIVE METABOLIC VEXETQjvjzde01/18/2022 5:09 PM EDT 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) Malaise and fatigue Pain in joint, multiple sites History of joint swelling Type 2 diabetes mellitus with foot ulcer, with long-term current use of insulin (HCC) Contraindication to percutaneous coronary intervention (PCI) Atrial fibrillation, unspecified type (HCC) Secondary hypertension Soft tissue infection Unintentional weight loss from Last 3 Months or Most Recently Relevant to Health Maintenance Results * (ABNORMAL) COMP METABOLIC PANEL (01/25/2022 5:09 PM EDT)ComponentValueRef RangeTest MethodAnalysis TimePerformed AtPathologist SignatureProtein, Total 6.96.3 - 8.0 g/dL01/26/2022 4:49 AM [facility] LABAlbumin 4.03.9 - 4.9 g/dL01/26/2022 4:49 AM [facility] Calcium, Total9.68.5 - 10.2 mg/dL01/26/2022 4:49 AM [facility] LABBilirubin, Total0.30.2 - 1.3 mg/dL01/26/2022 4:49 AM [facility] LABAlkaline Hjzmbrlbxcy7371 - 113 U/L01/26/2022 4:49 AM EDT [facility] BJIISS9940 - 40 U/L01/26/2022 4:49 AM T [facility] UHKTNM6487 - 54 U/L01/26/2022 4:49 AM [facility] FFVJhoxryu053(H)74 - 99 mg/dL01/26/2022 4:49 AM [facility] LABComment: The [place] Diabetes Association (ADA) provides guidance for cutoff values for fasting glucose andrandom glucose. The ADA defines fasting as no caloric intake for at least 8 hours. Fasting plasma glucose results between 100 to 125 mg/dL indicate increased risk for diabetes (prediabetes). Fasting plasma glucose results greater than or equal to 126 mg/dL meet the criteria for diagnosis of diabetes. In the absence of unequivocal hyperglycemia, results should be confirmed by repeat testing. In a patient with classic symptoms of hyperglycemia or hyperglycemic crisis, random plasma glucose results greater than or equal to 200 mg/dL meet the criteria for diagnosis of diabetes. Reference: Standards of Medical Care in Diabetes 2016, [place] [employer] Association. Diabetes Care. 2016.39(Suppl 1). BUN27(H)9 - 24 mg/dL01/26/2022 4:49 AM [facility] Creatinine0.990.73 - 1.22 mg/dL01/26/2022 4:49 AM [facility] WZQNimxjs619(L)136 - 144 mmol/L01/26/2022 4:49 AM [facility] LABPotassium5.03.7 - 5.1 mmol/L01/26/2022 4:49 AM [facility] PXIDjzqpvgh5928 - 105 mmol/L01/26/2022 4:49 AM [facility] HCJQM38976 - 30 mmol/L01/26/2022 4:49 AM [facility] LABAnion Xgk739 - 18 mmol/L01/26/2022 4:49 AM [facility] LABEstimated Glomerular Filtration Rate81>=60 mL/min/1.73m 01/26/2022 4:49 AM [facility] LABComment:Estimated Glomerular Filtration Rate (eGFR) is calculated using the 2020 CKD-EPI creatinine equation. This equation utilizes serum creatinine, sex, and age as parameters. The creatinine assay has traceable calibration to isotope dilution- mass spectrometry. Refer to KDIGO guidelines for clinical interpretation. In patients with unstable renal function, e.g. those with acute kidney injury, the eGFRmay not accurately reflect actual GFR.Specimen (Source)Anatomical Location / LateralityCollection Method / VolumeCollection TimeReceived TimeBloodBLOOD SPECIMEN / UnknownVenipuncture / Xxwkvpb5001/25/2022 5:09 PM EDT01/25/2022 5:09 PM EDT Narrative Authorizing ProviderResult TypeResult StatusAmbmeche Cha MDLABORATORYFinal ResultPerforming OrganizationAddressCity/State/ZIP CodePhone Number [facility] [address] [phone], * HEP C AB IA W/CONF SCRN (01/25/2022 5:09 PM EDT)ComponentValueRef RangeTest MethodAnalysis TimePerformed AtPathologist SignatureHep C Antibody IANegative Kblmfsqi86/19/2022 11:30 AM [facility] LABComment:The result suggests no evidence of active infection with Hepatitis C virus. Should recent infectionbe suspected, repeat testing may be considered 4-6 weeks after this draw.Specimen (Source)Anatomical Location / LateralityCollection Method / VolumeCollection TimeReceived TimeBloodBLOOD SPECIMEN / UnknownVenipuncture / Vehduvw7801/25/2022 5:09 PM EDT01/25/2022 5:09 PM EDT Narrative Authorizing ProviderResult TypeResult StatusArturo Cha MDLABORATORYFinal ResultPerforming OrganizationAddressCity/State/ZIP CodePhone Number [facility] [address] [facility] [address] [place] [address], from Last 3 Months or Most Recently Relevant to Health Maintenance Insurance
--- OUTSIDE RECORDS SUMMARY | 2025-08-08 13:56 | XMS_ITS | Clinical Summary ---
Author Organization [facility] Address [address] [place] [address] Care Team Providers Care Office Sweeper Name Role Phone Unavailable Primary Care Provider Unavailabl e Allergies No known active allergies Medications MedicationSigDispense QuantityRefillsLast FilledStart DateEnd DateStatus amLODIPine (Norvasc) 10 MG tablet Take 10 mg by mouth DailyActive apixaban (Eliquis) 5 MG tablet Take 5 mg by mouth in the morning and 5 mg before bedtime.Active aspirin 81 MG EC tablet Take 81 mg by mouth DailyActive famotidine (Pepcid) 40 MG tablet Take 40 mg by mouthActive hydroCHLOROthiazide (HYDRODiuril) 12.5 MG tablet Take 12.5 mg by mouth DailyActive levothyroxine (Synthroid, Levoxyl) 150 MCG tablet Take 1 tablet by mouth in the morning. Take before meals.Active losartan (Cozaar) 50 MG tablet Take 100 mg by mouth DailyActive omega-3 acid ethyl esters (Lovaza) 1 g capsule Take 2 g by mouth in the morning and 2 g before bedtime.Active simvastatin (Zocor) 20 MG tablet Take 20 mg by mouth at bedtimeActive metFORMIN (Glucophage) 1000 MG tablet Indications:Type 2 diabetes mellitus with hyperglycemia, with long-term current use of insulin ([facility])TAKE 1 TABLET TWICE DAILY WITH MEALS 180 tablet 5Active insulin regular (HumuLIN R,NovoLIN R) 100 UNIT/ML injection Indications:Type 2 diabetes mellitus with hyperglycemia, with long-term current use of insulin ([facility])INJECT 5-10 UNITS SUBCUTANEOUSLY THREE TIMES A DAY.( TOTAL 30 UNITS DAILY) 30 mL 5Active insulin NPH, Isophane, (HumuLIN N,NovoLIN N) 100 UNIT/ML injection Indications:Type 2 diabetes mellitus with hyperglycemia, with long-term current use of insulin ([facility])Inject 33 Units under the skin at bedtime 29.7 mL 5Active Family History RelationNameStatusCommentsBrother 1AliveBrother 2AliveFatherDeceasedMother DeceasedSister 1AliveSister 2AliveSister 3AliveSister 4DeceasedSon 1AliveSon 2 Alive Social History Tobacco UseTypesPacks/DayYears UsedDateSmoking Tobacco: Never Tobacco Cessation:Counseling Given: Not Answered Alcohol UseStandard Drinks/WeekCommentsNever0 (1 standard drink = 0.6 oz pure alcohol)Sex and Gender InformationValueDate RecordedSex Assigned at BirthNot on fileLegal GdlIwyd6412/22/2022 6:42 PM EDTGender IdentityNot on fileSexual OrientationNot on file Last Filed Vital Signs Vital SignReadingTime TakenCommentsBlood Dpydaezy373/64002/19/2025 10:43 AM EDT Ohvyc649302/19/2025 10:43 AM EDTTemperature--Respiratory Qmdo529502/19/2025 10:43 AM EDTOxygen Ycnfqkwcqf38%02/19/2025 10:43 AM EDTInhaled Oxygen Concentration-- Akbpgo420 kg (239 lb)02/19/2025 10:43 AM GODLftnwr672.5 cm (6' 3 )02/19/2025 10:43 AM EDTBody Mass Index29.8702/19/2025 10:43 AM EDT Plan of Treatment DateTypeDepartmentCare Team (Latest Contact Info)Feqgvihhiyg11/12/2025 10:30 AM ESTOffice Visit [facility] [address] [place] [phone] Deyanira Lopez MD [address] [place] [address] Health MaintenanceDue DateLast DoneCommentsCT Gmwemmlplonl1951Colonoscopy 1Colorectal Cancer Hdxfgphhj1951FIT-DNA1951FIT1950 FOBT1950 5955Zgshpzoqxxeyi1951neumococcal Vaccine: 65+ Years (3 of 3 - PCV20 or PCV21)12/05/317946/02/2017, 10/01/2010, 09/15/2010Influenza Vaccine (#1)/, 08/02/2023, 08/23/2022, Additional history exists Insurance
--- OUTSIDE RECORDS SUMMARY | 2025-08-08 13:56 | XMS_ITS | Clinical Summary ---
Author Organization [employer] [facility] tem Address [id number] [address] [place] [address] Care Team Providers Care Retail Coverage Merchandiser Lead Name Role Phone Nathaly Jeb Alan APRN-GELATIN POWDER MIXER Primary Care Provider + Allergies No known active allergies Medications MedicationSigDispense QuantityRefillsLast FilledStart DateEnd DateStatus metFORMIN (GLUCOPHAGE) 1000 mg tablet Take 1 tablet (1,000 mg total) by mouth in the morning and 1 tablet (1,000 mg total) before bedtime.02/21/2017Active omega-3 fatty acids-fish oil 300-1,000 mg capsule Take 2 capsules (2 g total) by mouth in the morning.Active insulin regular (HumuLIN R,NovoLIN R) 100 unit/mL injection Inject 0.2 mL (20 Units total) under the skin in the morning and 0.2 mL (20 Units total) at noon and 0.2 mL (20 Units total) in the evening. Inject before meals. Sliding scale: 18 u small meal, 20 u med meal, 22 u large meal .Active insulin NPH (HumuLIN N,NovoLIN N) 100 unit/mL injection Inject 0.56 mL (56 Units total) under the skin in the morning. 58-63 u daily. Active aspirin 81 mg Take 1 tablet (81 mg total) by mouth in the morning. 90 tablet ctive hydrOXYchloroQUINE (PLAQUENIL) 200 mg tablet Take 1 tablet (200 mg total) by mouth in the morning and 1 tablet (200 mg total) before bedtime.04/25/2023ctive apixaban (ELIQUIS) 5 mg tablet Indications:Chronic atrial fibrillation ([facility]),Abnormal stress testTake 1 tablet (5 mg total) by mouth in the morning and 1 tablet (5 mg total) before bedtime. 180 tablet 5Active simvastatin (ZOCOR) 20 mg tablet Indications:DM type 2 with diabetic mixed hyperlipidemia ([facility])TAKE 1 TABLET EVERY MORNING 90 tablet 5Active levothyroxine (SYNTHROID, LEVOTHROID) 150 MCG tablet Indications:Acquired hypothyroidismTAKE 1 TABLET EVERY MORNING 90 tablet 5Active famotidine (PEPCID) 40 mg tablet Indications:Gastroesophageal reflux disease without esophagitisTAKE 1 TABLET EVERY MORNING 90 tablet 5Active cholecalciferol, vitamin D3, 2,000 units tablet Take 1 tablet (2,000 Units total) by mouth in the morning.Active spironolactone (ALDACTONE) 50 mg tablet Indications:Primary hypertensionTake 1 tablet (50 mg total) by mouth in the morning. 30 tablet 1105Active carvediloL (COREG) 3.125 mg tablet Indications:Primary hypertensionTake 1 tablet (3.125 mg total) by mouth in the morning and 1 tablet (3.125 mg total) before bedtime. 60 tablet 5Active amLODIPine (NORVASC) 10 mg tablet Indications:Essential hypertensionTake 1 tablet (10 mg total) by mouth in the morning. 90 tablet 5Active losartan (COZAAR) 100 mg tablet Indications:Essential hypertensionTake 1 tablet (100 mg total) by mouth in the morning. 90 tablet 5Active amLODIPine (NORVASC) 10 mg tablet Indications:Essential hypertensionTAKE 1 TABLET EVERY MORNING 90 tablet Discontinued(Reorder) losartan (COZAAR) 100 mg tablet Indications:Essential hypertensionTAKE 1 TABLET EVERY MORNING 90 tablet Discontinued(Reorder) Active Problems ProblemNoted DateDiagnosed DateDiabetic foot ulcer02/23/2022Foot ulcer, left 02/23/20228956Dusivcmdxpqi19/10/9372Uzcladihmmn93/10/2022iabetic foot01/16/2022 Coronary artery disease involving [place] coronary artery of [place] heart without angina pjfnuizs19/14/2021bnormal stress test09/11/2021 Overview (09/11/2021): Added automatically from request for surgery [id number] Mixed duponqqkzgmelj04/12/2021Other bhjxrzk2208/21/2021Other chest pain08/21/2021 Chronic atrial xytqvpkwaari64/12/2021 Overview (08/21/2021): ECG in office Microalbuminuria due to type 2 diabetes djkparoo48/08/2020Obesity (BMI 30-39.9) 09/25/2018Uncontrolled type 2 diabetes mellitus with insulin diuxmen8107/24/2018 Diabetic ulcer of left foot associated with type 2 diabetes cnbgevyh62/15/2018 Diabetic polyneuropathy associated with type 2 diabetes /15/2018 Medicare annual wellness visit, yeiaznc6109/26/2017Screening for malignant neoplasm of lxumrsso53/18/6648Xozudzanbkrppm11/15/2017Essential hypertension 05/24/2017DM type 2 with diabetic mixed rszverxmvykkzq15/15/2017 Resolved Problems ProblemNoted DateDiagnosed DateResolved PajlNnlzbvpdjqvnl87/10/202211/ Need for pneumococcal ftyqrxqvtly52 Encounters DateTypeDepartmentCare SnhkQcwggmeiola14/29/2025Refill [facility] [address] [place] [address] Izabela Ware CMA Essential mfqfgowixihu81/28/2025Refill [facility] [address] [place] [phone] Che Chaudhary APRN-GELATIN POWDER MIXER Med Ebtlxb8807/11/2025Refill [facility] [address] [place] [address] Gunjan Howard, CRUZ Essential bqzgoqlbmlvr12/18/2025Results Follow-Up [facility] [address] [place] [phone] Yoon Sifuentes RN Basic Metabolic Panel06/26/20256210Jwvblp48/09/2025 12:30 PM EDTOffice Visit [facility] [address] [place] [address] Jacquie Stinson PA-C Sahmarani, Lora S, PA-C Coronary artery disease involving [place] coronary artery of [place] heart without angina pectoris (Primary Dx); History of coronary angioplasty with insertion of stent; Chronic atrial fibrillation (CMS-HCC); Essential hypertension; Mixed hyperlipidemia; Primary wjeivatsivzz26/09/4595Qwupwg58/09/2025Refill [facility] [address] [place] [facility] [place] [phone] Dilcia Garcia, ORACLE ADF DEVELOPER-GELATIN POWDER MIXER Gastroesophageal reflux disease without esophagitisfrom Last 3 Months Immunizations ImmunizationAdministration DatesNext DueInfluenza Vaccine, Quadrivalent, Quwuxgexbh17/14/2022Influenza, High-dose, Vzzgculnysff87/26/2021,09/16/2020 Influenza, Ekpkwzrjkbn25/08/2020Pneumococcal Conjugate 13-Wrafzw9509/13/2017 Pneumococcal Xfbwqxrprcglzk25/23/4770Gqwv59/14/2020Zoster Live08/28/2014 Family History Medical HistoryRelationNameCommentsLeukemiaFatherStrokeFatherDiabetesMotherHeart diseaseMotherRelationNameStatusCommentsFatherDeceased (Age 80)MotherDeceased (Age 78) Social History Tobacco UseTypesPacks/DayYears UsedDateSmoking Tobacco: NeverSmokeless Tobacco: Never Tobacco Cessation:Counseling Given: Not Answered Alcohol UseStandard Drinks/WeekCommentsNo0 (1 standard drink = 0.6 oz pure alcohol) drank a beer once in college, didn't like it, never drank again PHQ-2 AnswerDate RecordedTotal Jbecp5575ChildcareAnswerDate RecordedChildcare Euxvunu8703/20/2019EmploymentAnswerDate BvcvoweoKqmovktzmjHwnyhzw24/11/2019Hunger ScreeningAnswerDate RecordedWithin the past 12 months we worried whether our food would run out before we got money to buy more.Never True06/18/2025Within the past 12 months the food we bought just didn't last and we didn't have money to get more.Never True06/18/2025Purpose - LifeAnswerDate RecordedPurpose and direction in owqdDlrybtb31/20/2021ex and Gender InformationValueDate Recorded Sex Assigned at IcnouJfoz59/12/2021 11:34 PM ESTLegal FepCtyj0605/15/2015 11:29 AM EDTGender DwqwmvopImfs37/12/2021 11:34 PM ESTSexual OrientationStraight 09/20/2021 11:34 PM EST Last Filed Vital Signs Vital SignReadingTime TakenCommentsBlood Fueflijw618/7209 12:14 PM EDT Xoujy012006/18/2025 12:14 PM OJAUmzlozvhgka20.4 ??C (97.6 ??F)02/20/2025 10:06 AM EDTRespiratory Milr957102/20/2025 10:06 AM EDTOxygen Jhcphuoohf42%06/18/2025 12:14 PM EDTInhaled Oxygen Concentration--Kvwjcu319.7 kg (233 lb)06/18/2025 12:14 PM BJKFfohoe470.5 cm (6' 3 )06/18/2025 12:14 PM EDTBody Mass Index29.1209 12:14 PM EDT Plan of Treatment DateTypeDepartmentCare Team (Latest Contact Info)Kuokfuoozhu27/17/2025 11:00 AM ESTOffice Visit [facility] [address] [place] [phone] Jeb Andersen, ORACLE ADF DEVELOPER-GELATIN POWDER MIXER [address] [place], [place] [id number] 09/30/2025 11:15 AM ESTOffice Visit [facility] [address] [place] [phone] Meghan Russell MD [address] [place] [address] Health MaintenanceDue DateLast TdvgPxujnqdkNoezjoszrlr69/26/1996Zoster (Shingles) Vaccine (3 of 3)/, 08/28/2014, 08/28/2014Diabetic Foot Exam/OVID-19 Vaccine ( season)2025 08/07/2024, 07/10/2023, 08/20/2021, Additional history existsAdult BMI Follow Up Plan/Depression Lidqhhsym78Fall Risk Pcnreplki23Medicare Annual Wellness Visit/, 02/09/2024, 01/18/2023, Additional history existsStatin Use: Cardiovascular /Statin Use: Zkufbcgt97/Diabetic Ophthalmology Exam/, 02/24/2024, 05/12/2023, Additional history existsAdult BMI Wnnmxocfy27/06/2025Tobacco Nkcepqbxx72/09/2026 06/18/2025DTaP,Tdap and Td Vaccines (2 - Td or Tdap) Influenza QvhxmveEllbufiivtmp49/29/2024, 08/02/2023, 08/23/2022, Additional history exists Goals GoalPatient Goal TypeAssociated ProblemsRecent ProgressPatient-Stated?Author remain home with self care and family support Masha Arrington LSW Note: Evaluation of progress towards goal: remain home with self care and family support Medical Devices ImplantedTypeAreaManufacturerDevice IdentifierShelf Expiration DateModel / Serial / LotSystem Cor Stnt 2.75mm X 15mm 145cm Xience Skypnt Mtlnk Lorenzo - [id number] Implanted:Qty: 1 on 09/17/2021 [facility]: [id number] / / [id number] Procedures Procedure NamePriorityDate/TimeAssociated DiagnosisCommentsBASIC METABOLIC PANEL Sghkhgu3506/26/2025 12:36 PM EDT Primary hypertension HM DIABETES EYE VCENIoyvlhf41/16/2025 10:17 AM EDTAMB REFERRAL TO PODIATRY Efgxcll7211/11/2021 3:06 PM EST 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 ([facility]) from Last 3 Months or Most Recently Relevant to Health Maintenance Results * Basic Metabolic Panel (06/26/2025 12:36 PM EDT)ComponentValueRef RangeTest MethodAnalysis TimePerformed AtPathologist EpfseqwoiLPPXFG157542 - 146 mmol/L 06/26/2025 7:05 PM [facility] LABORATORYPOTASSIUM4.63.5 - 5.0 mmol/L06/26/2025 7:05 PM [facility] EWPCQQRWEATYZXNZKD52499 - 109 mmol/L06/26/2025 7:05 PM [facility] LABORATORYCARBON OADQCVN5323 - 32 mmol/L06/26/2025 7:05 PM [facility] LABORATORYANION GAP75 - 15 mmol/L06/26/2025 7:05 PM [facility] LABORATORYBLOOD UREA LMUSYAIW390 - 27 mg/dL06/26/2025 7:05 PM [facility] LABORATORYCREATININE0.970.60 - 1.30 mg/dL06/26/2025 7:05 PM [facility] LABORATORYComment:METHOD TRACEABLE TO IDMS BPPRXQGNSTNXXGA4462 - 99 mg/dL06/26/2025 7:05 PM [facility] LABORATORYCALCIUM9.78.5 - 10.5 mg/dL06/26/2025 7:05 PM [facility]OR[facility]ORYEGFR Non-Race Ypdyqmvfm83>=60 ml/min/1.73sq.m006/26/2025 7:05 PM [facility] LABORATORYComment: Reported eGFR is based on the CKD-EPI 2020 equation that does not use a race coefficient. Specimen (Source)Anatomical Location / LateralityCollection Method / Volume Collection TimeReceived TimeBloodVenous blood / UnknownVenipuncture / Unknown 06/26/2025 12:36 PM EDT06/26/2025 12:36 PM EDT Narrative Authorizing ProviderResult TypeResult StatusLorzohra YA-CARLA BLOOD ORDERABLESFinal ResultPerforming OrganizationAddressCity/State/ZIP CodePhone Number [facility] [address] [place] [address], [place] [phone] * DIABETES EYE EXAM (02/22/2025 10:17 AM EDT) Narrative Authorizing ProviderResult TypeResult StatusNot In System Ref ProvHEALTH MAINTENANCEFinal ResultPerforming OrganizationAddressCity/State/ZIP CodePhone Number MANUALLY TRANSCRIBED RESULTS * Ambulatory referral to Podiatry (11/11/2021 3:06 PM EST) Narrative Authorizing ProviderResult TypeResult StatusValepatricia Garcia ORACLE ADF DEVELOPER-GELATIN POWDER MIXER OUTPATIENT REFERRAL ORDERABLESFinal ResultPerforming OrganizationAddress City/State/ZIP CodePhone Number MANUALLY TRANSCRIBED RESULTS from Last 3 Months or Most Recently Relevant to Health Maintenance Insurance Advance Directives * Full Code (Latest Code Status on File) Date ActivatedDate InactivatedComments02/23/2022 3:46 PM02/26/2022 1:41 AM * Full Code Date ActivatedDate InactivatedComments01/17/2022 1:05 AM01/19/2022 7:59 PM Care Teams Team MemberRelationshipSpecialtyStart DateEnd Date Jeb Andersen, ORACLE ADF DEVELOPER-GELATIN POWDER MIXER [address] [place] [address] PCP - GeneralInternal Umskyccw64/29/25
--- OUTSIDE RECORDS SUMMARY | 2025-08-08 13:57 | XMS_ITS | Encounter Summary ---
Author Organization [facility] tem Address [id number] [address] [place] [address] Care Team Providers Care Manager Roofing Name Role Phone Jeb Andersen Waqas PERFORMANCE TESTER-METAL FABRICATOR Primary Care Provider + Encounter Details DateTypeDepartmentCare Team (Latest Contact Info)Dkijvsajcuw76/29/2025Refill [facility] [address] [place] [phone] Izabela Ware CMA Essential hypertension Social History Tobacco UseTypesPacks/DayYears UsedDateSmoking Tobacco: NeverSmokeless Tobacco: NeverAlcohol UseStandard Drinks/WeekCommentsNo0 (1 standard drink = 0.6 oz pure alcohol) drank a beer once in college, didn't like it, never drank again PHQ-2 AnswerDate RecordedTotal Wmrrz089hildcareAnswerDate RecordedChildcare Putgbxd4303/20/2019EmploymentAnswerDate XnkywymjNaulgtttdgLzqpnbs14/11/2019Hunger ScreeningAnswerDate RecordedWithin the past 12 months we worried whether our food would run out before we got money to buy more.Never True06/18/2025Within the past 12 months the food we bought just didn't last and we didn't have money to get more.Never True06/18/2025Purpose - LifeAnswerDate RecordedPurpose and direction in quwdIqgwibc71/20/2021ex and Gender InformationValueDate Recorded Sex Assigned at BsckmEahb38/09/2021 11:34 PM ESTLegal ZntKhch2205/15/2015 11:29 AM EDTGender IgdepviaJeuv26/12/2021 11:34 PM ESTSexual OrientationStraight 09/20/2021 11:34 PM ESTdocumented as of this encounter Plan of Treatment DateTypeDepartmentCare Team (Latest Contact Info)Blnytobmwoz44/17/2025 11:00 AM ESTOffice Visit [facility] [address] [place] [address] Jeb Andersen, PERFORMANCE TESTER-METAL FABRICATOR [address] [place] [address] 09/30/2025 11:15 AM ESTOffice Visit [facility] [address] [place] [phone] Meghan Russell MD [address] [place] [address] documented as of this encounter Goals GoalPatient Goal TypeAssociated ProblemsRecent ProgressPatient-Stated?Author remain home with self care and family support Masha Arrington LSW Note: Evaluation of progress towards goal: remain home with self care and family support documented as of this encounter Visit Diagnoses Diagnosis Essential hypertension Unspecified essential hypertension documented in this encounter Additional Health Concerns AssessmentNoted TimePHQ-9 Depression Total Score: 9:59 AM EDTA Body Mass Index follow-up plan has been documented for the xeiajla0302/20/2025 10:59 AM EDTdocumented as of this encounter Care Teams Team MemberRelationshipSpecialtyStart DateEnd Date Jeb Andersen, PERFORMANCE TESTER-METAL FABRICATOR [address] [place] [address] PCP - GeneralInternal Ujdjrqpo31/29/25documented as of this encounter
--- OUTSIDE RECORDS SUMMARY | 2025-08-08 14:08 | XMS_ITS | CCD ---
Author Organization [facility] Care Team Providers Care Fly Finisher Name Role Phone JOSE ESCOBAR Consulting Unavailable GARCIA, ESCOBAR Attending Unavailable GARCIA, ESCOBAR Admitting Unavailable GARCIA, ESCOBAR Primary Care Unavailable HO, DR WALKER Admitting Unavailable HO, DR WALKER Consulting Unavailable HO, DR WALKER Attending Unavailable GARCIA, ESCOBAR Primary Care Unavailable HO, DR WALKER Admitting Unavailable HO, DR WALKER Consulting Unavailable GARCIA, ESCOBAR Primary Care Unavailable HO, DR WALKER Attending Unavailable MARIAM, AHMAD Consulting Unavailable GARCIA, ESCOBAR Primary Care Unavailable MARIAM, DEYANIRA Attending Unavailable MARIAM, AHMAD Admitting Unavailable GARCIA, ESCOBAR Primary Care Unavailable MISC, DR ESPINO Consulting Unavailable MISC, DR ESPINO Attending Unavailable MISC, DR ESPINO Admitting Unavailable GARCIA, ESCOBAR Primary Care Unavailable GARCIA, ESCOBAR Consulting Unavailable GARCIA, ESCOBAR Attending Unavailable GARCIA, ESCOBAR Admitting Unavailable Garcia, INTERDISCIPLINARY PROFESSOR-C Escobar Smith Primary Care Provider MD Tirso Ho Attending Provider JOSE ESCOBAR J Referring Unavailable GARCIA, ESCOBAR J Primary Care Unavailable Garcia, INTERDISCIPLINARY PROFESSOR-C Escobar Smith Primary Care Provider Chad, NON DESTRUCTIVE TESTING SUPERVISOR-BC Latricia Anderson Emergency Provider Latricia Bonilla Attending Unavailable Chad, Latricia E Admitting Unavailable Garcia, Escobar J Primary Care Unavailable Jose, Escobar J Primary Care Unavailable Aaron Ho Attending Unavailable Aaron Ho Admitting Unavailable Unavailable Primary Care Provider Unavailabl e Garcia AVIATION ORDNANCE OFFICER-FOUNTAIN WAITRESS/WAITEREscobar Primary Care Provid er Garcia AVIATION ORDNANCE OFFICER-FOUNTAIN WAITRESS/WAITER, Escobar J Primary Care Provid er DEYANIRA LOPEZ Attending Unavailable DEYANIRA LOPEZ Referring Unavailable DEYANIRA LOPEZ Attending Unavailable DEYANIRA LOPEZ Referring Unavailable GARCIAESCOBAR HERNANDEZ Attending Unavailable GARCIA, ESCOBAR Smith Referring Unavailable GARCIA, ESCOBAR J Primary Care Unavailable GARCIA, ESCOBAR Smith Attending Unavailable GARCIA, ESCOBAR Sarah Referring Unavailable GARCIA, ESCOBAR J Primary Care Unavailable Garcia AVIATION ORDNANCE OFFICER-FOUNTAIN WAITRESS/WAITER, Escobar J Primary Care Provid er No Pcp, No Pcp Primary Care Provider UnavailMEGHAN Lucio Attending Unavailable ESCOBAR GARCIA Referring Unavailable GARCIA, ESCOBAR J Primary Care Unavailable KUSH FULLER Referring Unavailable GARCIA, ESCOBAR Sarah Primary Care Unavailable MEGHAN RUSSELL Referring Unavailable GARCIA, ESCOBAR Sarah Primary Care Unavailable Kevin SCHWARTZ Referring Unavailable GARCIA, ESCOBAR Sarah Primary Care Unavailable MADDI ARROYO Referring Unavailabl e GARCIA, ESCOBAR J Primary Care Unavailable GUILLERMINA STINSON Attending Unavailable ESCOBAR GARCIA J Referring Unavailable GARCIA, ESCOBAR J Primary Care Unavailable GARCIA, ESCOBAR J Referring Unavailable GARCIA, ESCOBAR J Primary Care Unavailable GUILLERMINA STINSON Referring Unavailable GARCIA, ESCOBAR J Primary Care Unavailable SERENITY MARIA Attending Unavailable ESCOBAR GARCIA Referring Unavailable NO PCP, NO PCP Primary Care Unavailable SERENITY MARIA Referring Unavailable NO PCP, NO PCP Primary Care Unavailable Medications Current Medications MedicationDrug Class(es)DatesSig (Normalized)Sig (Original)allopurinol 100 mg oral tablet (2 sources)Xanthine Oxidase InhibitorStart: 60-84-1764tqxg 100 mg by mouth once dailyAllopurinol Active 100 MG PO Daily January 21, 2022 12:00amamLODIPine 10 mg oral tablet (20 sources)Dihydropyridine Calcium Channel BlockerStart: 07-23-2020 End: 82-63-8808acyo 1 tablet by mouth in the morningamLODIPine (NORVASC) 10 mg tablet Indications: Essential hypertension Take 1 tablet (10 mg total) by mouth in the morning. 90 tablet 1 07/11/2025 Activeapixaban 5 mg oral tablet (20 sources)Factor Xa InhibitorStart: 39-11-6351dckp 1 tablet by mouth in the morning, then take 1 tablet by mouth at bedtimeapixaban (ELIQUIS) 5 mg tablet Indications: Chronic atrial fibrillation (CMS-HCC) , Abnormal stresstest Take 1 tablet (5 mg total) by mouth in the morning and 1 tablet (5 mg total) before bedtime. 180 tablet 2 10/16/2024 ActiveStart: 14-78-4612upnw 1 tablet by mouth in the morning, then take 1 tablet by mouth at bedtimeapixaban (ELIQUIS) 5 mg tablet Indications: Chronic atrial fibrillation (CMS-HCC) , Abnormal stresstest Take 1 tablet (5 mg total) by mouth in the morning and 1 tablet (5 mg total) before bedtime. 180 tablet 05/21/2024 ActiveStart: 07-82-4429ocdt 1 tablet by mouth in the morning, then take 1 tablet by mouth at bedtimeapixaban (ELIQUIS) 5 mg tablet Indications: Chronic atrial fibrillation (CMS-HCC) Take 1 tablet (5 mg total) by mouth in the morning and 1 tablet (5 mg total) before bedtime. 0 01/02/2024 ActiveStart: 01-21-2022 End: 05-91-1311mfqx 1 tablet by mouth in the morning, then take 1 tablet by mouth at bedtimeapixaban (ELIQUIS) 5 mg tablet Indications: Chronic atrial fibrillation (CMS-HCC) Take 1 tablet (5 mg total) by mouth in the morning and 1 tablet (5 mg total) before bedtime. Do all this for 21 days.42 tablet 0 01/02/2024 01/02/2024 Discontinued (Reorder)aspirin 81 mg delayed release oral tablet (20 sources)Platelet Aggregation Inhibitor, Nonsteroidal Anti-inflammatory Drug Start: 32-88-2385hxfi 1 tablet by mouth in the morningaspirin 81 mg Take 1 tablet (81 mg total) by mouth in the morning. 90 tablet 3 10/12/2022 Active carvedilol 3.125 mg oral tablet (16 sources)alpha-Adrenergic Dede, beta-Adrenergic BlockerStart: 06-18-2025 take 1 tablet by mouth in the morning, then take 1 tablet by mouth at bedtime carvediloL (COREG) 3.125 mg tablet Indications: Primary hypertension Take 1 tablet (3.125 mg total)by mouth in the morning and 1 tablet (3.125 mg total) before bedtime. 60 tablet 11 06/18/2025 ActiveStart: 12-12-2024 End: 29-15-0927opjp 1 tablet by mouth in the morning, then take 1 tablet by mouth at bedtimecarvediloL (COREG) 6.25 mg tablet Take 1 tablet (6.25 mg total) by mouth in the morning and 1 tablet (6.25 mg total) before bedtime. 180 tablet 3 12/12/2024 06/18/2025 DiscontinuedStart: 96-65-4731mtym 1 tablet by mouth in the morning, then take 1 tablet by mouth at bedtimecarvediloL (COREG) 3.125 mg tablet Take 1 tablet (3.125 mg total) by mouth in the morning and 1 tablet (3.125 mg total) before bedtime. 180 tablet 3 10/12/2024 Activecholecalciferol 0.05 mg oral tablet (2 sources)Vitamin Dtake 1 tablet by mouth in the morningcholecalciferol, vitamin D3, 2,000 units tablet Take 1 tablet (2,000 Units total) by mouth in the morning. Activeclopidogrel 75 mg oral tablet (2 sources)P2Y12 Platelet InhibitorStart: 36-26-4917rmqe 75 mg by mouth once dailyClopidogrel Active 75 MG PO Daily January 21, 2022 12:00amcolchicine 0.6 mg oral tablet (2 sources)Start: 17-91-3921kkfx 0.6 mg by mouth once dailyColchicine Active 0.6 MG PO Daily January 21, 2022 12:00am Take for 14 days, started January 20 2022 famotidine 40 mg oral tablet (20 sources)Histamine-2 Receptor AntagonistStart: 01-21-2022 End: 01-32-1367satcfwfycn (PEPCID) 40 mg tablet Indications: Gastroesophageal reflux disease without esophagitis TAKE 1 TABLET EVERY MORNING 90 tablet 05/21/2025 Activegentamicin 0.001 mg/mg topical ointment (2 sources)Start: 98-41-3385Stcudmdglp Active 1 APPLIC TOPICAL Daily January 21, 2022 12:00amhydroxychloroquine sulfate 200 mg oral tablet (20 sources)Antimalarial, Antirheumatic AgentStart: 69-05-1244fbfd 1 tablet by mouth in the morning, then take 1 tablet by mouth at bedtimehydrOXYchloroQUINE (PLAQUENIL) 200 mg tablet Take 1 tablet (200 mg total) by mouth in the morning and 1 tablet (200 mg total) before bedtime. 04/25/2023 Activeinsulin isophane, human 100 unt/ml injectable suspension (20 sources)Start: 02-01-2025 End: 55-70-3984yqnsmzs NPH, Isophane, (HumuLIN N,NovoLIN N) 100 UNIT/ML injection Indications: Type 2 diabetes mellitus with hyperglycemia, with long- term current use of insulin ([facility]) Inject 33 Units under the skin at bedtime 29.7 mL 02/19/2025 05/20/2025 ActiveStart: 17-66-1463Quhmifm Nph Isoph U-100 Human (Novolin N Nph U-100 Insulin) 100 unit/mL suspension Active 70 UNIT SUBCUT Daily at bedtime January 22, 2022 1:42pm Increase night dose to 70U while on the prednisone. Please follow up with PCP after discharge as dose may need to be adjusted.Start: 07-23-2020 End: 49-57-6099Usljawm Nph Isoph U-100 Human (Novolin N Nph U-100 Insulin) 100 unit/mL suspension Discontinued 62 UNIT SUBCUT Daily at bedtime July 23, 2020 12:00am January 22, 2022 1:44pminsulin NPH, Isophane, (HumuLIN N,NovoLIN N) 100 UNIT/ML injection Inject 33 Units under the skin in the morning. Active Insulin Regular Human (2 sources)Start: 21-02-9517Fygmzhe Regular Human Active 0 .ROUTE .COMPLEX January 21, 2022 12:00am Inject under the skin threetimes a day before meals. Sliding scale 18u small meal, 20u medium meal, 22u large meal.insulin, regular, human 100 unt/ml injectable solution (20 sources)InsulinStart: 38-80-6456ilhbvt 5-10 [IU] by subcutaneous injection three times daily, then inject 30 [IU] by subcutaneous injection once daily insulin regular (HumuLIN R,NovoLIN R) 100 UNIT/ML injection Indications: Type 2 diabetes mellitus with hyperglycemia, with long-term current use of insulin ([facility]) INJECT 5-10 UNITS SUBCUTANEOUSLY THREE TIMES A DAY.( TOTAL 30 UNITS DAILY) 30 mL 1 01/25/2025 Activeinject 0.2 mL by subcutaneous injection in the morninginsulin regular (HumuLIN R,NovoLIN R) 100 unit/mL injection Inject 0.2 mL (20 Units total) under the skin in the morning and 0.2 mL (20 Units total) at noon and 0.2 mL (20 Units total) in the evening. Inject before meals. Sliding scale: 18 u small meal, 20 u med meal, 22 u large meal . Activelevothyroxine sodium 0.15 mg oral tablet (20 sources)l-ThyroxineStart: 07-23-2020 End: 70-26-3706jkplcqcauldno (SYNTHROID, LEVOTHROID) 150 MCG tablet Indications: Acquired hypothyroidism TAKE 1 TABLET EVERY MORNING 90 tablet 1 05/01/2025 Activelosartan potassium 100 mg oral tablet (20 sources)Angiotensin 2 Receptor BlockerStart: 09-15-2023 End: 45-61-3962tnzdolem (COZAAR) 100 mg tablet Indications: Essential hypertension TAKE 1 TABLET EVERY MORNING 90 tablet 1 01/21/2025 ActiveStart: 01-22-2022 End: 00-41-6049ixus 50 mg by mouth once daily in the morningLosartan Discontinued 50 MG PO Every morning January 22, 2022 12:00am February 20, 2024 10:49amtake 2 tablets by mouth once dailylosartan (Cozaar) 50 MG tablet Take 100 mg by mouth Daily ActivemetFORMIN hydrochloride 1000 mg oral tablet (20 sources)BiguanideStart: 02-21-2017 End: 15-98-8899ongk 1 tablet by mouth in the morning, then take 1 tablet by mouth at bedtimemetFORMIN (GLUCOPHAGE) 1000 mg tablet Take 1 tablet (1,000 mg total) by mouth in the morning and 1 tablet (1,000 mg total) before bedtime. 02/21/2017 Activeomega-3 acid ethyl esters (residential) 1000 mg oral capsule (7 sources)take 1 capsule by mouth in the morningomega-3 acid ethyl esters (Lovaza) 1 g capsule Take 2 g by mouth in the morning and 2 g before bedtime. ActiveOmega-3 Fatty Acids (2 sources)Start: 70-43-4491pofl 1000 mg by mouth once dailyOmega-3 Fatty Acids Active 1000 MG PO Daily January 21, 2022 12:00amomega-3 fatty acids-fish oil 300-1,000 mg capsule (20 sources)take 2 capsules by mouth in the morningomega-3 fatty acids-fish oil 300-1,000 mg capsule Take 2 capsules (2 g total) by mouth in the morning. Active take 2 capsules by mouth in the morningomega-3 fatty acids-fish oil 300-1,000 mg capsule Take 2 capsules (2 g total) by mouth in the morning. 0 Active simvastatin 20 mg oral tablet (20 sources)HMG-CoA Reductase InhibitorStart: 09-15-2023 End: 66-26-0132zvzrysjmdwv (ZOCOR) 20 mg tablet Indications: DM type 2 with diabetic mixed hyperlipidemia (CMS-HCC) TAKE 1 TABLET EVERY MORNING 90 tablet 1 02/21/2025 ActiveStart: 45-32-1127pwda 10 mg by mouth once dailySimvastatin Active 10 MG PO Daily July 23, 2020 12:00amspironolactone 50 mg oral tablet (10 sources)Aldosterone AntagonistStart: 62-04-2409yflv 1 tablet by mouth in the morningspironolactone (ALDACTONE) 50 mg tablet Indications: Primary hypertension Take 1 tablet (50 mg total) by mouth in the morning. 30 tablet 11 06/18/2025 ActiveStart: 12-25-2024 End: 19-03-7624cbbd 1 tablet by mouth in the morningspironolactone (ALDACTONE) 25 mg tablet Indications: Primary hypertension Take 1 tablet (25 mg total) by mouth in the morning. 90 tablet 3 12/25/2024 06/18/2025 Discontinued (Reorder) Completed/Discontinued Medications MedicationDrug Class(es)DatesSig (Normalized)Sig (Original)acetaminophen 325 mg / oxyCODONE hydrochloride 5 mg oral tablet (4 sources)Opioid AgonistStart: 01-22-2022 End: 99-92-0339lwll 1 tablet by mouth every six hoursOxycodone-Acetaminophen (Percocet) 5-325 mg tablet Discontinued 1 - 2 TAB PO Every 6 hours 30 2021February 20, 2024 10:50amcephalexin 500 mg oral capsule (2 sources)Cephalosporin AntibacterialStart: 07-23-2020 End: 37-64-4826ywqf 500 mg by mouth every six hoursCephalexin Discontinued 500 MG PO Q6H 28 July 23, 2020 12:00am January 21, 2022 12:41amclindamycin 300 mg oral capsule (2 sources)Lincosamide AntibacterialStart: 12-29-2023 End: 14-14-5464omym 1 capsule by mouth every eight hoursclindamycin (CLEOCIN) 300 mg capsule TAKE 1 CAPSULE BY MOUTH EVERY 8 HOURS FOR 10 DAYS 12/29/2023 Discontinued (Therapy completed)doxycycline monohydrate 100 mg oral capsule (8 sources)Tetracycline-class DrugStart: 12-21-2024 End: 81-33-8620skfs 1 capsule by mouth in the morning, then take 1 capsule by mouth at bedtimedoxycycline (MONODOX) 100 mg capsule Take 1 capsule (100 mg total) by mouth in the morning and 1 capsule (100 mg total) before bedtime. 12/21/2024 02/20/2025 Discontinued (Therapy completed)Start: 12-26-2023 End: 22-54-2780fhnd 1 tablet by mouth twice dailydoxycycline (VIBRA-TABS) 100 mg tablet TAKE 1 TABLET BY MOUTH TWICE DAILY 12/26/2023 02/09/2024 Discontinued (Therapy completed)Start: 27-16-9393ewsf 100 mg by mouth twice dailyDoxycycline Hyclate Active 100 MG PO Twice daily January 21, 2022 12:00am For 10 days hydroCHLOROthiazide 12.5 mg oral capsule (20 sources)Thiazide DiureticStart: 09-13-2024 End: 50-99-2150oekl 2 capsules by mouth once dailyhydroCHLOROthiazide (MICROZIDE) 12.5 mg capsule Take 2 capsules (25 mg total) by mouth daily. 60 cap kenroy 2 09/13/2024 02/20/2025 Discontinued (Therapy completed)Start: 08-08-2024 End: 96-90-6546chnt 1 capsule by mouth once dailyhydroCHLOROthiazide (MICROZIDE) 12.5 mg capsule Take 1 capsule (12.5 mg total) by mouth daily. 30 capsule 1 08/08/2024 09/12/2024 Discontinued (Reorder)take 1 tablet by mouth once daily hydroCHLOROthiazide (HYDRODiuril) 12.5 MG tablet Take 12.5 mg by mouth Daily ActivehydroCHLOROthiazide 25 mg / lisinopril 20 mg oral tablet (2 sources)Thiazide Diuretic, Angiotensin Converting Enzyme InhibitorStart: 07-23-2020 End: 07-73-8794rtvo 1 tablet by mouth once dailyLisinopril-Hydrochlorothiazide Discontinued 1 TAB PO Daily July 23, 2020 12:00am January 22, 2022 1:44pm Multivitamin preparation (2 sources)Start: 01-21-2022 End: 69-70-8726xdxy 1 tablet by mouth once dailyMultivitamin Discontinued 1 TAB PO Daily January 21, 2022 12:00am February 20, 2024 10:50amStart: 10-29-4410gkeg 1 tablet by mouth once dailyMultivitamin Active 1 TAB PO Daily January 21, 2022 12:00ampolyethylene glycol 3350 78621 mg powder for oral solution (2 sources)Osmotic LaxativeStart: 01-22-2022 End: 58-64-5462Oxgnsmkdoylh Glycol 3350 (Miralax) 17 gram Powder In Packet Discontinued 17 GM PO Twice daily January 22, 2022 12:00am February 20, 2024 10:50ampredniSONE 10 mg oral tablet (4 sources)Start: 02-20-2022 End: 83-00-2808hkpl 20 mg by mouth once dailyPrednisone Discontinued 20 MG PO Daily February 20, 2022 12:00am February 20, 2024 10:50amStart: 01-22-2022 End: 81-55-7325gnie 40 mg by mouth twice dailyPrednisone Discontinued 40 MG PO Twice daily 06 05January 22, 2022 12:00am February 20, 2024 10:50amsennosides, residential 1.76 mg/ml oral solution (2 sources)Start: 01-22-2022 End: 79-09-9187woje 8.8 mg by mouth twice dailySennosides (Senna) 8.8 mg/5 mL Syrup Discontinued 8.8 MG PO Twice daily 120 January 22, 2022 12:00am February 20, 2024 10:50amsilver sulfADIAZINE 10 mg/ml topical cream (20 sources)Sulfonamide AntibacterialStart: 06-27-2024 End: 97-12-0159eytdge sulfADIAZINE (SILVADENE, SSD) 1 % cream Apply 1 Application topically in the morning. 06/27/2024 06/18/2025 Discontinued (Therapy completed)sulfamethoxazole 800 mg / trimethoprim 160 mg oral tablet (2 sources)Dihydrofolate Reductase Inhibitor Antibacterial, Sulfonamide AntimicrobialStart: 01-21-2022 End: 47-30-8619oktl 1 tablet by mouth twice dailySulfamethoxazole-Trimethoprim (Bactrim Ds) 800-160 mg Tablet Discontinued 1 TAB PO Twice daily January 21, 2022 12:00am February 20, 2024 10:50am for 10 days Problems Active Problems Problem ClassificationProblemDateDocumented DateEpisodic/ChronicCardiac dysrhythmias (20 sources)Chronic atrial fibrillation; Translations: [Chronic atrial fibrillation, unspecified]Onset: 969235-11-4079OlothqkXmrhmwf ulcer of skin (20 sources)Non-pressure chronic ulcer of other part of left foot with unspecified severity; Translations: [Ulcer of other part of foot]Onset: 756834-55-1185IivtzzzKyndttvf atherosclerosis and other heart disease (20 sources)Atherosclerotic heart disease of [place] coronary artery without angina pectoris; Translations: [Coronary arteriosclerosis]Onset: 09-22-2021 ChronicDiabetes mellitus with complications (20 sources)Type 2 diabetes mellitus with other circulatory complications; Translations: [Neuropathy due to diabetes mellitus]Onset: 68-05-9717Pmsxltm Diabetes mellitus without complication (3 sources)Diabetes mellitus; Translations: [Type 2 diabetes mellitus without complications]Onset: 261190-68-2990SwskypwIwpxdvytr of lipid metabolism (20 sources)Mixed hyperlipidemia; Translations: [Mixed hyperlipidemia]Onset: 217613-50-4657FtcjuheXustbrress disorders (5 sources)Gastroesophageal reflux disease without esophagitis; Translations: [Gastro-esophageal reflux disease without esophagitis]94-98-8275HfkluuvQyicsorzs hypertension (20 sources)Hypertensive disorder; Translations: [Essential (primary) hypertension]Onset: 513188-22-9209UuvwzvsHsty and other crystal arthropathies (4 sources)Idiopathic gout, unspecified site; Translations: [IDIOPATHIC GOUT UNSPECIFIED SITE]Onset: 63-54-8171WerofxnXxucszugtpi deficiencies (5 sources)Vitamin D deficiency, unspecified; Translations: [Vitamin D deficiency]Onset: 920702-77-2185KedsueqSfox wounds of head; neck; and trunk (2 sources)Laceration - injury; Translations: [Laceration]62-55-2226Yvqkrydu Osteoarthritis (2 sources)Unspecified osteoarthritis, unspecified site; Translations: [Primary generalized (osteo)arthritis]Onset: 75-65-1314KtwkgkfHseut aftercare (4 sources)Long-term current use of insulin; Translations: [termite exterminator (current) use of insulin]49-27-2681BywrybdvCcgot connective tissue disease (2 sources)Polymyalgia rheumatica; Translations: [Polymyalgia rheumatica] 28-82-7935DvbwvbjGjtyd non-traumatic joint disorders (6 sources)Polyarthritis, unspecified; Translations: [POLYARTHRITIS UNSPECIFIED] Onset: 30-17-9668HssdqhbSwrtx non-traumatic joint disorders (2 sources)Polyarthropathy; Translations: [Polyarthritis, unspecified]02-20-2022 ChronicOther nutritional; endocrine; and metabolic disorders (20 sources)Body mass index 30+ - obesity; Translations: [Obesity, unspecified] Onset: 831151-56-7923KgbjxzmDxqvtmaibn arthritis and related disease (1 source)Inflammatory polyarthropathy; Translations: [Inflammatory polyarthropathy]Onset: 57-64-6653HanpgmwOsoziubhpzm injury; contusion (2 sources)Contusion of trunk; Translations: [Contusion of lower back and pelvis, initial encounter]Onset: 883887-72-1998RhzkedgjTawbbij disorders (20 sources)Hypothyroidism; Translations: [Hypothyroidism, unspecified]Onset: 813183-51-0369ToycoavQcobfmtnjhjd (2 sources)Chronic atrial fibrillation, unspecified; Translations: [CHRONIC ATRIAL FIBRILLATION UNSPEC]Onset: 16-63-9795Awnbfvxbqlvk (1 source)MAWOnset: 02-20-2025 Past or Other Problems Problem ClassificationProblemDateDocumented DateEpisodic/ChronicCoronary atherosclerosis and other heart disease (1 source)Presence of coronary angioplasty implant and graft; Translations: [Presence of coronary angioplastyimplant and graft]Onset: 32-77-4452Iymsmvnq Fluid and electrolyte disorders (20 sources)Hyponatremia; Translations: [Hypo-osmolality and hyponatremia]Onset: 226988-08-2305GqqclfrpEwvtqvubvmwop and screening for infectious disease (20 sources)Encounter for screening for other viral diseases; Translations: [Encounter for immunization]Onset: 09-26-2017 Resolved: 04-58-4178UdfiubgeOtqupooej arthritis and osteomyelitis (except that caused by tuberculosis or sexually transmitted disease) (20 sources)Osteomyelitis; Translations: [Osteomyelitis, unspecified]Onset: 01-17-2022 Resolved: 464492-40-7305DxihuwhRnoqloy and fatigue (20 sources)Fatigue; Translations: [Other fatigue]Onset: EpisodicMood disorders (20 sources)Mood disordersOnset: 02-09-2024 Resolved: 193338-42-5496Swcgiwwhmyl chest pain (20 sources)Chest pain; Translations: [Other chest pain]Onset: 08-21-2021 06-10-9168TnfnaycxOarfp aftercare (2 sources)Other correction (current) drug therapy; Translations: [OTH [facility] CURRENT DRUG THERAPY]Onset: 77-78-8777VqhlvnjpQrxec aftercare (1 source)termite exterminator (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) use of insulin; Translations: [[facility] CURRENT USE OF INSULIN]Onset: 10-23-5399HskdyoqdPsusa gastrointestinal disorders (20 sources)Constipation; Translations: [Constipation, unspecified]Onset: 885655-92-4376TsnqfjmwFermj screening for suspected conditions (not mental disorders or infectious disease) (20 sources)Patient encounter status; Translations: [Dietary counseling and surveillance]Onset: 670340-03-2901LmukmkmxTiozp screening for suspected conditions (not mental disorders or infectious disease) (20 sources)Cardiovascular stress test abnormal; Translations: [Abnormal result of other cardiovascular function study]Onset: 148261-27-6413Pcnzgmxh Unclassified (20 sources)Onset: 08-13-2024 Resolved: Results Test NameValueInterpretationReference RangeFacilityBASIC METABOLIC PANELon 15-29-7465Tsfxb gap [Moles/Vol]7 mmol/LNormal5-15[facility] Comment on above:Performed By: #### JOSE, 3016-3, LIVR, 2857-1 #### [facility] ([id number]) [address], [address] [place], [place] [address]Yqhbdtb [Mass/Vol]9.7 mg/dLNormal8.5-10.5PProMedica Defiance Regional HospitalComment on above:Performed By: #### JOSE, 3016-3, LIVR, 2857-1 #### [facility] ([id number]) [address], [address] [place], [place] [address]Gsgaoisz [Moles/Vol]104 mmol/XNluscv35-160WzeBhftwfPalestine Regional Medical CenterComment on above:Performed By: #### JOSE, 3016-3, LIVR, 2857-1 #### [facility] ([id number]) [address], [address] [place], [place] [address]RQ4 [Moles/Vol]25 mmol/WWqrvvk97-22XmcAtxdhaProMedica Defiance Regional Hospital Comment on above:Performed By: #### JOSE, 3016-3, LIVR, 2857-1 #### [facility] ([id number]) [address], [address] [place], [place] [address]Kkuamwmfgf [Mass/Vol]0.97 mg/dLNormal0.60-1.30[facility] HospitalComment on above:Result Comment: METHOD TRACEABLE TO IDMS STANDARD Performed By: #### JOSE, 3016-3, LIVR, 285- #### [facility] ([id number]) [address] [place], [place] [address]OIY/1.73 sq M.predicted among non-blacks MDRD (S/P/Bld) [Vol rate/Area]82 mL/min/{1.73_m2}Normal>=60ProPalestine Regional Medical CenterComment on above:Result Comment: Reported eGFR is based on the CKD-EPI 2020 equation that does not use a race coefficient.Performed By: #### JOSE, 3016-3, LIVR, 2856- #### [facility] ([id number]) [address], [facility] [facility] [address] [place], [place] [address]Sgmjtlq [Mass/Vol]93 mg/kTIuicbb22-03AooGivptuHenry County Hospital Comment on above:Performed By: #### JOSE, 301-3, LIVR, 285- #### [facility] ([id number]) [address] [address] [place], [place] [address]Czsgojubp [Moles/Vol]4.6 mmol/LNormal3.5-5.0ProPalestine Regional Medical CenterComment on above:Performed By: #### JOSE, 3016-3, LIVR, 285- #### [facility] ([id number]) [address] [address] [place], [place] [address]Umfbyt [Moles/Vol]136 mmol/UEildvb714-401ZcfGiontp [facility]remont HospitalComment on above:Performed By: #### JOSE, 3016-3, LIVR, 7-1 #### [facility] ([id number]) [address] [address] [place], [place] [address]Ynna nitrogen [Mass/Vol]23 mg/dLNormal5-27ProPalestine Regional Medical CenterComment on above:Performed By: #### JOSE, 3016-3, LIVR, 2857-1 #### [facility] ([id number]) [address], [address] [place], [place] [address]XRMBA METABOLIC PANELon 65-21-0004Xbvfn gap [Moles/Vol]6 mmol/L Normal5-15[facility] Ambulatory PPGComment on above:Performed By: #### BMP #### [facility] ([facility]) [address] [place] [address] VIRCalcium [Mass/Vol]9.2 mg/dLNormal8.5-10.5PC[facility] Ambulatory PPGComment on above:Performed By: #### BMP #### [facility] ([facility]) [address] [place] [address] VIRChloride [Moles/Vol]105 mmol/BJrigpp61-692FiyIroynt Hospital Ambulatory PPGComment on above:Performed By: #### BMP #### [facility] ([facility]) [address] [place] [address] VIRCO2 [Moles/Vol]27 mmol/NGjtfju94-72McjRytbmr Hospital Ambulatory PPGComment on above:Performed By: #### BMP #### [facility] ([facility]) [address] [place] [address] VIRCreatinine [Mass/Vol]0.81 mg/dLNormal0.60-1.30[facility] Ambulatory PPGComment on above:Result Comment: METHOD TRACEABLE TO IDMS STANDARDPerformed By: #### BMP #### [facility] ([facility]) [address] [place] [address] VIREGFR (CKD-EPI) NON-RACE DEPENDENT>^90Normal>=60[facility] Ambulatory PPGComment on above:Result Comment: Reported eGFR is based on the CKD-EPI 2020 equation that does not use a race coefficient.Performed By: #### BMP #### [facility] ([facility]) [address] [place] [address] VIRGlucose [Mass/Vol]132 mg/hVHbsc08-39RmwHrvhjn Hospital Ambulatory PPGComment on above:Performed By: #### BMP #### [facility] ([facility]) [address] [place] [address] VIRPotassium [Moles/Vol]4.3 mmol/LNormal3.5-5.0[facility] Ambulatory PPGComment on above:Performed By: #### BMP #### [facility] ([facility]) [address] [place] [address] VIRSodium [Moles/Vol]138 mmol/LNaebrf522-790CyaDdyvnc Hospital Ambulatory PPGComment on above:Performed By: #### BMP #### [facility] ([facility]) [address] [place] [address] VIRUrea nitrogen [Mass/Vol]18 mg/dLNormal5-27[facility] Ambulatory PPGComment on above:Performed By: #### BMP #### [facility] ([facility]) [address] [place] [address] VIRLIPID PROFILEon 52-03-7845Tidugfufqjl [Mass/Vol]110 mg/dLLow 150-200[facility] Ambulatory PPGComment on above:Performed By: #### LIPR #### [facility] ([facility]) [address] [place] [address] VIRCholesterol in HDL [Mass/Vol]54 mg/dLNormal>39[facility] Ambulatory PPGComment on above:Result Comment: HDL <40 mg/dL - High Risk HDL > or = 40mg/dL- Desirable HDL >60 mg/dL - Negative RiskPerformed By: #### LIPR #### [facility] ([facility]) [address] [place] [address] VIRCholesterol in LDL [Mass/Vol]37 mg/dLNormal<130[facility] Ambulatory PPGComment on above:Result Comment: LDL <100 mg/dL - Desirable LDL >160 mg/dL - High RiskPerformed By: #### LIPR #### [facility] ([facility]) [address] [place] [address] VIRCHOLESTEROL:HDL2.5Ekoezw3.0-5.0[facility] Ambulatory PPGComment on above:Performed By: #### LIPR #### [facility] ([facility]) [address] [place] [address] VIRTriglyceride [Mass/Vol]93 mg/vRCsxikv59-740PbxKdwpiu Hospital Ambulatory PPGComment on above:Performed By: #### LIPR #### [facility] ([facility]) [address] [place] [address] VIRVERY LOW BUWWWCMKFQK58 mg/dLNormal0-30ProBar[facility] Ambulatory PPGComment on above:Performed By: #### LIPR #### [facility] ([facility]) [address] [place] [address] VIRGlucose (Bld) [Mass/Vol]Ordered By: Cierra Mcgee on 89-17-9212Uuhypbl Blood, WBD425 mg/dLNODC HealthcareLaboratory - Hematology and Cell countson 55-18-1606SgS0x (Bld) [Mass fraction]6.6 %[facility] CenterNo Panel InformationOrdered By: Cierra Mcgee on 43-64-7391PLDS HealthcareBASIC METABOLIC PANLon 85-80-4795Ajvtc gap [Moles/Vol]8 mmol/LNormal5-15ProPalestine Regional Medical CenterComment on above:Performed By: #### CBCKevin, 3016-3, LIVR, 2857-1 #### [facility] ([id number]) [address] [place], [place] [address]Ndvazaq [Mass/Vol]9.8 mg/dLNormal8.5-10.5PProMedica Defiance Regional HospitalComment on above:Performed By: #### CBCA, 3016-3, LIVR, 2857-1 #### [facility] ([id number]) [address], [address] [place], [place] [address]Mlvtnqrq [Moles/Vol]102 mmol/NGtolqg54-273SxhQjgcieHenry County HospitalComment on above:Performed By: #### JOSE, 3016-3, LIVR, 285-1 #### [facility] ([id number]) [address], [address] [place], [place] [address]KT7 [Moles/Vol]27 mmol/DDyjiuz08-89VfaBbepnpProMedica Defiance Regional Hospital Comment on above:Performed By: #### JOSE, 3016-3, LIVR, 2856-1 #### [facility] ([id number]) [address], [address] [place], [place] [address]Fddftzesbl [Mass/Vol]0.87 mg/dLNormal0.60-1.30Henry County HospitalComment on above:Result Comment: METHOD TRACEABLE TO IDMS STANDARD Performed By: #### JOSE, 6-3, LIVCelestina, 2856- #### [facility] ([id number]) [address], [address] [place], [place] [address]nKGA (CKD-EPI) NON-RACE DEPENDENT>90Normal>59ProPalestine Regional Medical CenterComment on above:Result Comment: Reported eGFR is based on the CKD-EPI 2020 equation that does not use a race coefficient.Performed By: #### JOSE, 3015-3, LIVCelestina, 2856- #### [facility] ([id number]) [address] [address] [place], [place] [address]Rqzxspe [Mass/Vol]157 mg/pHSxqm20-83HeoXswhesHenry County Hospital Comment on above:Performed By: #### JOSE, 3016-3, LIVR, 2856-1 #### [facility] ([id number]) [address], [address] [place], [place] [address]Sslpoadbe [Moles/Vol]4.2 mmol/LNormal3.5-5.0Henry County HospitalComment on above:Performed By: #### JOSE, 3016-3, LIVR, 2856-1 #### [facility] ([id number]) [address], [address] [place], [place] [address]Llgwzi [Moles/Vol]137 mmol/KYztkri074-725WhqTmvrgl [facility]remont HospitalComment on above:Performed By: #### CBCKevin, 3016-3, LIVR, 2857-1 #### [facility] ([id number]) [address], [address] [place], [place] [address]Dori nitrogen [Mass/Vol]22 mg/dLNormal5-27ProPalestine Regional Medical CenterComment on above:Performed By: #### JOSE, 3016-3, LIVR, 2857-1 #### [facility] ([id number]) [address], [address] [place], [place] [address]ADC AND AUTO DIFFon 14-60-7847MQLEMITI BASOPHIL0.0 X10E9/LNormal 0.0-0.2PProMedica Defiance Regional HospitalComment on above:Performed By: #### JOSE, 26824-5, CMP #### [facility] ([id number]) [address], [address] [place], [place] [address]SRPAISQG NEUTROPHIL2.8 X10E9/LNormal1.5-6.6ProPalestine Regional Medical CenterComment on above:Performed By: #### JOSE, 37425-7, CMP #### [facility] ([id number]) [address], [address] [place], [place] [address]Kcsbxpukf/100 WBC (Bld)0.9 %NormalProPalestine Regional Medical Center Comment on above:Performed By: #### JOSE, 88772-0, CMP #### [facility] ([id number]) [address], [address] [place], [place] [address]Lrfbneonagz (Bld) [#/Vol]0.3 10*3/uLNormal0.0-0.4ProPalestine Regional Medical CenterComment on above:Performed By: #### JOSE, 55863-1, CMP #### [facility] ([id number]) [address], [address] [place] [address]Fvfdshmvilh/100 WBC (Bld)6.9 %NormalProPalestine Regional Medical Center Comment on above:Performed By: #### JOSE, 79892-1, CMP #### [facility] ([id number]) [address], [address] [place], [place] [address]Hupnbdymppq distribution width (RBC) [Ratio]15.9 %High11.5-15.0 Henry County HospitalComment on above:Performed By: #### JOSE, 97405-8, CMP #### [facility] ([id number]) [address], [address] [place], [place] [address]Codnzndmro (Bld) [Volume fraction]39.0 %Rykfeh76-32GjiTbqjusHenry County HospitalComment on above:Performed By: #### JOSE, 73308-9, CMP #### [facility] ([id number]) [address], [address] [place], [place] [address]Mtnkbjgpxj (Bld) [Mass/Vol]12.9 g/dLLow13.0-17.0Henry County HospitalComment on above:Performed By: #### JOSE, 77859-4, CMP #### [facility] ([id number]) [address], [address] [place], [place] [address]Toehnjabbeq (Bld) [#/Vol]0.8 10*3/uLLow1.0-3.5PProMedica Defiance Regional HospitalComment on above:Performed By: #### JOSE, 92743-7, CMP #### [facility] ([id number]) [address], [address] [place], [place] [address]Cqjsyigachk/100 WBC (Bld)17.9 %NormalProCleveland Clinic Foundationca [facility] Comment on above:Performed By: #### JOSE, 63487-7, CMP #### [facility] ([id number]) [address], [address] [place], [place] [address]YDF (RBC) [Entitic mass]26.9 lxCzr36-07ImiUfrdccHenry County HospitalComment on above:Performed By: #### JOSE, 57541-7, CMP #### [facility] ([id number]) [address], [address] [place], [place] [address]FSVW (RBC) [Mass/Vol]33.1 g/iMQtngje69-48DrzIumqjwPalestine Regional Medical CenterComment on above:Performed By: #### JOSE, 45221-3, CMP #### [facility] ([id number]) [address], [address] [place], [place] [address]NAB (RBC) [Entitic vol]81 bEWfijij68-345JfkQwnrzd [facility] HospitalComment on above:Performed By: #### JOSE, 54495-9, CMP #### [facility] ([id number]) [address], [address] [place], [place] [address]Klaqpyiia (Bld) [#/Vol]0.5 10*3/uLNormal0-0.9Henry County HospitalComment on above:Performed By: #### JOSE, 88373-6, CMP #### [facility] ([id number]) [address] [place], [place] [address]Iixiyduec/100 WBC (Bld)11.9 %[facility] Comment on above:Performed By: #### JOSE, 04021-5, CMP #### [facility] ([id number]) [address], [address] [place], [place] [address]Xlwrhntdehk/100 WBC (Bld)62.4 %[facility] Comment on above:Performed By: #### JOSE, 87671-4, CMP #### [facility] ([id number]) [address], [address] [place], [place] [address]Ovdjpcak mean volume (Bld) [Entitic vol]9.0 fLNormal7-12 ProMVan Ness campusComment on above:Performed By: #### JOSE, 07576-3, CMP #### [facility] ([id number]) [address], [address] [place] [address]Fjkfazwwo (Bld) [#/Vol]159 10*3/sGTttrlv560-940XumIppucx [facility] HospitalComment on above:Performed By: #### JOSE, 98472-7, CMP #### [facility] ([id number]) [address], [address] [place], [place] [address]EVJ COUNT4.79 X10E12/LNormal4.10-5.70[facility] Comment on above:Performed By: #### JOSE, 94789-2, CMP #### [facility] ([id number]) [address], [address] [place], [place] [address]YQB (Bld) [#/Vol]4.5 10*3/uLNormal4.0-11.0Henry County HospitalComment on above:Performed By: #### JOSE, 35030-6, CMP #### [facility] ([id number]) [address], [address] [place], [place] [address]GHKWPWOAVAFCM METABOLIC PANELon 83-32-9221Uytvqgw [Mass/Vol]4.0 g/dLNormal3.2-5.3PProMedica Defiance Regional HospitalComment on above:Performed By: #### JOSE, 54442-5, CMP #### [facility] ([id number]) [address], [address] [place], [place] [address]ZTJ [Catalytic activity/Vol]69 U/PDcysyz85-349PmmKsqtidPalestine Regional Medical CenterComment on above:Performed By: #### JOSE 40074-0, CMP #### [facility] ([id number]) [address], [address] [place] [address]GZZ [Catalytic activity/Vol]12 U/LNormal0-40ProPalestine Regional Medical CenterComment on above:Performed By: #### JOSE 73756-5, CMP #### [facility] ([id number]) [address], [address] [place], [place] [address]Wmkvm gap [Moles/Vol]5 mmol/LNormal5-15ProPalestine Regional Medical CenterComment on above:Performed By: #### JOSE 75559-9, CMP #### [facility] ([id number]) [address], [address] [place], [place] [address]MCH [Catalytic activity/Vol]19 U/LNormal0-41ProPalestine Regional Medical CenterComment on above:Performed By: #### JOSE 61490-4, CMP #### [facility] ([id number]) [address], [address] [place], [place] [address]Fvupvurax [Mass/Vol]0.8 mg/dLNormal0.3-1.2PColorado Mental Health Institute at Pueblo HospitalComment on above:Performed By: #### JOSE 67105-0, CMP #### [facility] ([id number]) [address], [address] [place], [place] [address]Guqoxaa [Mass/Vol]9.0 mg/dLNormal8.5-10.5PColorado Mental Health Institute at Pueblo HospitalComment on above:Performed By: #### JOSE, 02221-0, CMP #### [facility] ([id number]) [address], [address] [place], [place] [address]Zrvmlkhi [Moles/Vol]105 mmol/MWemsah69-835ZpuEcsrfuPalestine Regional Medical CenterComment on above:Performed By: #### JOSE, 26741-8, CMP #### [facility] ([id number]) [address], [address] [place], [place] [address]PZ3 [Moles/Vol]29 mmol/OSgjwgh02-78SnzLqhyhtProMedica Defiance Regional Hospital Comment on above:Performed By: #### JOSE, 95801-7, CMP #### [facility] ([id number]) [address] [place], [place] [address]Adgexcfvfy [Mass/Vol]0.94 mg/dLNormal0.60-1.30[facility] County HospitalComment on above:Result Comment: METHOD TRACEABLE TO IDMS STANDARD Performed By: #### JOSE, 53349-9, CMP #### [facility] ([id number]) [address] [place], [place] [address]RVM/1.73 sq M.predicted among non-blacks MDRD (S/P/Bld) [Vol rate/Area]86 mL/min/{1.73_m2}Normal>59ProPalestine Regional Medical CenterComment on above:Result Comment: Reported eGFR is based on the CKD-EPI 2020 equation that does not use a race coefficient.Performed By: #### JOSE, 36957-8, CMP #### [facility] ([id number]) [address] [place], [place] [address]Xekcmte [Mass/Vol]156 mg/qQQdpy75-20ZtaJkhvqqHenry County Hospital Comment on above:Performed By: #### JOSE, 40804-2, CMP #### [facility] ([id number]) [address] [place], [place] [address]Xutgpuzbo [Moles/Vol]4.2 mmol/LNormal3.5-5.0Henry County HospitalComment on above:Performed By: #### JOSE, 49924-8, CMP #### [facility] ([id number]) [address] [place] [address]Vhumjwk [Mass/Vol]6.6 g/dLNormal6.0-8.0ProPalestine Regional Medical CenterComment on above:Performed By: #### JOSE, 39400-6, CMP #### [facility] ([id number]) [address], [address] [place], [place] [address]Pufhah [Moles/Vol]139 mmol/DLfoddn472-363SjbJyzeio [facility]ont HospitalComment on above:Performed By: #### JOSE, 18929-9, CMP #### [facility] ([id number]) [address], [address] [place], [place] [address]Uxxy nitrogen [Mass/Vol]17 mg/dLNormal5-27ProPalestine Regional Medical CenterComment on above:Performed By: #### JOSE, 57834-1, CMP #### [facility] ([id number]) [address] [place], [place] [address]LXR Photometric method (Bld) [Velocity]on 85-61-9676ZIC, ERYTHROCYTE SEDIMENTATION RATE10 mm/hNormal0-20Henry County HospitalComment on above:Performed By: #### JOSE, 90034-1, CMP #### [facility] ([id number]) [address], [address] [place], [place] [address]JPHIWWFICna 11-88-6258Lyicbjbit [Mass/Vol]1.9 mg/dLNormal1.8-2.6 ProMVan Ness campusComment on above:Performed By: #### 75629-1 #### [facility] ([id number]) [address], [address] [place], [place] [address]XQBPZ METABOLIC PANLon 84-63-8107Meuhs gap [Moles/Vol]10 mmol/L Normal5-15ProPalestine Regional Medical CenterComment on above:Performed By: #### LJ, 48637-4 #### [facility] ([id number]) [address], [address] [place], [place] [address]Rivhszh [Mass/Vol]9.3 mg/dLNormal8.5-10.5PProMedica Defiance Regional HospitalComment on above:Performed By: #### LJ, 32063-2 #### [facility] ([id number]) [address] [place], [place] [address]Ikkezkrp [Moles/Vol]102 mmol/OIwpvet83-116XeaNudryxHenry County HospitalComment on above:Performed By: #### LJ, 31618-8 #### [facility] ([id number]) [address] [place], [place] [address]OT4 [Moles/Vol]27 mmol/ABepyvg35-50HeyIpswjiProMedica Defiance Regional Hospital Comment on above:Performed By: #### LJ, 68414-2 #### [facility] ([id number]) [address] [place], [place] [address]Jacyelnhie [Mass/Vol]0.81 mg/dLNormal0.60-1.30[facility] County HospitalComment on above:Result Comment: METHOD TRACEABLE TO IDMS STANDARD Performed By: #### LJ, 64257-5 #### [facility] ([id number]) [address] [place], [place] [address]wOKC (CKD-EPI) NON-RACE DEPENDENT>90Normal>59ProPalestine Regional Medical CenterComment on above:Result Comment: Reported eGFR is based on the CKD-EPI 2020 equation that does not use a race coefficient.Performed By: #### LJ, 83906-4 #### [facility] ([id number]) [address], [address] [place], [place] [address]Qloegew [Mass/Vol]176 mg/hQYkwm81-28DasXgfzinHenry County Hospital Comment on above:Performed By: #### LJ, 03086-4 #### [facility] ([id number]) [address] [place] [address]Vccveprsx [Moles/Vol]3.9 mmol/LNormal3.5-5.0ProPalestine Regional Medical CenterComment on above:Performed By: #### LJ, 36821-3 #### [facility] ([id number]) [address], [address] [place], [place] [address]Gueglr [Moles/Vol]139 mmol/MCzvzrq680-810HlmWjgvxg [facility] HospitalComment on above:Performed By: #### LJ, 86641-4 #### [facility] ([id number]) [address] [place], [place] [address]Musp nitrogen [Mass/Vol]17 mg/dLNormal5-27ProPalestine Regional Medical CenterComment on above:Performed By: #### LJ, 66182-5 #### [facility] ([id number]) [address], [address] [place], [place] [address]NDEGSBNDMsv 71-68-0867Ovxcixhjo [Mass/Vol]1.7 mg/dLLow1.8-2.6 [facility] HospitalComment on above:Performed By: #### LJ, 41596-3 #### [facility] ([id number]) [address] [place], [place] [address]Ggcidrs (Bld) [Mass/Vol]Ordered By: Cierra Mcgee on 08-21-2024 Glucose Blood, KUU028 mg/dLNOMS HealthcareLaboratory - Hematology and Cell countson 80-32-1921JfV0a (Bld) [Mass fraction]6.3 %[facility] HealthcareNo Panel InformationOrdered By: Cierra Mcgee on 24-46-0311FCGN HealthcareCBC AND AUTO DIFFon [id number] BASOPHIL0.1 X10E9/LNormal0.0-0.2PProMedica Defiance Regional HospitalComment on above:Performed By: #### CBCKevin, 3016-3, LIVR, 285- #### [facility] ([id number]) [address], [address] [place], [place] [address]DKUXBXHX NEUTROPHIL3.0 X10E9/LNormal1.5-6.6Henry [facility] HospitalComment on above:Performed By: #### CBCKevin, 3016-3, LIVR, 2856- #### [facility] ([id number]) [address], [address] [place], [place] [address]Zntgzfcms/100 WBC (Bld)1.1 %NormalHenry County Hospital Comment on above:Performed By: #### CBCKevin, 3016-3, LIVR, 285- #### [facility] ([id number]) [address], [address] [place], [place] [address]Harcwemtueo (Bld) [#/Vol]0.3 10*3/uLNormal0.0-0.4Henry [facility] HospitalComment on above:Performed By: #### JOSE, 3015-3, LIVR, 285- #### [facility] ([id number]) [address], [address] [place], [place] [address]Rbermbpsarp/100 WBC (Bld)6.0 %NormalHenry County Hospital Comment on above:Performed By: #### CBCKevin, 3016-3, LIVR, 285- #### [facility] ([id number]) [address], [address] [place], [place] [address]Jpttlmcxvyr distribution width (RBC) [Ratio]16.2 %High11.5-15.0 [facility] HospitalComment on above:Performed By: #### CBCKevin, 3016-3, LIVR, 285-1 #### [facility] ([id number]) [address], [address] [place], [place] [address]Mogcohoqmb (Bld) [Volume fraction]42.6 %Pvjtrs51-97QuyFvvdpePalestine Regional Medical CenterComment on above:Performed By: #### CBCKevin, 3016-3, LIVR, 2857-1 #### [facility] ([id number]) [address], [address] [place] [address]Roxofehtck (Bld) [Mass/Vol]14.3 g/qHWnnqev60.0-17.0ProPalestine Regional Medical CenterComment on above:Performed By: #### CBCKevin, 3016-3, LIVR, 2857-1 #### [facility] ([id number]) [address], [address] [place], [place] [address]Izvxkyawirm (Bld) [#/Vol]1.1 10*3/uLNormal1.0-3.5PProMedica Defiance Regional HospitalComment on above:Performed By: #### CBCKevin, 3016-3, LIVR, 285-1 #### [facility] ([id number]) [address], [address] [place], [place] [address]Fyacaeceina/100 WBC (Bld)21.5 %NormalHenry County Hospital Comment on above:Performed By: #### CBCKevin, 3016-3, LIVR, 2857-1 #### [facility] ([id number]) [address], [address] [place] [address]XIA (RBC) [Entitic mass]27.8 jgXhqhjn63-68RntPbyzswPalestine Regional Medical CenterComment on above:Performed By: #### CBCA, 3016-3, LIVR, 2857-1 #### [facility] ([id number]) [address], [address] [place] [address]PYKE (RBC) [Mass/Vol]33.6 g/aYAhombg24-25QwrHcbnilPalestine Regional Medical CenterComment on above:Performed By: #### CBCA, 3016-3, LIVR, 285- #### [facility] ([id number]) [address], [address] [place], [place] [address]SRL (RBC) [Entitic vol]83 tLEgxtav11-942TcnWijpoaHenry County HospitalComment on above:Performed By: #### CBCKevin, 3016-3, LIVR, 2856- #### [facility] ([id number]) [address], [address] [place], [place] [address]Rfxiltspc (Bld) [#/Vol]0.5 10*3/uLNormal0-0.9Henry County HospitalComment on above:Performed By: #### CBCKevin, 3016-3, LIVR, 285- #### [facility] ([id number]) [address], [address] [place], [place] [address]Uuycoitci/100 WBC (Bld)10.1 %NormalHenry County Hospital Comment on above:Performed By: #### CBCKevin, 3016-3, LIVR, 285- #### [facility] ([id number]) [address], [address] [place], [place] [address]Cpuacqbyuku/100 WBC (Bld)61.3 %[facility] Comment on above:Performed By: #### CBCKevin, 3016-3, LIVR, 2856- #### [facility] ([id number]) [address], [address] [place], [place] [address]Ybgebgax mean volume (Bld) [Entitic vol]9.1 fLNormal7-12 Henry County HospitalComment on above:Performed By: #### CBCA, 3016-3, LIVR, 2857-1 #### [facility] ([id number]) [address], [address] [place], [place] [address]Pekhifjbm (Bld) [#/Vol]174 10*3/iFTmjwgz180-387PwcSemiep Fremont HospitalComment on above:Performed By: #### JOSE, 3016-3, LIVR, 285- #### [facility] ([id number]) [address], [address] [place] [address]USO COUNT5.16 X10E12/LNormal4.10-5.70[facility] Comment on above:Performed By: #### JOSE, 3016-3, LIVR, 2856- #### [facility] ([id number]) [address], [address] [place], [place] [address]BAM (Bld) [#/Vol]5.0 10*3/uLNormal4.0-11.0ProPalestine Regional Medical CenterComment on above:Performed By: #### JOSE, 3016-3, LIVR, 285- #### [facility] ([id number]) [address], [address] [place] [address]FUGTO PANELon 60-75-6490Xaocquj [Mass/Vol]4.3 g/dLNormal3.2-5.3 [facility] County HospitalComment on above:Performed By: #### JOSE, 3016-3, LIVR, 285- #### [facility] ([id number]) [address], [address] [place], [place] [address]NKO [Catalytic activity/Vol]76 U/CDbdmnn78-259NxlZodpbxPalestine Regional Medical CenterComment on above:Performed By: #### JOSE, 3016-3, LIVR, 285- #### [facility] ([id number]) [address], [address] [place] [address]RWG [Catalytic activity/Vol]15 U/LNormal0-40ProPalestine Regional Medical CenterComment on above:Performed By: #### JOSE, 3016-3, LIVR, 2857-1 #### [facility] ([id number]) [address] [facility], [address] [place], [place] [address]CUI [Catalytic activity/Vol]21 U/LNormal0-41ProPalestine Regional Medical CenterComment on above:Performed By: #### JOSE, 3016-3, LIVR, 2857-1 #### [facility] ([id number]) [address] [facility], [address] [place], [place] [address]Norpwqbfs [Mass/Vol]0.8 mg/dLNormal0.3-1.2PProMedica Defiance Regional HospitalComment on above:Performed By: #### JOSE, 3016-3, LIVR, 2857-1 #### [facility] ([id number]) [address] [place] [address], [address] [place], [place] [address]Clnxjhfrq.direct [Mass/Vol]0.2 mg/dLNormal0.0-0.4ProPalestine Regional Medical CenterComment on above:Performed By: #### JOSE, 3016-3, LIVR, 2857-1 #### [facility] ([id number]) [address] [place] [address], [facility] [address] [place], [place] [address]Rxmzcxg [Mass/Vol]7.0 g/dLNormal6.0-8.0Henry County HospitalComharbor beach community hospital on above:Performed By: #### JOSE, 3016-3, LIVR, 2857-1 #### [facility] ([id number]) [address] [place] [address], [address] [place], [place] [address]Pivdhrbw specific Ag [Mass/Vol]on 54-98-0843PKU SCREEN1.02 ng/mL Normal0.00-4.00ProPalestine Regional Medical CenterComment on above:Result Comment: The method used for this test is Munir Trevon DXI chemiluminescent immunoassay. Values obtained by different assay methods cannot be used interchangeably.Performed By: #### CBCKevin, 3016-3, LIVR, 2857-1 #### [facility] ([id number]) [address] [place] [address], [address] [place], [place] [address]WEP Qnon 44-06-1126PZN9.77 uIU/mLNormal0.49-4.67ProPalestine Regional Medical CenterComment on above:Performed By: #### CBCA, 3016-3, LIVR, 2857-1 #### [facility] ([id number]) [address] [facility], [address] [place], [place] [address]DDXB EKGon 54-13-7219BosKseqarDetwiler Memorial HospitalCT abdomen pelvis wo conon 93-47-9263VE abdomen pelvis wo [facility] [place] [address] [place] [address] [address] Scan Report Signed Patient: Mitchell Ga MR#: [id number] 48 : 1950 Acct:[id number] Age/Sex: 73 / M ADM Date: 02/20/24 Loc: ER Room: Type: [facility] ER Attending Dr: Copies to: MATTHEW [...] cyst is noted on the left. A hyperattenuating/hemorrhagic cyst is present at the superior pole [...] Marcos Mayorga M.D.02/20/2024 11:59 AM Dictation Location: [place] [address] Transcribed By: [facility] 02/20/24 1159 Dictated By: Marcos Mayorga II, MD 02/20/24 1146 Signed By: 02/20/24 1159[facility] Physician GroupCT cervical spine wo conon 47-61-3284HD cervical spine wo [facility] [place] [address] [place] [address] CT Scan Report Signed Patient: Mitchell Ga MR#: [id number] 48 : 1950 Acct:[id number] Age/Sex: 73 / M ADM Date: 02/20/24 Loc: ER Room: Type: [facility] ER Attending Dr: Copies to: MATTHEW Larson Ordering Provider: MATTHWE Larson Date of Service: 02/20/24 CT/CT head/brain wo con: fell last Tuesday hit head on thinners ([id number]) CT/CT cervical spine wo con: fall last Tuesday CT head/brain wo con, CT cervical spine wo con 02/20/2024 11:01 AM SIGNS AND SYMPTOMS: Fall landing on concrete hitting back of head. Pain in coccyx TECHNIQUE:Multi-detector CT axial slices of the brain and [...] Marcos Mayorga M.D.02/20/2024 11:46 AM Dictation Location: [place] [address] Transcribed By: [facility] 02/20/24 1146 Dictated By: Marcos Mayorga II, MD 02/20/24 1137 Signed By: 02/20/24 1146Ad[facility] Physician GroupBASIC METABOLIC PANLon 00-12-3003Ofphn gap [Moles/Vol]9 mmol/LNormal5-15ProAv[facility] Comment on above:Performed By: #### LJ, [address]15[address]-6 #### [facility] ([id number]) [address], [address] [place], [place] [address]Hdtaitn [Mass/Vol]9.5 mg/dLNormal8.5-10.5POhioHealth Shelby HospitalComment on above:Performed By: #### [place], [address]-5 #### [facility] ([id number]) [address], [address] [place], [place] [address]Mtsfcrjz [Moles/Vol]106 mmol/GIlxcsb99-710VjyBcajem [facility] HospitalComment on above:Performed By: #### JL, 89148-1 #### [facility] ([id number]) [address], [address] [place], [place] [address]QA1 [Moles/Vol]24 mmol/ZTobgfs56-12MkjRepqbvOhioHealth Shelby Hospital Comment on above:Performed By: #### LJ, 08812-8 #### [facility] ([id number]) [address], [address] [place], [place] [address]Jtvkgrqxmx [Mass/Vol]0.84 mg/dLNormal0.60-1.30ProAvita Health System Bucyrus HospitalComment on above:Result Comment: METHOD TRACEABLE TO IDMS STANDARD Performed By: #### LJ, 73656-2 #### [facility] ([id number]) [address], [address] [place], [place] [address]gGBP (CKD-EPI) NON-RACE DEPENDENT>90Normal>59ProThe Surgical Hospital At Southwoods HospitalComment on above:Result Comment: Reported eGFR is based on the CKD-EPI 2020 equation that does not use a race coefficient.Performed By: #### JL, 01703-1 #### [facility] ([id number]) [address], [address] [place], [place] [address]Ufhxozl [Mass/Vol]112 mg/bNFzef83-56HszMhhqhx [facility] Comment on above:Performed By: #### LJ, 66564-3 #### [facility] ([id number]) [address] [address] [place], [place] [address]Edqtehxkt [Moles/Vol]4.0 mmol/LNormal3.5-5.0ProThe Surgical Hospital At Southwoods HospitalComment on above:Performed By: #### LJ, 96944-0 #### [facility] ([id number]) [address], [address] [place], [place] [address]Njxyji [Moles/Vol]139 mmol/LJjczwf049-921RnbNdrktc [facility] HospitalComment on above:Performed By: #### LJ, 51553-7 #### [facility] ([id number]) [address] [address] [place], [place] [address]Iiaz nitrogen [Mass/Vol]21 mg/dLNormal5-27ProThe Surgical Hospital At Southwoods HospitalComment on above:Performed By: #### LJ, 707[address]-4 #### [facility] ([id number]) [address], [address] [place], [place] [address]Weanl 1996 panelon 54-25-8844Zmjmempkbqu [Mass/Vol]110 mg/dLLow 150-200Pro[facility]ica Saint Petersburg HospitalComment on above:Performed By: #### LJ, [address]-6 #### [facility] ([id number]) [address], [address] [place], [place] [address]Tdadqjgatxe in HDL [Mass/Vol]48 mg/dLNormal>39ProMediCherrington Hospital HospitalComment on above:Result Comment: HDL <40 mg/dL - High Risk HDL > or = 40mg/dL- Desirable HDL >60 mg/dL - Negative Risk Performed By: #### LJ, 44894-3 #### [facility] ([id number]) [address], [address] [place], [place] [address]Bihizyimsrt in LDL [Mass/Vol]44 mg/dLNormal<130ProMediCherrington Hospital HospitalComment on above:Result Comment: LDL <100 mg/dL - Desirable LDL >160 mg/dL - High Risk Performed By: #### LJ, 05382-4 #### [facility] ([id number]) [address], [address] [place], [place] [address]Lpejuqjwfsp in VLDL [Mass/Vol]18 mg/dLNormal0-30ProThe [facility] South[facility] HospitalComment on above:Performed By: #### LJ, 95093-5 #### [facility] ([id number]) [address], [address] [place], [place] [address]ZLDICSBORWL:HDL2.4Wrthij8.0-5.0ProThe Surgical Hospital At Southwoods HospitalComment on above:Performed By: ###Clifton CALHOUN, 26123-3 #### [facility] ([id number]) [address], [address] [place], [place] [address]Hdcvgawdnktl [Mass/Vol]91 mg/xLKijjqy08-082MhlRwfzbe [place] HospitalComment on above:Performed By: #### [facility], [address]-2 #### [facility] ([id number]) [address] [facility], [address] [place], [place] [address]Alanine aminotransferase [Enzymatic activity/volume] in Serum or PlasmaOrdered By: Maddi Arroyo on 39-81-6553VXH [Catalytic activity/Vol]13 U/L 7-52[facility], Edwin ShawAlbumin [Mass/volume] in Serum or Plasma by Bromocresol green (BCG) dye binding methoOrdered By: Maddi Arroyo on 57-33-9386Qpbxyll BCG dye [Mass/Vol]4.3 g/dL3.5-5.7FCincinnati Children's Hospital Medical CenterAlkaline phosphatase [Enzymatic activity/volume] in Serum or PlasmaOrdered By: Maddi Arroyo on 76-66-1860WVB [Catalytic activity/Vol]72 U/L34-104 [facility], Edwin ShawAspartate aminotransferase [Enzymatic activity/volume] in Serum or PlasmaOrdered By: Maddi Arroyo on 78-65-4722QBT [Catalytic activity/Vol]17 U/H58-53GmjjpzubjSelect Medical Cleveland Clinic Rehabilitation Hospital, Edwin ShawBasophils Auto (Bld) [#/Vol]Ordered By: Maddi Arroyo on 90-41-1570Ugfowoshr (Bld) [#/Vol]0.0 10*3/uL0.0-0.2FCincinnati Children's Hospital Medical CenterBasophils/100 WBC Auto (Bld)Ordered By: Maddi Arroyo on 74-11-1057Sxrdamzvk/100 WBC (Bld)0.7 %. [facility], Edwin ShawBilirubin.total [Mass/volume] in Serum or PlasmaOrdered By: Maddi Arroyo on 02-38-5405Qnaytlpph [Mass/Vol]0.6 mg/dL 0.3-1.0[facility], Edwin ShawCalcium [Mass/volume] in Serum or Plasma Ordered By: Maddi Arroyo on 41-32-6115Wgzxykv [Mass/Vol]9.6 mg/dL8.6-10.3 [facility], Edwin ShawCarbon dioxide, total [Moles/volume] in Serum or PlasmaOrdered By: Maddi Arroyo on 84-57-7121ZD0 [Moles/Vol]26.9 mmol/L 21.0-31.0[facility], Edwin ShawChloride [Moles/volume] in Serum or PlasmaOrdered By: Maddi Arroyo on 64-31-5675Dkqzuvgt [Moles/Vol]105 mmol/L 98-107[facility], Edwin ShawComplete Blood Count Auto Diffon 91-20-3558Ohwgasjak (Bld) [#/Vol]0.0 10*3/uLNormal0.0-0.2The [facility]/Nhrmc Physician GroupComment on above:Performed By: #### CBC, ESR, CMP #### [place] [address] USABasophils/100 WBC (Bld)0.7 %Normal.The [facility]/Nhrmc Physician GroupComment on above:Performed By: #### CBC, ESR, CMP #### [place] [address] USAEosinophils (Bld) [#/Vol]0.4 10*3/uLNormal0.0-0.45The [facility]/Nhrmc Physician GroupComment on above:Performed By: #### CBC, ESR, CMP #### [place] [address] USAEosinophils/100 WBC (Bld)7.6 %Normal.The [facility]/Nhrmc Physician GroupComment on above:Performed By: #### CBC, ESR, CMP #### [place] [address] USAErythrocyte distribution width (RBC) [Ratio]16.6 %High 12.0-14.8The [facility]/Nhrmc Physician GroupComment on above:Performed By: #### CBC, ESR, CMP #### [place] [address] USAHematocrit (Bld) [Volume fraction]42.5 %Wjshzl51.8-50.0The [facility]/Nhrmc Physician GroupComment on above:Performed By: #### CBC, ESR, CMP #### [place] [address] USAHemoglobin (Bld) [Mass/Vol]13.8 g/eWMjpmoc64.0-17.0The [facility]hrmc Physician GroupComment on above:Performed By: #### CBC, ESR, CMP #### [place] [address] USALymphocytes (Bld) [#/Vol]1.1 10*3/uLNormal1.00-4.8The [facility]/Nhrmc Physician GroupComment on above:Performed By: #### CBC, ESR, CMP #### [place] [address] USALymphocytes/100 WBC (Bld)20.8 %Normal.The [facility]/Nhrmc Physician GroupComment on above:Performed By: #### CBC, ESR, CMP #### [place] [address] USAMCH (RBC) [Entitic mass]26.4 pgLow27.5-35.2The [facility]/Nhrmc Physician GroupComment on above:Performed By: #### CBC, ESR, CMP #### [place] [address] USAMCV (RBC) [Entitic vol]81.6 fLLow83.5-101The [facility]/Nhrmc Physician GroupComment on above:Performed By: #### CBC, ESR, CMP #### [place] [address] USAMean Corpuscular HGB Conc32.4 g/dLLow32.5-35.6The [facility]/Nhrmc Physician GroupComment on above:Performed By: #### CBC, ESR, CMP #### [facility] [address] [place] [address] USAMonocytes (Bld) [#/Vol]0.6 10*3/uLNormal0.0-0.8The [facility]/Nhrmc Physician GroupComment on above:Performed By: #### CBC, ESR, CMP #### [place] [address] USAMonocytes/100 WBC (Bld)11.7 %Normal.The [facility]/Nhrmc Physician GroupComment on above:Performed By: #### CBC, ESR, CMP #### [facility] [address] [place] [address] USANeutrophils (Bld) [#/Vol]3.1 10*3/uLNormal1.8-7.7The [facility]/Nhrmc Physician GroupComment on above:Performed By: #### CBC, ESR, CMP #### [place] [address] USANeutrophils/100 WBC (Bld)59.2 %Normal.The [facility]/Nhrmc Physician GroupComment on above:Performed By: #### CBC, ESR, CMP #### [facility] [address] [place] [address] USANRBC%0.1 /100{WBC}Normal0-0.5The [facility] Comment on above:Performed By: #### CBC, ESR, CMP #### [place] [address] USAPlatelet mean volume (Bld) [Entitic vol]9.3 fLNormal 6.6-10.1The [facility]/Nhrmc Physician GroupComment on above:Performed By: #### CBC, ESR, CMP #### [place] [address] USAPlatelets (Bld) [#/Vol]145 10*3/xRLyt805-321Mjv [facility]hrmc Physician GroupComment on above:Performed By: #### CBC, ESR, CMP #### [place] [address] USARBC (Bld) [#/Vol]5.21 10*6/uLNormal3.90-5.60The [facility]hrmc Physician GroupComment on above:Performed By: #### CBC, ESR, CMP #### [place] [address] USAWBC (Bld) [#/Vol]5.2 10*3/uLNormal4.1-10.5The [facility]/Nhrmc Physician GroupComment on above:Performed By: #### CBC, ESR, CMP #### [place] [address] USAComprehensive Metabolic Panelon 63-69-1400Wmwotxp [Mass/Vol]4.3 g/dLNormal3.5-5.7The [facility]/Nhrmc Physician GroupComment on above: Performed By: #### CBC, ESR, CMP #### [place] [address] USAAlbumin/Globulin [Mass ratio]1.5 {ratio}NormalThe [facility]/Nhrmc Physician GroupComment on above:Performed By: #### CBC, ESR, CMP #### [place] [address] USAALP [Catalytic activity/Vol]72 U/ADoqlul54-908Vzt [facility]hrmc Physician GroupComment on above:Result Comment: PERFORMED BY: [place] [address] PATHOLOGIST FIELD [employer]E SCALER HELPER RICO FARFAN M.D.Performed By: #### CBC, ESR, CMP #### [place] [address] USAALT [Catalytic activity/Vol]13 U/LNormal7-52The [facility]/Nhrmc Physician GroupComment on above:Performed By: #### CBC, ESR, CMP #### [place] [address] USAAnion gap [Moles/Vol]11.3 mmol/LNormal6.0-15.0The [facility]/Nhrmc Physician GroupComment on above:Performed By: #### CBC, ESR, CMP #### [place] [address] USAAST [Catalytic activity/Vol]17 U/IFpqxxj75-21Bam [facility]hrmc Physician GroupComment on above:Performed By: #### CBC, ESR, CMP #### [place] [address] USABilirubin [Mass/Vol]0.6 mg/dLNormal0.3-1.0The [facility]hrmc Physician GroupComment on above:Performed By: #### CBC, ESR, CMP #### [place] [address] USACalcium [Mass/Vol]9.6 mg/dLNormal8.6-10.3The [facility]/Nhrmc Physician GroupComment on above:Performed By: #### CBC, ESR, CMP #### [place] [address] [place] [address] USAChloride [Moles/Vol]105 mmol/BPnpedt53-788Ukn [facility]rmc Physician GroupComment on above:Performed By: #### CBC, ESR, CMP #### [place] [address] [place] [address] USACO2 [Moles/Vol]26.9 mmol/ZUpooza80.0-31.0The [facility]hrmc Physician GroupComment on above:Performed By: #### CBC, ESR, CMP #### [place] [address] USACreatinine [Mass/Vol]0.92 mg/dLNormal0.70-1.30The [facility]/Nhrmc Physician GroupComment on above:Performed By: #### CBC, ESR, CMP #### [place] [address] USAGFR/1.73 sq M.predicted MDRD (S/P/Bld) [Vol rate/Area] mL/min/{1.73_m2}NormalThe [facility]/Nhrmc Physician GroupComment on above:Performed By: #### CBC, ESR, CMP #### [place] [address] USAGlobulin (S) [Mass/Vol]2.8 g/dLNormalThe [facility]hrmc Physician GroupComment on above:Performed By: #### CBC, ESR, CMP #### [place] [address] USAGlucose [Mass/Vol]130 mg/bJLqes95-427Pxw [facility]rmc Physician GroupComment on above:Result Comment: Random Glucose Reference Range is dependent on time and content of last meal. Glucose of more than 200 mg/dL in a nonstressed, ambulatory subject supports the diagnosis of Diabetes Mellitus. ADA recommended reference rangePerformed By: #### CBC, ESR, CMP #### [place] [address] USAPotassium [Moles/Vol]4.2 mmol/LNormal3.5-5.1The [facility]/Nhrmc Physician GroupComment on above:Performed By: #### CBC, ESR, CMP #### [facility] [address] [place] [address] USAProtein [Mass/Vol]7.1 g/dLNormal6.4-8.9The [facility]/Nhrmc Physician GroupComment on above:Performed By: #### CBC, ESR, CMP #### [facility] [address] [place] [address] USASodium [Moles/Vol]139 mmol/GQwfgwo813-577Gfg [facility]rm[facility] Physician GroupComment on above:Performed By: #### CBC, ESR, CMP #### [facility] [address] [place] [address] USAUrea nitrogen [Mass/Vol]20 mg/dLNormal7-25The [facility]/Nhrmc Physician GroupComment on above:Performed By: #### CBC, ESR, CMP #### [facility] [address] [place] [address] USACreatinine [Mass/volume] in Serum or PlasmaOrdered By: Maddi Arroyo on 33-75-6609Pwllswbhrw [Mass/Vol]0.92 mg/dL0.70-1.30[facility], [facility] ShawEosinophils Auto (Bld) [#/Vol]Ordered By: Maddi Mccartyeyer on 46-24-9918Gsetpsnclqt (Bld) [#/Vol]0.4 10*3/uL0.0-0.45[facility] ShawEosinophils/100 WBC Auto (Bld)Ordered By: Maddi Choeer on 49-17-2509Yxbfjabgspf/100 WBC (Bld)7.6 %.[facility] Erythrocyte Sedimentation Rateon 01-30-5837CUQ (Bld) [Velocity]19 mm/hNormal0-19 The [facility]/Nhrmc Physician GroupComment on above:Result Comment: PERFORMED BY: [place] [address] PATHOLOGIST FIELD CANE SCALER HELPER RICO FARFAN M.D.Performed By: #### CBC, ESR, CMP #### [place] [address] [place] [id number] [facility]RIO RANCHOErythrocyte distribution width Auto (RBC) [Ratio]Ordered By: Maddi Arroyo on 20-39-1543Hwayjrzfdem distribution width (RBC) [Ratio]16.6 %12.0-14.8[facility], Edwin ShawErythrocyte sedimentation rate by Photometric methodOrdered By: Maddi Arroyo on 23-46-9389FIV Photometric method (Bld) [Velocity]19 mm/hr0-19[facility], [facility] ShawGlobulin Calc (S) [Mass/Vol]Ordered By: Maddi Arroyo on 50-62-1150Xevitxjk (S) [Mass/Vol]2.8 g/dLSelect Medical Cleveland Clinic Rehabilitation Hospital, Edwin ShawGlucose [Mass/volume] in Serum or Plasma Ordered By: Maddi Arroyo on 54-89-4408Psjibnr [Mass/Vol]130 mg/bD53-488 [facility], Edwin ShawComment on above:ADA recommended reference rangeRandom Glucose Reference Range is dependent on time and content of last meal. Glucose of more than 200 mg/dL in a nonstressed, ambulatory subject supports the diagnosisof Diabetes Mellitus.Hematocrit Auto (Bld) [Volume fraction]Ordered By: Maddi Arroyo on 65-11-2887Hqzylzslai (Bld) [Volume fraction]42.5 %38.8-50.0[facility], Edwin ShawHemoglobin [Mass/volume] in BloodOrdered By: Maddi Arroyo on 31-21-4961Yzxmmeonrn (Bld) [Mass/Vol]13.8 g/dL13.0-17.0[facility], Edwin ShawLeukocytes [#/volume] corrected for nucleated erythrocytes in Blood by Automated coun Ordered By: Maddi Arroyo on 21-76-7295OAT corrected for nucl RBC Auto (Bld) [#/Vol]5.2 10*3/uL4.1-10.5FCincinnati Children's Hospital Medical CenterLymphocytes Auto (Bld) [#/Vol]Ordered By: Maddi Arroyo on 55-74-8359Cqolkdnjamv (Bld) [#/Vol] 1.1 10*3/uL1.00-4.8[facility], Edwin ShawLymphocytes/100 WBC Auto (Bld)Ordered By: Maddi Arroyo on 00-35-5545Tsriagrlmli/100 WBC (Bld)20.8 %. [facility] CenterH Auto (RBC) [Entitic mass]Ordered By: Maddi Arroyo on 26-23-6080WXJ (RBC) [Entitic mass]26.4 pg27.5-35.2FCincinnati Children's Hospital Medical CenterMCHC Auto (RBC) [Mass/Vol]Ordered By: Maddi Arroyo on 08-38-2799LYFG (RBC) [Mass/Vol]32.4 g/dL32.5-35.6FCincinnati Children's Hospital Medical CenterMCV Auto (RBC) [Entitic vol]Ordered By: Maddi Arroyo on 73-33-6210BYS (RBC) [Entitic vol]81.6 fL83.5-101[facility] ShawMonocytes Auto (Bld) [#/Vol]Ordered By: Maddi Arroyo on 01-77-1414Ftiqnqtgq (Bld) [#/Vol]0.6 10*3/uL0.0-0.8[facility] ShawMonocytes/100 WBC Auto (Bld)Ordered By: Maddi Arroyo on 90-10-2660Gtvlvnazh/100 WBC (Bld)11.7 %. [facility] ShawNeutrophils Auto (Bld) [#/Vol]Ordered By: Maddi Arroyo on 10-17-1316Hyewlgqtikc (Bld) [#/Vol]3.1 10*3/uL1.8-7.7FCincinnati Children's Hospital Medical CenterNeutrophils/100 WBC Auto (Bld)Ordered By: Maddi Arroyo on 42-66-4679Qpwziwqpufg/100 WBC (Bld)59.2 %.[facility] ShawNo Panel InformationOrdered By: Maddi Arroyo on 37-67-1029Auaadtyhp GFR (CKD-EPI)> 60.0 mL/MinSelect Medical [facility], Edwin ShawPharmacy Creatinine Clearance (ChemN/[facility] CenterNucleated erythrocytes [Presence] in Blood by Automated countOrdered By: Maddi Arroyo on 05-24-2023 Nucleated RBC Auto Ql (Bld)0.1 /100{WBC}0-0.5FCincinnati Children's Hospital Medical Center Platelet mean volume Auto (Bld) [Entitic vol]Ordered By: Maddi Arroyo on 81-90-9002Zdwterle mean volume (Bld) [Entitic vol]9.3 fL6.6-10.1FCincinnati Children's Hospital Medical CenterPlatelets Auto (Bld) [#/Vol]Ordered By: Maddi Arroyo on 44-76-5271Tkhwthmfg (Bld) [#/Vol]145 10*3/fQ112-093MupzffmohSelect Medical [facility] [facility] ShawPotassium [Moles/volume] in Serum or PlasmaOrdered By: Maddi Arroyo on 25-62-7019Rhawsadsx [Moles/Vol]4.2 mmol/L3.5-5.1FCincinnati Children's Hospital Medical CenterProtein [Mass/volume] in Serum or PlasmaOrdered By: Maddi Arroyo on 70-03-0647Vcnqlhj [Mass/Vol]7.1 g/dL6.4-8.9[facility] ShawRBC Auto (Bld) [#/Vol]Ordered By: Maddi Arroyo on 98-73-4415VZC (Bld) [#/Vol]5.21 10*6/uL3.90-5.60[facility] Andersonerum or plasma albumin/globulin mass ratioOrdered By: Maddi Arroyo on 05-24-2023 Albumin/Globulin [Mass ratio]1.5 {ratio}[facility] Andersonerum or plasma anion gap determinationOrdered By: Maddi Arroyo on 97-36-7301Mnegh gap [Moles/Vol]11.3 mmol/L6.0-15.0[facility] Andersonodium [Moles/volume] in Serum or PlasmaOrdered By: Maddi Arroyo on 24-73-7629Adldym [Moles/Vol]139 mmol/O819-369LisvfynyiSelect Medical Cleveland Clinic [facility], Edwin ShawUrea nitrogen [Mass/volume] in Serum or PlasmaOrdered By: Maddi Arroyo on 48-27-6926Fcky nitrogen [Mass/Vol]20 mg/dL7-25[facility] ShawWBC Auto (Bld) [#/Vol]Ordered By: Maddi Cruz on 02-91-3483YPP (Bld) [#/Vol]5.2 10*3/uL 4.1-10.5FCincinnati Children's Hospital Medical CenterHEPATITIS C VIRUS AB W/ REFLEX QUANTon 86-47-4513IYL ABNon-ReactiveNormalNon ReactiveThe St. [facility] HospitalComment on above:Performed By: #### HCVPCRR #### [facility] [address] [place] [address] Dr. Alka GivensInterpretation:CommentNormalThe St. Elizabeth HospitalComment on above:Result Comment: Not infected with HCV unless early or acute infection is suspected (which may be delayed in an immunocompromised individual), or other evidence exists to indicate HCV infection.Performed By: #### HCVPCRR #### [facility] [address] [place] [address] Dr. Alka GivensCBC AUTO DIFFon 18-42-3594OHPT #0.1 103/ulNormal0.0-0.1The [facility]. [facility] HospitalComment on above:Performed By: #### CBC #### [facility] [address] [place] [address] Dr. Alka GivensBasophils/100 WBC (Bld)1.1 %Normal0.2-2.0[facility] Comment on above:Performed By: #### CBC #### [facility] [address] [place] [address] Dr. Alka Taveras #0.3 103/ulNormal0.0-0.7The St. [facility] HospitalComment on above: Performed By: #### CBC #### [facility] [address] [place] [address] Dr. Alka Warrenosinophils/100 WBC (Bld)6.0 %Normal0.9-7.0The [facility] Comment on above:Performed By: #### CBC #### [facility] [address] [place] [address] Dr. Alka Warrenrythrocyte distribution width (RBC) [Ratio]15.5 %Critically high 11.0-15.0The [facility] Elizabeth HospitalComment on above:Performed By: #### CBC #### [facility] [address] [place] [address] Dr. Alka GivensHematocrit (Bld) [Volume fraction]43.7 %Vurbbo79.0-54.0The [facility] HospitalComment on above:Performed By: #### CBC #### [facility] [address] [place] [address] Dr. Alka GivensHemoglobin (Bld) [Mass/Vol]14.1 g/tUOkywgs50.0-18.0The [facility] HospitalComharbor beach community hospital on above:Performed By: #### CBC #### [facility] [address] [place] [address] Dr. Alka Escobar #0.01 10e3/ulNormal0.00-0.03The [facility] HospitalComment on above:Performed By: #### CBC #### [facility] [address] [place] [address] Dr. Alka Escobar %0.2 %Normal0.0-0.5The [facility] HospitalComharbor beach community hospital on above: Performed By: #### CBC #### [facility] [address] [place] [address] Dr. Alka VanceH #1.8 103/ulNormal1.2-3.8The [facility] HospitalComharbor beach community hospital on above:Performed By: #### CBC #### [facility] [address] [place] [address] Dr. Alka Finneymphocytes/100 WBC (Bld)32.0 %Idkjqu42.5-60.0The [facility] HospitalComment on above:Performed By: #### CBC #### [facility] [address] [place] [address] Dr. Alka QuintanaUAL DIFF REQNONormalThe St. Elizabeth HospitalComment on above: Performed By: #### CBC #### [facility] [address] [place] [address] Dr. Alka Isidro (RBC) [Entitic mass]26.5 vmVnjbsu66.9-34.0The [facility] HospitalComment on above:Performed By: #### CBC #### [facility] [address] [place] [address] Dr. Alka Isidro (RBC) [Mass/Vol]32.3 g/wADqhhwp31.9-35.2The [facility] HospitalComment on above:Performed By: #### CBC #### [facility] [address] [place] [address] Dr. Alka Isidro (RBC) [Entitic vol]82.1 wPEgekrb07.0-94.0The [facility] HospitalComment on above:Performed By: #### CBC #### [facility] [address] [place] [address] Dr. Alka Lieberman #0.6 103/ulNormal0.3-0.8The [facility] Elizabeth HospitalComment on above:Performed By: #### CBC #### [facility] [address] [place] [address] Dr. Alka Barlowocytes/100 WBC (Bld)10.9 %Normal1.7-12.0The [facility] Comment on above:Performed By: #### CBC #### [facility] [address] [place] [address] Dr. Alka Osborne #2.8 103/ulNormal1.4-6.5The St. Elizabeth HospitalComment on above:Performed By: #### CBC #### [facility] [address] [place] [address] Dr. Alka Bernardoutrophils/100 WBC (Bld)49.8 %Kalgsi82.0-75.0The [facility] HospitalComment on above:Performed By: #### CBC #### [facility] [address] [place] [address] Dr. Alka Perezlet mean volume (Bld) [Entitic vol]10.3 fLNormal9.5-13.5The St. Elizabeth HospitalComment on above:Performed By: #### CBC #### [facility] [address] [place] [address] Dr. Alka GivensPLT168 103/ymPjefxt054-212Hpx St. [facility] HospitalComment on above: Performed By: #### CBC #### [facility] [address] [place] [address] Dr. Alka GivensRBC5.32 106/ulNormal4.70-6.10The [facility] HospitalComment on above:Performed By: #### CBC #### [facility] [address] [place] [address] Dr. Alka GivensWBC5.6 103/ulNormal4.0-11.0The [facility] HospitalComment on above: Performed By: #### CBC #### [facility] [address] [place] [address] Dr. Alka AmbrizF 14(COMP METB)on 16-50-8792Fchxkqb [Mass/Vol]4.0 g/dLNormal 3.4-5.0The [facility] HospitalComment on above:Performed By: #### CMP #### [facility] [address] [place] [address] Dr. Alka GivensAlbumin/Globulin [Mass ratio]1.2 {ratio}NormalThe [facility] on above:Performed By: #### CMP #### [facility] [address] [place] [address] Dr. Alka Thornton [Catalytic activity/Vol]82 U/SZkihfg58-673Tyd St. [facility] HospitalComment on above:Performed By: #### CMP #### [facility] [address] [place] [address] Dr. Alka Jones [Catalytic activity/Vol]20 U/BFqwqtc35-49Ybd St. [facility] HospitalComment on above:Performed By: #### CMP #### [facility] [address] [place] [address] Dr. Alka Saldivar gap [Moles/Vol]11.9 mmol/LNormalThe [facility] on above:Performed By: #### CMP #### [facility] [address] [address] [address] Alka GivensAST [Catalytic activity/Vol]17 U/MGunsji44-53Hsh St. Elizabeth HospitalComment on above:Performed By: #### CMP #### [facility] [address] [address] [address] Alka GivensBilirubin [Mass/Vol]0.7 mg/dLNormal0.2-1.0The [facility] Comment on above:Performed By: #### CMP #### [facility] [address] [address] [address] Alka GivensCalcium [Mass/Vol]9.1 mg/dLNormal8.5-10.1The [facility] Comment on above:Performed By: #### CMP #### [facility] [address] [address] [address] Alka GivensChloride [Moles/Vol]104 mmol/UUutgvr88-509Wma [facility] Comment on above:Performed By: #### CMP #### [facility] [address] [address] [address] Alka GivensCO2 [Moles/Vol]26.9 mmol/DEjnyjn21.0-32.0The [facility] Comment on above:Performed By: #### CMP #### [facility] [address] [address] [address] Alka GivensCreatinine [Mass/Vol]0.76 mg/dLNormal0.70-1.30The [facility] HospitalComment on above:Performed By: #### CMP #### [facility] [address] [address] [address] Rucker ChangEGFR-AF STATELESS>60Normal>=60The [facility] HospitalComment on above:Performed By: #### CMP #### [facility] [address] [address] [address] Alka WarrenGFR-NON AF STATELESS>60Normal>=60The [facility] HospitalComment on above:Performed By: #### CMP #### [facility] [address] [address] [address] Alka GivensGlobulin (S) [Mass/Vol]3.3 g/dLNormalThe St. Elizabeth HospitalComment on above:Performed By: #### CMP #### [facility] [address] [address] [address] Alka GivensGlucose [Mass/Vol]53 mg/dLCritically wwz24-537Axs St. [facility] HospitalComment on above:Performed By: #### CMP #### [facility] [address] [address] [address] Alka GivensPotassium [Moles/Vol]3.8 mmol/LNormal3.5-5.1The [facility] Comment on above:Performed By: #### CMP #### [facility] [address] [address] [address] Alka GivensProtein [Mass/Vol]7.3 g/dLNormal6.4-8.2The [facility] Comment on above:Performed By: #### CMP #### [facility] [address] [address] [address] Alka GivensSodium [Moles/Vol]139 mmol/VFujehb406-491Qbe [facility] Comment on above:Performed By: #### CMP #### [facility] [address] [address] [address] Alka GivensUrea nitrogen [Mass/Vol]15.0 mg/dLNormal7.0-18.0The [facility] HospitalComment on above:Performed By: #### CMP #### [facility] [address] [address] [address] Alka Green nitrogen/Creatinine [Mass ratio]19.7 mg/mgNormalThe St. [facility] HospitalComment on above:Performed By: #### CMP #### [facility] [address] [address] [address] Alka GivensSED RATE WESTERGRENon 67-90-6145DHY RATE22 mm/hrCritically high <=20The [facility] HospitalComment on above:Performed By: #### SEDR #### [facility] [address] [address] [address] Alka Phoenix AUTO DIFFon 28-47-3240NCXW #0.1 103/ulNormal0.0-0.1The [facility] HospitalComment on above:Performed By: #### CBC #### [facility] [address] [place] [address] Dr. Alka GivensBasophils/100 WBC (Bld)0.9 %Normal0.2-2.0The [facility] Comment on above:Performed By: #### CBC #### [facility] [address] [place] [address] Dr. Alka Taveras #0.3 103/ulNormal0.0-0.7The [facility] HospitalComment on above: Performed By: #### CBC #### [facility] [address] [place] [address] Dr. Alka Warrenosinophils/100 WBC (Bld)5.2 %Normal0.9-7.0The [facility] Comment on above:Performed By: #### CBC #### [facility] [address] [place] [address] Dr. Alka Warrenrythrocyte distribution width (RBC) [Ratio]16.4 %Critically high 11.0-15.0The [facility] HospitalComment on above:Performed By: #### CBC #### [facility] [address] [place] [address] Dr. Alka GivensHematocrit (Bld) [Volume fraction]42.7 %Yeturv60.0-54.0The [facility] HospitalComment on above:Performed By: #### CBC #### [facility] [address] [place] [address] Dr. Alka GivensHemoglobin (Bld) [Mass/Vol]13.5 g/dLCritically low14.0-18.0The [facility] HospitalComment on above:Performed By: #### CBC #### [facility] [address] [place] [address] Dr. Alka Escobar #0.02 10e3/ulNormal0.00-0.03The [facility] on above:Performed By: #### CBC #### [facility] [address] [address] [address] Alka Escobar %0.4 %Normal0.0-0.5The [facility] HospitalComharbor beach community hospital on above: Performed By: #### CBC #### [facility] [address] [place] [address] Dr. Alka Wilson #1.2 103/ulNormal1.2-3.8The [facility] HospitalComharbor [facility] on above:Performed By: #### CBC #### [facility] [address] [place] [address] Dr. Alka Vancehocytes/100 WBC (Bld)21.7 %Weuzgm99.5-60.0[facility] on above:Performed By: #### CBC #### [facility] [address] [place] [address] Dr. Alka Metz DIFF REQNONormalThe St. [facility] HospitalComment on above: Performed By: #### CBC #### [facility] [address] [place] [address] Dr. Alka Berman (RBC) [Entitic mass]26.1 phGdxurw93.9-34.0[facility] on above:Performed By: #### CBC #### [facility] [address] [place] [address] Dr. Alka Isidro (RBC) [Mass/Vol]31.6 g/dRUmdvhq38.9-35.2The [facility] Hospitalment on above:Performed By: #### CBC #### [facility] [address] [place] [address] Dr. Alka Isidro (RBC) [Entitic vol]82.4 fOEjhten95.0-94.0[facility] on above:Performed By: #### CBC #### [facility] [address] [place] [address] Dr. Alka Lieberman #0.6 103/ulNormal0.3-0.8The [facility] HospitalComment on above:Performed By: #### CBC #### [facility] [address] [address] [address] Alka Barlowocytes/100 WBC (Bld)11.4 %Normal1.7-12.0The [facility] Comment on above:Performed By: #### CBC #### [facility] [address] [address] [address] Alka BernardoUT #3.4 103/ulNormal1.4-6.5The [facility] HospitalComment on above:Performed By: #### CBC #### [facility] [address] [place] [address] Dr. Alka Bernardoutrophils/100 WBC (Bld)60.4 %Wprmvv78.0-75.0The [facility] HospitalComment on above:Performed By: #### CBC #### [facility] [address] [place] [address] Dr. Alka Perezlet mean volume (Bld) [Entitic vol]10.8 fLNormal9.5-13.5The [facility] HospitalComment on above:Performed By: #### CBC #### [facility] [address] [place] [address] Dr. Alka GivensPLT188 103/gbDxogqh364-337Mxz St[facility] HospitalComment on above: Performed By: #### CBC #### [facility] [address] [place] [address] Dr. Alka GivensRBC5.18 106/ulNormal4.70-6.10The [facility] HospitalComment on above:Performed By: #### CBC #### [facility] [address] [place] [address] Dr. Alka GivensWBC5.6 103/ulNormal4.0-11.0The [facility] HospitalComment on above: Performed By: #### CBC #### [facility] [address] [place] [address] Dr. Alka GivensLIPID PROFILEon 30-96-3111NZSJ-HDL RATIO NORMSKnox Community HospitalComment on above:Result Comment: 3.3 - 4.4 LOW RISK 4.4 - 7.1 AVERAGE RISK 7.1 - 11.0 MODERATE RISK >11.0 HIGH RISKPerformed By: #### CMP #### [facility] [address] [address] [address] Alka GivensCholesterol [Mass/Vol]103 mg/dLNormal<=200[facility] Comment on above:Performed By: #### CMP #### [facility] [address] [address] [address] Alka GivensCholesterol in HDL [Mass/Vol]47 mg/mFMchsym78-42ZpiMount St. Mary HospitalComment on above:Performed By: #### CMP #### [facility] [address] [address] [address] Alka GivensCholesterol in LDL [Mass/Vol]38.8 mg/dLHighland District HospitalComment on above:Performed By: #### CMP #### [facility] [address] [address] [address] Alka GivensCholesterhodan.total/Cholesterol in HDL [Mass ratio]2.2 {ratio} NormalMount St. Mary HospitalComment on above:Performed By: #### CMP #### [facility] [address] [address] [address] Alka GivensHDL NORMAL> or = 60 mg/dl - LOW CARDIOVASCULAR RISK <40 mg/dl - HIGH CARDIOVASCULAR RISKHighland District HospitalComment on above:Performed By: #### CMP #### [facility] [address] [address] [address] Alka GivensLDL CALC NORMALSEE [facility] CenterComment on above:Result Comment: <100 mg/dl OPTIMAL 100 - 129 mg/dl NEAR OR ABOVE OPTIMAL 130 - 159 mg/dl BORDERLINE HIGH 160 - 189 mg/dl HIGH >190 mg/dl VERY HIGH Performed By: #### CMP #### [facility] [address] [address] [address] Alka GivensTriglyceride [Mass/Vol]86 mg/dLNormal<=150[facility] Comment on above:Performed By: #### CMP #### [facility] [address] [place] [address] Dr. Alka CrespoLDL CALC17.2 mg/dLHighland District HospitalComharbor beach community hospital on above: Performed By: #### CMP #### [facility] [address] [place] [address] Dr. Alka GivensMICROALJaya CREAT RATIO RANDOMon 99-29-1333xWGR5.3 mg/LNormal<=30.[address] [facility] HospitalComment on above:Performed By: #### MCRR #### [facility] [address] [place] [address] Dr. Alka Gregorio CR RATIO34.3 mg/gCritically high0.0-29.9The [facility] HospitalComment on above:Performed By: #### MCRR #### [facility] [address] [place] [address] Dr. Alka Gregorio CR RATIO RANGESEE BELOWNoHolmes County Joel Pomerene Memorial HospitalComment on above:Result Comment: NO MICROALBUMINURIA 0-29 MG/G CLINICAL MICROALBUMINURIA 30-300 MG/G MACROALBUMINURIA >300 MG/GPerformed By: #### MCRR #### [facility] [address] [place] [address] Dr. Alka Garrett ZUYJF490.52 mg/zZIycntg50.00-300.00[facility] Comment on above:Performed By: #### MCRR #### [facility] [address] [place] [address] Dr. Alka GivensPHOSPHORUSon 92-82-5922Lvmzfjpgq [Mass/Vol]4.1 mg/dLNormal2.6-4.[address] [facility] HospitalComment on above:Performed By: #### CMP #### [facility] [address] [place] [address] Dr. Alka GivensPROF 14(COMP METB)on 02-36-0553Qerrbkf [Mass/Vol]3.8 g/dLNormal 3.4-5.0The [facility] HospitalComment on above:Performed By: #### CMP #### [facility] [address] [address] [address] Alka GivensAlbumin/Globulin [Mass ratio]1.0 {ratio}NormalThe St. Elizabeth HospitalComment on above:Performed By: #### CMP #### [facility] [address] [address] [address] Alka HurdP [Catalytic activity/Vol]85 U/ZHzxuoj30-759Wzf St. [facility] HospitalComment on above:Performed By: #### CMP #### [facility] [address] [address] [address] Alka HurdT [Catalytic activity/Vol]17 U/LGrwfzt54-46Pxh St. [facility] HospitalComment on above:Performed By: #### CMP #### [facility] [address] [place] [address] Dr. Alka Romeroon gap [Moles/Vol]8.0 mmol/LNormalThe St. [facility] HospitalComment on above:Performed By: #### CMP #### [facility] [address] [place] [address] Dr. Alka GivensAST [Catalytic activity/Vol]20 U/BNolnef76-25Ljl [facility] on above:Performed By: #### CMP #### [facility] [address] [place] [address] Dr. Alka GivensBilirubin [Mass/Vol]0.6 mg/dLNormal0.2-1.0The [facility] Comment on above:Performed By: #### CMP #### [facility] [address] [place] [address] Dr. Alka GivensCalcium [Mass/Vol]8.9 mg/dLNormal8.5-10.1The [facility] Comment on above:Performed By: #### CMP #### [facility] [address] [place] [address] Dr. Alka GivensChloride [Moles/Vol]104 mmol/JFdfzmy57-869Rtq [facility] Comment on above:Performed By: #### CMP #### [facility] [address] [address] [address] Alka GivensCO2 [Moles/Vol]26.7 mmol/FSyjvty49.0-32.0The [facility] Comment on above:Performed By: #### CMP #### [facility] [address] [address] [address] Alka GivensCreatinine [Mass/Vol]0.81 mg/dLNormal0.70-1.30The [facility] HospitalComment on above:Performed By: #### CMP #### [facility] [address] [address] [address] Alka WarrenGFR-AF STATELESS>60Normal>=60The [facility] HospitalComment on above:Performed By: #### CMP #### [facility] [address] [address] [address] Alka WarrenGFR-NON AF STATELESS>60Normal>=60The [facility] HospitalComment on above:Performed By: #### CMP #### [facility] [address] [address] [address] Alka GivensGlobulin (S) [Mass/Vol]3.7 g/dLNormalThe St. [facility] HospitalComment on above:Performed By: #### CMP #### [facility] [address] [place] [address] Dr. Alka GivensGlucose [Mass/Vol]62 mg/dLCritically rhx22-562Pie St[facility] HospitalComment on above:Performed By: #### CMP #### [facility] [address] [address] [address] Alka GivensPotassium [Moles/Vol]3.7 mmol/LNormal3.5-5.1The [facility] Comment on above:Performed By: #### CMP #### [facility] [address] [address] [address] Alka GivensProtein [Mass/Vol]7.5 g/dLNormal6.4-8.2The [facility] Comment on above:Performed By: #### CMP #### [facility] [address] [place] [address] Dr. Alka GivensSodium [Moles/Vol]135 mmol/LCritically vzf722-429Trm [facility] HospitalComment on above:Performed By: #### CMP #### [facility] [address] [place] [address] Dr. Alka Green nitrogen [Mass/Vol]20.0 mg/dLCritically high7.0-18.0The [facility] HospitalComment on above:Performed By: #### CMP #### [facility] [address] [place] [address] Dr. Alka Green nitrogen/Creatinine [Mass ratio]24.7 mg/mgNoHolmes County Joel Pomerene Memorial HospitalComment on above:Performed By: #### CMP #### [facility] [address] [place] [address] Dr. Alka Hummel RATE WESTERGRENon 17-32-0037RBE RATE42 mm/hrCritically high <=20The [facility] HospitalComment on above:Performed By: #### CMP #### [facility] [address] [place] [address] Dr. Alka GivensVITAMIN D 25 OHon 95-40-8057KJV D 25-OH47.5 ng/mLNormalThe St. [facility] HospitalComment on above:Performed By: #### VITAD #### [facility] [address] [place] [address] Dr. Alka Bland D RANGESSEE BELOWHighland District HospitalComment on above: Result Comment: <20 ng/mL Vit D deficient 20 - <30 ng/mL Vit D insufficient 30 - 100 ng/mL Vit D sufficient >100 ng/mL Potential ToxicityPerformed By: #### VITAD #### [facility] [address] [place] [address] Dr. Alka GivensPRORadha CHEM 8 (BAS METB)on 33-62-9996Wicuh gap [Moles/Vol]9.6 mmol/LNormalMount St. Mary HospitalComment on above:Performed By: #### BMP #### [facility] [address] [place] [address] Dr. Alka GivensCalcium [Mass/Vol]8.8 mg/dLNormal8.5-10.1The [facility] Comment on above:Performed By: #### BMP #### [facility] [address] [address] [address] Alka GivensChloride [Moles/Vol]104 mmol/KPzppld93-825Nxv [facility] Comment on above:Performed By: #### BMP #### [facility] [address] [address] [address] Alka GivensCO2 [Moles/Vol]29.0 mmol/XAzylso94.0-32.0The [facility] Comment on above:Performed By: #### BMP #### [facility] [address] [place] [address] Dr. Alka GivensCreatinine [Mass/Vol]0.81 mg/dLNormal0.70-1.30The [facility] HospitalComment on above:Performed By: #### BMP #### [facility] [address] [place] [address] Dr. Rucker ChangEGFR-AF STATELESS>60Normal>=60The [facility] HospitalComment on above:Performed By: #### BMP #### [facility] [address] [place] [address] Dr. Alka WarrenGFR-NON AF STATELESS>60Normal>=60The [facility] HospitalComment on above:Performed By: #### BMP #### [facility] [address] [place] [address] Dr. Alka GivensGlucose [Mass/Vol]172 mg/dLCritically eaan62-089Uec [facility] HospitalComment on above:Performed By: #### BMP #### [facility] [facility] [address] [place] [address] Dr. Alka GivensPotassium [Moles/Vol]4.6 mmol/LNormal3.5-5.1[facility] Comment on above:Performed By: #### BMP #### [facility] [address] [address] [address] Alka GivensSodium [Moles/Vol]138 mmol/ZAzqwbh173-582Qnz [facility] Comment on above:Performed By: #### BMP #### [facility] [address] [address] [address] Alka GivensUrea nitrogen [Mass/Vol]19.0 mg/dLCritically high7.0-18.0[facility] HospitalComment on above:Performed By: #### BMP #### [facility] [address] [place] [address] Dr. Alka GivensUrea nitrogen/Creatinine [Mass ratio]23.5 mg/mgNormalThe St. [facility] HospitalComment on above:Performed By: #### BMP #### [facility] [address] [place] [address] Dr. Alka GivensURIC ACID SERUMon [id number] [Mass/Vol]5.3 mg/dLNormal 3.5-8.5The [facility] HospitalComment on above:Performed By: #### URIC #### [facility] [address] [place] [address] Dr. Alka Givens Vital Signs Date TimeVital SignValuePerforming CvfxvbdldLfdmovcf01-68-0518 12:14040Body cagfuq058.5 Mickey Maria PA-C Work Phone: [phone]-TigerTextC[facility]09-09-2025 12:14-040Body mass index (BMI) [Ratio]29.12 kg/m2Serenity Maria PA-C Work Phone: [phone]-TigerTextC[facility]09-09-2025 12:14-040Body oymhvr857.69 kgSerenity Maria PA-C Work Phone: [phone]-TigerTextC[facility]09-09-2025 12:14040Diastolic blood rvkhqvuv19 mm[Hg]Serenity Maria PA-C Work Phone: [phone]-TigerTextC[facility]09-09-2025 12:14040Heart rate 52 /minSerenity Maria PA-C Work Phone: [phone]-TigerText[facility]09-09-2025 12:146131GfO4% (BldA) [Mass fraction]98 %Serenity Maria PA-C Work Phone: [facility] [employer] Tyzwwi50-74-5300 12:140400Systolic blood gmbgkpuq547 mm[Hg]Serenity Maria PA-C Work Phone: [facility]05-14-2025 10:06-0400Body hosmxf454.5 cmValepatricia Garcia AVIATION ORDNANCE OFFICER-FOUNTAIN WAITRESS/WAITER Work Phone: [facility]05-14-2025 10:06-0400Body mass index (BMI) [Ratio]29.75 kg/r3FvwwhqdEscobar Garcia AVIATION ORDNANCE OFFICER-FOUNTAIN WAITRESS/WAITER Work Phone: [facility]05-14-2025 10:06-0400Body qmkgwulooxa38.59 [degF]Escobar Brownillo AVIATION ORDNANCE OFFICER-FOUNTAIN WAITRESS/WAITER Work Phone: [facility]05-14-2025 10:06-0400Body pfcnab318.96 kgEscobar Garcia AVIATION ORDNANCE OFFICER-FOUNTAIN WAITRESS/WAITER Work Phone: [facility]05-14-2025 10:06-0400Diastolic blood ltdlgymh97 mm[Hg]Escobar Brownillo AVIATION ORDNANCE OFFICER-FOUNTAIN WAITRESS/WAITER Work Phone: [facility]05-14-2025 10:06-0400Heart rate 53 /minEscobar Brownillo AVIATION ORDNANCE OFFICER-FOUNTAIN WAITRESS/WAITER Work Phone: [facility]05-14-2025 10:06-0400 Respiratory rate18 /minFauziae Garcia AVIATION ORDNANCE OFFICER-FOUNTAIN WAITRESS/WAITER Work Phone: [facility]05-14-2025 10:06-0523AtN5% (BldA) [Mass fraction]98 %Escobar Garcia AVIATION ORDNANCE OFFICER-FOUNTAIN WAITRESS/WAITER Work Phone: [facility]05-14-2025 10:06-0400Systolic blood orapmopp129 mm[Hg]Escobar Brownillo AVIATION ORDNANCE OFFICER-FOUNTAIN WAITRESS/WAITER Work Phone: [facility]05-13-2025 10:43-0400Body okolad455.5 David Lopez MD Work Phone: [phone]05-13-2025 10:43-0400Body mass index (BMI) [Ratio]29.87 kg/x5SnkbjDeyanira Lopez MD Work Phone: 1(511)236-[address] [place], [place] [address]Ognpetswwx53-41-2391 10:43-0400Body bpacfm154.41 kgDeyanira Lopez MD Work Phone: [phone])[address] [place], [place] 3209505-13-2025 10:43-0400Diastolic blood aukvvaiu54 mm[Hg]Deyanira Lopez MD Work Phone: [phone]05-13-2025 10:43-0400Heart rate56 /min Deyanira Lopez MD Work Phone: [phone]05-13-2025 10:43-0400Respiratory rate16 /minDeyanira Lopez MD Work Phone: [phone])[address] [place], [place] [address]209505-13-2025 10:43-9538GyL6% (BldA) [Mass fraction]97 %Deyanira Lopez MD Work Phone: 1(365)835-[address] [place], [place] [address]Rmmtxpvolm08-72-6915 10:43-0400Systolic blood idxfjebw939 mm[Hg]Deyanira Lopez MD Work Phone: 1(777)032-[address] [place], [place] [address]Otziqjozec65-62-9841 11:43-0400Body fomrzn913.5 cmKelsi Mici PA-C Work Phone: [facility]03-18-2025 11:43-0400Body mass index (BMI) [Ratio]30.12 kg/h2Czchg Mici PA-C Work Phone: [facility]03-18-2025 11:43-0400Body .32 kgKelsi Mici PA-C Work Phone: [facility]03-18-2025 11:43-0400Diastolic blood bjiemiiz00 mm[Hg]Guillermina Mici PA-C Work Phone: [facility] [employer] Dttvgg83-44-7935 11:43-0400Heart rate 55 /minKelsi Mici PA-C Work Phone: [facility]03-18-2025 11:43-5864HoO9% (BldA) [Mass fraction]95 %Guillermina Mici PA-C Work Phone: [facility]03-18-2025 11:43-0400Systolic blood txpbebqp442 mm[Hg]Guillermina Mici PA-C Work Phone: [facility]11-12-2024 11:18-0500Body vqvtyo872.5 David Lopez MD Work Phone: 1(559)150-[address] [place], [place] [address]Vjjuxwepfu15-65-1054 11:18-0500Body mass index (BMI) [Ratio]29.5 kg/d2CnkelDeyanira Lopez MD Work Phone: [phone])[facility] [place], [place] [address]Okvfifkgak43-10-4742 11:18-0500Body .05 kgDeyanira Lopez MD Work Phone: 1(864)752-[address] [place], [place] [address]Wtmpvkjdjs67-26-7984 11:18-0500Diastolic blood mbpjzvjo00 mm[Hg]Deyanira Lopez MD Work Phone: 1(890)984-[address] [place], [place] [address]Mlbbilofiv23-95-6050 11:18-0500Heart rate65 /min Deyanira Lopez MD Work Phone: [phone] [place], [place] [address]Lemvjkdfjo40-27-7357 11:18-0500Respiratory rate16 /minDeyanira Lopez MD Work Phone: 1(374)413-[address] [place], [place] [address]Ikdazwfjvw34-55-8074 11:18-0500Systolic blood mm[Hg]Deyanira Lopez MD Work Phone: [phone] [place], [place] [address]Ahnaggsnly95-01-3721 10:39-0500Body lukcux388.5 Shahbaz WILKES Work Phone: [facility]11-04-2024 10:39-0500Body mass index (BMI) [Ratio]29.22 kg/p8UlskkwrEscobar Garcia APRN-LA Work Phone: [facility] [employer] Lqrdop30-97-6352 10:39-0500Body yuadrjiwbth52.5 [degF]Escobar Garcia APRN-FOUNTAIN WAITRESS/WAITER Work Phone: [facility]11-04-2024 10:39-0500Body looarb259.05 kgEscobar Garcia APRN-LA Work Phone: [facility]11-04-2024 10:39-0500Diastolic blood bivrlsfm11 mm[Hg]Escobar Garcia APRN-LA Work Phone: [facility]11-04-2024 10:39-0500Heart rate 54 /minEscobar Garcia APRN-LA Work Phone: [facility] [employer] Badjgt36-69-9590 10:39-0500 Respiratory rate18 /minEscobar Garcia APRN-LA Work Phone: [facility] [employer] Wusype23-36-2390 10:39-8207HvA1% (BldA) [Mass fraction]97 %Escobar Garcia APRN-LA Work Phone: [facility]11-04-2024 10:39-0500Systolic blood mkajxqsr051 mm[Hg]Escobar Garcia APRN-LA Work Phone: [facility]10-09-2024 14:16-0400Body hoosef766.5 cmMoscooby Russell MD Work Phone: [facility] HospitalRip [facility]af[facility] Zgbucp89-89-2629 14:16-0400Body mass index (BMI) [Ratio]29.3 kg/x4Lrbfagulscooby Russell MD Work Phone: [facility] HospitalSchoolOutor [employer] Zhsthx97-78-2633 14:16-0400Body zustlq388.32 kgMoscooby Russell MD Work Phone: [facility] HospitalLwexsj95-61-1522 14:16-0400Diastolic blood tmdgahup03 mm[Hg]Meghan Russell MD Work Phone: [facility]10-09-2024 14:160400Heart rate 65 /minMeghan Russell MD Work Phone: [facility]10-09-2024 14:168847RwD4% (BldA) [Mass fraction]98 %Meghan Russell MD Work Phone: [facility]10-09-2024 14:160400Systolic blood rthduhlu201 mm[Hg]Meghan Russell MD Work Phone: 1(099)555-[address] [place], [place] [address]805-13-2024 10:42-0400Body .5 cmNP-C Escobar Garcia Work Phone: [phone]05-13-2024 10:42-0400 Body acwywstidni79.6 [degF]INTERDISCIPLINARY PROFESSOR-C Escobar Garcia Work Phone: [phone]05-13-2024 10:42-0400 Body xpcxor728.49 kgNP-C Escobar Garcia Work Phone: [phone]05-13-2024 10:42-0400 Diastolic blood ukldqhee74 mm[Hg]INTERDISCIPLINARY PROFESSOR-C Escobar Garcia Work Phone: [phone]05-13-2024 10:42-0400 Heart rate66 /minNP-C Escobar Garcia Work Phone: [phone]05-13-2024 10:42-0400 Respiratory rate18 /minNP-C Escobar Garcia Work Phone: [phone]05-13-2024 10:42-0400 SaO2% (BldA) [Mass fraction]99 %INTERDISCIPLINARY PROFESSOR-C Escobar Garcia Work Phone: [phone]05-13-2024 10:42-0400 Systolic blood hdtpuzgz702 mm[Hg]INTERDISCIPLINARY PROFESSOR-C Escobar Garcia Work Phone: [facility]05-02-2024 08:34-0400 Body eiaeyd811.5 Shahbaz Garcia APRN-FOUNTAIN WAITRESS/WAITER Work Phone: [facility]05-02-2024 08:34-0400Body mass index (BMI) [Ratio]31.12 kg/f8RxovyphEscobar Garcia AVIATION ORDNANCE OFFICER-FOUNTAIN WAITRESS/WAITER Work Phone: [facility]05-02-2024 08:34-0400Body xdyqrszjcxo98.11 [degF]Escobar Garcia AVIATION ORDNANCE OFFICER-FOUNTAIN WAITRESS/WAITER Work Phone: [facility]05-02-2024 08:34-0400Body aapyhh592.95 kgEscobar Garcia AVIATION ORDNANCE OFFICER-FOUNTAIN WAITRESS/WAITER Work Phone: [facility]05-02-2024 08:34-0400Diastolic blood mm[Hg]Escobar Garcia AVIATION ORDNANCE OFFICER-FOUNTAIN WAITRESS/WAITER Work Phone: [facility]05-02-2024 08:34-0400Heart rate 61 /minEscobar Garcia AVIATION ORDNANCE OFFICER-FOUNTAIN WAITRESS/WAITER Work Phone: [facility]05-02-2024 08:34-0400 Respiratory rate16 /minEscobar Garcia AVIATION ORDNANCE OFFICER-FOUNTAIN WAITRESS/WAITER Work Phone: [facility]05-02-2024 08:34-3415FnC6% (BldA) [Mass fraction]94 %Escobar Garcia AVIATION ORDNANCE OFFICER-FOUNTAIN WAITRESS/WAITER Work Phone: [facility]05-02-2024 08:34-0400Systolic blood akkrxbjc432 mm[Hg]Escobar Garcia AVIATION ORDNANCE OFFICER-FOUNTAIN WAITRESS/WAITER Work Phone: [facility]03-25-2024 08:02-0400Body arhrjr173.5 Shahbaz Garcia AVIATION ORDNANCE OFFICER-FOUNTAIN WAITRESS/WAITER Work Phone: [facility] Mkwmpg56-33-7757 08:02-0400Body mass index (BMI) [Ratio]31.05 kg/v4TxelvoiEscobar Garcia APRN-FOUNTAIN WAITRESS/WAITER Work Phone: [facility] [employer] Gwtdff39-51-4502 08:02-0400Body wxsgydlvdsf93.39 [degF]Escobar Garcia APRN-FOUNTAIN WAITRESS/WAITER Work Phone: [facility] [employer] Ectfmt17-79-7664 08:02-0400Body nxlnpa162.67 kgEscobar Garcia APRN-FOUNTAIN WAITRESS/WAITER Work Phone: [facility] [employer] Iuhkuj00-52-3359 08:02-0400Diastolic blood mm[Hg]Escobar Garcia APRN-FOUNTAIN WAITRESS/WAITER Work Phone: [facility] [employer] Hufovt35-90-9993 08:02-0400Heart rate 58 /minEscobar Garcia APRN-FOUNTAIN WAITRESS/WAITER Work Phone: [facility] [employer] Pjopew24-97-1601 08:02-0400 Respiratory rate18 /minEscobar Garcia APRN-FOUNTAIN WAITRESS/WAITER Work Phone: [facility] [employer] Edwepy08-31-7503 08:02-9632HeK3% (BldA) [Mass fraction]98 %Escobar Garcia APRN-FOUNTAIN WAITRESS/WAITER Work Phone: [facility] [employer] Mxxmma97-78-8110 08:02-0400Systolic blood sicqarxi141 mm[Hg]Escobar Garcia APRN-FOUNTAIN WAITRESS/WAITER Work Phone: [facility] [employer] Wmlsdq38-94-7280 08:06-0500Body .5 cmVhair Garcia APRN-FOUNTAIN WAITRESS/WAITER Work Phone: [facility] [employer] Dgxmrk34-31-2993 08:06-0500Body mass index (BMI) [Ratio]31.2 kg/e9MomcfmxEscobar Garcia APRN-FOUNTAIN WAITRESS/WAITER Work Phone: [facility] [employer] Ydqdcd13-64-6664 08:06-0500Body vqodszhjhfo37.01 [degF]Escobar Garcia APRN-LA Work Phone: [facility] HospitalRip [facility] Waf[facility] Ybkxvf68-52-1678 08:06-0500Body uzuefc254.22 kgEscobar Garcia APRN-FOUNTAIN WAITRESS/WAITER Work Phone: [facility] Locate Vwwxnk09-76-0966 08:06-0500Diastolic blood aoqnufvq52 mm[Hg]Escobar Garcia APRN-FOUNTAIN WAITRESS/WAITER Work Phone: [facility] [employer] Ecgscv61-64-8685 08:06-0500Heart rate 66 /minEscobar Garcia APRN-FOUNTAIN WAITRESS/WAITER Work Phone: [facility]03-04-2024 08:06-8363OmQ4% (BldA) [Mass fraction]97 %Escobar Garcia APRN-FOUNTAIN WAITRESS/WAITER Work Phone: [facility] HospitalSchoolOut[facility] [employer] Xafled19-95-1293 08:06-0500Systolic blood gztakzzi775 mm[Hg]Escobar Garcia APRN-LA Work Phone: [facility] [employer] [facility] Encounters Encounter DateEncounter TypeCare ProviderFacilityStart: 07-11-2025 End: 71-16-8027UskthlDuzuiy Gullett CMANortheastern Vermont Regional HospitalMedior Physicians Internal Medicine - Family MedicineComment on above:Essential hypertensionStart: 06-26-2025 [facility] 06-18[facility]2025 End: 87-97-2190Jtapvr outpatient visit 25 minutesKelsi Shantell FELIPE Work Phone: [facility] CardiologyComment on above: Coronary artery disease involving s[place]mie coronary artery of s[place]qualmie heart without angina pectoris (Primary Dx); History of coronary angioplasty with insertion of stent; Chronic atrial fibrillation ([facility]-HCC); Essential hypertension; Mixed hyperlipidemia; Primary hypertensionStart: 06-18-2025 End: 94-84-6339ygajxepulkSHYISmyth County Community Hospitaltart: 05-18-2025 End: 71-45-5195UvevaeYrgwaat Sarah Garcia APRN-FOUNTAIN WAITRESS/WAITER Work Phone: [facility] Physicians Internal Medicine - Family MedicineComment on above:Gastroesophageal reflux disease without esophagitis Start: 04-30-2025 End: 11-38-1869EgvrpaKgsjtixNorth Garcia APRN-FOUNTAIN WAITRESS/WAITER Work Phone: [facility] Physicians Internal Medicine - Family MedicineComment on above:Acquired hypothyroidismStart: 02-20-2025 End: 24-12-6225Kizxpcr encounter proceduresEcobar Garcia APRN-FOUNTAIN WAITRESS/WAITER Work Phone: [facility] Physicians Internal Medicine - Family MedicineComment on above:Medicare annual wellness visit, subsequent (Primary Dx); DM type 2 with diabetic mixed hyperlipidemia ([facility]-HCC) ; Diabetic ulcer of toe of left foot associated with type 2 diabetes mellitus, unspecified ulcer stage ([facility]-HCC)Start: 55-29-6906Kjfjiscoq for general adult medical examination without abnormal findingsResolute Health Hospital Ambulatory PPGStart: 02-20-2025 End: 34-30-2164MeksuxYvjrmzlNorth Garcia APRN-FOUNTAIN WAITRESS/WAITER Work Phone: [facility] Physicians Internal Medicine - Family MedicineComment on above:DM type 2 with diabetic mixed hyperlipidemia ([facility]-HCC) Start: 02-19-2025 End: 30-69-3718Jqzfbznora Lopez MD Work Phone: [facility] ENDOCRINOLOGYStart: 02-19-2025 End: 71-95-7807Ylpakonora Lopez MD Work Phone: [facility] ENDOCRINOLOGYStart: 02-19-2025 End: 40-49-8720Rgapsg outpatient visit 25 minutesDeyanira Lopez MD Work Phone: [facility] ENDOCRINOLOGYComment on above:Type 2 diabetes mellitus with hyperglycemia, with long-term current use of insulin (CMS/HCC) (Primary Dx); Primary hypertension (CMS/HCC); Vitamin D deficiency; Encounter for dietary consultation; Insulin long-term use (CMS/HCC)Start: 02-19-2025 End: 40-74-5584ljxxwlackrIGEHI F SABBAGHNot AvailableStart: 01-19-2025 End: 19-31-2418LkbjljTeyzmxwNorth WILKES Work Phone: [facility] Internal Medicine - Family MedicineComment on above:Essential hypertension; Gastroesophageal reflux disease without esophagitisStart: 01-19-2025 End: 17-61-5443LuncviAerhc F Sabbagh MD Work Phone: n[facility] ENDOCRINOLOGYComment on above:Type 2 diabetes mellitus with hyperglycemia, with long-term current use of insulin ([facility]) (Primary Dx)Start: 01-03-2025 End: 14-64-9866Mungybgvl encounterDeyanira Lopez MD Work Phone: [facility] ENDOCRINOLOGYComment on above:Medication ProblemStart: 01-03-2025 End: 11-43-0270uhcfbsrpjxPIMBVProvidence Medical Center HospitalStart: 01-02-2025 End: 65-81-1043Octmlsppk encounterEvon Alvarez [facility] Physicians CardiologyStart: 12-25-2024 End: 05-90-9663Xbachk outpatient visit 25 [facility] Shantell FELIPE Work Phone: [facility] Physicians CardiologyComment on above: Primary hypertension (Primary Dx); Chronic atrial fibrillation ([facility]-HCC); Essential hypertension; Coronary artery disease involving [place] coronary artery of s[place] heart without angina pectoris; DM type 2 with diabetic mixed hyperlipidemia ([facility]-HCC)Start: 12-25-2024 End: 80-98-0871qpwoxpitfiCEURB MICIProMedHeartland Behavioral Health Services HospitalStart: 12-24-2024 End: 02-48-7293Gvsmtwghl encounterEvon Alvarez CMACleveland Clinic [facility] Physicians CardiologyStart: 12-13-2024 End: 04-66-9188awsodzdvxrDLIF [facility] HospitalStart: 12-11-2024 End: 67-30-7498Qlibeqnik encounterAurora Gerard [facility] Physicians CardiologyStart: 11-08-2024 End: 65-07-5396FiwvjgHbwipckNorth WILKES Work Phone: [facility] Internal Medicine - Family MedicineComment on above:Acquired hypothyroidismStart: 10-16-2024 End: 51-98-1842mikqvhasvjK [facility]INCENT SONGOhioHealth O'Bleness Hospitaltart: 10-15-2024 End: 04-23-2894Msrrlgjma encounterEduarda WORTHINGTONIberia Medical Centerjorge alberto Physicians CardiologyComment on above:eliquis 5mg samplesMed RefillStart: 10-11-2024 End: 15-49-6309Zlujnlfqx encounterAurora Ortega Physicians CardiologyComment on above:Elevated Blood pressure readingsStart: 09-12-2024 End: 67-88-1902MkpovzLrbt Michael RNPIberia Medical Centerjorge alberto Physicians CardiologyComment on above:Med RefillStart: 09-11-2024 End: 66-19-5340gukwcdtbxkCLWNWFRB [facility] Hospitaltart: 08-21-2024 End: 75-32-6395Sdtsfy outpatient visit 25 minutesDeyanira Lopez MD Work Phone: [facility] ENDOCRINOLOGYComment on above:Type 2 diabetes mellitus with hyperglycemia, with long-term current use of insulin (CMS/HCC) (Primary Dx); Primary hypertension (CMS/HCC); Vitamin D deficiency; Encounter for dietary consultation; Insulin long-term use (CMS/HCC)Start: 08-21-2024 End: 09-87-1440ktjeitzrrlTZDLU F SABBAGHNot AvailableStart: 08-13-2024 End: 60-82-7319pbpsebxhihTKIOZZO Sarah [facility] PPG Start: 08-13-2024 End: 72-81-5705Edghmy outpatient visit 25 minutesEscobar WILKES Work Phone: [facility] Phys[facility] Internal Medicine - Family MedicineComment on above:DM type 2 with diabetic mixed hyperlipidemia (CMS-HCC) (Primary Dx); Acquired hypothyroidism; GERD without esophagitis; Chronic atrial fibrillation (CMS-HCC); Benign essential HTNStart: 08-07-2024 End: 71-19-3304Wtzwsqxnr encounterAurora Ortega Physicians CardiologyStart: 07-27-2024 End: 43-62-1205dgsmmnmnhpQDHQNGCC J BIALECKIProMedParadise Valley Hospitaltart: 07-27-2024 End: 27-99-6657Cqcrlzeau encounterBecca Ortega Physicians Cardiology Comment on above:blood pressure update.Start: 07-23-2024 End: 61-36-1276WitnrxIbwpdyvNorth WILKES Work Phone: [facility] Physicians Internal Medicine - Family MedicineComment on above:Essential hypertensionStart: 07-18-2024 End: 72-71-0225Loxpcg outpatient visit 15 minutesMeghan Russell MD Work Phone: [facility] Physicians CardiologyComment on above: History of coronary angioplasty with insertion of stent (Primary Dx); Chronic atrial fibrillation ([facility]-HCC); Primary hypertension; Hyperlipidemia, unspecified hyperlipidemia typeStart: 07-18-2024 End: 19-12-6325dwwwocgvzuDFNFPDFI SHUAIBCrystal Clinic Orthopedic Centertart: 07-17-2024 End: 88-34-1876Hvzgkhecl encounterEvon Alvarez CMANortheastern Vermont Regional HospitalSarah Physicians CardiologyStart: 02-20-2024 End: 58-24-7698Hxbygpjje department patient visitGinger E Bullimore Facility:[facility] Andersontart: 02-20-2024 End: 41-96-0584Zwpemnpes department patient visitPATIENCE Garcia Work Phone: [place] Work Phone: Start: 02-09-2024 End: 02-17-7456uwokczxskaQZXKANT J CASTILLOSamaritan Hospitaltart: 02-09-2024 End: 07-27-5033Uqejqfq encounter procedureEscobar Garcia APRN-FOUNTAIN WAITRESS/WAITER Work Phone: [facility] Physicians Internal Medicine - Family MedicineComment on above:Medicare annual wellness visit, subsequent (Primary Dx); Chronic atrial fibrillation ([facility]-H[facility]); Gastroesophageal reflux disease without esophagitis; Acquired hypothyroidism; DM type 2 with diabetic mixed hyperlipidemia ([facility]-HCC)Start: 01-02-2024 End: 00-76-2747Aavvln outpatient visit 15 minutesEscobar Garcia AVIATION ORDNANCE OFFICER-FOUNTAIN WAITRESS/WAITER Work Phone: [facility] Internal Medicine - Family MedicineComment on above:Essential hypertension (Primary Dx); Chronic atrial fibrillation (CMS-HCC)Start: 12-12-2023 End: 94-60-3000Llrrlp outpatient visit 15 minutesEscobar Garcia AVIATION ORDNANCE OFFICER-FOUNTAIN WAITRESS/WAITER Work Phone: [facility] Internal Medicine - Family MedicineComment on above:Benign essential HTN (Primary Dx); Chronic atrial fibrillation (CMS-HCC); DM type 2 with diabetic mixed hyperlipidemia (CMS-HCC) ; Diabetic ulcer of toe of left foot associated with type 2 diabetes mellitus, unspecified ulcer stage (CMS-HCC)Start: 16-51-4607Bnbfkgace encounterManuel Childs [facility] Physicians CardiologyComment on above:SamplesStart: 12-55-1229VkyxcaJmzhywi J Castillo AVIATION ORDNANCE OFFICER-FOUNTAIN WAITRESS/WAITER Work Phone: [facility] Internal Medicine - Family MedicineComment on above:Acquired hypothyroidismStart: 60-31-2691Ipwupwado encounterEduarda Siddiqi LPBaptist Memorial Hospital Physicians CardiologyComment on above: eliquis 5mg samplesStart: 34-70-2571EpevkjImjmzksm Schlosser AVIATION ORDNANCE OFFICER-FOUNTAIN WAITRESS/WAITER Work Phone: [facility] CardiologyComment on above:Med RefillStart: 61-15-0183XkbudhKeulaad J Castillo AVIATION ORDNANCE OFFICER-FOUNTAIN WAITRESS/WAITER Work Phone: [facility] Internal Medicine - Family MedicineComment on above:Gastroesophageal reflux disease without esophagitis Start: 05-24-2023 End: 60-80-1792ztltqlwxcyNaopdxk J CastilloFacility:[facility] Andersontart: 05-24-2023 End: 31-09-7016nkulpvgbfgJZTaj Garcia Work Phone: [place] Work Phone: Start: 05-24-2023 End: 70-71-8320Aujoufa encounter procedureNP-Ramesh Garcia Work Phone: [facility] [address] Work Phone: Start: 12-31-2022 End: 23-93-3303earwfkjheyNKHFVFU CASTILLOFacility:Y8Jotce: 08-16-2022 End: 94-60-8860hwuypdquenKH AARON EVANGELISTAHOODFacility:O7Ckrqc: 04-27-2022 End: 50-45-8414qwlawlcrlaWTBSIGJ CASTILLOFacility:U5Edmrm: 01-14-2022 End: 05-22-8890ywpnayytvpSKJCVQU CASTILLOFacility:K6Ejosf: 01-58-6383Jipqyzd encounter procedureEscobar Garcia APRN-FOUNTAIN WAITRESS/WAITER Work Phone: [facility] Procedures DateProcedureProcedure DetailPerforming ClinicianStart: 86-89-4761Xbigpjso retinal eye examValepatricia Garcia APRN-LA Work Phone: Start: 40-44-9946Ztctk depression screening assessment Escobar Garcia APRN-LA Work Phone: Start: 50-01-5297Jwyk bld gluc mntr dev cleared fda spec home useAhtyrel Lopez MD Work Phone: Start: 59-91-1119Qhpj bld gluc mntr dev cleared fda spec home useDeyanira Lopez MD Work Phone: Start: 13-47-5919Lxkjbu-up visitFollow-upMOHAMMED SHUAIBStart: 47-11-9411Ucb routine ecg w/least 12 lds w/i&rMohammed Drew JEFF Work Phone: Start: 01-71-6169Hqzgacom retinal eye examJennsara Alvarez CMAStart: 45-57-1472VO cervical spine without contrastWILLARD-Ramesh Garcia Work Phone: Start: 01-40-4677EG of abdomen and pelvis without contrastNP-C Escobar Garcia Work Phone: Start: 76-70-2759GT of head without contrastNP-C Escobar Garcia Work Phone: Start: 45-26-8917Stfli depression screening assessment Escobar Garcia AVIATION ORDNANCE OFFICER-[facility] Work Phone: Start: 32-20-7148Gtcjp depression screening assessment Escobar Garcia AVIATION ORDNANCE OFFICER-[facility] Work Phone: Start: 86-76-5283Dhleo depression screening assessment Escobar Garcia AVIATION ORDNANCE OFFICER-[facility] Work Phone: Start: 10-14-3429Svgwd depression screening assessment Escobar Garcia AVIATION ORDNANCE OFFICER-[facility] Work Phone: Start: 33-20-0453Vcifqlpn retinal eye examEscobar Garcia AVIATION ORDNANCE OFFICER-[facility] Work Phone: History of placement of stent for coronary artery diseaseHistory of coronary angioplasty with insertion of stentMeghan Russell MD Work Phone: History of placement of stent for coronary artery diseaseHistory of coronary angioplasty with insertion of stentGuillermina Stinson PA-C Work Phone: Plan of Treatment DateCare ActivityDetailAuthorStart: 62-17-3290LHmE,Tdap and Td Vaccines (2 - Td or Tdap)DTaP,Tdap and Td Vaccines (2 - Td or Tdap)[facility] SystemStart: 26-88-3119Rbpik BMI ScreeningAdult BMI ScreeningAultman Alliance Community Hospital SystemStart: 93-56-0588Zrqcovd ScreeningTobacco ScreeningAultman Alliance Community Hospital SystemStart: 28-08-8219Repzvjud screeningDiabetic Ophthalmology ExamC[facility] Clinic [facility] Start: 83-44-5569Kowemv Use: CardiovascularStatin Use: CardiovascularAultman Alliance Community Hospital SystemStart: 28-55-8455Enkpob Use: DiabeticStatin Use: DiabeticAtrium Health Steele Creektart: 69-96-9273Mhrch BMI Follow Up PlanAdult BMI Follow Up Plan [facility] SystemStart: 64-45-6871Qnkts BMI ScreeningAdult BMI Screening [facility] SystemStart: 32-18-3307Fxjqxvxbqq ScreeningDepression Screening [facility] Creektart: 40-25-2454Sppf Risk ScreeningFall Risk Screening [facility] Creektart: 05-14-2026Medicare Annual Wellness VisitMedicare Annual Wellness VisitProSt. Anthony'S Hospital SystemStart: 24-90-3927Ybyggqy Screening Tobacco ScreeningAultman Alliance Community Hospital SystemStart: 80-10-6526Vbgqu BMI Screening Adult BMI ScreeningProSt. Anthony'S Hospital SystemStart: 97-49-3860Uzfbrxb Screening Tobacco ScreeningAultman Alliance Community Hospital SystemStart: 09-30-2025 End: 27-86-6087Nbdamnr encounter pyspqiphk62/22/2025 11:15 AM EST Office Visit [facility] [address] [place] [address] Meghan Russell MD [address] [place] [address] [facility] CardiologyStart: 08-26-2025 End: 70-88-8430Reernmj encounter procedureProMedica Physicians Internal Medicine - Family MedicineStart: 32-97-9899Gfzuq BMI Follow Up PlanAdult BMI Follow Up PlanAultman Alliance Community Hospital SystemStart: 91-38-8227Vunuu BMI ScreeningAdult BMI ScreeningAultman Alliance Community Hospital SystemStart: 08-91-1089Nydbxhm ScreeningTobacco ScreeningProSt. Anthony'S Hospital SystemStart: 61-70-1356Midnw BMI ScreeningAdult BMI ScreeningAultman Alliance Community Hospital SystemStart: 99-73-0277Cpgoaaa ScreeningTobacco ScreeningAultman Alliance Community Hospital SystemStart: 06-25-2025 End: 84-06-0481Yahxl metabolic 2000 panel - Serum or PlasmaBasic Metabolic Panel Lab Routine Primary hypertension Expected: 06/25/2025 (Approximate), Expires: 06/18/2026[facility] Work Phone: Comment on above:Expected: 06/25/2025 (Approximate), Expires: 06/18/2026Start: 06-18-2025 End: 35-33-7422Qoogeus encounter procedureProMedica Physicians CardiologyStart: 06-52-7663VRZFM-19 Vaccine ( season)COVID-19 Vaccine ()[facility] Creektart: 29-58-7590Atodewzk screeningDiabetic Ophthalmology ExamProSt. Anthony'S Hospital SystemStart: 02-20-2025 End: 16-08-4951Bvqshyp encounter hgbgoapzj60/14/2025 10:20 AM EDT [facility] [address] [place] [address] Escobar Garcia, AVIATION ORDNANCE OFFICER-[employer]WAITER [address] [place] [address] [facility] - Family MedicineStart: 02-19-2025 End: 37-86-2505Kdkhkrp encounter procedureNOMS ENDOCRINOLOGYComment on above: Type 2 diabetes mellitus with hyperglycemia, with long-term current use of insulin ([facility])Start: 24-30-2388Rxhqx BMI ScreeningAdult BMI Screening [facility] Creektart: 70-80-3466Jeedgufyus ScreeningDepression Screening [facility] Creektart: 67-57-5180Puyq Risk ScreeningFall Risk Screening [facility] Creektart: 05-02-2025Medicare Annual Wellness VisitMedicare Annual Wellness VisitAultman Alliance Community Hospital SystemStart: 91-66-7954Gctflvk Screening Tobacco ScreeningAtrium Health Steele Creektart: 12-73-5075YBZJJ-19 Vaccine ( season)COVID-19 Vaccine ()[facility] Start: 01-25-2025 End: 67-81-8899Nrygs metabolic 2000 panel - Serum or PlasmaBasic Metabolic Panel Lab Routine Primary hypertension Expected: 01/25/2025 (Approximate), Expires: 12/25/2025[facility] SystemComment on above:Expected: 01/25/2025 (Approximate), Expires: 12/25/2025Start: 01-03-2025 End: 42-73-8652Oilbqiyo Jhvbhav4101/03/2025 10:00 AM EDT Clinical Support [facility] [address] [place] [address] [phone] Physicians CardiologyStart: 42-12-5892Gsufi BMI Follow Up PlanAdult BMI Follow Up PlanProV[facility]ans [facility] SystemStart: 49-56-2091Hkylf BMI ScreeningAdult BMI ScreeningProVeterans Affairs Medical Center-Tuscaloosa [facility] SystemStart: 01-01-2025 End: 96-40-3221Progx metabolic 2000 panel - Serum or PlasmaBasic Metabolic Panel Lab Routine Primary hypertension Expected: 01/01/2025 (Approximate), Expires: 12/25/2025[facility] Work Phone: Comment on above:Expected: 01/01/2025 (Approximate), Expires: 12/25/2025Start: 38-93-4848Qjaaacukms ScreeningDepression Screening ProMBethesda Hospital SystemStart: 41-26-8476Jyoh Risk ScreeningFall Risk Screening ProMBethesda [facility] SystemStart: 03-23-9586Lgitwin ScreeningTobacco Screening [facility] SystemStart: 12-25-2024 End: 55-87-5709Qooekjb encounter cadnukron94/18/2025 12:00 PM EDT Office Visit [facility] [address] [place] [address] Guillermina Stinson PA-C [address] [place] [address] [facility] CardiologyStart: 93-82-5540Kvyzv BMI Follow Up PlanAdult BMI Follow Up PlanAultman Alliance Community Hospital SystemStart: 55-58-3020Ujwwv BMI ScreeningAdult BMI ScreeningAultman Alliance Community Hospital SystemStart: 57-27-7959Qfjoszxhdd ScreeningDepression ScreeningAultman Alliance Community Hospital SystemStart: 39-60-7652Ddas Risk ScreeningFall Risk ScreeningProSt. Anthony'S Hospital SystemStart: 31-71-8364Ksvwxfk ScreeningTobacco ScreeningAultman Alliance Community Hospital SystemStart: 04-88-2016Ditvm BMI Follow Up PlanAdult BMI Follow Up PlanAtrium Health Steele Creektart: 10-65-8016Uetpk BMI ScreeningAdult BMI ScreeningAultman Alliance Community Hospital SystemStart: 46-16-7500Irdunwusro ScreeningDepression ScreeningAt[facility] Health [facility] Creektart: 92-71-9555Bwpv Risk ScreeningFall Risk ScreeningAt[facility] Health [facility] Creektart: 96-98-4768Vsnqbqo ScreeningTobacco ScreeningAultman [facility] Start: 08-13-2024 End: 64-75-5268Ebfkoxi encounter lqabqoucx91/04/2024 10:20 AM EST Office Visit [facility] [address] [place] [address] Escobar Garcia, AVIATION ORDNANCE OFFICER-[employer]/WAITER [address] [place] [address] [facility] - Family MedicineStart: 07-18-2024 End: 88-21-0186Zgtnvxc encounter rrowbkpji74/09/2024 2:30 PM EDT Office Visit [facility] [address] [place] [address] Meghan Russell MD [address] [place] [address] [facility] CardiologyStart: 65-75-4099GAEUK- 19 Vaccine ( season)COVID-19 Vaccine ( season)[facility] SystemStart: 80-28-4917FHNVE-19 Vaccine ()COVID-19 Vaccine ()[facility] Creektart: 79-82-8537Ofsuwddv screeningDiabetic Ophthalmology ExamProUniversity Hospitals Par[facility] Medical Centertart: 02-09-2024 End: 90-13-4130Ylqbkjw encounter aoourtpdu47/02/2024 8:00 AM EDT Office Visit [facility] [address] [place] [address] Escobar Garcia, AVIATION ORDNANCE OFFICER-[employer]/WAITER [address] [place] [address] [facility] MedicineStart: 01-25-2024 End: 08-95-9957Tmghksb encounter ejvdxrtib65/17/2024 10:45 AM EDT Office Visit [facility] [address] [place] [address] Escobar Garcia, AVIATION ORDNANCE OFFICER-[employer]/WAITER [address] [place] [address] [facility] MedicineStart: 04-11-2024Medicare Annual Wellness VisitMedicare Annual Wellness VisitAtrium Health Steele Creektart: 01-02-2024 End: 40-82-7717Lqzddhl encounter jasydymlr36/25/2024 8:00 AM EDT Office Visit [facility] [address] [place] [address] Escobar Garcia, AVIATION ORDNANCE OFFICER-[employer]/WAITER [address] [place] [address] [facility] MedicineStart: 75-98-6855Hyygpnoj foot examinationDiabetic Foot ExamProSt. Anthony'S Hospital SystemStart: 09-13-2022 Pneumococcal Vaccine: 65+ Years (3 of 3 - PCV20 or PCV21)Pneumococcal Vaccine: 65+ Years (3 of 3 - PCV20 or PCV21)[facility] HealthcareStart: 55-93-8867Cymqtjnmntwa Vaccine: 65+ Years (3 of 3 - PPSV23 or PCV20)Pneumococcal Vaccine: 65+ Years (3 of 3 - PPSV23 or PCV20)[facility] HealthcareStart: 05-28-4333Tutzaqkkumvnpn of varicella zoster vaccineZoster (Shingles) Vaccine (3 of 3)[facility] SystemStart: 56-42-9672Adyvhlfzs for malignant neoplasm of colonColonoscopy [facility] SystemStart: 61-20-7580Ywfhqqydl for malignant neoplasm of colonNOMS HealthcareStart: 12-10-0033Vcaasw Use: CardiovascularStatin Use: CardiovascularCleveland Clinic [facility] Mule[employer] SystemStart: 15-77-1496Afllmv Use: DiabeticStatin Use: DiabeticNortheastern Vermont Regional HospitalRip van Wafels [facility] End: 89-54-5254Kvnvs metabolic 2000 panel - Serum or PlasmaBasic Metabolic Panel Lab Routine DM type 2 with diabetic mixed hyperlipidemia (CMS-HCC) 1 Occurrenc es starting 02/09/2024 until 02/08/2025[facility] HospitalCamioCamComment on above:1 Occurrences starting 02/09/2024 until 02/08/2025 End: 11-27-1343Usnie metabolic 2000 panel - Serum or PlasmaBasic Metabolic Panel Lab Routine DM type 2 with diabetic mixed hyperlipidemia (CMS-HCC) 1 Occurrenc es starting 02/20/2025 until 02/20/2026[facility] HospitalRip van Wafels SystemComment on above:1 Occurrences starting 02/20/2025 until 02/20/2026asic metabolic 2000 panel - Serum or PlasmaBasic Metabolic Panel Lab Routine DM type 2 with diabetic mixed hyperlipidemia (CMS-HCC) 0:09 AM Re Pet End: 73-33-6894Bkrmi panelLipid panel Lab Routine DM type 2 with diabetic mixed hyperlipidemia (CMS-HCC) 1 Occurrences starting 02/09/2024 until 02/08/2025 [facility] Work Phone: Comment on above:1 Occurrences starting 02/09/2024 until 02/08/2025 End: 66-22-6322Mynqh panelLipid panel Lab Routine DM type 2 with diabetic mixed hyperlipidemia (CMS-HCC) 1 Occurrences starting 02/20/2025 until 02/20/2026 [facility] Work Phone: Comment on above:1 Occurrences starting 02/20/2025 until 02/20/2026Lipid panelLipid panel Lab Routine DM type 2 with diabetic mixed hyperlipidemia (CMS-HCC) 02/20/2025 10:09 AM Re PetPatient EducationTaking care of bruises Coccyx Injury (DC) Constipation, Adult ED [facility] Work Phone: [facility] referralS[facility] Work Phone: Immunizations Immunization DateImmunizationNotesCare SuktfdqsJbervoww81-58-8850Ynpqwdohk Vaccine, Quadrivalent, AdjuvantedValerie Garcia AVIATION ORDNANCE OFFICER-[employer]/WAITER Work Phone: [facility] GeneralWcgzxs60-90-2118Tlamotecm, High-dose, QuadrivalentValerie Garcia AVIATION ORDNANCE OFFICER-[employer]/WAITER Work Phone: [facility]08-18-2021zoster vaccine, unspecified formulationValerie Garcia AVIATION ORDNANCE OFFICER-[employer]/WAITER Work Phone: [facility] GeneralCwjydt73-99-3018bpzyrltfs virus vaccine, unspecified formulationValerie Garcia AVIATION ORDNANCE OFFICER-[employer]/WAITER Work Phone: [facility] GeneralAqaydv93-40-0248Qgtoyzovj, High-dose, QuadrivalentValerie Garcia AVIATION ORDNANCE OFFICER-[employer]/WAITER Work Phone: [facility]10-14-2020tetanus toxoid, reduced diphtheria toxoid, and acellular pertussis vaccine, adsorbedNP-C Escobar Garcia Work Phone: [facility]12-05-2017 pneumococcal conjugate vaccine, 13 valentValerie Garcia AVIATION ORDNANCE OFFICER-[employer]ITER Work Phone: [facility]11-19-2014zoster vaccine, live Escobar Garcia AVIATION ORDNANCE OFFICER-[employer]/WAITER Work Phone: [facility] GeneralQsfgci43-14-7514rmlpcenubixi polysaccharide vaccine, 23 valentValerie Garcia AVIATION ORDNANCE OFFICER-[employer]/WAITER Work Phone: [facility] Payers DatePayer CategoryPayerPolicy [id number]-map [id number] Health InsuranceMEDICAL MUTUAL [id number] [facility]st[facility] MEDICAL MUTUAL Member Subscriber Plan / Payer (Effective 2019-Present) Name: Mitchell Ga Relation to Subscriber: Self Name: Mitchell Ga Payer ID: Not on file Type: Not on file Address: [address] [place] [id number]. [facility] CenterMED[facility] M[facility]UAL MMO TRADITIONAL [id number] 2019-Present [phone] [address] [place] [address] [id number] 2016Medicare [id number] [id number] [id number] 2.840.1.278234.3.57[id number] 2.840.1.134206.3.57[id number] 2.16.840.1.049279.3.57[id number] 2.16.840.1.043905.3.579.[id number] 2.16.840.1.529880.3.57[id number] 2.16.840.1.065525.3.57[id number] 2.16.840.1.298150.3.57[id number] 2.16.840.1.996232.3.57[id number] 2.16840.1.866173.3.57[id number] 2.16840.1.042744.3.57[id number] 2.16840.1.941954.3.57[id number] 2.16840.1.692602.3.57[id number] 2.16840.1.078239.3.57[id number] 2.16840.1.731234.3.57[id number] 2.16.840.1.408445.3.57[id number] 2.16.840.1.274969.3.57[id number] 2.16.840.1.024265.3.579.[id number] 2.16.840.1.946836.3.57[id number] 2.16.840.1.310287.3.57[id number] 2.16.840.1.506364.3.57[id number] 2.16.840.1.104578.3.579.2.1286UnknownMutual of Faafy302398-88 h14d0061-10m9-4919-[id number] 2.16.840.1.7[id number] 2.16.840.1.553176.3.579.2.531 Social History DateTypeDetailFacilityStart: 02-20-2022 End: 17-72-8924Gdarxyz smoking status NHISNever smoked tobacco (finding) [facility]art: 65-91-7796Hbn Assigned At BirthMale [facility] Andersontart: 45-14-2320Qzxkzhjlr beverage intake Lifetime non-drinker (finding)[facility] HealthcareStart: 10-29-2020 End: 40-81-4471Grrxkqv of Social functionProSt. Anthony'S Hospital SystemStart: 10-29-2020 End: 54-05-0103Vseokbf use panelAultman Alliance Community Hospital SystemStart: 00-42-5124Dof assigned at birthNot on [facility] HealthcareStart: 54-57-8403Mcjtoeq use and exposureSmokeless tobacco non-userAultman Alliance Community Hospital SystemStart: 08-13-2024 End: 98-30-0609Nyztcflry beverage intakeCurrent non-drinker of alcohol (finding) [facility] SystemAdolescent depression screening cttlilpxrx5LhsZxzigkAtrium Health Steele Creektart: 86-18-3618Tytrlsm Comment drank a beer once in college, didn't like it, never drank again [facility] SystemStart: 62-18-3888Jir Male (finding)[facility] SystemStart: 50-42-6486Lmsffg identityIdentifies as male gender (finding)[facility] SystemStart: 96-83-9014Eyjivf orientationHeterosexual (finding)[facility] [employer] [facility] Medical Equipment Procedure CodeEquipment CodeEquipment Original TextEquipment IdentifierDates System Cor Stnt 2.75mm X 15mm 145cm Xience Skypnt Mtlnk Charli - [id number]_[facility] FDAStart: 09-17-2021 Goals DatePatient GoalDesired Activity/StatePersonal health goalComment on above: Evaluation of progress towards goal: remain home with self care and family support Clinical Notes 11-06-2023 to 06-18-2025 Note Date & YgiiBlkeAugwrfie49-80-1667 History of Present illness Narrative* Serenity Maria PA-C - 06/18/2025 12:30 PM EDT Mitchell Berto Ga Date of visit: 06/18/2025 Date of : 1950 Age: 75 y.o. Patient Active Problem List Diagnosis Hypothyroidism Essential hypertension DM type 2 with diabetic mixed hyperlipidemia ([facility]) Medicare annual wellness visit, initial Screening for malignant neoplasm of prostate Uncontrolled type 2 diabetes mellitus with insulin therapy Diabetic ulcer of left foot associated with type 2 diabetes mellitus ([facility]) Diabetic polyneuropathy associated with type 2 diabetes mellitus ([facility]) Obesity (BMI 30-39.9) Microalbuminuria due to type 2 diabetes mellitus ([facility]) Mixed hyperlipidemia Other fatigue Other chest pain Chronic atrial fibrillation ([facility]) Abnormal stress test Coronary artery disease involving [place] coronary artery of [place] heart without angina pectoris Diabetic foot ([facility]) Hyponatremia Constipated Diabetic foot ulcer ([facility]) Foot ulcer, left ([facility]) No Known Allergies Current Outpatient Medications Medication Sig Dispense Refill amLODIPine (NORVASC) 10 mg tablet TAKE 1 TABLET EVERY MORNING 90 tablet 1 apixaban (ELIQUIS) 5 mg tablet Take 1 tablet (5 mg total) by mouth in the morning and 1 tablet (5 mg total) before bedtime. 180 tablet 2 aspirin 81 mg Take 1 tablet (81 mg total) by mouth in the morning. 90 tablet 3 cholecalciferol, vitamin D3, 2,000 units tablet Take 1 tablet (2,000 Units total) by mouth in the morning. famotidine (PEPCID) 40 mg tablet TAKE 1 TABLET EVERY MORNING 90 tablet 0 hydrOXYchloroQUINE (PLAQUENIL) 200 mg tablet Take 1 tablet (200 mg total) by mouth in the morning and 1 tablet (200 mg total) before bedtime. insulin NPH (HumuLIN N,NovoLIN N) 100 unit/mL injection Inject 0.56 mL (56 Units total) under the skin in the morning. 58-63 u daily. insulin regular (HumuLIN R,NovoLIN R) 100 unit/mL injection Inject 0.2 mL (20 Units total) under the skin in the morning and 0.2 mL (20 Units total) at noon and 0.2 mL (20 Units total) in the evening. Inject before meals. Sliding scale: 18 u small meal, 20 u med meal, 22 u large meal . levothyroxine (SYNTHROID, LEVOTHROID) 150 MCG tablet TAKE 1 TABLET EVERY MORNING 90 tablet 1 losartan (COZAAR) 100 mg tablet TAKE 1 TABLET EVERY MORNING 90 tablet 1 metFORMIN (GLUCOPHAGE) 1000 mg tablet Take 1 tablet (1,000 mg total) by mouth in the morning and 1 tablet (1,000 mg total) before bedtime. omega-3 fatty acids-fish oil 300-1,000 mg capsule Take 2 capsules (2 g total) by mouth in the morning. simvastatin (ZOCOR) 20 mg tablet TAKE 1 TABLET EVERY MORNING 90 tablet 1 carvediloL (COREG) 3.125 mg tablet Take 1 tablet (3.125 mg total) by mouth in the morning and 1 tablet (3.125 mg total) before bedtime. 60 tablet 11 spironolactone (ALDACTONE) 50 mg tablet Take 1 tablet (50 mg total) by mouth in the morning. 30 tablet 11 No current facility-administered medications for this visit. Chief Complaint Patient presents with Follow-up 6mo f/u l/s [facility] - sched appt w/pt History of Present Illness Mitchell Ga is a very pleasant 75-year-old gentleman who presents to the office today with his , Damari, for six-month follow-up. PMH significant for ASCVD s/p PCI with CHARLI to mid LAD 09/17/2021, persistent atrial fibrillation anticoagulated with Eliquis, essential hypertension, hyperlipidemia. Patient was last seen in office 12/25/2024 with Guillermina Stinson PA-C. Since his last visit, patient reports feeling well overall from a cardiovascular standpoint. Deniesepisodes of chest pain or discomfort, shortness of breath or dyspnea on exertion, palpitations, dizziness or lightheadedness, near-syncope or episodes of syncope, lower extremity swelling. BP in office 128/72. Patient does bring in his home blood pressure monitor, which is reading 10-15 points higher than the office cuff. His does report concern regarding patient's home heart rates. States that they are frequently in the low to mid 40s, patient does not believe he is symptomatic with this. Past Medical History: Diagnosis Date Arrhythmia Callus Diabetes mellitus ([facility]) Disease of thyroid gland Edema, lower extremity Fatigue Hyperlipidemia Hypertension Hypothyroidism Kidney stones Low vision without extraocular lens corrrection Obesity Osteomyelitis ([facility]) Ruptured eardrum Skin ulcer of toe ([facility]) No data recorded No data recorded No data recorded Past Surgical History: Procedure Laterality Date BONE BIOPSY Cardiac catheterization- Cors+LV gram/press 96246 N/A 09/17/2021 Performed by Ronal Ramirez MD at [facility] Coronary angiogram and left ventricular gram/pressure N/A 09/17/2021 Performed by Ronal Ramirez MD at [facility] EYE SURGERY 05/10/2021 burst blood vessels INGUINAL HERNIA REPAIR Right LITHOTRIPSY MULTIPLE TOOTH EXTRACTIONS Stent drug-eluting left anterior descending N/A 09/17/2021 Performed by Ronal Ramirez MD at [facility] TONSILLECTOMY Family History Problem Relation Age of Onset Diabetes Mother Heart disease Mother Leukemia Father Stroke Father Social History Socioeconomic History Marital status: Spouse name: Not on file Number of children: Not on file Years of education: Not on file Highest education level: Not on file Occupational History Not on file Tobacco Use Smoking status: Never Smokeless tobacco: Never Vaping Use Vaping status: Never Used Substance and Sexual Activity Alcohol use: No Comment: drank a beer once in college, didn't like it, never drank again Drug use: Never Sexual activity: Defer Partners: Female Other Topics Concern Caffeine Use Yes Social History Narrative Not on file Social Drivers of Health Financial Resource Strain: Not on file Food Insecurity: No Food Insecurity (06/18/2025) Hunger Screening Food Insecurity - Worry: Never True Food Insecurity - Inability: Never True Transportation Needs: Not on file Physical Activity: Not on file Stress: Not on file Social Connections: Not on file Interpersonal Safety: Not on file Housing Instability: Not on file Review of Systems Review of Systems Constitutional: Negative. HENT: Negative. Eyes: Negative. Cardiovascular: Negative. Respiratory: Negative. Endocrine: Negative. Hematologic/Lymphatic: Bruises/bleeds easily. Skin: Negative. Musculoskeletal: Negative. Gastrointestinal: Negative. Genitourinary: Negative. Neurological: Positive for numbness. Psychiatric/Behavioral: Negative. Allergic/Immunologic: Positive for environmental allergies. Vascular: Negative. CARDIOVASCULAR: Please review HPI. Physical Examination General appearance: Alert, oriented and cooperative. In no acute distress. Skin: Warm and dry to touch. Neck: No JVD, No carotid bruit. Neck supple, trachea midline. Respiratory: Clear to auscultation bilaterally, no use of accessory muscles. Cardiovascular: Irregular rhythm regular rate without significantly audible murmurs Musculoskeletal: No peripheral edema. VITAL SIGNS: BP 128/72 Pulse 52 Ht 190.5 cm (6' 3 ) Wt 105.7 kg (233 lb) SpO2 98% BMI 29.12 kg/m Orders Placed or Reconciled This Encounter Medications cholecalciferol, vitamin D3, 2,000 units tablet Sig: Take 1 tablet (2,000 Units total) by mouth in the morning. spironolactone (ALDACTONE) 50 mg tablet Sig: Take 1 tablet (50 mg total) by mouth in the morning. Dispense: 30 tablet Refill: 11 carvediloL (COREG) 3.125 mg tablet Sig: Take 1 tablet (3.125 mg total) by mouth in the morning and 1 tablet (3.125 mg total) before bedtime. Dispense: 60 tablet Refill: 11 Medications Discontinued During This Encounter Medication Reason silver sulfADIAZINE (SILVADENE, SSD) 1 % cream Therapy completed carvediloL (COREG) 6.25 mg tablet spironolactone (ALDACTONE) 25 mg tablet Reorder IMPRESSIONS/PLAN ASCVD s/p PCI with CHARLI to mid LAD 09/17/2021 No active anginal symptoms or concerns. Maintained on ASA, statin, beta-dede. Persistent atrial fibrillation Irregular rhythm, regular rate in the office today. Heart rate of 52. Rate controlled with carvedilol 6.25 mg twice daily. However, patient's expresses some concernregarding patient's low heart rates at home. States that they are frequently in the low 40s. Will decrease Carvedilol to 3.125 mg BID and increase Spironolactone to 50 mg QD to offset any HTN. BMP in 1 week with this change. Anticoagulated with Eliquis 5 mg BID. Essential hypertension Changes as above. Patient instructed to monitor blood pressures, preferably once daily, 1-2 hours after medication administration. Call the office with updates in 1-2 weeks or if persistently elevated in the 140s/90s or higher. Recommend low-salt diet and exercise routine. Hyperlipidemia. LDL of 37 on lipid panel 02/20/2025. Maintained on statin therapy. Patient will follow up in 3 months to reassess response to above pending home BP readings. Patient seen with Dr. Desai readily available in office. SERENITY MARIA PA-C TODAYS ORDERS Orders Placed This Encounter Procedures Basic Metabolic Panel FOLLOW UP Return in about 3 months (around 09/17/2025). PCP: NO PCP, NO PCP Referring Physician: CHUNG Carrillo [address] [place] [id number] Serenity Maria PA-C 06/18/25 1254 documented [facility] Instructions* Patient Instructions* Serenity Maria PA-C - 06/18/2025 12:30 PM EDT - Will decrease Carvedilol to 3.125 mg twice daily instead of 6.25. - Will increase Spironolactone to 50 mg daily. - Lab work in 1 week. - Monitor blood pressures and heart rates, preferably once daily, 1-2 hours after medication administration. Call the office with updates in 1-2 weeks or if blood pressures persistently elevated in the 140s/90s or higher. Recommend low- salt diet and exercise routine. - Follow up in 3 month. documented in this encounterC[facility]05-14-[facility]25 History of Present illness Narrative* CHUNG Carrillo - 02/20/2025 10:20 AM EDT Subjective SUBJECTIVE: Patient ID: Mitchell Ga is a 74 y.o. male who presents for a Medicare Annual Wellness exam. Presents for annual medicare wellness Is accompanied by his . Is managed by cardiology, endocrine, podiatry, and rheumatology. Drives. Does not use assistive gait devices for ambulation. The following portions of the patient's history were reviewed and updated as appropriate: allergies, current medications, past family history, past medical history, past social history, past surgicalhistory and problem list. Past Surgical History: Procedure Laterality Date BONE BIOPSY Cardiac catheterization- Cors+LV gram/press 70180 N/A 09/17/2021 Performed by Ronal Ramirez MD at [facility] Coronary angiogram and left ventricular gram/pressure N/A 09/17/2021 Performed by Ronal Ramirez MD at [facility] EYE SURGERY 05/10/2021 burst blood vessels INGUINAL HERNIA REPAIR Right LITHOTRIPSY MULTIPLE TOOTH EXTRACTIONS Stent drug-eluting left anterior descending N/A 09/17/2021 Performed by Ronal Ramirez MD at [facility] TONSILLECTOMY Past Medical History: Diagnosis Date Arrhythmia Callus Diabetes mellitus ([facility]) Disease of thyroid gland Edema, lower extremity Fatigue Hyperlipidemia Hypertension Hypothyroidism Kidney stones Low vision without extraocular lens corrrection Obesity Osteomyelitis ([facility]) Ruptured eardrum Skin ulcer of toe ([facility]) Immunization History Administered Date(s) Administered COVID-19, mRNA, LNP-S, PF, 100mcg/0.5mL Dose 12/11/2020, 01/08/2021, 08/20/2021 Covid-19, Mrna, Lnp-s, Pf,amber-sucrose,30 Mcg/0.3ml Seasonal 07/10/2023 Covid-19,mrna, Lnp-s, Pf, 50mcg/0.5ml 12+ Seasonal 08/07/2024 Influenza Vaccine, Quadrivalent, Adjuvanted 08/23/2022 Influenza, High-dose, Quadrivalent 09/16/2020, 08/04/2021 Influenza, Unspecified 09/16/2020 Pneumococcal Conjugate 13-Valent 09/13/2017 Pneumococcal Polysaccharide 10/01/2010 Tdap 07/23/2020 Zoster Live 08/28/2014 AWV FLOWSHEET : Lifestyle Assessment Do you smoke or use smokeless tobacco?: No If you smoke or use smokeless tobacco, are you ready to quit?: NA Are you exposed to secondhand smoke?: No On average, how many drinks of alcohol do you consume in a week?: None Do you exercise for 30 or more minutes on average at least 3 days a week?: Often Do you have any tooth, denture, or oral problems?: No Do you snore or has anyone told you that you snore?: (!) Yes Do you try to eat a balanced diet?: Yes Witnessed snoring, does not wish to pursue sleep study at this time. Fall Risk Depression Screening Little interest or pleasure in doing things: Not at all Feeling down, depressed, or hopeless: Not at all Trouble falling or staying asleep, or sleeping too much: Not at all Feeling tired or having little energy: Not at all Poor appetite or overeating: Not at all Feeling bad about yourself - or that you are a failure or have let yourself or your family down: Not at all Trouble concentrating on things, such as reading the newspaper or watching television: Not at all Moving or speaking so slowly that other people could have noticed. Or the opposite - being so fidgety or restless that you have been moving around a lot more than usual: Not at all Thoughts that you would be better off , or of hurting yourself in some way: Not at all Safety Assessment Do you have throw rugs on the floor?: (!) Yes Do you feel safe at your home?: Yes Do you feel unsteady when walking?: No Are you having difficulty with driving?: (!) Yes Do you have trouble seeing?: (!) Yes Throw rugs increase risk for slips, trips, and falls. Encourage yearly eye exams or as directed by eye provider. Hearing Assessment Do you strain or struggle to hear/understand conversations?: No Do you have trouble hearing the television or radio when others do not?: No Does your family ever voice concerns about your hearing?: No Do you wear hearing aid/s?: No Personal Health During the past 4 weeks, how would you rate your overall health?: (!) Fair Do you understand how to take all of your medications?: Yes How confident are you that you can control and manage most of your health problems?: Very confident In the past 12 months, how many times have you been hospitalized?: None Feels his health is fair because he is monitored by multiple specialties. End of Life Planning Do you have a living will?: (!) No Do you have a durable power of claim attorney?: Yes Patient educated today about benefits of having a Living Will and DPOA. Information packet providedtoday. Cognitive Screening Do you have trouble remembering or recalling facts or events?: No Do family members or caregivers report that you have difficulty remembering things?: No Clock Drawing Test: Normal REVIEW OF SYSTEMS: Review of Systems Constitutional: [...] Hematological: Does not bruise/bleed easily. Psychiatric/Behavioral: Negative. Objective PHYSICAL EXAMINATION: Vitals: 02/20/25 1006 BP: 122/58 BP Site: Left Arm BP Postition: Sitting BP CUFF SIZE: M (9-13 inches) Pulse: 53 Resp: 18 Temp: 36.4 C (97.6 F) TempSrc: Tympanic SpO2: 98% Weight: 108 kg (238 lb) Height: 190.5 cm (6' 3 ) Patient noted to have elevated BMI and the following intervention(s) were applied: encouragement toexercise. Relevant Labs: No results found for: HGBA1C No results found for: MICROALBUR , URINECREAT , ALBCREATRA Lab Results Component Value Date TSH 1.77 07/27/2024 TSH 3.19 01/18/2023 No results found for: VITD25 Lab Results Component Value Date WBC 4.5 12/13/2024 RBCCOUNT 4.79 12/13/2024 HGB 12.9 (L) 12/13/2024 HCT 39.0 12/13/2024 MCV 81 12/13/2024 MCH 26.9 (L) 12/13/2024 MCHC 33.1 12/13/2024 RDW 15.9 (H) 12/13/2024 PLT 159 12/13/2024 MPV 9.0 12/13/2024 Lab Results Component Value Date PSA 0.78 12/17/2021 PSA 1.18 12/09/2020 Lab Results Component Value Date SODIUM 137 01/03/2025 K 4.2 01/03/2025 CL 102 01/03/2025 CO2 27 01/03/2025 ANIONGAP 8 01/03/2025 BUN 22 01/03/2025 GLU 157 (H) 01/03/2025 CALCIUM 9.8 01/03/2025 TOTALPROTEI 6.6 12/13/2024 ALBUMIN 4.0 12/13/2024 ALKPHOS 69 12/13/2024 AST 19 12/13/2024 ALT 12 12/13/2024 GFR >60 02/25/2022 GFR >60 02/25/2022 Imaging: No results found. Physical Exam Vitals and nursing note reviewed. [...] Content: Thought content normal. Judgment: Judgment normal. Assessment/Plan ASSESSMENT/PLAN Lenin was seen today for maw. Diagnoses and all orders for this visit: Medicare annual wellness visit, subsequent DM type 2 with diabetic mixed hyperlipidemia ([facility]) - Lipid panel; Future - Basic Metabolic Panel; Future - Basic Metabolic Panel - Lipid panel Diabetic ulcer of toe of left foot associated with type 2 diabetes mellitus, unspecified ulcer stage ([facility]) Colonoscopy screening discussed today. Risk and benefits of procedure explained. Patient declines. Does not wish to pursue Cologuard. Labs drawn in office today Body mass index is 29.75 kg/m . Patient noted to have elevated BMI and the following intervention(s) were applied: Discussed current weight today. Consider healthy food choices, portion control. Avoid sugary beverages and high concentrated sweets. Routine exercise regimen encouraged. Depression: Not at risk (02/20/2025) PHQ-2 PHQ-2 Score: 0 Return in about 6 months (around 08/23/2025). There are no Patient Instructions on file for this visit. CHUNG Carrillo 02/20/25 1059 documented in this encounterC[facility]05-13-[facility]25 History of Present illness Narrative* Deyanira Lopez MD - 02/19/2025 10:50 AM EDT Mitchell Ga is a 74 y.o. male Deyanira Lopez MD presents with chief complaint of Diabetes andFollow-up HPI: History of Present Illness The patient is a 74-year-old male who presents for follow-up of diabetes type 2. He reports difficulties in obtaining his long-acting insulin, with the pharmacy only providing 2 vials instead of the full prescription. He has an excess supply of Humulin N, approximately 10 vials. His current treatment regimen includes 35 units of long-acting insulin and short-acting insulin on an as-needed basis. Additionally, he takes metformin 1000 mg twice daily. Interim History 08/2024: Followup visit 08/21/2024 for type 2 diabetes. A1c in the office 6.3 blood sugar 16. He is on Novolin N 33 once a day, Novolin R around 5-15 units every meal, metformin 1000 twice a day. CGM use compliant, and he admits he use it regularly. Interim History 02/2024: Followup visit 02/21/2024 for type 2 diabetes. A1c in the office 6.6 blood sugar 131. He is on Novolin N 35 once a day, Novolin R around 5-15 units every meal, metformin 1000 twice a day. CGM 2-78-20 AVG 150 Interim History 08/2023: Followup visit 08/16/2023 for type 2 diabetes. A1c in the office 7.2 blood sugar 115. He is on Novolin N 45 once a day, Novolin R around 10-15 units every meal, metformin 1000 twice a day. Interim History 02/2023: Followup visit 03/01/2023 for type 2 diabetes. A1c in the office 7.2 blood sugar 108. He is on Novolin N 60 once a day, Novolin R around 10-15 units every meal, metformin 1000 twice a day. had open small ulcer on bottom of right foot Interim History 08/2022: Followup visit 08/24/2022 for type 2 diabetes. A1c in the office 7.7, blood sugar 74. He is on Novolin N 60 once a day, Novolin R around 10-15 units every meal, metformin 1000 twice a day. lab on 08/2022 GFR>60, TC 103, HDL 47, TG 86, LDL 38, AL/CR 34, VIT D 47. Interim History 05/2022: Followup visit 05/25/2022 for type 2 diabetes. A1c in the office 7.1, blood sugar 132. He is on Novolin N 52 once a day, Novolin R around 15 units every meal, metformin 1000 twice a day. had open wound ulcer b/ land following Dr. Ben Dimas and wants a DM shoes Interim History 08/2021: Followup visit 08/25/2021 for type 2 diabetes. A1c in the office 7.9, blood sugar 105. He is on Novolin N 55 once a day, Novolin R around 18-20-22 units every meal, metformin 1000 twice a day. lab GFR >60, LDL 56, AL/CR 11, VIT D 47. Interim History 08/2020: Followup visit 08/26/2020 for type 2 diabetes. A1c in the office 7.8, blood sugar 192. He is on Novolin N 57 once a day, Novolin R around 15 to 18 units every meal, metformin 1000 twice a day. Interim History 08/28: Followup visit 08/28/19 for type 2 diabetes. A1c in the office 8, blood sugar 139. He is on NovolinN 25 twice a day, Novolin R around 15 to 18 units every meal, average 4 units daily, metformin 1000twice a day. Lab done, BUN 20, creatinine 0.8, GFR above 60, total cholesterol 139, HDL 50, triglycerides 140, LDL 71 and albumin/creatinine 43, vitamin D 50. Interim History 03/28: Followup visit on 03/22/2019 for type 2 diabetes. A1c in the office is 7.4, blood sugar 112. Unable to download his meter embrance, and he is on N. switch it to twice a day28 twice a day instead og 56daily, R 18-20 units every meal. Metformin 1000 twice a day. Interim History: 09/26 Followup visit on 09/12/18 for type 2 diabetes, A1c in the office 7.9, blood sugars 143. He is on NPH 63 at bedtime, R an average 18-20 units twice a day, metformin 1000 twice a day. Lab done: BUN 14,creatinine 0.8, GFR above 60, triglycerides 140, LDL 62, total cholesterol 135, HDL 45, albumin over creatinine 18, vitamin D 45, C-peptide 0.6. HPI: 03/27 Followup patient for type 2 diabetes. A1c in the office is 7.7. Blood sugar is 207. Meter lowest 32, highest 327, average 151. Labs in September showed BUN 20, creatinine 0.24, albumin/creatinine 26, vitamin D 47. He switched from Lantus/NovoLog to N&R, so he is on NPH 63 units at bedtime, R 18-20 every meal, and metformin 1000 twice a day. He has ulcer in his left toe, following Dr. Brush almost every week. Also, he has fungal infectionin the right 2nd toe. SUBJECTIVE: MEDICATIONS: Current Outpatient Medications Medication Instructions amLODIPine (NORVASC) 10 mg, Daily apixaban (ELIQUIS) 5 mg, 2 times daily aspirin 81 mg, Daily famotidine (PEPCID) 40 mg hydroCHLOROthiazide (HYDRODIURIL) 12.5 mg, Daily insulin NPH (Isophane) (HUMULIN N,NOVOLIN N) 33 Units, Subcutaneous, Nightly insulin regular (HumuLIN R,NovoLIN R) 100 UNIT/ML injection INJECT 5-10 UNITS SUBCUTANEOUSLY THREE TIMES A DAY.( TOTAL 30 UNITS DAILY) levothyroxine (Synthroid, Levoxyl) 150 MCG tablet 1 tablet, Daily before breakfast losartan (COZAAR) 100 mg, Daily metFORMIN (GLUCOPHAGE) 1,000 mg, Oral, 2 times daily with meals omega-3 acid ethyl esters (LOVAZA) 2 g, 2 times daily simvastatin (ZOCOR) 20 mg, Nightly ALLERGIES: No Known Allergies Past Medical History: Diagnosis Date Body mass index (BMI) 33.0-33.9, adult Essential (primary) hypertension ([facility]) 04/28/2005 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, 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 ([facility]) Obesity, unspecified Skin ulcer of great toe ([facility]) left Type 2 diabetes mellitus with diabetic polyneuropathy ([facility]) Type 2 diabetes mellitus with foot ulcer ([facility]) Type 2 diabetes mellitus with other circulatory complications ([facility]) Vitamin D deficiency, unspecified Past Surgical History: Procedure Laterality Date HERNIA REPAIR REVIEW OF SYMPTOMS: 14 POINT OF SYSTEM REVIEWED AND NEGATIVE OBJECTIVE: Constitutional: Afebrile @ home; no weakness or night sweats SKIN: No change in skin color; no itching, rash or lesions; no hair loss; HEENT: No HAs or injury; no dizziness; No difficulty with vision; no eye pain, discharge or lesions; no hearing loss or difficulty; no nasal discharge, NECK: No pain, limitation of motion, lumps or swollen glands RESP: No cough, wheezing or difficulty breathing. No CP with breathing; CARDIO: No CP , SOB or fatigue, No edema, palpitations or dyspnea with exertion GI: No N/V/D or abd. pain; good appetite with no recent change. No heart burn, liver or gallbladderdisease; no rectal bleeding or pain : No urinary pain , frequency or odor. MUSCULOSKELETAL: No muscle pain or cramps; no extremity weakness.No joint pain, stiffness, swellingor limitation of movement NEUROLOGY: No H/O seizures, stroke or fainting. No weakness, tremors. Hematology: No bleeding problems or excessive bruising ENDOCRINE: No increase in hunger, thirst or urination; admits compliance to medical management plan Feet: numbness tingling yes , ulcers or skin break yes right Lab Results Component Value Date HGBA1C 6.6 02/19/2025 HGBA1C 6.3 08/21/2024 Lab Results Component Value Date GLU 208 02/19/2025 GLU 157 (H) 01/03/2025 GLU 156 (H) 12/13/2024 Visit Vitals BP 112/64 Pulse 56 Resp 16 Ht 6' 3 Wt 239 lb SpO2 97% BMI 29.87 kg/m Smoking Status Never BSA 2.39 m 07/21/2021 12:00 PM 07/30/2021 12:00 PM 08/07/2021 12:00 PM 08/19/2021 12:00 PM 08/03/2024 7:23 AM 08/21/2024 11:18 AM 02/19/2025 10:43 AM Vitals BMI 31.25 kg/m2 29.5 kg/m2 29.87 kg/m2 BSA (m2) 2.45 m2 2.38 m2 2.39 m2 Systolic 146 131 140 134 142 112 Diastolic 67 72 76 69 66 64 Heart Rate 65 65 56 SpO2 96 % 97 % Resp 16 16 16 Height (in) 6' 3 6' 3 6' 3 6' 3 Weight (lb) 250 236 239 Visit Report Report Report ASSESSMENT AND PLAN: Assessment/Plan Diagnoses and all orders for this visit: Type 2 diabetes mellitus with hyperglycemia, with long-term current use of insulin ([facility]) - POCT glucose manually resulted - POCT glycosylated hemoglobin (Hb A1C) docked device - insulin NPH, Isophane, (HumuLIN N,NovoLIN N) 100 UNIT/ML injection; Inject 33 Units under the skin at bedtime Primary hypertension ([facility]) Vitamin D deficiency Encounter for dietary consultation Insulin long-term use ([facility]) Assessment & Plan 1. Type 2 Diabetes Mellitus: well-controlled - A1c level is 6.6, indicating good glycemic control. - Continuous Glucose Monitoring (CGM) interpretation shows 2% in the low range, 81% in the good range, and 17% in the high range, with an average glucose level of 144. - Currently on insulin therapy, taking 35 units of long-acting insulin (Humulin N) and using short-acting insulin (Humulin R) as needed. Metformin 1000 mg twice a day. - New prescription for Humulin N has been sent to ensure an adequate supply. No additional lab workis required at this time as kidney function is stable. Follow up in about 6 months (around 08/22/2025). documented in this encounterParkland Health [id number] Telephone encounter Note* Telephone Encounter - González Liu - 01/03/2025 10:33 AM EDT US Med needs last encounter to be addend and add CGM use compliant to note for continued servicesplease and thank you! [facility] [id number] Miscellaneous Notes* Telephone Encounter - González Liu - 01/03/2025 10:33 AM EDT Med needs last encounter to be addend and add CGM use compliant to note for continued servicesplease and thank you! documented in this encounterParkland Health [id number] Miscellaneous Notes* Telephone Encounter - Evon Alvarez CMA - 01/02/2025 10:44 AM EDT Called patient to remind them to bring their most current copy of their medication list with them to their appt. Patient verbalizes understanding. documented in this encounterC[facility]-26-2025 Telephone encounter Note* Telephone Encounter - Evon Alvarez CMA - 01/02/2025 10:44 AM EDT Called patient to remind them to bring their most current copy of their medication list with them to their appt. Patient verbalizes understanding. [facility]03-18-[facility] History of Present illness Narrative* Guillermina Stinson PA-C - 12/25/2024 12:00 PM EDT Mitchell Berto Ga Date of visit: 12/25/2024 Date of : 1950 Age: 74 y.o. Patient Active Problem List Diagnosis Hypothyroidism Essential hypertension DM type 2 with diabetic mixed hyperlipidemia ([facility]) Medicare annual wellness visit, initial Screening for malignant neoplasm of prostate Uncontrolled type 2 diabetes mellitus with insulin therapy Diabetic ulcer of left foot associated with type 2 diabetes mellitus ([facility]) Diabetic polyneuropathy associated with type 2 diabetes mellitus ([facility]) Obesity (BMI 30-39.9) Microalbuminuria due to type 2 diabetes mellitus ([facility]) Mixed hyperlipidemia Other fatigue Other chest pain Chronic atrial fibrillation ([facility]) Abnormal stress test Coronary artery disease involving [place] coronary artery of [place] heart without angina pectoris Diabetic foot ([facility]) Hyponatremia Constipated Diabetic foot ulcer ([facility]) Foot ulcer, left ([facility]) No Known Allergies Current Outpatient Medications Medication Sig Dispense Refill amLODIPine (NORVASC) 10 mg tablet TAKE 1 TABLET IN THE MORNING 90 tablet 1 apixaban (ELIQUIS) 5 mg tablet Take 1 tablet (5 mg total) by mouth in the morning and 1 tablet (5 mg total) before bedtime. 180 tablet 2 aspirin 81 mg Take 1 tablet (81 mg total) by mouth in the morning. 90 tablet 3 carvediloL (COREG) 6.25 mg tablet Take 1 tablet (6.25 mg total) by mouth in the morning and 1 tablet (6.25 mg total) before bedtime. 180 tablet 3 doxycycline (MONODOX) 100 mg capsule Take 1 capsule (100 mg total) by mouth in the morning and 1 capsule (100 mg total) before bedtime. famotidine (PEPCID) 40 mg tablet TAKE 1 TABLET IN THE MORNING 90 tablet 1 hydrOXYchloroQUINE (PLAQUENIL) 200 mg tablet Take 1 tablet (200 mg total) by mouth in the morning and 1 tablet (200 mg total) before bedtime. insulin NPH (HumuLIN N,NovoLIN N) 100 unit/mL injection Inject 0.56 mL (56 Units total) under the skin in the morning. 58-63 u daily. insulin regular (HumuLIN R,NovoLIN R) 100 unit/mL injection Inject 0.2 mL (20 Units total) under the skin in the morning and 0.2 mL (20 Units total) at noon and 0.2 mL (20 Units total) in the evening. Inject before meals. Sliding scale: 18 u small meal, 20 u med meal, 22 u large meal . levothyroxine (SYNTHROID, LEVOTHROID) 150 MCG tablet TAKE 1 TABLET EVERY MORNING 90 tablet 1 losartan (COZAAR) 100 mg tablet take 1 tablet every morning 90 tablet 1 metFORMIN (GLUCOPHAGE) 1000 mg tablet Take 1 tablet (1,000 mg total) by mouth in the morning and 1 tablet (1,000 mg total) before bedtime. omega-3 fatty acids-fish oil 300-1,000 mg capsule Take 2 capsules (2 g total) by mouth in the morning. silver sulfADIAZINE (SILVADENE, SSD) 1 % cream Apply 1 Application topically in the morning. simvastatin (ZOCOR) 20 mg tablet Take 1 tablet (20 mg total) by mouth in the morning. 90 tablet 1 hydroCHLOROthiazide (MICROZIDE) 12.5 mg capsule Take 2 capsules (25 mg total) by mouth daily. (Patient not taking: No sig reported) 60 capsule 2 spironolactone (ALDACTONE) 25 mg tablet Take 1 tablet (25 mg total) by mouth in the morning. 90 tablet 3 No current facility-administered medications for this visit. Chief Complaint Patient presents with Follow-up F/U EARLY FOR BP MED CHANGES Atrial Fibrillation Coronary Artery Disease Hypertension History of Present Illness Mitchell Ga 74-year-old male with a past medical history of coronary artery disease with DESto LAD, chronic atrial fibrillation, hypertension, hyperlipidemia Given concerns of elevated blood pressures patient was started on carvedilol 6.25 mg twice daily. Presents today for follow up blood pressures at home remain elevated consistently between 150s-160 systolic, however he has no complaints of chest pain, shortness of breath, heart palpitations or heart racing, is only lightheaded when his blood sugars low overall feels well. Past Medical History: Diagnosis Date Arrhythmia Callus Diabetes mellitus ([facility]) Disease of thyroid gland Edema, lower extremity Fatigue Hyperlipidemia Hypertension Hypothyroidism Kidney stones Low vision without extraocular lens corrrection Obesity Osteomyelitis ([facility]) Ruptured eardrum Skin ulcer of toe ([facility]) No data recorded No data recorded No data recorded Past Surgical History: Procedure Laterality Date BONE BIOPSY Cardiac catheterization- Cors+LV gram/press 61758 N/A 09/17/2021 Performed by Ronal Ramirez MD at [facility] Coronary angiogram and left ventricular gram/pressure N/A 09/17/2021 Performed by Ronal Ramirez MD at [facility] EYE SURGERY 05/10/2021 burst blood vessels INGUINAL HERNIA REPAIR Right LITHOTRIPSY MULTIPLE TOOTH EXTRACTIONS Stent drug-eluting left anterior descending N/A 09/17/2021 Performed by Ronal Ramirez MD at [facility] TONSILLECTOMY Family History Problem Relation Age of Onset Diabetes Mother Heart disease Mother Leukemia Father Stroke Father Social History Socioeconomic History Marital status: Spouse name: Not on file Number of children: Not on file Years of education: Not on file Highest education level: Not on file Occupational History Not on file Tobacco Use Smoking status: Never Smokeless tobacco: Never Vaping Use Vaping status: Never Used Substance and Sexual Activity Alcohol use: No Comment: drank a beer once in college, didn't like it, never drank again Drug use: Never Sexual activity: Defer Partners: Female Other Topics Concern Caffeine Use Yes Social History Narrative Not on file Social Drivers of Health Financial Resource Strain: Not on file Food Insecurity: No Food Insecurity (12/25/2024) Hunger Screening Food Insecurity - Worry: Never True Food Insecurity - Inability: Never True Transportation Needs: Not on file Physical Activity: Not on file Stress: Not on file Social Connections: Not on file Interpersonal Safety: Not on file Housing Instability: Not on file Review of Systems Review of Systems Constitutional: Positive for night sweats. HENT: Negative. Eyes: Negative. Respiratory: Negative. Hematologic/Lymphatic: Bruises/bleeds easily. Skin: Negative. Musculoskeletal: Negative. Gastrointestinal: Negative. Neurological: Positive for dizziness, light-headedness and numbness. Psychiatric/Behavioral: Negative. Allergic/Immunologic: Positive for environmental allergies. CARDIOVASCULAR: Please review HPI. Physical Examination General appearance: Alert, oriented and cooperative. In no acute distress. Skin: Warm and dry to touch. Head: Normocephalic, without obvious abnormality, atraumatic. Ears, Nose, Mouth, Throat: Throat clear without erythema or exudate. Dentition intact. Eyes: Conjunctivae unremarkable, EOM intact. Neck: No JVD Respiratory: Clear to auscultation bilaterally, no use of accessory muscles. Cardiovascular: Irregular rhythm, bradycardic rate with normal S1 and S2 with no murmurs. Gastrointestinal: Soft, non-tender Musculoskeletal: Trace edema Neurologic: Oriented to time, person and place, affect appropriate. No focal/major motor defects noted. Psychiatric: Appropriate mood, memory and judgement. VITAL SIGNS: BP 140/60 (BP Site: Left Arm, BP Postition: Sitting) Pulse 55 Ht 190.5 cm (6' 3 ) Wt 109.3 kg(241 lb) SpO2 95% BMI 30.12 kg/m Orders Placed or Reconciled This Encounter Medications doxycycline (MONODOX) 100 mg capsule Sig: Take 1 capsule (100 mg total) by mouth in the morning and 1 capsule (100 mg total) before bedtime. spironolactone (ALDACTONE) 25 mg tablet Sig: Take 1 tablet (25 mg total) by mouth in the morning. Dispense: 90 tablet Refill: 3 There are no discontinued medications. IMPRESSIONS/PLAN 1. Primary hypertension - continue amlodipine 10 mg, carvedilol 6.25 mg b.i.d., losartan 100 mg -unable to further titrate beta-dede given baseline bradycardic rate in the 50s -start spironolactone 25 mg with a BMP in 1 week and 1 month also does have some trace bilateral lower extremity edema -goal pressure less than 135/80 2. Chronic atrial fibrillation ([facility]) -continue Eliquis 5 mg b.i.d. no complaints of bleeding -rates well controlled 3. Dyslipidemia -LDL 44 well controlled, continue statin 4. Coronary artery disease involving [place] coronary artery of [place] heart without angina pectoris SP angioplasty with stent mid LAD 09/2021 5. DM type 2 with diabetic mixed hyperlipidemia ([facility]) Patient is stable from a cardiovascular standpoint, we will have him follow up in 1-2 weeks for a nurse visit to ensure his blood pressure cuff at home is accurate. Record blood pressure and heart rate 3 times per week. Call if systolic (top) number is consistently greater than 140 or less than 100 or diastolic (bottom) number is consistently greater than 90. Call if heart rate is consistently greater than 110 or less than 50. Patient will follow up in 6 months, if no concerns can follow up in [address] Fischer in the office. TODAYS ORDERS Orders Placed This Encounter Procedures Basic Metabolic Panel Basic Metabolic Panel FOLLOW UP Return in about 6 months (around 06/27/2025). PCP: CHUNG Carrillo Referring Physician: CHUNG Carrillo [address] [place] [address] Guillermina Stinson PA-C 12/25/24 1304 documented in this [facility]03-18-2025 Instructions* Patient Instructions* Guillermina Stinson PA-C - 12/25/2024 12:00 PM EDT Can call insurance to see if xarelto is cheaper than eliquis Record blood pressure and heart rate 3 times per week. Call if systolic (top) number is consistently greater than 140 or less than 100 or diastolic (bottom) number is consistently greater than 90. Call if heart rate is consistently greater than 110 or less than 50. Nurse visit in 2 weeks to a month with your blood pressure cuff. Start spirolactone 25mg -BMP in 1 week and one 1 month Follow up in 6 months, if blood pressures well controlled and no symptoms can cancel and continue with yearly. documented in this [facility]03-17-2025 Miscellaneous Notes* Telephone Encounter - Evon Alvarez CMA - 12/24/2024 3:13 PM EDT Called patient to remind them to bring their most current copy of their medication list with them to their appt. Patient verbalizes understanding. documented in this [facility]03-17-2025 Telephone encounter Note* Telephone Encounter - Evon Alvarez CMA - 12/24/2024 3:13 PM EDT Called patient to remind them to bring their most current copy of their medication list with them to their appt. Patient verbalizes understanding. [facility] Miscellaneous Notes* Telephone Encounter - Aurora Gerard RN - 12/11/2024 4:06 PM EST Received p/c from pt. Pt was started on HCTZ 09/2024 for elevated BP. Then coreg 3.125 mg was added10/12/24 continued elevated BP. Pt is diabetic and wears a continuous glucose monitor and glucose has gradually going up since starting HCTZ. Remembers that this happen before when was taking HCTZ. Pt wants to know if can stop HCTZ and increase coreg to 6.25 mg BID. Last saw Dr. Russell but is off. Will message Dr. REID * Telephone Encounter - Miguel A Givens DO - 12/11/2024 4:06 PM EST Okay to increase Coreg, would suggest follow-up appointment for blood pressure. * Telephone Encounter - Aurora Gerard RN - 12/11/2024 4:06 PM EST LM to return call to discuss med changes and set-up appt 4-6 wks [facility] Telephone encounter Note* Telephone Encounter - Aurora Gerard RN - 12/11/2024 4:06 PM EST Received p/c from pt. Pt was started on HCTZ 09/2024 for elevated BP. Then coreg 3.125 mg was added10/12/24 continued elevated BP. Pt is diabetic and wears a continuous glucose monitor and glucose has gradually going up since starting HCTZ. Remembers that this happen before when was taking HCTZ. Pt wants to know if can stop HCTZ and increase coreg to 6.25 mg BID. Last saw Dr. Russell but is off. Will message Dr. REID [facility]03-04-2025 Telephone encounter Note* Telephone Encounter - Miguel A Givens DO - 12/11/2024 4:06 PM EST Okay to increase Coreg, would suggest follow-up appointment for blood pressure. [employer] Work Phone: 1(678) 715-207903-04-2025 Telephone encounter Note* Telephone Encounter - Aurora Gerard RN - 12/11/2024 4:06 PM EST LM to return call to discuss med changes and set-up appt 4-6 wks [facility] Miscellaneous Notes* Telephone Encounter - Eduarda Siddiqi LPN - 10/15/2024 2:24 PM EST Samples of this drug were given to the patient, quantity 2 boxes, Lot Number [id number], exp 08/03 Last OV 08/02 Bmp 10/02 Cbc 08/02 documented in this [facility]-2025 Telephone encounter Note* Telephone Encounter - Eduarda Siddiiq LPN - 10/15/2024 2:24 PM EST Samples of this drug were given to the patient, quantity 2 boxes, Lot Number [id number], exp 08/03 Last OV 08/02 Bmp 10/02 Cbc 08/02 [facility]01-02-2025 Miscellaneous Notes* Telephone Encounter - Aurora Gerard RN - 10/11/2024 3:32 PM EST Received a p/c from pt to report BP. HCTZ was increased to 25 mg daily on 09/12/24. Pt also taking amlodipine 10 mg and Losartan 100 mg. Pt takes all 3 meds in A.M. States takes BP approx 1 hr after morning meds. Started taking BP 09/25/24 again. BP's mostly range 147-165/80's HR 60's-70's Had one BP 121/68. Denies any SOB or edema. Pt states that is on coreg and controls BP well wants to know if this is an option to switch to. Will message Dr. Russell for advice. * Telephone Encounter - Meghan Russell MD - 10/11/2024 3:32 PM EST Noted. Sure, can start Coreg 3.125 mg b.i.d.. Goal blood pressure less than 140/90. If still above goal cutting double the dose to 6.25 mg b.i.d. and let us know. Thank you * Telephone Encounter - Manuel Childs RN - 10/11/2024 3:32 PM EST [facility] [place] and reviewed with patient. Pt will start coreg 3.125 mg BID and keep good track of his BP/HRs. He will notify our office in the next few weeks and increase med as recommended if BP is not at goal. * Telephone Encounter - Yair Rubio APRN-[facility]WAITER - 10/11/2024 3:32 PM EST signed documented in this [facility]01-02-2025 Telephone encounter Note* Telephone Encounter - Aurora Gerard RN - 10/11/2024 3:32 PM EST Received a p/c from pt to report BP. HCTZ was increased to 25 mg daily on 09/12/24. Pt also taking amlodipine 10 mg and Losartan 100 mg. Pt takes all 3 meds in A.M. States takes BP approx 1 hr after morning meds. Started taking BP 09/25/24 again. BP's mostly range 147-165/80's HR 60's-70's Had one BP 121/68. Denies any SOB or edema. Pt states that is on coreg and controls BP well wants to know if this is an option to switch to. Will message Dr. Russell for advice. [facility]01-02-2025 Telephone encounter Note* Telephone Encounter - Meghan Russell MD - 10/11/2024 3:32 PM EST Noted. Sure, can start Coreg 3.125 mg b.i.d.. Goal blood pressure less than 140/90. If still above goal cutting double the dose to 6.25 mg b.i.d. and let us know. Thank you [employer] Work Phone: [phone] Telephone encounter Note* Telephone Encounter - Manuel Childs RN - 10/11/2024 3:32 PM EST [facility] [place] called and reviewed with patient. Pt will start coreg 3.125 mg BID and keep good track of his BP/HRs. He will notify our office in the next few weeks and increase med as recommended if BP is not at goal. [facility]01-02-2025 Telephone encounter Note* Telephone Encounter - CHUNG Bender - 10/11/2024 3:32 PM EST signed [facility]12-04-2024 Miscellaneous Notes* Telephone Encounter - Marysol Higgins RN - 09/12/2024 2:52 PM EST Images from the original note were not included. Marysol Higgins RN 09/12/2024 2:51 PM EST Back to Top Called pt he will increase the HCTZ 25 mg and continue to monitor B/P.slm Kevin Schwartz MD 09/12/2024 2:12 PM EST Looks like patient was already on amlodipine and losartan as well as the hydrochlorothiazide? Try increasing hydrochlorothiazide 25 mg a day to see if this makes any difference. Thanks. documented in this [facility]12-04-2024 Telephone encounter Note* Telephone Encounter - Marysol Higgins RN - 09/12/2024 2:52 PM EST Images from the original note were not included. Marysol Higgins RN 09/12/2024 2:51 PM EST Back to Top Called pt he will increase the HCTZ 25 mg and continue to monitor B/P.slm Kevin Schwartz MD 09/12/2024 2:12 PM EST Looks like patient was already on amlodipine and losartan as well as the hydrochlorothiazide? Try increasing hydrochlorothiazide 25 mg a day to see if this makes any difference. Thanks. [facility]11-12-2024 History of Present illness Narrative* Deyanira Lopez MD - 08/21/2024 11:10 AM EST Mitchell Ga is a 74 y.o. male Deyanira Lopez MD presents with chief complaint of Diabetes Mellitus and Follow-up HPI: Interim History 08/2024: Followup visit 08/21/2024 for type 2 diabetes. A1c in the office 6.3 blood sugar 16. He is on Novolin N 33 once a day, Novolin R around 5-15 units every meal, metformin 1000 twice a day. Interim History 02/2024: Followup visit 02/21/2024 for type 2 diabetes. A1c in the office 6.6 blood sugar 131. He is on Novolin N 35 once a day, Novolin R around 5-15 units every meal, metformin 1000 twice a day. CGM 2-78-20 AVG 150 Interim History 08/2023: Followup visit 08/16/2023 for type 2 diabetes. A1c in the office 7.2 blood sugar 115. He is on Novolin N 45 once a day, Novolin R around 10-15 units every meal, metformin 1000 twice a day. Interim History 02/2023: Followup visit 03/01/2023 for type 2 diabetes. A1c in the office 7.2 blood sugar 108. He is on Novolin N 60 once a day, Novolin R around 10-15 units every meal, metformin 1000 twice a day. had open small ulcer on bottom of right foot Interim History 08/2022: Followup visit 08/24/2022 for type 2 diabetes. A1c in the office 7.7, blood sugar 74. He is on Novolin N 60 once a day, Novolin R around 10-15 units every meal, metformin 1000 twice a day. lab on 08/2022 GFR>60, TC 103, HDL 47, TG 86, LDL 38, AL/CR 34, VIT D 47. Interim History 05/2022: Followup visit 05/25/2022 for type 2 diabetes. A1c in the office 7.1, blood sugar 132. He is on Novolin N 52 once a day, Novolin R around 15 units every meal, metformin 1000 twice a day. had open wound ulcer b/ land following Dr. Ben Dimas and wants a DM shoes Interim History 08/2021: Followup visit 08/25/2021 for type 2 diabetes. A1c in the office 7.9, blood sugar 105. He is on Novolin N 55 once a day, Novolin R around 18-20-22 units every meal, metformin 1000 twice a day. lab GFR >60, LDL 56, AL/CR 11, VIT D 47. Interim History 08/2020: Followup visit 08/26/2020 for type 2 diabetes. A1c in the office 7.8, blood sugar 192. He is on Novolin N 57 once a day, Novolin R around 15 to 18 units every meal, metformin 1000 twice a day. Interim History 08/28: Followup visit 08/28/19 for type 2 diabetes. A1c in the office 8, blood sugar 139. He is on NovolinN 25 twice a day, Novolin R around 15 to 18 units every meal, average 4 units daily, metformin 1000twice a day. Lab done, BUN 20, creatinine 0.8, GFR above 60, total cholesterol 139, HDL 50, triglycerides 140, LDL 71 and albumin/creatinine 43, vitamin D 50. Interim History 03/28: Followup visit on 03/22/2019 for type 2 diabetes. A1c in the office is 7.4, blood sugar 112. Unable to download his meter embrance, and he is on N. switch it to twice a day28 twice a day instead og 56daily, R 18-20 units every meal. Metformin 1000 twice a day. Interim History: 09/26 Followup visit on 09/12/18 for type 2 diabetes, A1c in the office 7.9, blood sugars 143. He is on NPH 63 at bedtime, R an average 18-20 units twice a day, metformin 1000 twice a day. Lab done: BUN 14,creatinine 0.8, GFR above 60, triglycerides 140, LDL 62, total cholesterol 135, HDL 45, albumin over creatinine 18, vitamin D 45, C-peptide 0.6. HPI: 03/27 Followup patient for type 2 diabetes. A1c in the office is 7.7. Blood sugar is 207. Meter lowest 32, highest 327, average 151. Labs in September showed BUN 20, creatinine 0.24, albumin/creatinine 26, vitamin D 47. He switched from Lantus/NovoLog to N&R, so he is on NPH 63 units at bedtime, R 18-20 every meal, and metformin 1000 twice a day. He has ulcer in his left toe, following Dr. Brush almost every week. Also, he has fungal infectionin the right 2nd toe. SUBJECTIVE: MEDICATIONS: No current outpatient medications ALLERGIES: No Known Allergies Past Medical History: Diagnosis Date Body mass index (BMI) 33.0-33.9, adult Essential (primary) hypertension ([facility]) 04/28/2005 Foot ulcer, right (HCC) ([facility]) custodial (current) use of insulin ([facility]) Obesity, unspecified Skin ulcer of great toe ([facility]) left Type 2 diabetes mellitus with diabetic polyneuropathy ([facility]) Type 2 diabetes mellitus with foot ulcer ([facility]) Type 2 diabetes mellitus with other circulatory complications ([facility]) Vitamin D deficiency, unspecified Past Surgical History: Procedure Laterality Date HERNIA REPAIR REVIEW OF SYMPTOMS: 14 POINT OF SYSTEM REVIEWED AND NEGATIVE OBJECTIVE: Constitutional: Afebrile @ home; no weakness or night sweats SKIN: No change in skin color; no itching, rash or lesions; no hair loss; HEENT: No HAs or injury; no dizziness; No difficulty with vision; no eye pain, discharge or lesions; no hearing loss or difficulty; no nasal discharge, NECK: No pain, limitation of motion, lumps or swollen glands RESP: No cough, wheezing or difficulty breathing. No CP with breathing; CARDIO: No CP , SOB or fatigue, No edema, palpitations or dyspnea with exertion GI: No N/V/D or abd. pain; good appetite with no recent change. No heart burn, liver or gallbladderdisease; no rectal bleeding or pain : No urinary pain , frequency or odor. MUSCULOSKELETAL: No muscle pain or cramps; no extremity weakness.No joint pain, stiffness, swellingor limitation of movement NEUROLOGY: No H/O seizures, stroke or fainting. No weakness, tremors. Hematology: No bleeding problems or excessive bruising ENDOCRINE: No increase in hunger, thirst or urination; admits compliance to medical management plan Feet: numbness tingling yes , ulcers or skin break yes right Lab Results Component Value Date HGBA1C 6.3 08/21/2024 Lab Results Component Value Date GLU 164 08/21/2024 GLU 112 (H) 02/09/2024 GLU 125 (H) 02/25/2022 Visit Vitals BP 142/66 Pulse 65 Resp 16 Ht 6' 3 Wt 236 lb BMI 29.50 kg/m Smoking Status Never BSA 2.38 m ASSESSMENT AND PLAN: Assessment/Plan Diagnoses and all orders for this visit: Type 2 diabetes mellitus with hyperglycemia, with long-term current use of insulin ([facility]) - POCT glucose manually resulted - POCT glycosylated hemoglobin (Hb A1C) docked device Will c/o Humulin N 33 units, are average 5-10 units every meal, metformin 1000 twice a day. Primary hypertension ([facility]) Vitamin D deficiency Encounter for dietary consultation Diet and exercise reviewed with the patient Insulin long-term use ([facility]) Follow up in about 6 months (around 02/18/2025). documented in this encounterParkland Health [id number] History of Present illness Narrative* Escobar Garcia APRN-[facility]/WAITER - 08/13/2024 10:20 AM EST Images from the original note were not included. [address] [facility] [address] SUBJECTIVE: Patient ID: Mitchell Ga is a 74 y.o. male. Chief Complaint Patient presents with Hypertension Diabetes Presents for routine follow up Is managed by cardiology, endocrine, podiatry, and rheumatology. Offers no complaints today Hypertension This is a chronic problem. The current episode started more than 1 year ago. The problem is controlled. Associated symptoms include chest pain. Pertinent negatives include no headaches, palpitations or shortness of breath. Agents associated with hypertension include thyroid hormones. Risk factors for coronary artery disease include male gender, obesity, diabetes mellitus, dyslipidemia and family history. Past treatments include ALCON inhibitors and diuretics. The current treatment provides significant improvement. There are no compliance problems. Identifiable causes of hypertension include a thyroid problem. Diabetes He presents for his follow-up diabetic visit. He has type 2 diabetes mellitus. His disease course has been stable. Pertinent negatives for hypoglycemia include no headaches or seizures. Associated symptoms include chest pain, fatigue and foot paresthesias. Pertinent negatives for diabetes include no polydipsia, no polyphagia and no polyuria. Symptoms are stable. Diabetic complications include impotence and nephropathy. Risk factors for coronary artery disease include diabetes mellitus, dyslipidemia, family history, hypertension, male sex and obesity. Current diabetic treatment includes intensive insulin program and oral agent (monotherapy). He is compliant with treatment all of the time. His weight is stable. He is following a low fat/cholesterol diet. Meal planning includes avoidance of concentrated sweets. He participates in exercise intermittently. There is no change in his home blood glucose trend. An ALCON inhibitor/angiotensin II receptor dede is being taken. He sees a slate cutter. Hyperlipidemia This is a chronic problem. The current episode started more than 1 year ago. The problem is controlled. Exacerbating diseases include diabetes and hypothyroidism. Associated symptoms include chest pain. Pertinent negatives include no shortness of breath. Current antihyperlipidemic treatment includes statins. The current treatment provides significant improvement of lipids. Hypothyroidism Presents for follow-up visit. Symptoms include fatigue. Patient reports no depressed mood, palpitations or weight gain. The symptoms have been stable. His past medical history is significant for diabetes and hyperlipidemia. The following portions of the patient's history were reviewed and updated as appropriate: allergies, current medications, past family history, past medical history, past social history, past surgicalhistory and problem list. Past Surgical History: Procedure Laterality Date BONE BIOPSY Cardiac catheterization- Cors+LV gram/press [id number] N/A 09/17/2021 Performed by Ronal Ramirez MD at [facility] Coronary angiogram and left ventricular gram/pressure N/A 09/17/2021 Performed by Ronal Ramirez MD at [facility] EYE SURGERY 05/10/2021 burst blood vessels INGUINAL HERNIA REPAIR Right LITHOTRIPSY MULTIPLE TOOTH EXTRACTIONS Stent drug-eluting left anterior descending N/A 09/17/2021 Performed by Ronal Ramirez MD at [facility] TONSILLECTOMY Past Medical History: Diagnosis Date Arrhythmia Callus Diabetes mellitus ([facility]) Disease of thyroid gland Edema, lower extremity Fatigue Hyperlipidemia Hypertension Hypothyroidism Kidney stones Low vision without extraocular lens corrrection Obesity Osteomyelitis ([facility]) Ruptured eardrum Skin ulcer of toe ([facility]) Immunization History Administered Date(s) Administered COVID-19, mRNA, LNP-S, PF, 100mcg/0.5mL Dose 12/11/2020, 01/08/2021, 08/20/2021 Covid-19, Mrna, Lnp-s, Pf,amber-sucrose,30 Mcg/0.3ml Fall23 07/10/2023 Covid-19,mrna, Lnp-s, Pf, 50mcg/0.5ml 12+ 08/07/2024 Influenza Vaccine, Quadrivalent, Adjuvanted 08/23/2022 Influenza, High-dose, Quadrivalent 09/16/2020, 08/04/2021 Influenza, Unspecified 09/16/2020 Pneumococcal Conjugate 13-Valent 09/13/2017 Pneumococcal Polysaccharide 10/01/2010 Tdap 07/23/2020 Zoster Live 08/28/2014 REVIEW OF SYSTEMS: Review of Systems Constitutional: Negative for chills and fever. HENT: Negative for hearing loss and trouble swallowing. Eyes: Negative for pain and visual disturbance. Respiratory: Negative for cough and chest tightness. Cardiovascular: Negative for leg swelling. Gastrointestinal: Negative for blood in stool. Genitourinary: Negative for difficulty urinating, dysuria, flank pain, hematuria, scrotal swelling and testicular pain. Musculoskeletal: Negative. Skin: Negative. Allergic/Immunologic: Negative. Neurological: Negative for syncope. Hematological: Does not bruise/bleed easily. Psychiatric/Behavioral: Negative. PHYSICAL EXAMINATION: Vitals: 08/13/24 1039 BP: 144/60 BP Site: Left Arm BP Postition: Sitting Pulse: 54 Resp: 18 Temp: 36.4 C (97.5 F) TempSrc: Oral SpO2: 97% Weight: 106.1 kg (233 lb 12.8 oz) Height: 190.5 cm (6' 3 ) Patient noted to have elevated BMI and the following intervention(s) were applied: encouragement toexercise. Physical Exam Vitals and nursing note reviewed. [...] normal. ASSESSMENT/PLAN: Lenin was seen today for hypertension and diabetes. Diagnoses and all orders for this visit: GERD without esophagitis Acquired hypothyroidism - levothyroxine (SYNTHROID, LEVOTHROID) 150 MCG tablet; Take 1 tablet (150 mcg total) by mouth in the morning. DM type 2 with diabetic mixed hyperlipidemia (CMS-HCC) - simvastatin (ZOCOR) 20 mg tablet; Take 1 tablet (20 mg total) by mouth in the morning. Chronic atrial fibrillation (CMS-HCC) Benign essential HTN 1. Type 2 DM All DM care is managed through endocrine Reviewed labs recently obtained. Will obtain endo progress notes. Is followed several times per month per podiatry for chronic foot ulceration 2. Hypothyroidism Stable. Reorder levothyroxine. 3. Hyperlipidemia Reorder atorvastatin 4. GERD Limit or avoid trigger foods and beverages. Consider weight loss. Continue famotidine 5. Chronic atrial fibrillation Samples of Eliquis provided today Managed by cardiology 6. HTN Mildly elevated 144/60 Was seen by cardiology recently. Was prescribed HCTZ. He has not started this yet. I encourage him to start. Continue losartan and amlodipine ALL QUESTIONS ANSWERED Total time spent was 30 minutes: Preparing to see the patient (e.g., review of tests) Obtaining and/or reviewing separately obtained history Performing a medically appropriate examination and/or evaluation Counseling and educating the patient/family/caregiver Ordering medications, tests, or procedures Follow-up: Medicare wellness Escobar Garcia, ALISHA-[facility] WAITRESS/WAITER 08/13/24 1135 documented in this [facility]10-29-2024 Miscellaneous Notes* Telephone Encounter - Aurora Gerard RN - 08/07/2024 1:41 PM EDT Pt called to report BP taken 2 hrs after taking morning meds. 07/25/24 BP 154/89 07/27/24 BP 158/82 07/29/24 BP 152/71 07/30/24 BP 158/80 07/31/24 BP 156/94 08/03/24 BP 140/67 08/04/24 BP 139/77 08/07/24 BP 121/[address] Drew carranza/ results and return call to pt. * Telephone Encounter - Meghan Russell MD - 08/07/2024 1:41 PM EDT Reviewed. Recommend starting hydrochlorothiazide 12.5 mg daily. Continue mild blood pressure with goal less than 135/85, if persistently above goal to increase dose to 25 mg daily. Let us also plan to check basic metabolic panel and magnesium in 2 weeks. Thank you documented in this [facility]10-29-2024 Telephone encounter Note* Telephone Encounter - Aurora Gerard RN - 08/07/2024 1:41 PM EDT Pt called to report BP taken 2 hrs after taking morning meds. 07/25/24 BP 154/89 07/27/24 BP 158/82 07/29/24 BP 152/71 07/30/24 BP 158/80 07/31/24 BP 156/94 08/03/24 BP 140/67 08/04/24 BP 139/77 08/07/24 BP 121/[address] Drew carranza/ results and [facility] pt. [facility] [id number] Telephone encounter Note* Telephone Encounter - Meghan Russell MD - 08/07/2024 1:41 PM EDT Reviewed. Recommend starting hydrochlorothiazide 12.5 mg daily. Continue mild blood pressure with goal less than 135/85, if persistently above goal to increase dose to 25 mg daily. Let us also plan to check basic metabolic panel and magnesium in 2 weeks. Thank you [facility] Work Phone: [phone] Miscellaneous Notes* Telephone Encounter - Becca Mccall RN - 07/27/2024 2:49 PM EDT Patient dropped off blood pressure readings. Does not note if these readings were taken before medsor after. Amml asking patient to call to update us. 139/71 139/87 144/76 129/76 147/83 154/89 * Telephone Encounter - Becca Mccall RN - 07/27/2024 2:49 PM EDT Patient called and said that he was taking bp in the am before meds. He will start monitoring bp 2 hours after meds and will call back next week w/an updated log. [facility] Telephone encounter Note* Telephone Encounter - Becca Mccall RN - 07/27/2024 2:49 PM EDT Patient dropped off blood pressure readings. Does not note if these readings were taken before medsor after. Amml asking patient to call to update us. 139/71 139/87 144/76 129/76 147/83 154/89 [facility] [id number] Telephone encounter Note* Telephone Encounter - Becca Mccall RN - 07/27/2024 2:49 PM EDT Patient called and said that he was taking bp in the am before meds. He will start monitoring bp 2 hours after meds and will call back next week w/an updated log. [employer] [id number] History of Present illness Narrative* Meghan Russell MD - 07/18/2024 2:30 PM EDT Mitchell Ga Date of visit: 07/18/2024 Date of : 1950 Age: 74 y.o. Patient Active Problem List Diagnosis Hypothyroidism Essential hypertension DM type 2 with diabetic mixed hyperlipidemia ([facility]) Medicare annual wellness visit, initial Screening for malignant neoplasm of prostate Uncontrolled type 2 diabetes mellitus with insulin therapy Diabetic ulcer of left foot associated with type 2 diabetes mellitus ([facility]) Diabetic polyneuropathy associated with type 2 diabetes mellitus ([facility]) Obesity (BMI 30-39.9) Microalbuminuria due to type 2 diabetes mellitus ([facility]) Mixed hyperlipidemia Other fatigue Other chest pain Chronic atrial fibrillation ([facility]) Abnormal stress test Coronary artery disease involving [place] coronary artery of [place] heart without angina pectoris Diabetic foot ([facility]) Hyponatremia Constipated Diabetic foot ulcer ([facility]) Foot ulcer, left ([facility]) No Known Allergies Current Outpatient Medications Medication Sig Dispense Refill amLODIPine (NORVASC) 10 mg tablet Take 1 tablet (10 mg total) by mouth in the morning. 90 tablet 1 apixaban (ELIQUIS) 5 mg tablet Take 1 tablet (5 mg total) by mouth in the morning and 1 tablet (5 mg total) before bedtime. 180 tablet 0 aspirin 81 mg Take 1 tablet (81 mg total) by mouth in the morning. 90 tablet 3 famotidine (PEPCID) 40 mg tablet TAKE 1 TABLET IN THE MORNING 90 tablet 1 hydrOXYchloroQUINE (PLAQUENIL) 200 mg tablet Take 1 tablet (200 mg total) by mouth in the morning and 1 tablet (200 mg total) before bedtime. insulin NPH (HumuLIN N,NovoLIN N) 100 unit/mL injection Inject 0.56 mL (56 Units total) under the skin in the morning. 58-63 u daily. insulin regular (HumuLIN R,NovoLIN R) 100 unit/mL injection Inject 0.2 mL (20 Units total) under the skin in the morning and 0.2 mL (20 Units total) at noon and 0.2 mL (20 Units total) in the evening. Inject before meals. Sliding scale: 18 u small meal, 20 u med meal, 22 u large meal . levothyroxine (SYNTHROID, LEVOTHROID) 150 MCG tablet Take 1 tablet (150 mcg total) by mouth in the morning. 90 tablet 1 losartan (COZAAR) 100 mg tablet Take 1 tablet (100 mg total) by mouth in the morning. 90 tablet 1 metFORMIN (GLUCOPHAGE) 1000 mg tablet Take 1 tablet (1,000 mg total) by mouth in the morning and 1 tablet (1,000 mg total) before bedtime. omega-3 fatty acids-fish oil 300-1,000 mg capsule Take 2 capsules (2 g total) by mouth in the morning. silver sulfADIAZINE (SILVADENE, SSD) 1 % cream Apply 1 Application topically in the morning. simvastatin (ZOCOR) 20 mg tablet Take 1 tablet (20 mg total) by mouth in the morning. 90 tablet 1 No current facility-administered medications for this visit. Chief Complaint Patient presents with Follow-up EST PT F/U 1 YR GEN CARD L/S VG, History of Present Illness Patient with history of coronary disease with stent to the LAD, chronic atrial fibrillation, hypertension, hyperlipidemia, diabetes. Here for routine follow-up. Doing well. No chest pain or shortness of breath or palpitations or dizziness orthopnea or edema. No syncope or presyncope. Blood pressure mildly elevated today. Has not been monitoring closely at home. 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 Dealing with a foot ulcer for which he is following with podiatry. No tobacco use or alcohol use or recreational drug use. Has lost weight over the last year as he has been controlling his diet and staying active. Past Medical History: Diagnosis Date Arrhythmia Callus Diabetes mellitus ([facility]) Disease of thyroid gland Edema, lower extremity Fatigue Hyperlipidemia Hypertension Hypothyroidism Kidney stones Low vision without extraocular lens corrrection Obesity Osteomyelitis ([facility]) Ruptured eardrum Skin ulcer of toe ([facility]) No data recorded No data recorded No data recorded Past Surgical History: Procedure Laterality Date BONE BIOPSY Cardiac catheterization- Cors+LV gram/press [id number] N/A 09/17/2021 Performed by Ronal Ramirez MD at [facility] Coronary angiogram and left ventricular gram/pressure N/A 09/17/2021 Performed by Ronal Ramirez MD at [facility] EYE SURGERY 05/10/2021 burst blood vessels INGUINAL HERNIA REPAIR Right LITHOTRIPSY MULTIPLE TOOTH EXTRACTIONS Stent drug-eluting left anterior descending N/A 09/17/2021 Performed by Ronal Ramirez MD at [facility] TONSILLECTOMY Family History Problem Relation Age of Onset Diabetes Mother Heart disease Mother Leukemia Father Stroke Father Social History Socioeconomic History Marital status: Spouse name: Not on file Number of children: Not on file Years of education: Not on file Highest education level: Not on file Occupational History Not on file Tobacco Use Smoking status: Never Smokeless tobacco: Never Vaping Use Vaping status: Never Used Substance and Sexual Activity Alcohol use: No Comment: drank a beer once in college, didn't like it, never drank again Drug use: Never Sexual activity: Defer Partners: Female Other Topics Concern Caffeine Use Yes Social History Narrative Not on file Social Determinants of Health Financial Resource Strain: Not on file Food Insecurity: No Food Insecurity (07/18/2024) Hunger Screening Food Insecurity - Worry: Never True Food Insecurity - Inability: Never True Transportation Needs: Not on file Physical Activity: Not on file Stress: Not on file Social Connections: Not on file Interpersonal Safety: Not on file Housing Instability: Not on file Review of Systems Review of Systems Respiratory: Negative for cough, hemoptysis and wheezing. Gastrointestinal: Negative for abdominal pain, change in bowel habit and hematochezia. Genitourinary: Negative for dysuria and hematuria. Neurological: Negative for focal weakness, headaches and paresthesias. CARDIOVASCULAR: Please review HPI. Physical Examination General appearance: Alert, oriented and cooperative. In no acute distress. Skin: Warm and dry to touch. Head: Normocephalic, without obvious abnormality, atraumatic. Ears, Nose, Mouth, Throat: Throat clear without erythema or exudate. Dentition intact. Eyes: Conjunctivae unremarkable, EOM intact. Neck: No JVD, No carotid bruit. Neck supple, trachea midline. Respiratory: Clear to auscultation bilaterally, no use of accessory muscles. Cardiovascular: RRR with normal S1 and S2 with no murmurs. Gastrointestinal: Soft, non-tender. Bowel sounds normal. Musculoskeletal: No peripheral edema. Neurologic: Oriented to time, person and place, affect appropriate. No focal/major motor defects noted. Psychiatric: Appropriate mood, memory and judgement. VITAL SIGNS: BP 140/52 (BP Site: Left Arm, BP Postition: Sitting) Pulse 65 Ht 190.5 cm (6' 3 ) Wt 106.3 kg(234 lb 6.4 oz) SpO2 98% BMI 29.30 kg/m Orders Placed or Reconciled This Encounter Medications silver sulfADIAZINE (SILVADENE, SSD) 1 % cream Sig: Apply 1 Application topically in the morning. There are no discontinued medications. IMPRESSIONS/PLAN 1. History of coronary angioplasty with insertion of stent - POCT EKG 2. Chronic atrial fibrillation ([facility]) 3. Primary hypertension 4. Hyperlipidemia, unspecified hyperlipidemia type Previous cardiac related labs and test results were reviewed and discussed with the patient. CAD s/p mLAD stent 09/2021 Chronic atrial fibrillation on Eliquis Normal EF on LV gram 09/2021 Hypertension Hyperlipidemia- 02/2024: TC 110, HDL 48, LDL 44, Trig 91 Type II diabetes mellitus Patient is here for follow-up visit. Doing well stable from a cardiac standpoint. No cardiac testing ordered today. Recommended monitor blood pressure closely at home with goal less than 135/85 let us know if persistently above goal. No changes in his medications today. Congratulated on losing weight. Encouraged to continue with diet, exercise and weight loss. Follow-up in 12 months or sooner if needed. Patient to call us with any cardiac questions or concerns. TODAYS ORDERS Orders Placed This Encounter Procedures POCT EKG FOLLOW UP Return in about 1 year (around 07/18/2025). PCP: CHUNG Carrillo Referring Physician: CHUNG Carrillo [address] [place] [address] [facility] Miscellaneous Notes* Telephone Encounter - Evon Alvarez CMA - 07/17/2024 2:40 PM EDT Called patient to remind them to bring their most current copy of their medication list with them to their appt. Patient verbalizes understanding. [facility] Telephone encounter Note* Telephone Encounter - Evon Alvarez CMA - 07/17/2024 2:40 PM EDT Called patient to remind them to bring their most current copy of their medication list with them to their appt. Patient verbalizes understanding. [employer] [id number] Hospital Discharge instructions Additional Instructions Drink the bottle of [...] pain fever vomiting or any other concerns [place] Work Phone: [phone] History of Present illness Narrative* Escobar Garcia APRN-[facility] WAITRESS/WAITER - 02/09/2024 8:00 AM EDT Subjective SUBJECTIVE: Patient ID: Mitchell Ga is a 73 y.o. male who presents for a Medicare Annual Wellness exam. Presents for annual medicare wellness Is accompanied by his . Is managed by cardiology, endocrine, podiatry, and rheumatology. Drives. Does not use assistive gait devices for ambulation. Annual Exam Pertinent negatives include no chest pain, chills, coughing, fatigue, fever or headaches. The following portions of the patient's history were reviewed and updated as appropriate: allergies, current medications, past family history, past medical history, past social history, past surgicalhistory and problem list. AWV FLOWSHEET : Lifestyle Assessment Do you smoke or use smokeless tobacco?: No If you smoke or use smokeless tobacco, are you ready to quit?: NA Are you exposed to secondhand smoke?: No On average, how many drinks of alcohol do you consume in a week?: None Do you exercise for 30 or more minutes on average at least 3 days a week?: Always Do you have any tooth, denture, or oral problems?: No Do you snore or has anyone told you that you snore?: (!) Yes Do you try to eat a balanced diet?: Yes Do you experience leakage of urine, also known as urinary incontinence?: Never Do you have difficulty performing any of these activities? (check all that apply): None Do you have difficulty performing any of these activities? (check all that apply): None Witnessed snoring, does not wish to pursue sleep study at this time. Fall Risk Fall Risk Assessment Completed?: Yes Have you fallen in the past year?: No Are you worried about falling?: No Do you feel unsteady when standing or walking?: No Risk Stratification: Low Risk Depression Screening Little interest or pleasure in doing things: Not at all Feeling down, depressed, or hopeless: Not at all PEG Scale Safety Assessment Do you have throw rugs on the floor?: (!) Yes Do you feel safe at your home?: Yes Do you feel unsteady when walking?: No Are you having difficulty with driving?: No Do you have trouble seeing?: No What assistive device do you use? (check all that apply): None Throw rugs increase rugs for slips trips and falls. Hearing Assessment Do you strain or struggle to hear/understand conversations?: No Do you have trouble hearing the television or radio when others do not?: No Does your family ever voice concerns about your hearing?: No Do you wear hearing aid/s?: No Personal Health During the past 4 weeks, how would you rate your overall health?: Good Do you understand how to take all of your medications?: Yes How confident are you that you can control and manage most of your health problems?: Very confident In the past 12 months, how many times have you been hospitalized?: None End of Life Planning Do you have a living will?: Yes Do you have a durable power of claim attorney?: Yes Cognitive Screening Do you have trouble remembering or recalling facts or events?: No Do family members or caregivers report that you have difficulty remembering things?: No Clock Drawing Test: Normal REVIEW OF SYSTEMS: Review of Systems Constitutional: [...] Hematological: Does not bruise/bleed easily. Psychiatric/Behavioral: Negative. Objective PHYSICAL EXAMINATION: Vitals: 02/09/24 0834 BP: 140/62 BP Site: Left Arm BP Postition: Sitting Pulse: 61 Resp: 16 Temp: 36.2 C (97.1 F) TempSrc: Tympanic SpO2: 94% Weight: 112.9 kg (249 lb) Height: 190.5 cm (6' 3 ) Physical Exam Vitals and nursing note reviewed. [...] Content: Thought content normal. Judgment: Judgment normal. Assessment/Plan ASSESSMENT/PLAN Lenin was seen today for annual exam. Diagnoses and all orders for this visit: Medicare annual wellness visit, subsequent Chronic atrial fibrillation ([facility]) - apixaban (ELIQUIS) 5 mg tablet; Take 1 tablet (5 mg total) by mouth in the morning and 1 tablet (5 mg total) before bedtime. Gastroesophageal reflux disease without esophagitis - famotidine (PEPCID) 40 mg tablet; TAKE 1 TABLET IN THE MORNING Acquired hypothyroidism - levothyroxine (SYNTHROID, LEVOTHROID) 150 MCG tablet; Take 1 tablet (150 mcg total) by mouth in the morning. DM type 2 with diabetic mixed hyperlipidemia ([facility]) - simvastatin (ZOCOR) 20 mg tablet; Take 1 tablet (20 mg total) by mouth in the morning. - Lipid panel; Future - Basic Metabolic Panel; Future Reorder routine medications Lab drawn in office today Colonoscopy screening discussed today. Risk and benefits of procedure explained. Patient declines. Does not wish to pursue Cologuard. Body mass index is 31.12 kg/m . Patient noted to have elevated BMI and the following intervention(s) were applied: Discussed current weight today. Consider healthy food choices, portion control. Avoid sugary beverages and high concentrated sweets. Routine exercise regimen encouraged. Total time spent was 30 minutes: Preparing to see the patient (e.g., review of tests) Obtaining and/or reviewing separately obtained history Performing a medically appropriate examination and/or evaluation Counseling and educating the patient/family/caregiver Ordering medications, tests, or procedures Return in about 6 months (around 08/11/2024). CHUNG Carrillo 02/09/24 0954 documented [facility] this [facility] History of Present illness Narrative* CHUNG Carrillo - 01/02/2024 8:00 AM EDT Images from the original note were not included. [address] [address] [facility] [id number] SUBJECTIVE: Patient ID: Mitchell Ga is a [...] past medical history, past social history, past surgicalhistory and problem list. Past Surgical History: Procedure Laterality Date BONE BIOPSY Cardiac catheterization- Cors+LV gram/press [id number] N/A 09/17/2021 Performed by Ronal Ramirez MD at [facility] Coronary angiogram and left ventricular gram/pressure N/A 09/17/2021 Performed by Ronal Ramirez MD at [facility] EYE SURGERY 05/10/2021 burst blood vessels INGUINAL HERNIA REPAIR Right LITHOTRIPSY MULTIPLE TOOTH EXTRACTIONS Stent drug-eluting left anterior descending N/A 09/17/2021 Performed by Ronal Ramirez MD at [facility] LABS TONSILLECTOMY Past Medical History: Diagnosis Date Arrhythmia Callus Diabetes mellitus (CMS-HCC) Disease of thyroid gland Edema, lower extremity Fatigue Hyperlipidemia Hypertension Hypothyroidism Kidney stones Low vision without extraocular lens corrrection Obesity Osteomyelitis (CMS-HCC) Ruptured eardrum Skin ulcer of toe ([facility]) Immunization History Administered Date(s) Administered COVID-19, mRNA, [...] and the following intervention(s) were applied: encouragement toexercise. Physical Exam Vitals and nursing note reviewed. [...] mouth in the morning. Chronic atrial fibrillation ([facility]) - apixaban (ELIQUIS) 5 mg tablet; Take [...] of apixaban provided for atrial fibrillation LOT [id number] Body mass index is 31.05 kg/m . [...] CHUNG Carrillo 01/02/24 0837 documented in this encounterProMedica Health [id number] History of Present illness Narrative* Escobar Garcia, AVIATION ORDNANCE OFFICER-[employer]/WAITER - 12/12/2023 8:00 AM EST Images from the original note were not included. [address] [place] [address] SUBJECTIVE: Patient ID: Mitchell Ga is a [...] no compliance problems. Hypertensive end-organ damage includes CAD/IA. The following portions of the patient's history were reviewed and updated as appropriate: allergies, current medications, past family history, past medical history, past social history, past surgicalhistory and problem list. Past Surgical History: Procedure Laterality Date BONE BIOPSY Cardiac catheterization- Cors+LV gram/press 15456 N/A 09/17/2021 Performed by Ronal Ramirez MD at [facility] CARDIAC CATH LABS Coronary angiogram and left ventricular gram/pressure N/A 09/17/2021 Performed by Ronal Ramirez MD at [facility] CARDIAC CATH LABS EYE SURGERY 05/10/2021 burst blood vessels INGUINAL HERNIA REPAIR Right LITHOTRIPSY MULTIPLE TOOTH EXTRACTIONS Stent drug-eluting left anterior descending N/A 09/17/2021 Performed by Ronal Ramirez MD at [facility] CARDIAC CATH LABS TONSILLECTOMY Past Medical [...] and the following intervention(s) were applied: encouragement toexercise. Physical Exam Vitals and nursing note reviewed. [...] visit: Benign essential HTN Chronic atrial fibrillation ([facility]) DM type 2 with diabetic mixed hyperlipidemia ([facility]) Diabetic ulcer of toe of left foot associated with type 2 diabetes mellitus, unspecified ulcer stage ([facility]) HTN Patient brought in home monitor. 158/90 [...] Samples of Eliquis 5 mg provided. Lot [id number]. EXPIRATION January 2025 ALL QUESTIONS ANSWERED Total time spent was 25 minutes: Preparing to see the patient (e.g., review of tests) Obtaining and/or reviewing separately obtained history Performing a medically appropriate examination and/or evaluation Counseling and educating the patient/family/caregiver Ordering medications, tests, or procedures Follow-up: 3 weeks BP check CHUNG Carrillo 12/12/23 0851 documented [facility] Miscellaneous Notes* Telephone Encounter - Manuel Childs RN - 11/23/2023 2:36 PM EST P/c from patient requesting samples of eliquis. Samples will be taken to [facility] office and sample log updated. OV 06/14/23 12/31/22 CMP, CBC documented in this encounterC[facility]-14-[facility]24 Telephone encounter Note* Telephone Encounter - Manuel Childs RN - 11/23/2023 2:36 PM EST P/c from patient requesting samples of eliquis. Samples will be taken to [facility] office and sample log updated. OV 06/14/23 12/31/22 CMP, CBC [facility]02-05-2024 Miscellaneous Notes* Telephone Encounter - Eduarda Siddiqi LPN - 11/14/2023 1:51 PM EST Samples of this drug were given to the patient, quantity 2 boxes, Lot Number [id number], exp 02/2025 documented in this encounterC[facility]-05-2024 Telephone encounter Note* Telephone Encounter - Eduarda Siddiqi LPN - 11/14/2023 1:51 PM EST Samples of this drug were given to the patient, quantity 2 boxes, Lot Number [id number], exp 02/2025 [facility] [employer] [id number] Miscellaneous Notes* Telephone Encounter - Vilma Naylor RN - 11/06/2023 6:02 AM EST Images from the original note were not included. Last OV 06/14/23. CBC 12/31/22. CMP 12/31/22. documented in this encounterC[facility]01-28-2024 Telephone encounter Note* Telephone Encounter - Vilma Naylor RN - 11/06/2023 6:02 AM EST Images from the original note were not included. Last OV 06/14/23. CBC 12/31/22. CMP 12/31/22. [facility]Eval[facility]ayhealth [facility] noteNo assessment information available [place] Work Phone: Evaluation note* Diagnosis Type 2 diabetes mellitus with hyperglycemia, with long-term current use of insulin ([facility])- Primary Primary hypertension (CMS/HCC) Unspecified essential hypertension Vitamin D deficiency Encounter for dietary consultation Insulin long-term use ([facility]) Encounter for long-term (current) use of insulin documented in this encounter [facility] HealthcareEvaluation note* Diagnosis Chronic atrial fibrillation ([facility]) Atrial fibrillation Abnormal stress test Other nonspecific abnormal cardiovascular system function study documented in this encounter [facility] System[facility]* Diagnosis Acquired hypothyroidism Unspecified hypothyroidism documented in this encounter [facility] note* Diagnosis Medicare annual wellness visit, subsequent- Primary Chronic atrial fibrillation (CMS-HCC) Atrial fibrillation Gastroesophageal reflux disease without esophagitis Esophageal reflux Acquired hypothyroidism Unspecified hypothyroidism DM type 2 with diabetic mixed hyperlipidemia ([facility]) [facility]* Diagnosis Gastroesophageal reflux disease without esophagitis Esophageal reflux documented in this encounter [facility] note* Diagnosis Chronic atrial fibrillation ([facility]) Atrial fibrillation documented in this encounter [facility] note* Diagnosis Acquired hypothyroidism Unspecified hypothyroidism [facility]* Diagnosis Benign essential HTN- Primary Chronic atrial fibrillation ([facility]) Atrial fibrillation DM type 2 with diabetic mixed hyperlipidemia ([facility]) Diabetic ulcer of toe of left foot associated with type 2 diabetes mellitus, unspecified ulcer stage ([facility]) documented in this encounter [facility] note* Diagnosis Essential hypertension- Primary Unspecified essential hypertension Chronic atrial fibrillation ([facility]) Atrial fibrillation documented in this encounter [facility] note* Diagnosis History of coronary angioplasty with insertion of stent- Primary Chronic atrial fibrillation ([facility]) Atrial fibrillation Primary hypertension Unspecified essential hypertension Hyperlipidemia, unspecified hyperlipidemia type documented in this encounter [facility] note* Diagnosis Essential hypertension Unspecified essential hypertension documented in this encounter [facility] note* Diagnosis DM type 2 with diabetic mixed hyperlipidemia ([facility])- Primary Acquired hypothyroidism Unspecified hypothyroidism GERD without esophagitis Esophageal reflux Chronic atrial fibrillation ([facility]) Atrial fibrillation Benign essential HTN documented in this encounter [facility] System[facility] note* Diagnosis Primary hypertension- Primary Unspecified essential hypertension Chronic atrial fibrillation ([facility]) Atrial fibrillation Essential hypertension Unspecified essential hypertension Coronary artery disease involving [place] coronary artery of [place] heart without angina pectoris DM type 2 with diabetic mixed hyperlipidemia ([facility]) documented in this encounter [facility] System[facility] note* Diagnosis Essential hypertension Unspecified essential hypertension Gastroesophageal reflux disease without esophagitis Esophageal reflux documented in this encounter [facility] SystemEvaluation note* Diagnosis Type 2 diabetes mellitus with hyperglycemia, with long-term current use of insulin ([facility])- Primary documented in this encounter [facility] HealthcareEvaluation note* Diagnosis Type 2 diabetes mellitus with hyperglycemia, with long-term current use of insulin ([facility])- Primary Primary hypertension ([facility]) Unspecified essential hypertension Vitamin D deficiency Encounter for dietary consultation Insulin long-term use ([facility]) Encounter for long-term (current) use of insulin documented in this encounter [facility] HealthcareEvaluation note* Diagnosis Medicare annual wellness visit, subsequent- Primary DM type 2 with diabetic mixed hyperlipidemia ([facility]) Diabetic ulcer of toe of left foot associated with type 2 diabetes mellitus, unspecified ulcer stage ([facility]) documented in this encounter [facility]* Diagnosis DM type 2 with diabetic mixed hyperlipidemia ([facility]) [facility]* Diagnosis Gastroesophageal reflux disease without esophagitis Esophageal reflux [facility] in this [facility]* Diagnosis Coronary artery disease involving [place] coronary artery of [place] heart without angina pectoris- Primary History of coronary angioplasty with insertion of stent Chronic atrial fibrillation ([facility]) Atrial fibrillation Essential hypertension Unspecified essential hypertension Mixed hyperlipidemia Primary hypertension Unspecified essential hypertension documented in this encounter [facility] SystemEvaluation note* Diagnosis Essential hypertension Unspecified essential hypertension documented in this encounter [facility] Health SystemInstructionsNot on filedocumented in this encounter [facility] Health SystemInstructionsNot on filedocumented in this encounter [facility] Health SystemInstructionsNot on filedocumented in this encounter [facility] [employer] SystemInstructionsNot on filedocumented in this encounter [facility] [employer] SystemInstructions* Attachments The following attachments cannot be sent through Care Everywhere. * Hypothyroidism (underactive thyroid) (Syrian) documented in this encounterProCleveland Clinic FoundationGlobal Locate SystemInstructionsNot on file documented in this encounterProCleveland Clinic FoundationGlobal Locate SystemInstructionsNot on file documented in this encounterProV[facility] [employer] SystemInstructionsNot on file documented in this encounterC[facility] [employer] SystemInstructions* Attachments The following attachments cannot be sent through Care Everywhere. * Controlling your blood pressure through lifestyle (Syrian) documented in [facility] encounterC[facility] [employer] SystemInstructions* Attachments The following attachments cannot be sent through Care Everywhere. * Atrial fibrillation (Syrian) * High Blood Pressure ED (Syrian) documented in this encounterProCleveland Clinic FoundationGlobal Locate SystemInstructionsNot on file documented in this encounterProCleveland Clinic FoundationGlobal Locate SystemInstructionsNot on file documented in this encounterProV[facility] [employer] SystemInstructionsNot on file documented in this encounterA[facility] SystemInstructions* Attachments The following attachments cannot be sent through Care Everywhere. * Atrial fibrillation (Syrian) documented in this encounterProV[facility] [employer] SystemInstructionsNot on file documented in this encounterC[facility] [employer] SystemInstructions* Attachments The following attachments cannot be sent through Care Everywhere. * Diabetes and heart disease (Syrian) documented in [facility] encounterA[facility] Summary Purpose Family History Relationship Condition Age at Onset Recorded Date/T mary Not Specified Diabetes mellitus Unknown fatherLeukemiaUnknown Advance Directives Advance Directive Response Recorded Date/ Time Advance Directives No July 20, 2017 11:08am Date ActivatedDate InactivatedComments02/23/2022 3:46 PM02/26/2022 1:41 AMDate ActivatedDate InactivatedComments01/17/2022 1:05 AM01/19/2022 7:59 PMCode Status Date ActivatedDate InactivatedCommentsFull Code02/23/2022 3:46 PM02/26/2022 1:41 AMCode StatusDate ActivatedDate InactivatedCommentsFull Code01/17/2022 1:05 AM 01/19/2022 7:59 PM Chief Complaint and Reason for Visit Chief Complaint tailbone inj, fell 5 -5-24 Additional Source Comments (unrecognized sect ion and content) No Status Records FoundNo Status Records FoundNo Status Records FoundNo Status Records FoundNo Status Records FoundNo Status Records Found INFORMATION SOURCE (unrecogn ized section and content) DATE CREATED AUTHOR 01/05/[address] [facility] DATE CREATED AUTHOR AUTHOR'S ORGANIZ ATION 02/11/2024 [facility] DATE CREATED AUTHOR AUTHOR'S ORGANIZ ATION 03/02/2024 [facility] DATE CREATED AUTHOR AUTHOR'S ORGANIZ ATION 02/20/2025 [facility] EPIC DATE CREATED AUTHOR AUTHOR'S ORGANIZ ATION 03/10/2025 [facility] DATE CREATED AUTHOR AUTHOR'S ORGANIZ ATION 06/27/2025 [facility] Care Teams (unrecognized sec tion and content) Team Status: Active Member Role Status Dates PATIENCE Carrillo Primary Care Provider Active Team Status: Inactive Member Role Status Dates PATIENCE Carrillo Primary Care Provider Active Cesar Villeda ProviderActive Team Status: Inactive Member Role Status Dates PATIENCE Carrillo Primary Care Provider Active Start: February 20, 2024 End: February 20, 2024Ginger E Bullimore , NON DESTRUCTIVE TESTING SUPERVISOR-BCEmergency ProviderActiveStart: February 20, 2024 End: February 20, 2024Team MemberRelationshipSpecialtyStart DateEnd Date Escobar Garcia [facility] [address] [place] [address] PCP - GeneralNurse Practitioner05/24/17Team MemberRelationshipSpecialtyStart Date End Date Escobar Garcia [facility] [address], [place] [address] PCP - GeneralNurse Practitioner05/24/17am MemberRelationshipSpecialtyStart Date End Date Escobar Garcia [facility] [address] [place] [address] PCP - GeneralNurse Practitioner05/24/17Team MemberRelationshipSpecialtyStart Date End Date Escobar Garcia [facility] [address] [place] [address] PCP - GeneralNurse Practitioner05/24/17Team MemberRelationshipSpecialtyStart Date End Date Escobar Garcia [facility] [address], [place] [address] PCP - GeneralNurse Practitioner05/24/17Team MemberRelationshipSpecialtyStart Date End Date Escobar Garcia [facility] [address] [place] [address] PCP - GeneralNurse Practitioner05/24/17Team MemberRelationshipSpecialtyStart Date End Date Escobar Garcia AVIATION ORDNANCE OFFICER-[facility] [address] [place] [address] PCP - GeneralNurse Practitioner05/24/17am MemberRelationshipSpecialtyStart Date End Date Escobar Garcia AVIATION ORDNANCE OFFICER-[facility] [address], [place] [address] PCP - GeneralNurse Practitioner05/24/17am MemberRelationshipSpecialtyStart Date End Date Escobar Garcia AVIATION ORDNANCE OFFICER-[facility] [address] [place] [address] PCP - GeneralNurse Practitioner05/24/17 MemberRelationshipSpecialtyStart Date End Date Escobar Garcia AVIATION ORDNANCE OFFICER-[facility] [address] [place] [address] PCP - GeneralNurse Practitioner05/24/17am MemberRelationshipSpecialtyStart Date End Date Escobar Garcia AVIATION ORDNANCE OFFICER-[facility] [address], [place] [address] PCP - GeneralNurse Practitioner05/24/17Team MemberRelationshipSpecialtyStart Date End Date Escobar Garcia AVIATION ORDNANCE OFFICER-[facility] [address] [place] [address] PCP - GeneralNurse Practitioner05/24/17Team MemberRelationshipSpecialtyStart Date End Date Escobar Garcia [facility] [address] [place] [address] PCP - GeneralNurse Practitioner05/24/17Team MemberRelationshipSpecialtyStart Date End Date Escobar Garcia [facility] [address] [place] [address] PCP - GeneralNurse Practitioner05/24/17Team MemberRelationshipSpecialtyStart Date End Date Escobar Garcia [facility] [address] [place] [address] PCP - GeneralNurse Practitioner05/24/17Team MemberRelationshipSpecialtyStart Date End Date Escobar Garcia [facility] PCP - GeneralNurse Practitioner05/24/17Team MemberRelationshipSpecialtyStart Date End Date Escobar Garcia [facility] PCP - GeneralNurse Practitioner05/24/17Team MemberRelationshipSpecialtyStart Date End Date No Pcp, [place] [address] PCP - GeneralFamily Medicine06/18/25Team MemberRelationshipSpecialtyStart DateEnd Date No Pcp, [place] [address] PCP - GeneralFamily Medicine06/18/25 Goals (unrecognized section and content) Goals may be documented in a n alternate sectionGoals may be documented in an alternate section Reason for Visit (unrecogniz ed section and content) ReasonCommentsDiabetes MellitusFollow-upReasonOnset DateCommentsElevated Blood pressure ejsrgaqr49/02/2025ReasonOnset DateCommentseliquis 5mg bkcxauk3710/15/2024 ReasonOnset DateCommentsMed Vkiqgt4710/15/2024ReasonCommentsMed RefillReason CommentsAnnual ExamMedicare WellnessReasonOnset DateCommentsMed Gbidhr3310/24/2023 ReasonOnset DateCommentseliquis 5mg vmoxoyn01/05/2024ReasonOnset DateComments Ptitohi88/14/2024ReasonCommentsBP checkReasonCommentsHypertensionReasonComments Follow-upEST PT F/U 1 YR GEN CARD L/S VG,ReasonOnset DateCommentsblood pressure update.4ReasonCommentsHypertensionDiabetesReasonOnset DateCommentsMed [id number]-upF/U EARLY FOR BP MED CHANGESAtrial FibrillationCoronary Artery DiseaseHypertensionReasonOnset DateComments Medication Qrwxzuo2201/03/2025ReasonCommentsDiabetesFollow-upReasonCommentsMAW ReasonCommentsFollow-up6mo f/u l/s KM - BMP - sched appt w/ptReasonOnset Date CommentsMed Cxutrw4307/11/2025 FOR RECORDS PERTAINING TO PATIENTS WHO ARE [...] BE BASED ON THE PRIMARY CLINICAL RECORDS. [employer] [facility]. provides no warranty or guarantee of the accuracy or completeness of information in this document.
[2025-08-08 14:48] LABS: Anion Gap 14.6; Blood Urea Nitrogen 18.0 mg/dL (7.0-18.0); Calcium 8.9 mg/dL (8.5-10.1); Carbon Dioxide 21.2 mmol/L (21.0-32.0); Chloride 104 mmol/L (98-107); Cholesterol 103 mg/dL (<=200); Estimated GFR (African America >60 (>=60 mL/min/1.73m^2); Estimated GFR (Non-African Ame >60 (>=60 mL/min/1.73m^2); Glucose 151 mg/dL (74-106); HDL Cholesterol 53 mg/dL (40-60); Potassium 4.8 mmol/L (3.5-5.1); Sodium 135 mmol/L (136-145); Triglycerides 64 mg/dL (<=150); VLDL CHOLESTEROL 12.8 mg/dL
[2025-08-08 15:00] LABS: Microalbum Creatinine Ratio Ur 10.2 mg/g (0.0-29.9)
== END 2025-08-08 13:49 | disposition home or self-care (01) ==
LOC: LAB 13:51
PROVIDERS: PCP Nurse Practitioner; Visit Provider Internal Medicine
DX: E11.9 Type 2 diabetes mellitus without complications (principal)
CPT/HCPCS: 36415; 80048; 80061; 82043; 82570; 84681